=== PATIENT | female | born 1950 | race Two or more races ===

== ENCOUNTER → 2017-02-08 | Outpatient (CLI) | payer OTHER | END | disposition home or self-care (01) | LOC: Rad HDHVI 14:07 | PROVIDERS: ATTEND Internal Medicine Cardiovascular Disease | DX: I50.33 Acute on chronic diastolic (congestive) heart failure (principal); E66.9 Obesity, unspecified | CPT/HCPCS: 93306 ==

== ENCOUNTER → 2017-02-14 | Outpatient (CLI) | payer OTHER ==
[~2017-02-14] VITALS: Ht 154.9 cm; Wt 104.3 kg
[~2017-02-14] MED LIST: ALBUTEROL SULF 2.5 MG/0.5ML(0.5%) NEB SOLN ONE; DIPYRIDAMOLE (5MG/ML) 10 ML VIAL IV ONE
== END | disposition home or self-care (01) ==
LOC: Rad HDHVI 09:39
PROVIDERS: ATTEND Internal Medicine Cardiovascular Disease
DX: I11.0 Hypertensive heart disease with heart failure (principal); I50.33 Acute on chronic diastolic (congestive) heart failure; E11.65 Type 2 diabetes mellitus with hyperglycemia; J44.9 Chronic obstructive pulmonary disease, unspecified; G47.30 Sleep apnea, unspecified; E78.00 Pure hypercholesterolemia, unspecified; R06.89 Other abnormalities of breathing; E70.0 Classical phenylketonuria
CPT/HCPCS: 78452; 93005; 96374; 96375; A9500; J1245

== ENCOUNTER → 2017-03-15 | Outpatient (CLI) | payer OTHER | END | disposition home or self-care (01) | LOC: Rad HDHVI 11:08 | PROVIDERS: ATTEND Internal Medicine Cardiovascular Disease | DX: I51.7 Cardiomegaly (principal); I70.0 Atherosclerosis of aorta; I50.9 Heart failure, unspecified | CPT/HCPCS: 71020 ==

== ENCOUNTER → 2017-04-13 | Outpatient (CLI) | payer OTHER ==
[~2017-04-13] MED LIST changes: -ALBUTEROL SULF 2.5 MG/0.5ML(0.5%) NEB SOLN ONE; -DIPYRIDAMOLE (5MG/ML) 10 ML VIAL IV ONE; +EZET10TA6 PO; +FUROSEMIDE 100 MG/10ML VIAL IV ONE; +FUROSEMIDE 40 MG/4 ML VIAL ONE; +GABA300C10 PO; +IBUP800T24 PO; +INS7030I SC; +INSLANTI SC; +METF-370 PO; +METO25TA3 PO; +POTASSIUM CHL 20 Meq TABLET PO ONE
[2017-04-13 12:00] VITALS: BP 130/68
[2017-04-13 12:40] VITALS: BP 140/79
== END | disposition home or self-care (01) ==
LOC: CHF HDHVI 12:09
PROVIDERS: ATTEND Internal Medicine Cardiovascular Disease
DX: I50.9 Heart failure, unspecified (principal); E11.9 Type 2 diabetes mellitus without complications; I25.10 Atherosclerotic heart disease of native coronary artery without angina pectoris
CPT/HCPCS: 82962; 96374; G0463; J1940

== ENCOUNTER → 2017-05-18 | Outpatient (CLI) | payer MEDICARE, OTHER ==
[~2017-05-18] MED LIST changes: -FUROSEMIDE 100 MG/10ML VIAL IV ONE; -FUROSEMIDE 40 MG/4 ML VIAL ONE; -POTASSIUM CHL 20 Meq TABLET PO ONE
[2017-05-18 11:40] VITALS: BP 137/69
[2017-05-18 12:25] VITALS: BP 136/72
[2017-05-18 16:47] LABS: Basophils # (auto) 0 uL; Basophils % (auto) 0.4 % (0.0-2.0); Eosinophils # (auto) 0.5 uL; Hemoglobin 12.8 g/dL (12.2-16.2); Nucleated Red Blood Cells % 0.3 %
[2017-05-18 16:48] LABS: Eosinophils % (auto) 4.5 % (0.0-7.0); Hematocrit 40.4 % (36.0-46.0); Lymphocytes # (auto) 2.1 uL; Lymphocytes % (auto) 19.3 % (10.0-50.0); Mean Corpuscular Hemoglobin 25.6 pg (28.0-32.0); Mean Corpuscular Hgb Conc. 31.7 g/dL (32.0-36.0); Mean Corpuscular Volume 80.8 fL (80.0-100.0); Monocytes # (auto) 0.4 uL; Monocytes % (auto) 3.6 % (0.0-12.0); Neutrophils # (auto) 7.8 uL; Neutrophils % (auto) 72.2 % (37.0-80.0); Platelet Count (auto) 225 10^3/uL (140-450); Red Cell Distribution Width 15.7 % (11.8-14.3); White Blood Cell 10.9 10^3/uL (4.4-10.8)
[2017-05-18 16:54] LABS: INR 0.98 (0.9-1.15); Partial Thromboplastin Time 29.8 sec (22.64-33.71); Prothrombin Time 10.7 sec (9.37-12.3)
[2017-05-18 17:09] LABS: BUN/Creatinine Ratio 19.7; Potassium 4.3 mmol/L (3.5-5.1)
== END | disposition home or self-care (01) ==
LOC: Rad HDHVI 11:09
PROVIDERS: ATTEND Internal Medicine Cardiovascular Disease
DX: Z01.818 Encounter for other preprocedural examination (principal); I51.7 Cardiomegaly; I70.0 Atherosclerosis of aorta; D64.9 Anemia, unspecified; R79.1 Abnormal coagulation profile; I10 Essential (primary) hypertension; J44.9 Chronic obstructive pulmonary disease, unspecified; E78.00 Pure hypercholesterolemia, unspecified
CPT/HCPCS: 36415; 71046; 80048; 85025; 85610; 85730; 93005; G0463

== ENCOUNTER 2017-05-24 08:01 | Day surgery (SDC) | payer MEDICARE, OTHER ==
[~2017-05-24] VITALS: Ht 154.9 cm; Wt 104.3 kg
[2017-05-24] MEDS ORDERED: LIDOCAINE 2%HCL (LOCAL ANESTH.) INJ 20ML MDV ONE ×2 (10:21→10:55)
[2017-05-24] MEDS ORDERED: IOHEXOL 350 MG/ML 100ML IJ ONE (10:21)
[2017-05-24] MEDS ORDERED: fentaNYL CITRATE 100 MCG/2 ML VL ONE (10:31)
[2017-05-24] MEDS ORDERED: ANGIOMAX 250 MG VIAL IV ONE (10:31)
[2017-05-24] MEDS ORDERED: SODIUM CHL 0.9% 0 ML ONE (10:31)
[2017-05-24] MEDS ORDERED: MIDAZOLAM HCL 1MG/1ML-2 ML VIAL ONE (10:31)
[2017-05-24] MEDS ORDERED: IBUPROFEN 800 MG TAB PO ONE ×2 (12:45→12:52)
[2017-05-24] MEDS ORDERED: IBUP800T24 PO (13:02)
[2017-05-24] MEDS ORDERED: GABA300C10 PO (13:02)
[2017-05-24] MEDS ORDERED: EZET10TA6 PO (13:02)
[2017-05-24] MEDS ORDERED: METF-370 PO (13:02)
[2017-05-24] MEDS ORDERED: INSLANTI SC (13:02)
[2017-05-24] MEDS ORDERED: INS7030I SC (13:02)
[2017-05-24] MEDS ORDERED: METO25TA3 PO (13:02)
== END 2017-05-24 14:00 | disposition home or self-care (01) ==
LOC: CATH 08:01
PROVIDERS: ATTEND Internal Medicine Cardiovascular Disease
DX: I50.30 Unspecified diastolic (congestive) heart failure (principal); I27.20 Pulmonary hypertension, unspecified; E66.01 Morbid (severe) obesity due to excess calories; Z68.41 Body mass index [BMI] 40.0-44.9, adult; I10 Essential (primary) hypertension; E78.5 Hyperlipidemia, unspecified; Z87.891 Personal history of nicotine dependence; J44.9 Chronic obstructive pulmonary disease, unspecified; E11.9 Type 2 diabetes mellitus without complications
CPT/HCPCS: 93460; C1760; C1894; J1644; J2250; J3010; J7030; Q9967; 99152

== ENCOUNTER → 2017-06-28 | Outpatient (CLI) | payer MEDICARE, OTHER ==
[~2017-06-28] MED LIST changes: +ALBUTEROL SULF 2.5 MG/0.5ML(0.5%) NEB SOLN NEB ONE; +ALBUTEROL SULF 2.5 MG/0.5ML(0.5%) NEB SOLN ONE; +FUROSEMIDE 40 MG/4 ML VIAL IV ONE; +FUROSEMIDE 40 MG/4 ML VIAL ONE; +IOHEXOL 350 MG/ML 100ML IJ ONE; +POTASSIUM CHL 20 Meq TABLET PO ONE
[2017-06-28 13:30] VITALS: BP 138/60
[2017-06-28 15:00] VITALS: BP 121/58
== END | disposition home or self-care (01) ==
LOC: CHF HDHVI 13:32
PROVIDERS: ATTEND Internal Medicine Cardiovascular Disease
DX: I27.21 Secondary pulmonary arterial hypertension (principal); E66.9 Obesity, unspecified; J44.9 Chronic obstructive pulmonary disease, unspecified
CPT/HCPCS: 70498; 82565; 94640; 96374; G0463; J1940; Q9967

== ENCOUNTER 2017-08-07 16:18 | Inpatient (IN) | payer MEDICARE, OTHER ==
[~2017-08-07] VITALS: Ht 154.9 cm; Wt 105.9 kg
[~2017-08-07 16:18] MED LIST changes: -ALBUTEROL SULF 2.5 MG/0.5ML(0.5%) NEB SOLN NEB ONE; -ALBUTEROL SULF 2.5 MG/0.5ML(0.5%) NEB SOLN ONE; -FUROSEMIDE 40 MG/4 ML VIAL IV ONE; -FUROSEMIDE 40 MG/4 ML VIAL ONE; -IOHEXOL 350 MG/ML 100ML IJ ONE; -POTASSIUM CHL 20 Meq TABLET PO ONE
[2017-08-07] MEDS ORDERED: FUROSEMIDE 40 MG/4 ML VIAL IV ONE (17:15)
[2017-08-07 17:18] LABS: Alanine Aminotransferase 24 U/L (13-56); Anion Gap 11 (5-15); Aspartate Aminotransferase 16 U/L (15-37); BUN/Creatinine Ratio 14.2; Blood Urea Nitrogen 16 mg/dL (7-18); Calcium 8.2 mg/dL (8.5-10.1); Carbon Dioxide 28 mmol/L (21-32); Chloride 102 mmol/L (98-107); GFR African American 62 mL/min; GFR Non-African American 51 mL/min; Glucose 178 mg/dL (74-106); Hematocrit 39.4 % (36.0-46.0); Mean Corpuscular Hemoglobin 25.6 pg (28.0-32.0); Monocytes # (auto) 0.5 uL; Neutrophils # (auto) 9.5 uL; Nucleated Red Blood Cells % 0.1 %; Potassium 4.2 mmol/L (3.5-5.1); Red Cell Distribution Width 15.4 % (11.8-14.3); Sodium 141 mmol/L (136-145)
[2017-08-07 17:21] LABS: Basophils # (auto) 0 uL; Basophils % (auto) 0.3 % (0.0-2.0); Eosinophils # (auto) 0.5 uL; Eosinophils % (auto) 4.3 % (0.0-7.0); Hemoglobin 12.5 g/dL (12.2-16.2); Lymphocytes # (auto) 1.8 uL; Lymphocytes % (auto) 14.6 % (10.0-50.0); Mean Corpuscular Hgb Conc. 31.7 g/dL (32.0-36.0); Mean Corpuscular Volume 80.9 fL (80.0-100.0); Neutrophils % (auto) 76.8 % (37.0-80.0); Platelet Count (auto) 279 10^3/uL (140-450); Red Blood Cells 4.87 10^6/uL (4.0-5.20); White Blood Cell 12.4 10^3/uL (4.4-10.8)
[2017-08-07 17:36] LABS: Alkaline Phosphatase 122 U/L (45-117); Bilirubin, Total 0.5 mg/dL (0.2-1.0); Total Protein 7.6 g/dL (6.4-8.2)
[2017-08-07 21:27] LABS: Urine Bacteria NONE SEEN /hpf (None Seen); Urine Blood Negative /uL (Negative); Urine Mucus FEW (None Seen); Urine Specific Gravity 1.006 (1.001-1.035); Urine WBC 1 /hpf (0 - 5)
[2017-08-07] MEDS ORDERED: ALBUTEROL SULF 2.5 MG/0.5ML(0.5%) NEB SOLN NEB ONE (22:30)
[2017-08-07] MEDS ORDERED: IPRATROPIUM BROM 0.5 MG/2.5ML INH SOL NEB ONE (22:30)
[2017-08-07] MEDS ORDERED: DEXTROSE (50%) 50ML SYRG IV PRN (23:15)
[2017-08-07] MEDS ORDERED: cefTRIAXone 1GM/10ml IVPUSH 10 ML IV ONE (23:15)
[2017-08-07] MEDS ORDERED: ONDANSETRON HCL 4 MG/2 ML VIAL IV PRN (23:15)
[2017-08-07] MEDS ORDERED: NITROGLYCERIN 0.4 MG SL TAB SL PRN (23:15)
[2017-08-07] MEDS ORDERED: TEMAZEPAM 15 MG CAP PO PRN (23:15)
[2017-08-07] MEDS ORDERED: MORPHINE SULFATE 4 MG/ML SYR/VIAL IV PRN (23:15)
[2017-08-07] MEDS ORDERED: IPRATROPIUM BROM 0.5 MG/2.5ML INH SOL NEB PRN (23:15)
[2017-08-07] MEDS ORDERED: ACETAMINOPHEN 325 MG TAB PO PRN ×2 (23:15)
[2017-08-07] MEDS ORDERED: DOCUSATE SOD 100 MG CAP PO PRN (23:15)
[2017-08-07] MEDS ORDERED: ALBUTEROL SULF 2.5 MG/0.5ML(0.5%) NEB SOLN NEB PRN (23:15)
[2017-08-07] MEDS: InsuLIN REG 1unit/0.01ml Soln (100units/ml) SC SCH (23:48)
[2017-08-07] MEDS: ACCU-CHEK COMFORT CURVE STRIP VI SCH (23:48)
[2017-08-07 23:49] VITALS: BP 131/90
[2017-08-08] VITALS (8 sets, daily range): BP systolic 108–153; BP diastolic 42–91
[2017-08-08] MEDS: FUROSEMIDE 20 MG TAB PO SCH ×2 (06:04→17:55)
[2017-08-08] MEDS: InsuLIN REG 1unit/0.01ml Soln (100units/ml) SC SCH ×4 (06:05→23:45)
[2017-08-08] MEDS: GABAPENTIN 300 MG CAP PO SCH ×3 (06:05→21:18)
[2017-08-08] MEDS: ACCU-CHEK COMFORT CURVE STRIP VI SCH ×3 (06:06→17:39)
[2017-08-08 07:10] LABS: Basophils # (auto) 0 uL; Eosinophils # (auto) 0.7 uL; Hemoglobin 12.5 g/dL (12.2-16.2); White Blood Cell 11.7 10^3/uL (4.4-10.8)
[2017-08-08 07:11] LABS: Basophils % (auto) 0.3 % (0.0-2.0); Eosinophils % (auto) 6.1 % (0.0-7.0); Hematocrit 39.4 % (36.0-46.0); Lymphocytes # (auto) 2.2 uL; Lymphocytes % (auto) 19.2 % (10.0-50.0); Mean Corpuscular Hemoglobin 25.8 pg (28.0-32.0); Mean Corpuscular Hgb Conc. 31.8 g/dL (32.0-36.0); Mean Corpuscular Volume 80.9 fL (80.0-100.0); Monocytes # (auto) 0.6 uL; Monocytes % (auto) 5.2 % (0.0-12.0); Neutrophils # (auto) 8.1 uL; Neutrophils % (auto) 69.2 % (37.0-80.0); Nucleated Red Blood Cells % 0.1 %; Platelet Count (auto) 265 10^3/uL (140-450); Red Blood Cells 4.87 10^6/uL (4.0-5.20); Red Cell Distribution Width 15.6 % (11.8-14.3)
[2017-08-08 07:13] LABS: Potassium 3.9 mmol/L (3.5-5.1)
[2017-08-08 07:18] LABS: Albumin 3.2 g/dL (3.4-5.0); Calcium 8.6 mg/dL (8.5-10.1)
[2017-08-08 07:28] LABS: Bilirubin, Total 0.6 mg/dL (0.2-1.0); Total Protein 7.8 g/dL (6.4-8.2)
[2017-08-08] MEDS: METOPROLOL SUCCINATE XL 50 MG TAB PO SCH (10:00)
[2017-08-08] MEDS: FAMOTIDINE 20 MG TAB PO SCH ×2 (10:35→21:18)
[2017-08-08] MEDS: cefTRIAXone 1GM/10ml IVPUSH 10 ML IV SCH (10:35)
[2017-08-08] MEDS: ENOXAPARIN SOD 40 MG/0.4 ML SYRINGE SC SCH (10:35)
[2017-08-08] MEDS ORDERED: ADENOSINE 87 MG in GIVE UN-DILUTED 0 ML IV STA (11:07)
[2017-08-08] MEDS ORDERED: ALBUTEROL SULF 2.5 MG/0.5ML(0.5%) NEB SOLN ONE (11:53)
[2017-08-08] MEDS ORDERED: IPRATROPIUM BROM 0.5 MG/2.5ML INH SOL ONE (11:54)
[2017-08-08] MEDS: Boost Glucose Control 8 Ounces PO SCH (17:56)
[2017-08-08] MEDS: ALBUTEROL SULF 2.5 MG/0.5ML(0.5%) NEB SOLN NEB SCH ×2 (18:24→22:11)
[2017-08-08] MEDS: IPRATROPIUM BROM 0.5 MG/2.5ML INH SOL NEB SCH ×2 (18:24→22:11)
[2017-08-09] MEDS: ACCU-CHEK COMFORT CURVE STRIP VI SCH ×4 (00:29→18:00)
[2017-08-09] MEDS: ALBUTEROL SULF 2.5 MG/0.5ML(0.5%) NEB SOLN NEB SCH ×4 (03:18→13:53)
[2017-08-09] MEDS: IPRATROPIUM BROM 0.5 MG/2.5ML INH SOL NEB SCH ×4 (03:18→13:53)
[2017-08-09 05:41] VITALS: BP 127/68
[2017-08-09] MEDS: GABAPENTIN 300 MG CAP PO SCH ×2 (05:57→14:25)
[2017-08-09] MEDS: FUROSEMIDE 20 MG TAB PO SCH ×2 (05:57→18:00)
[2017-08-09] MEDS: InsuLIN REG 1unit/0.01ml Soln (100units/ml) SC SCH ×3 (06:06→18:00)
[2017-08-09 07:02] LABS: Eosinophils # (auto) 0.6 uL; Hematocrit 38.6 % (36.0-46.0); Lymphocytes # (auto) 1.9 uL; Mean Corpuscular Volume 80.7 fL (80.0-100.0); Red Cell Distribution Width 15.6 % (11.8-14.3)
[2017-08-09 07:05] LABS: Anion Gap 9 (5-15); BUN/Creatinine Ratio 17.6; Blood Urea Nitrogen 15 mg/dL (7-18); Calcium 8.5 mg/dL (8.5-10.1); Carbon Dioxide 33 mmol/L (21-32); Chloride 95 mmol/L (98-107); GFR African American 86 mL/min; GFR Non-African American 71 mL/min; Glucose 155 mg/dL (74-106); Potassium 3.6 mmol/L (3.5-5.1); Sodium 137 mmol/L (136-145)
[2017-08-09 07:07] LABS: Basophils # (auto) 0 uL; Basophils % (auto) 0.2 % (0.0-2.0); Eosinophils % (auto) 5.4 % (0.0-7.0); Hemoglobin 12.3 g/dL (12.2-16.2); Lymphocytes % (auto) 16.3 % (10.0-50.0); Mean Corpuscular Hemoglobin 25.7 pg (28.0-32.0); Mean Corpuscular Hgb Conc. 31.8 g/dL (32.0-36.0); Monocytes # (auto) 0.6 uL; Monocytes % (auto) 5.4 % (0.0-12.0); Neutrophils # (auto) 8.5 uL; Neutrophils % (auto) 72.7 % (37.0-80.0); Platelet Count (auto) 262 10^3/uL (140-450); Red Blood Cells 4.79 10^6/uL (4.0-5.20); White Blood Cell 11.7 10^3/uL (4.4-10.8)
[2017-08-09] MEDS: FAMOTIDINE 20 MG TAB PO SCH (09:00)
[2017-08-09] MEDS: cefTRIAXone 1GM/10ml IVPUSH 10 ML IV SCH (09:00)
[2017-08-09] MEDS: Boost Glucose Control 8 Ounces PO SCH ×3 (09:00→18:00)
[2017-08-09] MEDS: METOPROLOL SUCCINATE XL 50 MG TAB PO SCH (09:01)
[2017-08-09 09:59] VITALS: BP 125/77
[2017-08-09] MEDS: ENOXAPARIN SOD 40 MG/0.4 ML SYRINGE SC SCH (11:57)
[2017-08-09 12:00] VITALS: BP 118/69
[2017-08-09 17:10] VITALS: BP 120/67
== END 2017-08-09 19:43 | disposition home or self-care (01) | DRG 291 ==
LOC: ER 16:21 → TELE 16:22 → TELE-WESTW 23:28
PROVIDERS: ADMIT Nurse Practitioner; ATTEND Internal Medicine
DX: I13.0 Hypertensive heart and chronic kidney disease with heart failure and stage 1 through stage 4 chronic kidney disease, or unspecified chronic kidney disease (principal); I50.33 Acute on chronic diastolic (congestive) heart failure; E44.0 Moderate protein-calorie malnutrition; J96.10 Chronic respiratory failure, unspecified whether with hypoxia or hypercapnia; Z68.41 Body mass index [BMI] 40.0-44.9, adult; E11.22 Type 2 diabetes mellitus with diabetic chronic kidney disease; Z99.81 Dependence on supplemental oxygen; J44.9 Chronic obstructive pulmonary disease, unspecified; G47.00 Insomnia, unspecified; E11.65 Type 2 diabetes mellitus with hyperglycemia; E66.01 Morbid (severe) obesity due to excess calories; D72.829 Elevated white blood cell count, unspecified; Z87.891 Personal history of nicotine dependence; Z90.710 Acquired absence of both cervix and uterus; Z90.49 Acquired absence of other specified parts of digestive tract; Z79.4 Long term (current) use of insulin; Z79.899 Other long term (current) drug therapy; N18.2 Chronic kidney disease, stage 2 (mild)
CPT/HCPCS: 36415; 71045; 80048; 80053; 81001; 82962; 83036; 83880; 84484; 85025; 93005; 93017; 94640; 96374; 96375; J0153; J1815

== ENCOUNTER → 2017-09-24 | Outpatient (CLI) | payer MEDICARE, OTHER ==
[~2017-09-24] MED LIST changes: -EZET10TA6 PO; +IOHEXOL 350 MG/ML 100ML IJ ONE; -METO25TA3 PO; +READI-CAT 2 (BARIUM SULF)(VANILLA SMOOTHIE) 450ML ONE
[2017-09-24 09:15] VITALS: BP 123/61
[2017-09-24 12:10] VITALS: BP 135/48
[2017-09-24 12:12] LABS: Basophils # (auto) 0 uL; Basophils % (auto) 0.2 % (0.0-2.0); Eosinophils # (auto) 0.4 uL; Eosinophils % (auto) 3.3 % (0.0-7.0); Hematocrit 41.8 % (36.0-46.0); Hemoglobin 13.2 g/dL (12.2-16.2); Lymphocytes # (auto) 1.7 uL; Lymphocytes % (auto) 13.6 % (10.0-50.0); Mean Corpuscular Hemoglobin 24.5 pg (28.0-32.0); Mean Corpuscular Hgb Conc. 31.5 g/dL (32.0-36.0); Monocytes # (auto) 0.5 uL; Monocytes % (auto) 3.8 % (0.0-12.0); Neutrophils # (auto) 10.1 uL; Neutrophils % (auto) 79.1 % (37.0-80.0); Nucleated Red Blood Cells % 0.1 %; Platelet Count (auto) 267 10^3/uL (140-450); Red Blood Cells 5.36 10^6/uL (4.0-5.20); Red Cell Distribution Width 15.9 % (11.8-14.3); White Blood Cell 12.7 10^3/uL (4.4-10.8)
[2017-09-24 12:22] LABS: Urine Bacteria NONE SEEN /hpf (None Seen); Urine Blood Negative /uL (Negative); Urine Specific Gravity 1.018 (1.001-1.035); Urine WBC 13 /hpf (0 - 5)
[2017-09-24 12:25] LABS: Potassium 3.5 mmol/L (3.5-5.1)
[2017-09-24 12:54] LABS: Albumin 3.1 g/dL (3.4-5.0); BUN/Creatinine Ratio 19.4; Calcium 8.6 mg/dL (8.5-10.1); Magnesium 2.2 mg/dL (1.6-2.6); Total Protein 7.7 g/dL (6.4-8.2)
== END | disposition home or self-care (01) ==
LOC: CHF HDHVI 09:10
PROVIDERS: ATTEND Internal Medicine Cardiovascular Disease
DX: K44.9 Diaphragmatic hernia without obstruction or gangrene (principal); N28.1 Cyst of kidney, acquired; I70.0 Atherosclerosis of aorta; R74.8 Abnormal levels of other serum enzymes; I10 Essential (primary) hypertension; D64.9 Anemia, unspecified; E55.9 Vitamin D deficiency, unspecified; E11.9 Type 2 diabetes mellitus without complications; N39.0 Urinary tract infection, site not specified; Z90.49 Acquired absence of other specified parts of digestive tract
CPT/HCPCS: 36415; 74177; 80053; 81001; 82150; 82306; 82565; 82962; 83036; 83690; 83735; 85025; 87086; G0463; Q9967

== ENCOUNTER → 2017-12-20 | Outpatient (CLI) | payer MEDICARE, OTHER ==
[~2017-12-20] MED LIST changes: -IOHEXOL 350 MG/ML 100ML IJ ONE; -READI-CAT 2 (BARIUM SULF)(VANILLA SMOOTHIE) 450ML ONE
[2017-12-20 10:05] VITALS: BP 125/61
[2017-12-20 11:25] VITALS: BP 116/53
[2017-12-20 12:15] LABS: Basophils # (auto) 0 uL; Basophils % (auto) 0.3 % (0.0-2.0); Eosinophils # (auto) 0.4 uL; Hemoglobin 12.8 g/dL (12.2-16.2); Lymphocytes # (auto) 2.2 uL; Mean Corpuscular Hemoglobin 24.2 pg (28.0-32.0); Monocytes # (auto) 0.5 uL; Red Blood Cells 5.28 10^6/uL (4.0-5.20); White Blood Cell 9.9 10^3/uL (4.4-10.8)
[2017-12-20 12:17] LABS: Hematocrit 40.8 % (36.0-46.0); Lymphocytes % (auto) 22.6 % (10.0-50.0); Mean Corpuscular Hgb Conc. 31.3 g/dL (32.0-36.0); Mean Corpuscular Volume 77.4 fL (80.0-100.0); Neutrophils # (auto) 6.7 uL; Neutrophils % (auto) 68.1 % (37.0-80.0); Nucleated Red Blood Cells % 0.1 %; Platelet Count (auto) 267 10^3/uL (140-450); Red Cell Distribution Width 17.2 % (11.8-14.3)
[2017-12-20 13:45] LABS: BUN/Creatinine Ratio 17.4; Calcium 8.5 mg/dL (8.5-10.1)
== END | disposition home or self-care (01) ==
LOC: CHF HDHVI 10:15
PROVIDERS: ATTEND Internal Medicine Cardiovascular Disease
DX: I10 Essential (primary) hypertension (principal); E11.9 Type 2 diabetes mellitus without complications; D64.9 Anemia, unspecified; R94.6 Abnormal results of thyroid function studies; K21.9 Gastro-esophageal reflux disease without esophagitis; I27.21 Secondary pulmonary arterial hypertension; R06.02 Shortness of breath
CPT/HCPCS: 36415; 80048; 83036; 84443; 85025; 93701; 94618; G0463

== ENCOUNTER → 2018-03-11 | Outpatient (CLI) | payer MEDICARE, OTHER ==
[2018-03-11 10:30] VITALS: BP 112/66
[2018-03-11 13:00] VITALS: BP 130/79
[2018-03-11 16:18] LABS: Calcium 8.9 mg/dL (8.5-10.1); Magnesium 2.2 mg/dL (1.6-2.6)
[2018-03-11 16:20] LABS: BUN/Creatinine Ratio 24.1
[2018-03-11 17:23] LABS: Basophils # (auto) 0.1 uL; Eosinophils # (auto) 0.5 uL; Hemoglobin 14.2 g/dL (12.2-16.2); Mean Corpuscular Hemoglobin 25.1 pg (28.0-32.0); Mean Corpuscular Hgb Conc. 31.8 g/dL (32.0-36.0); Mean Corpuscular Volume 78.9 fL (80.0-100.0); Monocytes # (auto) 0.5 uL; Nucleated Red Blood Cells % 0.2 %; White Blood Cell 10.9 10^3/uL (4.4-10.8)
[2018-03-11 17:24] LABS: Basophils % (auto) 0.5 % (0.0-2.0); Eosinophils % (auto) 4.9 % (0.0-7.0); Hematocrit 44.6 % (36.0-46.0); Lymphocytes # (auto) 2.3 uL; Neutrophils # (auto) 7.5 uL; Neutrophils % (auto) 68.6 % (37.0-80.0); Platelet Count (auto) 255 10^3/uL (140-450); Red Blood Cells 5.65 10^6/uL (4.0-5.20); Red Cell Distribution Width 15.9 % (11.8-14.3)
== END | disposition home or self-care (01) ==
LOC: CHF HDHVI 10:37
PROVIDERS: ATTEND Internal Medicine Cardiovascular Disease
DX: I27.0 Primary pulmonary hypertension (principal); I50.9 Heart failure, unspecified; E11.9 Type 2 diabetes mellitus without complications; I25.10 Atherosclerotic heart disease of native coronary artery without angina pectoris; D64.9 Anemia, unspecified; E55.9 Vitamin D deficiency, unspecified
CPT/HCPCS: 36415; 80048; 82306; 83735; 85025; 93701; 94618; G0463

== ENCOUNTER → 2018-05-09 | Outpatient (CLI) | payer MEDICARE, OTHER ==
[~2018-05-09] MED LIST changes: +EZET10TA6 PO; +FURO40TA4 PO; -IBUP800T24 PO; -METF-370 PO; +METF-372 PO; +METO-5 PO; +RIOC1TAB3 PO
== END | disposition home or self-care (01) ==
LOC: Rad HDHVI 13:02
PROVIDERS: ATTEND Internal Medicine Cardiovascular Disease
DX: I11.0 Hypertensive heart disease with heart failure (principal); I50.9 Heart failure, unspecified; J44.9 Chronic obstructive pulmonary disease, unspecified
CPT/HCPCS: 93306

== ENCOUNTER → 2018-06-12 | Outpatient (CLI) | payer MEDICARE, OTHER ==
[~2018-06-12] MED LIST changes: +BUMETANIDE (0.25MG/ML) 4 ML VIAL IV ONE; +BUMETANIDE (0.25MG/ML) 4 ML VIAL ONE; +POTASSIUM CHL 10 Meq TABLET PO ONE
[2018-06-12 12:55] VITALS: BP 137/74
--- NOTE | 2018-06-12 14:00 | NUR ---
CARDIODYNAMICS PERFORMED BY CHRISTIANO HARMAN, RESULTS REVIEWED WITH PATIENT BY GWEN TURNER
[2018-06-12 15:00] VITALS: BP 133/70
--- NOTE | 2018-06-12 15:00 | NUR ---
[facility] CLINIC Discharge Instructions See e-MAR for any mediations given with this visit. Patient education given on disease process. Patient verbalized understanding. Previous labs reviewed. Patient discharged in stable condition with after care instructions and follow up appointment. NOTE BUMEX IVP ADMIN BY SHABANA TURNER POTASSIUM PO ADMIN BY SHABANA TURNER
[2018-06-12 15:33] LABS: Basophils # (auto) 0 uL; Basophils % (auto) 0.3 % (0.0-2.0); Eosinophils # (auto) 0.5 uL; Eosinophils % (auto) 5.3 % (0.0-7.0); Hematocrit 40.8 % (36.0-46.0); Hemoglobin 13.3 g/dL (12.2-16.2); Lymphocytes # (auto) 1.3 uL; Lymphocytes % (auto) 13.5 % (10.0-50.0); Mean Corpuscular Hgb Conc. 32.5 g/dL (32.0-36.0); Mean Corpuscular Volume 79.9 fL (80.0-100.0); Monocytes # (auto) 0.5 uL; Monocytes % (auto) 5.2 % (0.0-12.0); Neutrophils # (auto) 7.3 uL; Neutrophils % (auto) 75.7 % (37.0-80.0); Platelet Count (auto) 244 10^3/uL (140-450); Red Blood Cells 5.11 10^6/uL (4.0-5.20); Red Cell Distribution Width 16.1 % (11.8-14.3); White Blood Cell 9.7 10^3/uL (4.4-10.8)
[2018-06-12 15:34] LABS: Calcium 8.5 mg/dL (8.5-10.1)
[2018-06-12 15:41] LABS: Albumin 3.3 g/dL (3.4-5.0); BUN/Creatinine Ratio 11.7; Bilirubin, Total 0.9 mg/dL (0.2-1.0); Magnesium 2.2 mg/dL (1.6-2.6); Total Protein 7.4 g/dL (6.4-8.2)
== END | disposition home or self-care (01) ==
LOC: CHF HDHVI 12:51
PROVIDERS: ATTEND Internal Medicine Cardiovascular Disease
DX: I11.0 Hypertensive heart disease with heart failure (principal); I50.23 Acute on chronic systolic (congestive) heart failure; E83.40 Disorders of magnesium metabolism, unspecified; D64.9 Anemia, unspecified; I25.10 Atherosclerotic heart disease of native coronary artery without angina pectoris; J44.9 Chronic obstructive pulmonary disease, unspecified; R60.9 Edema, unspecified; I27.21 Secondary pulmonary arterial hypertension; R06.02 Shortness of breath
CPT/HCPCS: 36415; 80053; 82962; 83735; 83880; 85025; 93701; 96374; G0463; J3490; 71046

== ENCOUNTER 2018-06-18 12:10 | Inpatient (IN) | payer MEDICARE, OTHER ==
[~2018-06-18] VITALS: Ht 154.9 cm; Wt 98.4 kg
[~2018-06-18 12:10] MED LIST changes: -BUMETANIDE (0.25MG/ML) 4 ML VIAL IV ONE; -BUMETANIDE (0.25MG/ML) 4 ML VIAL ONE; -POTASSIUM CHL 10 Meq TABLET PO ONE
[2018-06-18 13:12] LABS: Basophils # (auto) 0 uL; Basophils % (auto) 0.4 % (0.0-2.0); Eosinophils # (auto) 0.5 uL; Eosinophils % (auto) 5.7 % (0.0-7.0); Hematocrit 40.5 % (36.0-46.0); Lymphocytes # (auto) 1.4 uL; Lymphocytes % (auto) 14.4 % (10.0-50.0); Mean Corpuscular Hemoglobin 25.6 pg (28.0-32.0); Mean Corpuscular Hgb Conc. 32.1 g/dL (32.0-36.0); Mean Corpuscular Volume 79.8 fL (80.0-100.0); Monocytes # (auto) 0.4 uL; Monocytes % (auto) 4.5 % (0.0-12.0); Neutrophils # (auto) 7.1 uL; Nucleated Red Blood Cells % 0.1 %; Platelet Count (auto) 231 10^3/uL (140-450); Red Blood Cells 5.07 10^6/uL (4.0-5.20); Red Cell Distribution Width 15.8 % (11.8-14.3); White Blood Cell 9.5 10^3/uL (4.4-10.8)
[2018-06-18 13:28] LABS: Albumin 3.4 g/dL (3.4-5.0); Anion Gap 4 (5-15); Blood Urea Nitrogen 13 mg/dL (7-18); Calcium 9.3 mg/dL (8.5-10.1); Carbon Dioxide 35 mmol/L (21-32); Chloride 99 mmol/L (98-107); Glucose 269 mg/dL (74-106); Potassium 4.1 mmol/L (3.5-5.1); Sodium 138 mmol/L (136-145)
[2018-06-18 13:34] LABS: Alanine Aminotransferase 17 U/L (13-56); Alkaline Phosphatase 121 U/L (45-117); Aspartate Aminotransferase 15 U/L (15-37); BUN/Creatinine Ratio 16.3; Bilirubin, Total 0.7 mg/dL (0.2-1.0); GFR African American 92 mL/min; GFR Non-African American 76 mL/min; Total Protein 7.5 g/dL (6.4-8.2)
[2018-06-18] MEDS ORDERED: FUROSEMIDE 40 MG/4 ML VIAL IV ONE (14:30)
[2018-06-18] MEDS ORDERED: ACETAMINOPHEN 500 MG TAB PO PRN (19:00)
[2018-06-18] MEDS ORDERED: MORPHINE SULF INJ 2 MG/ML SYRINGE 1ML IV PRN ×2 (19:00)
[2018-06-18] MEDS ORDERED: HYDROcodone-ACET 5/325MG TAB PO PRN (19:00)
[2018-06-18] MEDS ORDERED: ONDANSETRON HCL 4 MG/2 ML VIAL IV PRN (19:00)
[2018-06-18] MEDS ORDERED: methylPREDNISolone SOD SUCC 125 MG/2 ML VL IV ONE (19:00)
[2018-06-18] MEDS ORDERED: NITROGLYCERIN 0.4 MG SL TAB SL PRN (19:00)
[2018-06-18] MEDS ORDERED: DEXTROSE (50%) 50ML SYRG IV PRN (19:30)
[2018-06-18] MEDS: IPRATROPIUM BROM 0.5 MG/2.5ML INH SOL NEB SCH ×2 (19:45→19:46)
[2018-06-18] MEDS: ALBUTEROL SULF 2.5 MG/0.5ML(0.5%) NEB SOLN NEB SCH ×2 (19:45→19:46)
[2018-06-18] MEDS: ADEMPAS 1 MG PO SCH (23:05)
[2018-06-18] MEDS: ATORVASTATIN 20 MG TAB PO SCH (23:06)
[2018-06-18] MEDS: GABAPENTIN 300 MG CAP PO SCH (23:06)
[2018-06-18] MEDS: InsuLIN REG 1unit/0.01ml Soln (100units/ml) SC SCH (23:09)
[2018-06-18] MEDS: ACCU-CHEK COMFORT CURVE STRIP VI SCH (23:10)
[2018-06-19] MEDS ORDERED: ALBUTEROL SULF 2.5 MG/0.5ML(0.5%) NEB SOLN NEB PRN (04:45)
[2018-06-19] MEDS: FUROSEMIDE 20 MG/2 ML VIAL IV SCH ×2 (06:00→19:06)
[2018-06-19] MEDS: IPRATROPIUM BROM 0.5 MG/2.5ML INH SOL NEB SCH ×4 (06:10→19:54)
[2018-06-19] MEDS: ALBUTEROL SULF 2.5 MG/0.5ML(0.5%) NEB SOLN NEB SCH ×4 (06:10→19:55)
[2018-06-19] MEDS: ADEMPAS 1 MG PO SCH ×3 (06:59→21:14)
[2018-06-19] MEDS: INSULIN LANTUS (GLARGINE) 1 /0.01ml (100units/ml) SC SCH (07:06)
[2018-06-19] MEDS: InsuLIN REG 1unit/0.01ml Soln (100units/ml) SC SCH ×4 (07:06→21:32)
[2018-06-19] MEDS: ACCU-CHEK COMFORT CURVE STRIP VI SCH ×4 (07:09→21:26)
[2018-06-19 07:27] LABS: Basophils # (auto) 0 uL; Calcium 9.2 mg/dL (8.5-10.1); Eosinophils # (auto) 0 uL; Monocytes # (auto) 0 uL; Monocytes % (auto) 0.4 % (0.0-12.0); Potassium 4.5 mmol/L (3.5-5.1)
[2018-06-19 07:29] LABS: Basophils % (auto) 0.1 % (0.0-2.0); Hematocrit 41.8 % (36.0-46.0); Hemoglobin 13.5 g/dL (12.2-16.2); Lymphocytes # (auto) 0.8 uL; Lymphocytes % (auto) 7.2 % (10.0-50.0); Mean Corpuscular Hemoglobin 25.8 pg (28.0-32.0); Mean Corpuscular Hgb Conc. 32.3 g/dL (32.0-36.0); Mean Corpuscular Volume 79.8 fL (80.0-100.0); Neutrophils # (auto) 10.4 uL; Neutrophils % (auto) 92.3 % (37.0-80.0); Platelet Count (auto) 241 10^3/uL (140-450); Red Blood Cells 5.23 10^6/uL (4.0-5.20); Red Cell Distribution Width 15.5 % (11.8-14.3); White Blood Cell 11.3 10^3/uL (4.4-10.8)
[2018-06-19 07:30] LABS: BUN/Creatinine Ratio 17.4
[2018-06-19] MEDS: cefTRIAXone 1GM/50ML D5W 50 ML IV SCH (09:30)
[2018-06-19] MEDS: PANTOPRAZOLE 40 MG/10 ML VIAL IV SCH (10:00)
[2018-06-19] MEDS: methylPREDNISolone SOD SUCC 40 MG/ML VL IV SCH ×2 (10:00→21:12)
[2018-06-19] MEDS: GABAPENTIN 300 MG CAP PO SCH ×2 (10:00→21:31)
[2018-06-19] MEDS: AZITHROMYCIN 500MG/ 250ML 250 ML IV SCH (10:44)
[2018-06-19 16:56] VITALS: BP 116/42
[2018-06-19 18:24] VITALS: BP 116/42
--- NOTE | 2018-06-19 19:30 | NUR ---
Opening shift note Patient in bed alert and oriented x 4, verbally coherent able to make needs known. Patient's respiration even and unlabored, denies pain and discomfort at this time. Plan of care discussed, patient verbalized understanding. All needs attended, will continue to monitor.
[2018-06-19] MEDS: ATORVASTATIN 20 MG TAB PO SCH (21:15)
[2018-06-19 22:13] VITALS: BP 127/68
--- NOTE | 2018-06-19 22:28 | NUR ---
Patient noted with productive cough. Patient requesting for cough medication and a sleeping pill. Dr. Negron paged awaiting call back. Will continue to monitor.
--- NOTE | 2018-06-19 22:40 | NUR ---
Received call back from Dr. Negron with new order for Restoril 15mg po qhs prn and Rod AC 10ml po qid prn. Pt made aware and informed, pt verbalized appreciation. Will continue to monitor.
[2018-06-19] MEDS ORDERED: guaiFENesin-CODEINE LIQUID 5 ML UD PO PRN (22:45)
[2018-06-19] MEDS ORDERED: TEMAZEPAM 15 MG CAP PO PRN (22:45)
--- NOTE | 2018-06-20 02:54 | NUR ---
RESPIRATORY CX Specimen bottle provided. Instruction given to call nurse when sample obtained. Patient verbalized understanding.
--- NOTE | 2018-06-20 02:55 | NUR ---
UA Specimen bottle provided. Instruction given to call nurse when sample obtained. Patient verbalized understanding.
[2018-06-20 05:01] VITALS: BP 126/70
[2018-06-20] MEDS: IPRATROPIUM BROM 0.5 MG/2.5ML INH SOL NEB SCH ×3 (05:55→19:18)
[2018-06-20] MEDS: ALBUTEROL SULF 2.5 MG/0.5ML(0.5%) NEB SOLN NEB SCH ×3 (05:55→19:18)
[2018-06-20] MEDS: ADEMPAS 1 MG PO SCH ×3 (06:09→21:41)
[2018-06-20] MEDS: FUROSEMIDE 20 MG/2 ML VIAL IV SCH ×2 (06:09→18:48)
[2018-06-20] MEDS: InsuLIN REG 1unit/0.01ml Soln (100units/ml) SC SCH ×4 (06:23→21:42)
[2018-06-20] MEDS: ACCU-CHEK COMFORT CURVE STRIP VI SCH ×4 (06:24→21:42)
[2018-06-20] MEDS: INSULIN LANTUS (GLARGINE) 1 /0.01ml (100units/ml) SC SCH (06:24)
[2018-06-20 07:26] LABS: Eosinophils # (auto) 0 uL; Hemoglobin 13.3 g/dL (12.2-16.2); Lymphocytes # (auto) 0.8 uL; Monocytes # (auto) 0.3 uL
[2018-06-20 07:27] LABS: Basophils # (auto) 0 uL; Basophils % (auto) 0.1 % (0.0-2.0); Hematocrit 40.9 % (36.0-46.0); Lymphocytes % (auto) 5.5 % (10.0-50.0); Mean Corpuscular Hemoglobin 25.8 pg (28.0-32.0); Mean Corpuscular Hgb Conc. 32.4 g/dL (32.0-36.0); Mean Corpuscular Volume 79.5 fL (80.0-100.0); Monocytes % (auto) 1.9 % (0.0-12.0); Neutrophils # (auto) 14.1 uL; Neutrophils % (auto) 92.5 % (37.0-80.0); Platelet Count (auto) 275 10^3/uL (140-450); Red Blood Cells 5.15 10^6/uL (4.0-5.20); Red Cell Distribution Width 15.6 % (11.8-14.3); White Blood Cell 15.3 10^3/uL (4.4-10.8)
--- NOTE | 2018-06-20 07:30 | NUR ---
Opening Shift Note Assumed care of patient, awake and alert. No S/S of distress/SOB or pain. Instructed on POC and to call for assist PRN, will continue to monitor for changes Q1hr and PRN.
[2018-06-20 07:44] LABS: BUN/Creatinine Ratio 24.3; Calcium 9.1 mg/dL (8.5-10.1); Potassium 4.1 mmol/L (3.5-5.1)
[2018-06-20 08:00] VITALS: BP 126/68
[2018-06-20 08:52] LABS: Urine Bacteria FEW /hpf (None Seen); Urine Blood Negative /uL (Negative); Urine Budding Yeast MANY /hpf (None Seen); Urine Specific Gravity 1.024 (1.001-1.035); Urine WBC 3 /hpf (0 - 5)
[2018-06-20 09:19] VITALS: BP 126/68
--- NOTE | 2018-06-20 10:00 | NUR ---
IV removal IV DC'd with clean sterile technique, catheter fully intact. Pressure dressing applied to site. Patient tolerated well. NOTE: infiltrated. dressing applied and ice pack given for pain.
[2018-06-20] MEDS: methylPREDNISolone SOD SUCC 40 MG/ML VL IV SCH ×2 (10:21→21:18)
[2018-06-20] MEDS: GABAPENTIN 300 MG CAP PO SCH ×2 (10:21→21:26)
--- NOTE | 2018-06-20 11:00 | NUR ---
IV insertion IV access obtained, via clean sterile technique by inserting 22 gauge catheter at left wrist after 4 attempt(s). IV secured properly. No trauma to site. Patient tolerated well.
[2018-06-20] MEDS: cefTRIAXone 1GM/50ML D5W 50 ML IV SCH (11:21)
[2018-06-20] MEDS: PANTOPRAZOLE 40 MG/10 ML VIAL IV SCH (11:22)
[2018-06-20] MEDS: AZITHROMYCIN 500MG/ 250ML 250 ML IV SCH (11:39)
[2018-06-20 13:07] VITALS: BP 123/76
[2018-06-20 16:54] VITALS: BP 125/65
[2018-06-20] MEDS: guaiFENesin-CODEINE LIQUID 5 ML UD PO SCH ×2 (18:47→21:41)
--- NOTE | 2018-06-20 19:30 | NUR ---
Opening shift notes Patient in bed alert and oriented x 4, verbally coherent, able to make needs known. Patient denies pain and discomfort at this time. Plan of care discussed, patient verbalized understanding. All needs attended, will continue to monitor.
[2018-06-20] MEDS: ATORVASTATIN 20 MG TAB PO SCH (21:27)
[2018-06-20 21:30] VITALS: BP 116/56
--- NOTE | 2018-06-20 23:11 | NUR ---
UA MATEUSZ CX sample sent to lab via bullet.
--- NOTE | 2018-06-21 00:30 | NUR ---
Respiratory note: PT ASLEEP. TX NOT GIVEN. NO RESP OBSERVED.
[2018-06-21 04:51] VITALS: BP 136/67
[2018-06-21] MEDS: ADEMPAS 1 MG PO SCH ×2 (05:29→15:40)
[2018-06-21] MEDS: guaiFENesin-CODEINE LIQUID 5 ML UD PO SCH ×2 (05:29→11:36)
[2018-06-21] MEDS: FUROSEMIDE 20 MG/2 ML VIAL IV SCH ×3 (05:30→18:00)
[2018-06-21] MEDS: ACCU-CHEK COMFORT CURVE STRIP VI SCH ×3 (05:47→17:00)
[2018-06-21] MEDS: INSULIN LANTUS (GLARGINE) 1 /0.01ml (100units/ml) SC SCH (05:50)
[2018-06-21] MEDS: InsuLIN REG 1unit/0.01ml Soln (100units/ml) SC SCH ×3 (05:50→17:00)
[2018-06-21 06:43] LABS: Basophils # (auto) 0 uL; Eosinophils # (auto) 0 uL; Hemoglobin 12.8 g/dL (12.2-16.2); Lymphocytes # (auto) 0.6 uL; Mean Corpuscular Volume 79.9 fL (80.0-100.0); Monocytes # (auto) 0.2 uL; Monocytes % (auto) 1.5 % (0.0-12.0); Neutrophils % (auto) 93.8 % (37.0-80.0)
[2018-06-21 06:47] LABS: Lymphocytes % (auto) 4.7 % (10.0-50.0); Mean Corpuscular Hemoglobin 25.6 pg (28.0-32.0); Mean Corpuscular Hgb Conc. 32.1 g/dL (32.0-36.0); Neutrophils # (auto) 12.4 uL; Nucleated Red Blood Cells % 0.1 %; Platelet Count (auto) 223 10^3/uL (140-450); Red Blood Cells 5.01 10^6/uL (4.0-5.20); Red Cell Distribution Width 15.7 % (11.8-14.3); White Blood Cell 13.3 10^3/uL (4.4-10.8)
[2018-06-21 06:49] LABS: Potassium 3.9 mmol/L (3.5-5.1)
[2018-06-21 06:54] LABS: BUN/Creatinine Ratio 29.7; Calcium 8.7 mg/dL (8.5-10.1)
[2018-06-21] MEDS: IPRATROPIUM BROM 0.5 MG/2.5ML INH SOL NEB SCH ×3 (06:59→12:05)
[2018-06-21] MEDS: ALBUTEROL SULF 2.5 MG/0.5ML(0.5%) NEB SOLN NEB SCH ×3 (06:59→12:05)
--- NOTE | 2018-06-21 07:40 | NUR ---
opening patient in bed, bed in lowest position, call light within reach no distress noted at this time will f/u with morning assessment
[2018-06-21 08:40] VITALS: BP 132/68
[2018-06-21] MEDS: AZITHROMYCIN 500MG/ 250ML 250 ML IV SCH (09:26)
[2018-06-21] MEDS: cefTRIAXone 1GM/50ML D5W 50 ML IV SCH (09:26)
[2018-06-21] MEDS: methylPREDNISolone SOD SUCC 40 MG/ML VL IV SCH (09:27)
[2018-06-21] MEDS: GABAPENTIN 300 MG CAP PO SCH (09:27)
[2018-06-21] MEDS: PANTOPRAZOLE 40 MG/10 ML VIAL IV SCH (09:29)
[2018-06-21 12:58] VITALS: BP 121/60
[2018-06-21] MEDS ORDERED: ALBUTEROL SULF 2.5 MG/0.5ML(0.5%) NEB SOLN NEB SCH (14:00)
[2018-06-21] MEDS ORDERED: IPRATROPIUM BROM 0.5 MG/2.5ML INH SOL NEB SCH (14:00)
[2018-06-21 16:41] VITALS: BP 130/69
--- NOTE | 2018-06-21 18:18 | NUR ---
md jessica notes to discharge the patient. will follow orders as given
[2018-06-21 18:28] VITALS: BP 130/69
--- NOTE | 2018-06-21 19:30 | NUR ---
CLOSING Discharge instructions given as ordered. Encourage to follow up with PMD as instructed. All questions and concerns addressed. Patient verbalized understanding. Medication reconciliation form completed and copy given to patient. IV removed with catheter intact, pressure dressing applied. Telemetry unit returned to ICU. Patient taken to vehicle via wheelchair with all personal belongings, accompanied by staff and family member. No distress noted at time of departure.
[2018-06-21] MEDS ORDERED: BUDESONIDE (INHALATION) 0.5 MG/2 ML NEB NEB SCH (22:00)
[2018-06-21] MEDS ORDERED: predniSONE 20 MG TAB PO SCH (22:00)
== END 2018-06-21 19:25 | disposition home or self-care (01) | DRG 291 ==
LOC: ER 12:19 → TELE 19:06 → TELE-WESTW 06-19 16:24
PROVIDERS: ADMIT Nurse Practitioner Acute Care; ATTEND Internal Medicine Cardiovascular Disease
DX: I11.0 Hypertensive heart disease with heart failure (principal); J96.21 Acute and chronic respiratory failure with hypoxia; J18.9 Pneumonia, unspecified organism; J44.1 Chronic obstructive pulmonary disease with (acute) exacerbation; Z68.41 Body mass index [BMI] 40.0-44.9, adult; J44.0 Chronic obstructive pulmonary disease with (acute) lower respiratory infection; J45.901 Unspecified asthma with (acute) exacerbation; E87.1 Hypo-osmolality and hyponatremia; I50.33 Acute on chronic diastolic (congestive) heart failure; I27.20 Pulmonary hypertension, unspecified; E66.01 Morbid (severe) obesity due to excess calories; J20.9 Acute bronchitis, unspecified; E13.21 Other specified diabetes mellitus with diabetic nephropathy; E13.40 Other specified diabetes mellitus with diabetic neuropathy, unspecified; Z99.81 Dependence on supplemental oxygen; Z90.49 Acquired absence of other specified parts of digestive tract; Z90.710 Acquired absence of both cervix and uterus; Z79.84 Long term (current) use of oral hypoglycemic drugs; Z79.899 Other long term (current) drug therapy; Z79.4 Long term (current) use of insulin; Z87.891 Personal history of nicotine dependence; Z82.0 Family history of epilepsy and other diseases of the nervous system; Z82.3 Family history of stroke; Z83.3 Family history of diabetes mellitus
CPT/HCPCS: 36415; 71045; 80048; 80053; 81001; 82962; 83036; 83605; 83735; 83880; 84484; 85025; 87040; 87070; 87086; 87205; 87804; 93005; 94640; 94761; 96365; 96367; 96372; 96375; C9113; G0378; J0696; J1815

== ENCOUNTER → 2018-07-18 | Outpatient (CLI) | payer MEDICARE, OTHER ==
[~2018-07-18] VITALS: Ht 154.9 cm; Wt 106.6 kg
[~2018-07-18] MED LIST changes: +ADENOSINE 90 MG in GIVE UN-DILUTED 0 ML IV ONE; +ADENOSINE 90 MG/30 ML INJ IV ONE; +ALBUTEROL SULF 2.5 MG/0.5ML(0.5%) NEB SOLN ONE
--- NOTE | 2018-07-18 10:10 | NUR ---
Albuterol med/neb tx given for wheezing throughout, pt tolerated well. Scattered wheezing after tx, pt stated she felt less SOB. 97% oxygen saturation on 4L O2.
== END | disposition home or self-care (01) ==
LOC: Rad HDHVI 08:25
PROVIDERS: ATTEND Internal Medicine Cardiovascular Disease
DX: E11.40 Type 2 diabetes mellitus with diabetic neuropathy, unspecified (principal); E11.65 Type 2 diabetes mellitus with hyperglycemia; M54.16 Radiculopathy, lumbar region; I11.0 Hypertensive heart disease with heart failure; I50.9 Heart failure, unspecified
CPT/HCPCS: 78452; 93005; 96374; 96375; A9500; J0153; J7611

== ENCOUNTER → 2018-08-30 | Outpatient (CLI) | payer MEDICARE, OTHER ==
[~2018-08-30] MED LIST changes: -ADENOSINE 90 MG in GIVE UN-DILUTED 0 ML IV ONE; -ADENOSINE 90 MG/30 ML INJ IV ONE; -ALBUTEROL SULF 2.5 MG/0.5ML(0.5%) NEB SOLN ONE
[2018-08-30 10:20] VITALS: BP 124/49
[2018-08-30 12:22] VITALS: BP 119/55
--- NOTE | 2018-08-30 12:22 | NUR ---
[facility] CLINIC Discharge Instructions See e-MAR for any mediations given with this visit. Patient education given on disease process. Patient verbalized understanding. Previous labs reviewed. Patient discharged in stable condition with after care instructions and follow up appointment ON 09/13/18. NOTE 6MWT ADMIN BY CHRISTIANO HARMAN AND REVIEWED BY GWEN RN, NO GAIN OR LOSS. CARDIODYNAMICS PERFORMED BY CHRISTIANO HARMAN AND REVIEWED BY GWEN RN. PATIENT CURRENTLY ON 1.5 MG ADEMPAS TID, ADEMPAS INCREASED TO 2 MG TID.
[2018-08-30 16:05] LABS: BUN/Creatinine Ratio 16.4; Calcium 8.1 mg/dL (8.5-10.1); Magnesium 2.4 mg/dL (1.6-2.6)
[2018-08-30 16:07] LABS: Hemoglobin 12.2 g/dL (12.2-16.2); Lymphocytes # (auto) 1.2 uL; Monocytes # (auto) 0.4 uL
[2018-08-30 16:08] LABS: Basophils # (auto) 0.1 uL; Basophils % (auto) 0.7 % (0.0-2.0); Eosinophils # (auto) 0.4 uL; Eosinophils % (auto) 5.2 % (0.0-7.0); Hematocrit 37.6 % (36.0-46.0); Lymphocytes % (auto) 16.2 % (10.0-50.0); Mean Corpuscular Hemoglobin 26.2 pg (28.0-32.0); Mean Corpuscular Hgb Conc. 32.5 g/dL (32.0-36.0); Mean Corpuscular Volume 80.5 fL (80.0-100.0); Monocytes % (auto) 5.4 % (0.0-12.0); Neutrophils # (auto) 5.5 uL; Neutrophils % (auto) 72.5 % (37.0-80.0); Platelet Count (auto) 194 10^3/uL (140-450); Red Blood Cells 4.67 10^6/uL (4.0-5.20); Red Cell Distribution Width 15.4 % (11.8-14.3); White Blood Cell 7.6 10^3/uL (4.4-10.8)
== END | disposition home or self-care (01) ==
LOC: CHF HDHVI 09:55
PROVIDERS: ATTEND Internal Medicine Cardiovascular Disease
DX: E55.9 Vitamin D deficiency, unspecified (principal); D64.9 Anemia, unspecified; E11.9 Type 2 diabetes mellitus without complications; I10 Essential (primary) hypertension; E66.9 Obesity, unspecified; I27.21 Secondary pulmonary arterial hypertension; R06.02 Shortness of breath
CPT/HCPCS: 36415; 80048; 82306; 83036; 83735; 85025; 93701; 94618; G0463

== ENCOUNTER → 2018-09-11 | Outpatient (CLI) | payer MEDICARE, OTHER | END | disposition home or self-care (01) | LOC: Rad HDHVI 07:57 | PROVIDERS: ATTEND Internal Medicine Cardiovascular Disease | DX: I07.1 Rheumatic tricuspid insufficiency (principal); J44.9 Chronic obstructive pulmonary disease, unspecified; I11.0 Hypertensive heart disease with heart failure; I50.9 Heart failure, unspecified | CPT/HCPCS: 93306 ==

== ENCOUNTER → 2018-10-15 | Outpatient (CLI) | payer MEDICARE, OTHER ==
[~2018-10-15] MED LIST changes: +BUMETANIDE 1mg/4ml VIAL (0.25mg/ml) IV ONE; +BUMETANIDE 1mg/4ml VIAL (0.25mg/ml) ONE; +EZET10TA22 PO; -EZET10TA6 PO; +POTASSIUM CHL 10 Meq TABLET PO ONE; +POTASSIUM CHL 20 Meq TABLET PO ONE
[2018-10-15 10:42] VITALS: BP 131/63
[2018-10-15 12:30] VITALS: BP 115/61
--- NOTE | 2018-10-15 12:30 | NUR ---
IN FOR PAH FOLLOWUP. NOTED TO HAVE WEIGHT GAIN AND ANKLE SWELLING ALSO. OXYGEN IN USE. FAMILY IN ATTENDANCE. CARDIODYNAMICS DONE AND REVIEWED. PAH TEACHING DONE BY GWEN TURNER. VERBAL AND DEMONSTRATION METHODS USED. CLINIC PROVIDER CONSULTED AND NEW ORDERS RECIEVED. ORDERS CARRIED OUT. LABS DRAWN AND SENT. MEDICATION ADMINISTRATION BUMEX 2 MG SLOW IVP AT 1150 POTASSIUM 30 MEQ PO AT 1200
[2018-10-15 15:47] LABS: Basophils # (auto) 0 uL; Eosinophils # (auto) 0.3 uL; Eosinophils % (auto) 3.5 % (0.0-7.0); Hemoglobin 11.4 g/dL (12.2-16.2); Mean Corpuscular Volume 80.2 fL (80.0-100.0); Nucleated Red Blood Cells % 0.1 %
[2018-10-15 15:51] LABS: Basophils % (auto) 0.4 % (0.0-2.0); Hematocrit 35.5 % (36.0-46.0); Lymphocytes # (auto) 1.3 uL; Lymphocytes % (auto) 14.6 % (10.0-50.0); Mean Corpuscular Hemoglobin 25.8 pg (28.0-32.0); Mean Corpuscular Hgb Conc. 32.1 g/dL (32.0-36.0); Monocytes # (auto) 0.5 uL; Monocytes % (auto) 6.4 % (0.0-12.0); Neutrophils # (auto) 6.5 uL; Neutrophils % (auto) 75.1 % (37.0-80.0); Platelet Count (auto) 227 10^3/uL (140-450); Red Blood Cells 4.42 10^6/uL (4.0-5.20); Red Cell Distribution Width 15.8 % (11.8-14.3); White Blood Cell 8.6 10^3/uL (4.4-10.8)
[2018-10-15 16:03] LABS: Albumin 3.3 g/dL (3.4-5.0); Calcium 8.7 mg/dL (8.5-10.1); Potassium 4.5 mmol/L (3.5-5.1)
[2018-10-15 16:06] LABS: BUN/Creatinine Ratio 14.8
[2018-10-15 16:09] LABS: Bilirubin, Total 0.6 mg/dL (0.2-1.0); Total Protein 7.1 g/dL (6.4-8.2)
== END | disposition home or self-care (01) ==
LOC: CHF HDHVI 09:58
PROVIDERS: ATTEND Internal Medicine Cardiovascular Disease
DX: I27.21 Secondary pulmonary arterial hypertension (principal); D64.9 Anemia, unspecified; I10 Essential (primary) hypertension; J44.9 Chronic obstructive pulmonary disease, unspecified; E66.01 Morbid (severe) obesity due to excess calories; Z68.42 Body mass index [BMI] 45.0-49.9, adult; Z99.81 Dependence on supplemental oxygen
CPT/HCPCS: 36415; 80053; 85025; 93701; 96374; G0463; J3490

== ENCOUNTER → 2018-10-25 | Outpatient (CLI) | payer MEDICARE, OTHER ==
[~2018-10-25] MED LIST changes: -BUMETANIDE 1mg/4ml VIAL (0.25mg/ml) IV ONE; -BUMETANIDE 1mg/4ml VIAL (0.25mg/ml) ONE; +CYANOCOBALAMIN (B-12) 1000 MCG/1 ML VIAL IM ONE; +CYANOCOBALAMIN (B-12) 1000 MCG/1 ML VIAL ONE; -POTASSIUM CHL 10 Meq TABLET PO ONE; -POTASSIUM CHL 20 Meq TABLET PO ONE
[2018-10-25 12:40] VITALS: BP 136/70
--- NOTE | 2018-10-25 12:40 | NUR ---
IN WITH IN ATTENDANCE. AFFECT CHEERFUL AND WITHOUT DISTRESS. OXYGEN IN USE FROM HOME. PAH EDUCATION AND STATUS BY GWEN RN. DISCHARGED TO SELF CARE WITH IN NO DISTRESS. Discharge Instructions See e-MAR for any mediations given with this visit. Patient education given on disease process. Patient verbalized understanding. Previous labs reviewed. Patient discharged in stable condition with after care instructions and follow up appointment IN 2 WEEKS. MEDICATION ADMINISTRATION VIT B12 1000 MCG IM TO LEFT DELTOID AT 1217
[2018-10-25 12:55] VITALS: BP 119/46
[2018-10-25 16:16] LABS: Potassium 3.8 mmol/L (3.5-5.1)
== END | disposition home or self-care (01) ==
LOC: CHF HDHVI 11:37
PROVIDERS: ATTEND Internal Medicine Cardiovascular Disease
DX: I27.21 Secondary pulmonary arterial hypertension (principal); I11.0 Hypertensive heart disease with heart failure; I50.9 Heart failure, unspecified; E83.40 Disorders of magnesium metabolism, unspecified; R94.4 Abnormal results of kidney function studies; E87.5 Hyperkalemia; J44.9 Chronic obstructive pulmonary disease, unspecified; E66.01 Morbid (severe) obesity due to excess calories; Z68.42 Body mass index [BMI] 45.0-49.9, adult; Z99.81 Dependence on supplemental oxygen
CPT/HCPCS: 36415; 82565; 83735; 84132; 84520; 96372; G0463; J3420

== ENCOUNTER → 2018-10-31 | Outpatient (CLI) | payer MEDICARE, OTHER ==
[~2018-10-31] MED LIST changes: +BUMETANIDE 1mg/4ml VIAL (0.25mg/ml) IV ONE; +BUMETANIDE INJECTION 10 ML ONE; -CYANOCOBALAMIN (B-12) 1000 MCG/1 ML VIAL IM ONE; -CYANOCOBALAMIN (B-12) 1000 MCG/1 ML VIAL ONE; +POTASSIUM CHL 10 Meq TABLET PO ONE; +POTASSIUM CHL 20 Meq TABLET PO ONE
[2018-10-31 11:17] VITALS: BP 101/56
[2018-10-31 12:55] VITALS: BP 114/51
--- NOTE | 2018-10-31 12:55 | NUR ---
IN FOR PAH FOLLOWUP, HOME OXYGEN IN USE AT 2 LPM. WEIGHT DECREASED SINCE LAST VISIT. VSS. WITHOUT DISTRESS. CARDIODYNAMICS DONE AND REVIEWED WITH PATIENT AND FAMILY (PER PT REQUEST). PT HAS BEEN FOLLOWING A DIET PLAN WITH MONITORING HER INTAKE. AFFECT CHEERFUL. Clinic Provider Clinic Provider into see pt with new orders received and carried out. MEDICATED PER ORDER. PT AMBULATED OUT OF CLINIC TO HER WHEELCHAIR. Discharge Instructions See e-MAR for any mediations given with this visit. Patient education given on disease process. Patient verbalized understanding. Previous labs reviewed. Patient discharged in stable condition with after care instructions and follow up appointment IN 1 WEEK. MEDICATION ADMINISTRATION BUMEX 2MG IVP PO AT 1230 K DUR 20 MEQ PO AT 1230
[2018-10-31 16:13] LABS: Basophils # (auto) 0 uL; Eosinophils # (auto) 0.3 uL; Lymphocytes # (auto) 1.7 uL
[2018-10-31 16:16] LABS: Basophils % (auto) 0.4 % (0.0-2.0); Eosinophils % (auto) 3.5 % (0.0-7.0); Hematocrit 35.9 % (36.0-46.0); Hemoglobin 11.5 g/dL (12.2-16.2); Lymphocytes % (auto) 17.7 % (10.0-50.0); Mean Corpuscular Hemoglobin 25.6 pg (28.0-32.0); Mean Corpuscular Hgb Conc. 31.9 g/dL (32.0-36.0); Monocytes # (auto) 0.5 uL; Monocytes % (auto) 5.7 % (0.0-12.0); Neutrophils # (auto) 6.9 uL; Neutrophils % (auto) 72.7 % (37.0-80.0); Nucleated Red Blood Cells % 0.1 %; Platelet Count (auto) 214 10^3/uL (140-450); Red Blood Cells 4.49 10^6/uL (4.0-5.20); Red Cell Distribution Width 15.4 % (11.8-14.3); White Blood Cell 9.6 10^3/uL (4.4-10.8)
[2018-10-31 16:20] LABS: Alanine Aminotransferase 13 U/L (13-56); Albumin 3.2 g/dL (3.4-5.0); Anion Gap 10 (5-15); Aspartate Aminotransferase 9 U/L (15-37); BUN/Creatinine Ratio 19.2; Blood Urea Nitrogen 14 mg/dL (7-18); Calcium 8.7 mg/dL (8.5-10.1); Carbon Dioxide 31 mmol/L (21-32); Chloride 99 mmol/L (98-107); GFR African American 103 mL/min; GFR Non-African American 85 mL/min; Glucose 170 mg/dL (74-106); Magnesium 2.1 mg/dL (1.6-2.6); Sodium 140 mmol/L (136-145)
[2018-10-31 16:23] LABS: Alkaline Phosphatase 94 U/L (45-117); Bilirubin, Total 0.9 mg/dL (0.2-1.0); Total Protein 6.9 g/dL (6.4-8.2)
== END | disposition home or self-care (01) ==
LOC: CHF HDHVI 11:17
PROVIDERS: ATTEND Internal Medicine Cardiovascular Disease
DX: I27.21 Secondary pulmonary arterial hypertension (principal); I11.0 Hypertensive heart disease with heart failure; I50.9 Heart failure, unspecified; I25.10 Atherosclerotic heart disease of native coronary artery without angina pectoris; D64.9 Anemia, unspecified; J44.9 Chronic obstructive pulmonary disease, unspecified; E83.40 Disorders of magnesium metabolism, unspecified; E66.01 Morbid (severe) obesity due to excess calories; Z68.42 Body mass index [BMI] 45.0-49.9, adult
CPT/HCPCS: 36415; 80053; 83735; 85025; 93701; 96374; G0463

== ENCOUNTER → 2018-11-07 | Outpatient (CLI) | payer MEDICARE, OTHER ==
[~2018-11-07] MED LIST changes: -BUMETANIDE 1mg/4ml VIAL (0.25mg/ml) IV ONE; -BUMETANIDE INJECTION 10 ML ONE; -POTASSIUM CHL 10 Meq TABLET PO ONE; -POTASSIUM CHL 20 Meq TABLET PO ONE
[2018-11-07 11:46] VITALS: BP 113/51
[2018-11-07 12:15] VITALS: BP 113/51
--- NOTE | 2018-11-07 12:15 | NUR ---
CHF Clinic Discharge Instructions See e-MAR for any mediations given with this visit. Patient education given on disease process. Patient verbalized understanding. Previous labs reviewed. Patient discharged in stable condition with after care instructions and follow up appointment. Note patient down 8 lbs since 10/17/18
[2018-11-07 16:55] LABS: Potassium 3.7 mmol/L (3.5-5.1)
== END | disposition home or self-care (01) ==
LOC: CHF HDHVI 11:46
PROVIDERS: ATTEND Internal Medicine Cardiovascular Disease
DX: R94.4 Abnormal results of kidney function studies (principal); E87.6 Hypokalemia; I27.0 Primary pulmonary hypertension
CPT/HCPCS: 36415; 82565; 84132; 84520; G0463

== ENCOUNTER → 2018-11-14 | Outpatient (CLI) | payer MEDICARE, OTHER ==
[~2018-11-14] MED LIST changes: +BUMETANIDE 1mg/4ml VIAL (0.25mg/ml) IV ONE; +BUMETANIDE 1mg/4ml VIAL (0.25mg/ml) ONE; +METOLAZONE 5 MG TAB ONE; +METOLAZONE 5 MG TAB PO ONE; +POTASSIUM CHL 10 Meq TABLET PO ONE
[2018-11-14 11:45] VITALS: BP 120/54
[2018-11-14 12:27] VITALS: BP 121/65
--- NOTE | 2018-11-14 12:27 | NUR ---
CHF CLINIC Discharge Instructions See e-MAR for any mediations given with this visit. Patient education given on disease process. Patient verbalized understanding. Previous labs reviewed. Patient discharged in stable condition with after care instructions and follow up appointment. NOTE BUMEX IVP ADMIN BY CIRILO TURNER POTASSIUM PO ADMIN BY CIRILO TURNER METOLAZONE PO ADMIN BY SHABANA TURNER
== END | disposition home or self-care (01) ==
LOC: CHF HDHVI 11:44
PROVIDERS: ATTEND Internal Medicine Cardiovascular Disease
DX: I11.0 Hypertensive heart disease with heart failure (principal); I50.9 Heart failure, unspecified; R94.4 Abnormal results of kidney function studies; E87.6 Hypokalemia; I27.21 Secondary pulmonary arterial hypertension; J44.9 Chronic obstructive pulmonary disease, unspecified; I25.10 Atherosclerotic heart disease of native coronary artery without angina pectoris; E66.01 Morbid (severe) obesity due to excess calories; Z99.81 Dependence on supplemental oxygen; Z68.42 Body mass index [BMI] 45.0-49.9, adult
CPT/HCPCS: 36415; 82565; 84132; 84520; 96374; G0463; J3490

== ENCOUNTER → 2018-11-29 | Outpatient (CLI) | payer MEDICARE, OTHER ==
[~2018-11-29] MED LIST changes: -BUMETANIDE 1mg/4ml VIAL (0.25mg/ml) ONE; +BUMETANIDE INJECTION 10 ML ONE
[2018-11-29 09:30] VITALS: BP 123/62
--- NOTE | 2018-11-29 09:30 | NUR ---
IN TO CLINIC VIA MOTORIZED WHEELCHAIR WITH IN ATTENDANCE. OXYGEN IN USE AT 2 LPM FROM HOME. REVIEWED PREVIOUS LABS AND STATUS. PT REPORTS RECENT ILLNESS ACCOMPANIED BY SIGNIFICANT FLUID OVERLOAD IN ANKLES. PT REPORTS ANKLE EDEMA IMPROVED NOW, ALTHOUGH +2 EDEMA OBSERVED CURRENTLY. CLINIC PROVIDER CONSULTED. ORDERS RECEIVED.
--- NOTE | 2018-11-29 09:50 | NUR ---
MEDICATED WITH FIRST SET OF ORDERS.
--- NOTE | 2018-11-29 10:15 | NUR ---
MEDICATED WITH SECOND SET ORDERS.
[2018-11-29 10:20] VITALS: BP 103/50
--- NOTE | 2018-11-29 10:20 | NUR ---
CHF VS WNL. PT UP TO WHEELCHAIR WITH IN ATTENDANCE. DISCHARGED TO SELF CARE IN NO DISTRESS. MEDICATION ADMINISTRATION METOLAZONE PO AT 0950 POTASSIUM PO AT 0950 BUMEX IVP AT 1015
[2018-11-29 12:22] LABS: BUN/Creatinine Ratio 17.6; Calcium 8.3 mg/dL (8.5-10.1); Potassium 3.7 mmol/L (3.5-5.1)
[2018-11-29 12:27] LABS: Basophils # (auto) 0 uL; Basophils % (auto) 0.4 % (0.0-2.0); Eosinophils # (auto) 0.4 uL; Eosinophils % (auto) 3.9 % (0.0-7.0); Hematocrit 35.1 % (36.0-46.0); Hemoglobin 11.1 g/dL (12.2-16.2); Lymphocytes # (auto) 1.2 uL; Lymphocytes % (auto) 13.1 % (10.0-50.0); Mean Corpuscular Hgb Conc. 31.8 g/dL (32.0-36.0); Mean Corpuscular Volume 78.9 fL (80.0-100.0); Monocytes # (auto) 0.5 uL; Monocytes % (auto) 5.2 % (0.0-12.0); Neutrophils # (auto) 7.1 uL; Neutrophils % (auto) 77.4 % (37.0-80.0); Platelet Count (auto) 207 10^3/uL (140-450); Red Blood Cells 4.45 10^6/uL (4.0-5.20); Red Cell Distribution Width 15.2 % (11.8-14.3); White Blood Cell 9.2 10^3/uL (4.4-10.8)
== END | disposition home or self-care (01) ==
LOC: CHF HDHVI 09:46
PROVIDERS: ATTEND Internal Medicine Cardiovascular Disease
DX: I27.21 Secondary pulmonary arterial hypertension (principal); I11.0 Hypertensive heart disease with heart failure; I50.9 Heart failure, unspecified; D64.9 Anemia, unspecified; I25.10 Atherosclerotic heart disease of native coronary artery without angina pectoris; J44.9 Chronic obstructive pulmonary disease, unspecified; Z99.81 Dependence on supplemental oxygen; E66.01 Morbid (severe) obesity due to excess calories; Z68.42 Body mass index [BMI] 45.0-49.9, adult
CPT/HCPCS: 36415; 80048; 85025; 96374; G0463

== ENCOUNTER → 2018-12-05 | Outpatient (CLI) | payer MEDICARE, OTHER ==
[~2018-12-05] VITALS: Ht 30.5 cm; Wt 0.5 kg
[~2018-12-05] MED LIST changes: +POTASSIUM CHL 20 Meq TABLET PO ONE
[2018-12-05 11:22] VITALS: BP 121/64
[2018-12-05 12:45] VITALS: BP 121/64
--- NOTE | 2018-12-05 12:45 | NUR ---
IN FOR CHF/PAH FOLLOWUP. OXYGEN IN USE FROM HOME. VS WNL. PT REPORTS BURNING WITH VOIDING X 2 DAYS. UA COLLECTED AND SENT. CARDIODYNAMICS DONE AND REVIEWED. AT BEDSIDE. REVIEWED STATUS AND ACTIVITY. PT CONTINUES TO DIET AND REDUCE WEIGHT. STILL NOTED TO HAVE LEG AND ANKLE EDEMA, PLUS 3. CLINIC PROVIDER CONSULTED AND ORDERS RECEIVED. MEDICATED PER ORDER. MEDICATION ADMINISTRATION METOLAZONE PO KDUR PO BUMEX IVP
--- NOTE | 2018-12-05 14:00 | NUR ---
CLINIC PROVIDER CONSULTED AND NEW RX SENT IN FOR CIPRO 500 MG PO BID X 7 DAYS FOR UTI. FOLLOWUP WITH MICRO ON URINE AVAILABLE.
[2018-12-05 16:08] LABS: Urine Blood Negative /uL (Negative); Urine Specific Gravity 1.017 (1.001-1.035)
== END | disposition home or self-care (01) ==
LOC: CHF HDHVI 11:28
PROVIDERS: ATTEND Internal Medicine Cardiovascular Disease
DX: I11.0 Hypertensive heart disease with heart failure (principal); I50.9 Heart failure, unspecified; N39.0 Urinary tract infection, site not specified; I25.10 Atherosclerotic heart disease of native coronary artery without angina pectoris; J44.9 Chronic obstructive pulmonary disease, unspecified; I27.21 Secondary pulmonary arterial hypertension; E66.01 Morbid (severe) obesity due to excess calories; Z68.42 Body mass index [BMI] 45.0-49.9, adult; Z99.81 Dependence on supplemental oxygen
CPT/HCPCS: 81003; 87086; 93701; 96374; G0463

== ENCOUNTER → 2019-01-01 | Outpatient (CLI) | payer MEDICARE, OTHER ==
[~2019-01-01] MED LIST changes: +BUMETANIDE 1mg/4ml VIAL (0.25mg/ml) ONE; -BUMETANIDE INJECTION 10 ML ONE; +CYANOCOBALAMIN (B-12) 1000 MCG/1 ML VIAL IM ONE; +CYANOCOBALAMIN (B-12) 1000 MCG/1 ML VIAL ONE; -METOLAZONE 5 MG TAB ONE; -METOLAZONE 5 MG TAB PO ONE; +metOLazone 5 MG TAB ONE; +metOLazone 5 MG TAB PO ONE
[2019-01-01 12:36] VITALS: BP 120/56
--- NOTE | 2019-01-01 12:36 | NUR ---
CHF PT ARRIVED AT THE CHF CLINIC FOR, PAH F/U WEIGHT UP 6 LBS WHEEZY AND COUGHING. UPDATED ORDER RECEIVED AND NOTED
[2019-01-01 13:35] VITALS: BP 126/73
--- NOTE | 2019-01-01 13:35 | NUR ---
Discharge Instructions See e-MAR for any mediations given with this visit. Patient education given on disease process. Patient verbalized understanding. Previous labs reviewed. Patient discharged in stable condition with after care instructions and follow up appointment. MEDICATIONS VITAMIN B12 IM METOLAZONE PO POTASSIUM PO BUMEX IVP
[2019-01-01 15:57] LABS: Basophils # (auto) 0.1 uL; Basophils % (auto) 0.7 % (0.0-2.0); Eosinophils # (auto) 0.4 uL; Eosinophils % (auto) 4.3 % (0.0-7.0); Hematocrit 35.1 % (36.0-46.0); Hemoglobin 11.4 g/dL (12.2-16.2); Lymphocytes # (auto) 1.2 uL; Lymphocytes % (auto) 14.3 % (10.0-50.0); Mean Corpuscular Hemoglobin 24.9 pg (28.0-32.0); Mean Corpuscular Hgb Conc. 32.5 g/dL (32.0-36.0); Mean Corpuscular Volume 76.5 fL (80.0-100.0); Monocytes # (auto) 0.4 uL; Monocytes % (auto) 4.7 % (0.0-12.0); Neutrophils # (auto) 6.6 uL; Nucleated Red Blood Cells % 0.1 %; Platelet Count (auto) 204 10^3/uL (140-450); Red Blood Cells 4.59 10^6/uL (4.0-5.20); Red Cell Distribution Width 15.2 % (11.8-14.3); White Blood Cell 8.7 10^3/uL (4.4-10.8)
[2019-01-01 16:05] LABS: BUN/Creatinine Ratio 12.3; Calcium 8.4 mg/dL (8.5-10.1); Potassium 4.1 mmol/L (3.5-5.1)
== END | disposition home or self-care (01) ==
LOC: CHF HDHVI 12:32
PROVIDERS: ATTEND Internal Medicine Cardiovascular Disease
DX: I27.21 Secondary pulmonary arterial hypertension (principal); I25.10 Atherosclerotic heart disease of native coronary artery without angina pectoris; D64.9 Anemia, unspecified; E83.40 Disorders of magnesium metabolism, unspecified; D51.9 Vitamin B12 deficiency anemia, unspecified; R53.83 Other fatigue; E87.70 Fluid overload, unspecified; E11.319 Type 2 diabetes mellitus with unspecified diabetic retinopathy without macular edema; E66.01 Morbid (severe) obesity due to excess calories; Z68.42 Body mass index [BMI] 45.0-49.9, adult
CPT/HCPCS: 36415; 80048; 82607; 83036; 83735; 85025; 96372; 96374; G0463; J3420; J3490

== ENCOUNTER → 2019-01-09 | Outpatient (CLI) | payer MEDICARE, OTHER ==
[~2019-01-09] MED LIST changes: -BUMETANIDE 1mg/4ml VIAL (0.25mg/ml) IV ONE; -BUMETANIDE 1mg/4ml VIAL (0.25mg/ml) ONE; -CYANOCOBALAMIN (B-12) 1000 MCG/1 ML VIAL IM ONE; -CYANOCOBALAMIN (B-12) 1000 MCG/1 ML VIAL ONE; +FUROSEMIDE 40 MG TAB ONE; +FUROSEMIDE 40 MG/4 ML VIAL IV ONE
[2019-01-09 11:26] VITALS: BP 111/54
[2019-01-09 11:55] VITALS: BP 111/54
--- NOTE | 2019-01-09 11:55 | NUR ---
IN TO CLINIC FOR PAH FOLLOWUP WITH DAUGHTER AND GRANDDAUGHTER AT BEDSIDE. AFFECT CHEERFUL AND WITHOUT COMPLAINT. OXYGEN IN USE AT 3 LPM FROM HOME. CARDIODYNAMICS DONE AND REVIEWED BUT VALUES QUESTIONABLE BASED ON LOW BP READING. WILL DISCARD CURRENT CARDIODYNAMICS BASED QUESTIONABLE DATA COLLECTION. CLINIC PROVIDER CONSULTED AND ORDERS RECIEVED AND CARRIED OUT. DISCHARGED TO SELF CARE. MEDICATION ADMINISTARTION METOLAZONE 5 MG PO LASIX 40 MG PO POTASSIUM 20 MEQ PO
== END | disposition home or self-care (01) ==
LOC: CHF HDHVI 11:26
PROVIDERS: ATTEND Internal Medicine Cardiovascular Disease
DX: I11.0 Hypertensive heart disease with heart failure (principal); I50.9 Heart failure, unspecified; I25.10 Atherosclerotic heart disease of native coronary artery without angina pectoris; I27.21 Secondary pulmonary arterial hypertension; J44.9 Chronic obstructive pulmonary disease, unspecified; E11.319 Type 2 diabetes mellitus with unspecified diabetic retinopathy without macular edema; E66.01 Morbid (severe) obesity due to excess calories; Z68.42 Body mass index [BMI] 45.0-49.9, adult
CPT/HCPCS: 93701; G0463

== ENCOUNTER → 2019-01-16 | Outpatient (CLI) | payer MEDICARE, OTHER ==
[~2019-01-16] MED LIST changes: +BUMETANIDE 1mg/4ml VIAL (0.25mg/ml) IV ONE; +BUMETANIDE INJECTION 10 ML ONE; -FUROSEMIDE 40 MG TAB ONE; -FUROSEMIDE 40 MG/4 ML VIAL IV ONE
[2019-01-16 12:30] VITALS: BP 134/66
[2019-01-16 13:15] VITALS: BP 126/51
--- NOTE | 2019-01-16 13:15 | NUR ---
IN WITH IN ATTENDANCE. OXYGEN IN USE FROM HOME. NO DISTRESS NOTED. NOTED TO HAVE INCREASED WEIGHT GAIN AND IS S/P EATING SODIUM FILLED FOODS RECENTLY WITH INCREASED WEIGHT GAIN. CARDIODYNAMICS DONE AND REVIEWED. CLINIC PROVIDER CONSULTED. ORDERS RECIEVED. LABS DRAWN AND SENT. MEDICATED PER ORDER. DISCHARGED TO SELF CARE IN NO DISTRESS OR DISCOMFORT. MEDICATION ADMINISTRATION METOLAZONE 5 MG PO AT 1315 KDUR 40 MEQ PO AT 1315 BUMEX 2MG IVP AT 1305
[2019-01-16 15:57] LABS: Basophils # (auto) 0 uL; Monocytes # (auto) 0.4 uL
[2019-01-16 16:02] LABS: Basophils % (auto) 0.3 % (0.0-2.0); Eosinophils # (auto) 0.4 uL; Eosinophils % (auto) 4.6 % (0.0-7.0); Hematocrit 35.9 % (36.0-46.0); Hemoglobin 11.3 g/dL (12.2-16.2); Lymphocytes # (auto) 1.5 uL; Lymphocytes % (auto) 18.9 % (10.0-50.0); Mean Corpuscular Hemoglobin 24.4 pg (28.0-32.0); Mean Corpuscular Hgb Conc. 31.3 g/dL (32.0-36.0); Mean Corpuscular Volume 77.9 fL (80.0-100.0); Monocytes % (auto) 5.4 % (0.0-12.0); Neutrophils # (auto) 5.7 uL; Neutrophils % (auto) 70.8 % (37.0-80.0); Platelet Count (auto) 228 10^3/uL (140-450); Red Blood Cells 4.61 10^6/uL (4.0-5.20); Red Cell Distribution Width 15.7 % (11.8-14.3); White Blood Cell 8.1 10^3/uL (4.4-10.8)
[2019-01-16 16:04] LABS: BUN/Creatinine Ratio 15.5; Calcium 8.6 mg/dL (8.5-10.1); Magnesium 2.1 mg/dL (1.6-2.6); Potassium 4.2 mmol/L (3.5-5.1)
== END | disposition home or self-care (01) ==
LOC: CHF HDHVI 12:31
PROVIDERS: ATTEND Internal Medicine Cardiovascular Disease
DX: I11.0 Hypertensive heart disease with heart failure (principal); I50.9 Heart failure, unspecified; I25.10 Atherosclerotic heart disease of native coronary artery without angina pectoris; D64.9 Anemia, unspecified; E83.40 Disorders of magnesium metabolism, unspecified; R53.83 Other fatigue; E66.01 Morbid (severe) obesity due to excess calories; Z68.42 Body mass index [BMI] 45.0-49.9, adult; Z99.81 Dependence on supplemental oxygen
CPT/HCPCS: 36415; 80048; 83735; 85025; 93701; 96374; G0463

== ENCOUNTER → 2019-01-23 | Outpatient (CLI) | payer MEDICARE, OTHER ==
[~2019-01-23] MED LIST changes: -BUMETANIDE 1mg/4ml VIAL (0.25mg/ml) IV ONE; -BUMETANIDE INJECTION 10 ML ONE; -POTASSIUM CHL 10 Meq TABLET PO ONE; -POTASSIUM CHL 20 Meq TABLET PO ONE; -metOLazone 5 MG TAB ONE; -metOLazone 5 MG TAB PO ONE
[2019-01-23 11:40] VITALS: BP 123/65
--- NOTE | 2019-01-23 11:40 | NUR ---
Discharge Instructions See e-MAR for any mediations given with this visit. Patient education given on disease process. Patient verbalized understanding. Previous labs reviewed. Patient discharged in stable condition with after care instructions and follow up appointment. REVIEWED LABS WITH PATIENT PATIENT STATES "i AM DOING REALLY WELL." REVIEWED LABS AND PLAN OF CARE, PT VERBALIZED UNDERSTANDING
== END | disposition home or self-care (01) ==
LOC: CHF HDHVI 11:08
PROVIDERS: ATTEND Internal Medicine Cardiovascular Disease
DX: E11.9 Type 2 diabetes mellitus without complications (principal); J44.9 Chronic obstructive pulmonary disease, unspecified; I27.21 Secondary pulmonary arterial hypertension
CPT/HCPCS: G0463

== ENCOUNTER → 2019-02-06 | Outpatient (CLI) | payer MEDICARE, OTHER ==
[2019-02-06 12:00] VITALS: BP 109/52
[2019-02-06 12:20] VITALS: BP 130/58
--- NOTE | 2019-02-06 12:20 | NUR ---
CHF CLINIC Discharge Instructions See e-MAR for any mediations given with this visit. Patient education given on disease process. Patient verbalized understanding. Previous labs reviewed. Patient discharged in stable condition with after care instructions and follow up appointment. NOTE PATIENT REFUSED DIURETIC TX. PATIENT CHANGED FROM LASIX 40MG BID TO DEMEDEX 20MG BID, PRESCRIPTION SENT TO PATIENT PREFERRED PHARMACY.
[2019-02-06 15:32] LABS: Basophils # (auto) 0 uL; Eosinophils # (auto) 0.4 uL; Hemoglobin 11.5 g/dL (12.2-16.2); Lymphocytes # (auto) 1.1 uL; Monocytes # (auto) 0.4 uL; White Blood Cell 9.7 10^3/uL (4.4-10.8)
[2019-02-06 15:34] LABS: Basophils % (auto) 0.2 % (0.0-2.0); Eosinophils % (auto) 3.7 % (0.0-7.0); Hematocrit 36.7 % (36.0-46.0); Lymphocytes % (auto) 11.3 % (10.0-50.0); Mean Corpuscular Hemoglobin 24.3 pg (28.0-32.0); Mean Corpuscular Hgb Conc. 31.4 g/dL (32.0-36.0); Mean Corpuscular Volume 77.5 fL (80.0-100.0); Monocytes % (auto) 3.9 % (0.0-12.0); Neutrophils # (auto) 7.9 uL; Neutrophils % (auto) 80.9 % (37.0-80.0); Platelet Count (auto) 221 10^3/uL (140-450); Red Blood Cells 4.74 10^6/uL (4.0-5.20); Red Cell Distribution Width 16.3 % (11.8-14.3)
== END | disposition home or self-care (01) ==
LOC: CHF HDHVI 11:34
PROVIDERS: ATTEND Internal Medicine Cardiovascular Disease
DX: D64.9 Anemia, unspecified (principal); E87.6 Hypokalemia; J44.9 Chronic obstructive pulmonary disease, unspecified; I11.0 Hypertensive heart disease with heart failure; I50.9 Heart failure, unspecified; E11.9 Type 2 diabetes mellitus without complications; J96.10 Chronic respiratory failure, unspecified whether with hypoxia or hypercapnia; E66.01 Morbid (severe) obesity due to excess calories; Z87.891 Personal history of nicotine dependence; Z90.49 Acquired absence of other specified parts of digestive tract; Z90.710 Acquired absence of both cervix and uterus
CPT/HCPCS: 36415; 82565; 84132; 84520; 85025; G0463

== ENCOUNTER → 2019-03-06 | Outpatient (CLI) | payer MEDICARE, OTHER ==
[2019-03-06 12:19] VITALS: BP 123/50
--- NOTE | 2019-03-06 12:19 | NUR ---
Discharge Instructions See e-MAR for any mediations given with this visit. Patient education given on disease process. Patient verbalized understanding. Previous labs reviewed. Patient discharged in stable condition with after care instructions and follow up appointment. PT DOING WELL, O DISTRESS CARDIODYNAMICS DONE BY MADDIE TURNER REVIEWED BY JOHNNY ALANIZ
[2019-03-06 15:39] LABS: Calcium 8.2 mg/dL (8.5-10.1)
== END | disposition home or self-care (01) ==
LOC: CHF HDHVI 12:02
PROVIDERS: ATTEND Internal Medicine Cardiovascular Disease
DX: E83.40 Disorders of magnesium metabolism, unspecified (principal); I11.0 Hypertensive heart disease with heart failure; I50.9 Heart failure, unspecified
CPT/HCPCS: 36415; 80048; 83735; 93701; G0463

== ENCOUNTER → 2019-03-20 | Outpatient (CLI) | payer MEDICARE, OTHER ==
[2019-03-20 12:24] VITALS: BP 145/77
--- NOTE | 2019-03-20 12:25 | NUR ---
at at chairside.
[2019-03-20 12:36] VITALS: BP 131/74
--- NOTE | 2019-03-20 12:36 | NUR ---
CHF Clinic Discharge Instructions See e-MAR for any mediations given with this visit. Patient education given on disease process. Patient verbalized understanding. Previous labs reviewed. Patient discharged in stable condition with after care instructions and follow up appointment. Note Destini called into pt pharmacy
== END | disposition home or self-care (01) ==
LOC: CHF HDHVI 12:12
PROVIDERS: ATTEND Internal Medicine Cardiovascular Disease
DX: I27.21 Secondary pulmonary arterial hypertension (principal); R05 Cough; R53.83 Other fatigue; R53.1 Weakness
CPT/HCPCS: G0463

== ENCOUNTER → 2019-04-04 | Outpatient (CLI) | payer MEDICARE, OTHER ==
[~2019-04-04] MED LIST changes: +CYANOCOBALAMIN (B-12) 1000 MCG/1 ML VIAL IM ONE; +PRE1T PO
[2019-04-04 11:38] VITALS: BP 130/67
[2019-04-04 12:35] VITALS: BP 130/67
--- NOTE | 2019-04-04 12:35 | NUR ---
Discharge Instructions See e-MAR for any mediations given with this visit. Patient education given on disease process. Patient verbalized understanding. Previous labs reviewed. Patient discharged in stable condition with after care instructions and follow up appointment. MEDICATIONS MED NEB PTS OWN MED VITAMIN B12 1000 MCG IM LEFT DELTOID LOT # [id number] EXP 10/20 Addendum: 04/04/19 at 1516 by KATTY PETE RN IN CARDIODYNAMICS COMPLETED BY MADDIE TURNER AND REVIEWED BY JOHNNY
[2019-04-04 15:51] LABS: Basophils # (auto) 0 uL; Eosinophils # (auto) 0.5 uL; Lymphocytes # (auto) 1.1 uL; Monocytes # (auto) 0.4 uL; Neutrophils # (auto) 6.9 uL; Red Cell Distribution Width 16.8 % (11.8-14.3)
[2019-04-04 15:53] LABS: Basophils % (auto) 0.2 % (0.0-2.0); Eosinophils % (auto) 5.6 % (0.0-7.0); Hematocrit 36.5 % (36.0-46.0); Hemoglobin 11.5 g/dL (12.2-16.2); Lymphocytes % (auto) 12.2 % (10.0-50.0); Mean Corpuscular Hemoglobin 25.1 pg (28.0-32.0); Mean Corpuscular Hgb Conc. 31.4 g/dL (32.0-36.0); Mean Corpuscular Volume 79.8 fL (80.0-100.0); Monocytes % (auto) 4.8 % (0.0-12.0); Neutrophils % (auto) 77.2 % (37.0-80.0); Nucleated Red Blood Cells % 0.1 %; Platelet Count (auto) 202 10^3/uL (140-450); Red Blood Cells 4.58 10^6/uL (4.0-5.20)
[2019-04-04 16:00] LABS: BUN/Creatinine Ratio 15.6; Calcium 8.9 mg/dL (8.5-10.1); Magnesium 2.2 mg/dL (1.6-2.6); Potassium 4.4 mmol/L (3.5-5.1)
== END | disposition home or self-care (01) ==
LOC: CHF HDHVI 11:43
PROVIDERS: ATTEND Internal Medicine Cardiovascular Disease
DX: I27.21 Secondary pulmonary arterial hypertension (principal); I11.0 Hypertensive heart disease with heart failure; I50.22 Chronic systolic (congestive) heart failure; R53.83 Other fatigue; J44.9 Chronic obstructive pulmonary disease, unspecified; D64.9 Anemia, unspecified; E83.40 Disorders of magnesium metabolism, unspecified; E11.65 Type 2 diabetes mellitus with hyperglycemia; E66.9 Obesity, unspecified
CPT/HCPCS: 36415; 80048; 83735; 85025; 93701; 94640; 96372; G0463; J3420

== ENCOUNTER → 2019-04-24 | Outpatient (CLI) | payer MEDICARE, OTHER ==
[~2019-04-24] MED LIST changes: -CYANOCOBALAMIN (B-12) 1000 MCG/1 ML VIAL IM ONE; -PRE1T PO
[2019-04-24 12:31] VITALS: BP 148/52
[2019-04-24] MEDS: FUROSEMIDE 100 MG/10ML VIAL IV ONE (12:58)
[2019-04-24] MEDS: FUROSEMIDE 40 MG/4 ML VIAL ONE (12:58)
[2019-04-24] MEDS: POTASSIUM CHL 20 Meq TABLET PO ONE ×2 (12:58)
[2019-04-24] MEDS: POTASSIUM CHL 10 Meq TABLET PO ONE (12:58)
[2019-04-24] MEDS: CYANOCOBALAMIN (B-12) 1000 MCG/1 ML VIAL ONE (12:58)
[2019-04-24] MEDS: CYANOCOBALAMIN (B-12) 1000 MCG/1 ML VIAL IM ONE (13:35)
[2019-04-24 13:50] VITALS: BP 138/64
--- NOTE | 2019-04-24 13:50 | NUR ---
Discharge Instructions See e-MAR for any mediations given with this visit. Patient education given on disease process. Patient verbalized understanding. Previous labs reviewed. Patient discharged in stable condition with after care instructions and follow up appointment. MEDICATIONS MED NEB PT HOME MED LASIX IVP POTASSIUM PO VIT B12 1000 MCG IM RIGHT DELTOID CARDIODYNAMICS COMPLETED BY MADDIE HARMAN REVIEWED WITH PT BY GWEN TURNER
[2019-04-24 16:10] LABS: Potassium 4.4 mmol/L (3.5-5.1)
[2019-04-24 16:11] LABS: Basophils # (auto) 0 uL
[2019-04-24 16:13] LABS: Basophils % (auto) 0.5 % (0.0-2.0); Eosinophils # (auto) 0.4 uL; Eosinophils % (auto) 4.6 % (0.0-7.0); Hematocrit 35.2 % (36.0-46.0); Hemoglobin 11.1 g/dL (12.2-16.2); Lymphocytes # (auto) 0.8 uL; Lymphocytes % (auto) 11.1 % (10.0-50.0); Mean Corpuscular Hgb Conc. 31.6 g/dL (32.0-36.0); Mean Corpuscular Volume 79.2 fL (80.0-100.0); Monocytes # (auto) 0.3 uL; Monocytes % (auto) 4.5 % (0.0-12.0); Neutrophils % (auto) 79.3 % (37.0-80.0); Nucleated Red Blood Cells % 0.1 %; Platelet Count (auto) 186 10^3/uL (140-450); Red Blood Cells 4.44 10^6/uL (4.0-5.20); White Blood Cell 7.6 10^3/uL (4.4-10.8)
[2019-04-24 16:19] LABS: Albumin 3.2 g/dL (3.4-5.0); BUN/Creatinine Ratio 13.4; Bilirubin, Total 0.9 mg/dL (0.2-1.0); Calcium 8.8 mg/dL (8.5-10.1); Magnesium 2.2 mg/dL (1.6-2.6); Total Protein 6.7 g/dL (6.4-8.2)
== END | disposition home or self-care (01) ==
LOC: CHF HDHVI 12:29
PROVIDERS: ATTEND Internal Medicine Cardiovascular Disease
DX: D64.9 Anemia, unspecified (principal); E83.40 Disorders of magnesium metabolism, unspecified
CPT/HCPCS: 36415; 80053; 83735; 85025; 94640; 96374; G0463; J1940; J3420

== ENCOUNTER → 2019-04-25 | Outpatient (CLI) | payer MEDICARE, OTHER ==
[~2019-04-25] MED LIST changes: +PRE1T PO
== END | disposition home or self-care (01) ==
LOC: Rad HDHVI 14:03
PROVIDERS: ATTEND Internal Medicine Cardiovascular Disease
DX: I08.2 Rheumatic disorders of both aortic and tricuspid valves (principal); R06.02 Shortness of breath
CPT/HCPCS: 71046; 93306

== ENCOUNTER → 2019-05-19 | Outpatient (CLI) | payer MEDICARE, OTHER ==
[~2019-05-19] MED LIST changes: +IOHEXOL 350 MG/ML 100ML IJ ONE
[2019-05-19 11:30] VITALS: BP 119/56
[2019-05-19 13:15] VITALS: BP 119/56
--- NOTE | 2019-05-19 13:15 | NUR ---
Discharge Instructions See e-MAR for any mediations given with this visit. Patient education given on disease process. Patient verbalized understanding. Previous labs reviewed. Patient discharged in stable condition with after care instructions and follow up appointment. PT HERE FOR CT CHEST IV STARTED AND CREA 0.69
[2019-05-19 14:00] LABS: Lymphocytes # (auto) 1.6 uL; Monocytes # (auto) 0.5 uL
[2019-05-19 14:02] LABS: Basophils # (auto) 0 uL; Basophils % (auto) 0.4 % (0.0-2.0); Eosinophils # (auto) 0.3 uL; Eosinophils % (auto) 2.7 % (0.0-7.0); Hematocrit 37.9 % (36.0-46.0); Mean Corpuscular Hemoglobin 24.6 pg (28.0-32.0); Mean Corpuscular Hgb Conc. 31.6 g/dL (32.0-36.0); Monocytes % (auto) 4.7 % (0.0-12.0); Neutrophils # (auto) 7.8 uL; Neutrophils % (auto) 76.2 % (37.0-80.0); Platelet Count (auto) 215 10^3/uL (140-450); Red Blood Cells 4.86 10^6/uL (4.0-5.20); Red Cell Distribution Width 16.1 % (11.8-14.3); White Blood Cell 10.2 10^3/uL (4.4-10.8)
[2019-05-19 14:07] LABS: Calcium 8.2 mg/dL (8.5-10.1); Magnesium 1.8 mg/dL (1.6-2.6); Potassium 3.5 mmol/L (3.5-5.1)
[2019-05-19 14:11] LABS: BUN/Creatinine Ratio 16.4; Bilirubin, Total 0.7 mg/dL (0.2-1.0); Total Protein 6.5 g/dL (6.4-8.2)
[2019-05-19 14:35] VITALS: BP 121/59
[2019-05-19 14:42] VITALS: BP 121/59
[2019-05-19 14:43] VITALS: BP 121/59
== END | disposition home or self-care (01) ==
LOC: Rad HDHVI 12:50
PROVIDERS: ATTEND Internal Medicine Cardiovascular Disease
DX: D64.9 Anemia, unspecified (principal); R06.02 Shortness of breath; J44.9 Chronic obstructive pulmonary disease, unspecified; Z79.899 Other long term (current) drug therapy
CPT/HCPCS: 36415; 80053; 83735; 85025; G0463; Q9967; 71260

== ENCOUNTER → 2019-05-22 | Outpatient (CLI) | payer MEDICARE, OTHER ==
[~2019-05-22] VITALS: Ht 30.5 cm; Wt 0.5 kg
[~2019-05-22] MED LIST changes: +CYANOCOBALAMIN (B-12) 1000 MCG/1 ML VIAL IM ONE; +CYANOCOBALAMIN (B-12) 1000 MCG/1 ML VIAL ONE; -IOHEXOL 350 MG/ML 100ML IJ ONE; +MAGNESIUM OXIDE 400 MG TAB ONE; +MAGNESIUM OXIDE 400 MG TAB PO ONE; +POTASSIUM CHL 10 Meq TABLET PO ONE; +POTASSIUM CHL 20 Meq TABLET PO ONE
[2019-05-22 11:05] VITALS: BP 139/89
--- NOTE | 2019-05-22 11:05 | NUR ---
CHF PT ARRIVED TO THE CHF CLINIC FOR WEEKLY THERAPY. COMPLAINS OF PAIN IN ABD AND PINS AND NEEDLES IN HER FEET. A/O X4 VVS 0 DISTRESS
[2019-05-22 13:10] VITALS: BP 111/61
--- NOTE | 2019-05-22 13:10 | NUR ---
Discharge Instructions See e-MAR for any mediations given with this visit. Patient education given on disease process. Patient verbalized understanding. Previous labs reviewed. Patient discharged in stable condition with after care instructions and follow up appointment. DISCUSSED DIET CHANGES, FOLLOW UP APPOINTMENT WITH MD NOVA IN 1 WEEK, ADVISED TO TAKE GABAPENTIN PRESCRIBED NOTE VIT B12 IM R DELTOID MAG OXIDE PO POTASSIUM PO
[2019-05-23 12:00] LABS: Basophils # (auto) 0 uL; Basophils % (auto) 0.4 % (0.0-2.0); Eosinophils # (auto) 0 uL; Eosinophils % (auto) 0.1 % (0.0-7.0); Hematocrit 37.5 % (36.0-46.0); Hemoglobin 11.7 g/dL (12.2-16.2); Lymphocytes # (auto) 0.8 uL; Lymphocytes % (auto) 10.4 % (10.0-50.0); Mean Corpuscular Hgb Conc. 31.3 g/dL (32.0-36.0); Mean Corpuscular Volume 79.8 fL (80.0-100.0); Monocytes # (auto) 0.2 uL; Monocytes % (auto) 2.2 % (0.0-12.0); Neutrophils # (auto) 6.4 uL; Neutrophils % (auto) 86.9 % (37.0-80.0); Nucleated Red Blood Cells % 0.3 %; Platelet Count (auto) 215 10^3/uL (140-450); Red Blood Cells 4.69 10^6/uL (4.0-5.20); Red Cell Distribution Width 16.9 % (11.8-14.3); White Blood Cell 7.3 10^3/uL (4.4-10.8)
[2019-05-23 12:18] LABS: BUN/Creatinine Ratio 20.3; Calcium 8.3 mg/dL (8.5-10.1); Magnesium 2.5 mg/dL (1.6-2.6); Potassium 4.6 mmol/L (3.5-5.1)
== END | disposition home or self-care (01) ==
LOC: CHF HDHVI 11:05
PROVIDERS: ATTEND Internal Medicine Cardiovascular Disease
DX: I27.21 Secondary pulmonary arterial hypertension (principal); R53.83 Other fatigue; I11.0 Hypertensive heart disease with heart failure; I50.22 Chronic systolic (congestive) heart failure; D64.9 Anemia, unspecified; E83.40 Disorders of magnesium metabolism, unspecified; J44.9 Chronic obstructive pulmonary disease, unspecified; E11.65 Type 2 diabetes mellitus with hyperglycemia; E66.9 Obesity, unspecified; Z68.35 Body mass index [BMI] 35.0-35.9, adult; Z79.4 Long term (current) use of insulin; Z79.899 Other long term (current) drug therapy; Z90.710 Acquired absence of both cervix and uterus; Z90.49 Acquired absence of other specified parts of digestive tract; Z87.891 Personal history of nicotine dependence
CPT/HCPCS: 36415; 80048; 83735; 85025; 96372; G0463; J3420

== ENCOUNTER → 2019-06-05 | Outpatient (CLI) | payer MEDICARE, OTHER ==
[~2019-06-05] MED LIST changes: -CYANOCOBALAMIN (B-12) 1000 MCG/1 ML VIAL IM ONE; -CYANOCOBALAMIN (B-12) 1000 MCG/1 ML VIAL ONE; -MAGNESIUM OXIDE 400 MG TAB ONE; -MAGNESIUM OXIDE 400 MG TAB PO ONE; -POTASSIUM CHL 10 Meq TABLET PO ONE; -POTASSIUM CHL 20 Meq TABLET PO ONE
[2019-06-05 12:40] VITALS: BP 105/52
--- NOTE | 2019-06-05 12:40 | NUR ---
CHF PT ARRIVED TO THE CHF CLINIC FOR MONTHLY PAH F/U AND TREATMENT. A/L X4, VSS, PT CURRENT PAH MEDS OPSUMIT 10MG DAILY, ADEMPAS 2.5MG TID. PT ARRIVED TO THE CLINIC ON HOME 02 2L NC O2 SATS 93%.
--- NOTE | 2019-06-05 13:30 | NUR ---
6MWT PT COMPLETED 67 METERS ON THE 6MWT ON 2L N/C WITH 1 12 SEC BREAK WITH COMPLAINS OF SOB AND DIZZINESS. PREVIOUS 6MWT PT COMPLETED 60 METERS
[2019-06-05 13:45] VITALS: BP 116/63
--- NOTE | 2019-06-05 13:45 | NUR ---
Discharge Instructions See e-MAR for any mediations given with this visit. Patient education given on disease process. Patient verbalized understanding. Previous labs reviewed. Patient discharged in stable condition with after care instructions and follow up appointment. WILL RETURN TO CLINIC IN 1 WEEK ON 06/12/19 NOTE CARDIODYNAMICS DONE BY LAWANDA HARMAN REVIEWED BY SCOTT TURNER 6MWT DONE BY LAWANDA HARMAN REVIEWED BY KATTY QUESADA
== END | disposition home or self-care (01) ==
LOC: CHF HDHVI 12:38
PROVIDERS: ATTEND Internal Medicine Cardiovascular Disease
DX: I27.21 Secondary pulmonary arterial hypertension (principal); R53.83 Other fatigue; R06.02 Shortness of breath
CPT/HCPCS: 93701; 94618; G0463

== ENCOUNTER 2019-06-17 11:40 | Inpatient (IN) | payer MEDICARE, OTHER ==
[~2019-06-17] VITALS: Ht 154.9 cm; Wt 108.0 kg
[2019-06-17 14:00] LABS: Basophils # (auto) 0.1 10 ^3/uL (0-0.2); Eosinophils # (auto) 0.3 10 ^3/uL (0-0.8); Monocytes # (auto) 0.6 10 ^3/uL (0-1.3); Monocytes % (auto) 5.2 % (0.0-12.0); Platelet Count (auto) 275 10^3/uL (140-450)
[2019-06-17 14:01] LABS: Basophils % (auto) 0.8 % (0.0-2.0); Eosinophils % (auto) 2.7 % (0.0-7.0); Hematocrit 35.5 % (36.0-46.0); Hemoglobin 11.5 g/dL (12.2-16.2); Lymphocytes # (auto) 1.6 10 ^3/uL (0.4-5.4); Lymphocytes % (auto) 13.3 % (10.0-50.0); Mean Corpuscular Hemoglobin 25.4 pg (28.0-32.0); Mean Corpuscular Hgb Conc. 32.5 g/dL (32.0-36.0); Mean Corpuscular Volume 78.3 fL (80.0-100.0); Neutrophils # (auto) 9.4 10 ^3/uL (1.6-8.6); Red Blood Cells 4.54 10^6/uL (4.0-5.20); Red Cell Distribution Width 17.3 % (11.8-14.3)
[2019-06-17 14:17] LABS: Albumin 2.9 g/dL (3.4-5.0); Calcium 8.4 mg/dL (8.5-10.1); Potassium 4.1 mmol/L (3.5-5.1)
[2019-06-17 14:20] LABS: BUN/Creatinine Ratio 13.1; Bilirubin, Total 0.7 mg/dL (0.2-1.0); Total Protein 6.9 g/dL (6.4-8.2)
[2019-06-17 16:18] LABS: Urine Bacteria NONE SEEN /hpf (None Seen); Urine Blood Negative /uL (Negative); Urine Hyaline Cast FEW /lpf (0 - 2); Urine Mucus FEW (None Seen); Urine Specific Gravity 1.027 (1.001-1.035); Urine WBC 1 /hpf (0 - 5)
[2019-06-17] MEDS ORDERED: IPRATROPIUM BROM 0.5 MG/2.5ML INH SOL NEB ONE (23:00)
[2019-06-17] MEDS ORDERED: ALBUTEROL SULF 2.5 MG/0.5ML(0.5%) NEB SOLN NEB ONE (23:00)
[2019-06-17] MEDS ORDERED: DEXTROSE (50%) 50ML SYRG IV PRN (23:15)
[2019-06-18] MEDS ORDERED: HYDROmorphone HCL 2 MG/ML VL IV ONE
[2019-06-18] MEDS ORDERED: ONDANSETRON HCL 4 MG/2 ML VIAL IV SCH
[2019-06-18 00:55] VITALS: BP 120/69
--- NOTE | 2019-06-18 00:55 | NUR ---
MS admit from ER JIMMYCLIF admitted to tele/MS after SBAR received. Patient oriented to SHABNAM STAHL, RN primary RN, unit, room, bed, and unit policies regarding patient care and visiting hours. Patient attached to bedside oxygen, weighed by bed scale and encouraged to call if they need something. All questions and concerns addressed, patient verbalized understanding.
[2019-06-18] MEDS: PIPERACILLIN-TAZO 4.5GM 100 ML IV SCH ×4 (02:03→22:45)
[2019-06-18] MEDS: HYDROmorphone HCL 2 MG/ML VL IV PRN ×3 (02:21→21:07)
[2019-06-18] MEDS: ONDANSETRON HCL 4 MG/2 ML VIAL IV PRN (04:01)
--- NOTE | 2019-06-18 04:01 | NUR ---
Emesis patient experienced one episode of approximately 50mL green, watery emesis. Medicated for nausea according to orders.
[2019-06-18 05:00] VITALS: BP 126/59
[2019-06-18] MEDS: metroNIDAZOLE 500MG/100ML 100 ML IV SCH ×4 (05:51→21:07)
[2019-06-18] MEDS: ALBUTEROL SULF 2.5 MG/0.5ML(0.5%) NEB SOLN NEB SCH ×3 (06:08→21:44)
[2019-06-18] MEDS: ACCU-CHEK COMFORT CURVE STRIP VI SCH ×4 (06:33→22:45)
[2019-06-18] MEDS: InsuLIN REG 1unit/0.01ml Soln (100units/ml) SC SCH ×4 (06:38→22:57)
--- NOTE | 2019-06-18 07:40 | NUR ---
Opening Shift note Assumed care of patient. Patient sitting up on the side of the bed A&Ox4. Respirations even and non-labored. Patient was preparing to ambulate to the restroom. NC at 2L. IV flushing, patent and intact. Discussed POC with patient. Bed lowered/locked with 2 side rails up. Call light within reach. Will continue to monitor.
[2019-06-18 09:00] VITALS: BP 123/71
[2019-06-18] MEDS: PANTOPRAZOLE 40 MG/10 ML VIAL INJ IV SCH (10:39)
[2019-06-18] MEDS: METOPROLOL TARTRATE 50 MG TAB PO SCH ×2 (10:39→22:45)
--- NOTE | 2019-06-18 10:40 | NUR ---
Pain Patient c/o 8/10 pain for abdominal pain. Administered Dilaudid per EMAR. Will continue to monitor.
[2019-06-18] MEDS: levoFLOXacin 500MG 100 ML IV SCH (10:41)
--- NOTE | 2019-06-18 11:10 | NUR ---
Pain reassessed Patient reassessed for abdominal pain. Patient rated her pain 5/10. The patient stated that she felt better after the pain medication. Will continue to monitor.
--- NOTE | 2019-06-18 12:00 | NUR ---
Nausea/Vomiting Patient is continuously vomiting. Page to Dr. Negron. Awaiting new orders.
--- NOTE | 2019-06-18 12:05 | NUR ---
Nutrition Assessment Notes Please refer to link for full assessment notes. Est energy needs: 3029-5591 kcals (12-15 kcal/kgBW) Est protein needs: 62-68 gms/day (1.0-1.1 gm/kgBW) d/t age Will continue to monitor and reassess prn. Addendum: 06/18/19 at [address] Amended: Links added.
--- NOTE | 2019-06-18 12:45 | NUR ---
return page Dr. Negron aware of patient's vomiting. New orders given.
[2019-06-18 13:00] VITALS: BP 123/68
[2019-06-18] MEDS: METOCLOPRAMIDE HCL 5MG/ml INJ 2ml VIAL IV PRN ×2 (13:37→22:45)
[2019-06-18] MEDS ORDERED: METOCLOPRAMIDE HCL 5MG/ml INJ 2ml VIAL IV SCH (14:00)
[2019-06-18 17:21] VITALS: BP 101/66
--- NOTE | 2019-06-18 19:21 | NUR ---
Closing Shift Note Patient resting in bed. No distress noted. Report given. Will endorse care to the rn night RN.
[2019-06-18 22:00] VITALS: BP 110/60
[2019-06-19 00:59] VITALS: BP 117/70
[2019-06-19] MEDS: ONDANSETRON HCL 4 MG/2 ML VIAL IV PRN (02:14)
[2019-06-19 05:00] VITALS: BP 119/61
[2019-06-19] MEDS: metroNIDAZOLE 500MG/100ML 100 ML IV SCH ×4 (05:14→21:52)
[2019-06-19] MEDS ORDERED: SODIUM CHLORIDE 0.9 % NEB SOLN 3ML NEB ONE ×2 (05:39→12:22)
[2019-06-19] MEDS: ACCU-CHEK COMFORT CURVE STRIP VI SCH ×4 (06:23→22:15)
[2019-06-19] MEDS: InsuLIN REG 1unit/0.01ml Soln (100units/ml) SC SCH ×4 (06:38→22:22)
[2019-06-19] MEDS: PIPERACILLIN-TAZO 4.5GM 100 ML IV SCH ×3 (06:38→23:19)
[2019-06-19] MEDS: ALBUTEROL SULF 2.5 MG/0.5ML(0.5%) NEB SOLN NEB SCH ×3 (06:40→21:44)
--- NOTE | 2019-06-19 07:27 | NUR ---
Provided report to day RN. Notified RN to clarify dosage/frequency of home medications of Adempas and Opsumit, and notified RN of Adempas and Opsumit was sent to Pharmacy to have pharmacy dispense to us to give to patient as ordered by MD Negron-after we clarify dosage and frequency. Currently patient is resting in bed with no signs of distress at this time.
--- NOTE | 2019-06-19 07:40 | NUR ---
Opening shift note Patient semi-fowlers sleeping with respirations even and non-labored. No s/s of distress. Will discuss POC with patient upon waking. Bed in lowest/locked position with 2 side rails up. Will continue to monitor.
[2019-06-19 09:29] VITALS: BP 104/59
[2019-06-19] MEDS: METOPROLOL TARTRATE 50 MG TAB PO SCH ×2 (10:00→22:25)
[2019-06-19] MEDS: levoFLOXacin 500MG 100 ML IV SCH (10:19)
[2019-06-19] MEDS: PANTOPRAZOLE 40 MG/10 ML VIAL INJ IV SCH (10:19)
--- NOTE | 2019-06-19 12:15 | NUR ---
Rounding Patient sitting up on the side of the bed, A&Ox4 with no s/s of distress. Patient had no c/o pain or discomfort at this time. will continue to monitor.
[2019-06-19 14:17] VITALS: BP 111/63
[2019-06-19 16:23] VITALS: BP 113/71
--- NOTE | 2019-06-19 19:36 | NUR ---
Closing Shift Note Patient sitting in bed watching TV. Patient denies nausea, vomiting. Patient has tolerated diet well, eating only a small portion of her tray. No distress noted. Report given. Will endorse care to the hourly shift RN.
--- NOTE | 2019-06-19 20:00 | NUR ---
Opening Shift Note Assumed care of patient, awake and alert. No S/S of distress/SOB or pain. Instructed on POC and to call for assist PRN, will continue to monitor for changes Q1hr and PRN.
[2019-06-20] VITALS (7 sets, daily range): BP systolic 102–115; BP diastolic 48–68
[2019-06-20] MEDS: metroNIDAZOLE 500MG/100ML 100 ML IV SCH ×4 (05:43→22:18)
[2019-06-20] MEDS: ALBUTEROL SULF 2.5 MG/0.5ML(0.5%) NEB SOLN NEB SCH ×3 (06:40→22:40)
[2019-06-20] MEDS: PIPERACILLIN-TAZO 4.5GM 100 ML IV SCH ×3 (06:43→23:49)
[2019-06-20] MEDS: InsuLIN REG 1unit/0.01ml Soln (100units/ml) SC SCH ×4 (06:46→22:20)
[2019-06-20] MEDS: ACCU-CHEK COMFORT CURVE STRIP VI SCH ×4 (06:52→22:19)
[2019-06-20] MEDS: METOPROLOL TARTRATE 50 MG TAB PO SCH ×2 (10:00→22:19)
[2019-06-20] MEDS: PANTOPRAZOLE 40 MG/10 ML VIAL INJ IV SCH (10:24)
[2019-06-20] MEDS: levoFLOXacin 500MG 100 ML IV SCH (10:24)
[2019-06-20] MEDS: ONDANSETRON HCL 4 MG/2 ML VIAL IV PRN (12:15)
[2019-06-20] MEDS: HYDROmorphone HCL 2 MG/ML VL IV PRN ×2 (12:15→22:21)
--- NOTE | 2019-06-20 14:15 | NUR ---
Nutrition Assessment Notes Pt wt is 107.9 kg today Pt was in restroom with no relatives at bedside when rounded this morning. Pt appetite is good aeb ave 75% PO intake per RN doc. Left dietary guidelines for colitis info sheet on pt tray, and let her know it was there for her to view. Pt with no noted distress per RN doc. Will continue to monitor and followup prn. Est energy needs: 5799-2690 kcals (12-15 kcal/kgBW) Est protein needs: 62-68 gms/day (1.0-1.1 gm/kgBW) d/t age Will continue to monitor and reassess prn. LABS: GLUC 151 H, ALB 2.9 L GI: Last BM noted on 06/20/19 per RN doc BS: 21 LOW RISK, NO WOUNDS, PLEASE REFER TO WOUND ASSESSMENT REPORT FOR FULL DETAILS PES: Problem 1) Increased nutrition needs r/t 0% PO intake aeb pt NPO status 2) Obesity r/t energy intake in excess of energy needs aeb 220% IBW and BMI of 43.8 kg/m2 3) Altered nutrition related lab values r/t current medical condition aeb hyperglycemia, hypoalbuminemia, hypocalcemia Comments 1) Continue to closely monitor pt NPO status 2) If pt remains NPO for the next 72 hrs, consider alternate nutrition support 3) Gradually advance pt to oral diet when medically feasible, as tolerated, and per MD approval 4) Continue current plan of care
--- NOTE | 2019-06-20 19:15 | NUR ---
Endorsed report to night JOHNNY Witt. Patient resting in bed, no distress, sob, or pain noted at this time.
--- NOTE | 2019-06-20 19:15 | NUR ---
Opening Shift Note Assumed care of patient, awake and alert. No S/S of distress/SOB or pain. Instructed on POC and to call for assist PRN, will continue to monitor for changes Q1hr and PRN. PATIENT RESTING IN BED, BED IN LOWEST POSITION, SIDE RALES UPX2, SHE HAS CALL LIGHT IN HER LAP.
[2019-06-20] MEDS: METOCLOPRAMIDE HCL 5MG/ml INJ 2ml VIAL IV PRN (22:21)
[2019-06-20] MEDS: IPRATROPIUM BROM 0.5 MG/2.5ML INH SOL NEB PRN (22:40)
[2019-06-21 04:55] VITALS: BP 113/58
[2019-06-21] MEDS: metroNIDAZOLE 500MG/100ML 100 ML IV SCH ×2 (06:05→12:20)
[2019-06-21] MEDS: ALBUTEROL SULF 2.5 MG/0.5ML(0.5%) NEB SOLN NEB SCH ×2 (06:16→13:16)
[2019-06-21] MEDS: IPRATROPIUM BROM 0.5 MG/2.5ML INH SOL NEB PRN (06:16)
[2019-06-21 06:43] VITALS: BP 113/58
[2019-06-21] MEDS: ACCU-CHEK COMFORT CURVE STRIP VI SCH ×2 (06:47→11:30)
[2019-06-21] MEDS: InsuLIN REG 1unit/0.01ml Soln (100units/ml) SC SCH ×2 (06:48→11:30)
[2019-06-21] MEDS: PIPERACILLIN-TAZO 4.5GM 100 ML IV SCH ×2 (07:04→14:00)
--- NOTE | 2019-06-21 07:15 | NUR ---
Opening Shift Note Assumed care of patient, awake and alert. No S/S of distress/SOB or pain. Instructed on POC and to call for assist PRN, will continue to monitor for changes Q1hr and PRN. Fall precautions in place per safety protocol.
[2019-06-21 08:40] VITALS: BP 115/60
[2019-06-21] MEDS: METOPROLOL TARTRATE 50 MG TAB PO SCH (10:00)
[2019-06-21] MEDS: PANTOPRAZOLE 40 MG/10 ML VIAL INJ IV SCH (10:31)
[2019-06-21] MEDS: levoFLOXacin 500MG 100 ML IV SCH (10:31)
[2019-06-21 12:44] VITALS: BP 100/52
[2019-06-21 12:59] VITALS: BP 100/52
--- NOTE | 2019-06-21 13:16 | NUR ---
Respiratory note: SCHEDULED MED NEB TX NOT GIVEN DUE TO PT REFUSAL. PT SHOWS NO S/S OF RESPIRATORY DISTRESS. PT VITALS ARE STABLE AND SP02 > 92%. PT STATED SHE DID NOT WANT TX BECAUSE, " I AM BEING DISCHARGED AND JUST WANT TO GET DRESSED/GO HOME." WILL CONTINUE TO MONITOR PT.
--- NOTE | 2019-06-21 14:00 | NUR ---
Discharge instructions given as ordered. Encourage to follow up with PMD as instructed. All questions and concerns addressed. Patient verbalized understanding. Medication reconciliation form completed and copy given to patient. Home medications held in Pharmacy returned to patient. IV removed with catheter intact, pressure dressing applied. Patient taken to vehicle via wheelchair with all personal belongings, accompanied by staff. No distress noted at time of departure.
== END 2019-06-21 14:31 | disposition home or self-care (01) | DRG 389 ==
LOC: ER 11:40 → WEST WING 11:41
PROVIDERS: ADMIT Internal Medicine Cardiovascular Disease; ATTEND Internal Medicine Cardiovascular Disease
DX: K56.609 Unspecified intestinal obstruction, unspecified as to partial versus complete obstruction (principal); I13.0 Hypertensive heart and chronic kidney disease with heart failure and stage 1 through stage 4 chronic kidney disease, or unspecified chronic kidney disease; E87.2 Acidosis; K52.9 Noninfective gastroenteritis and colitis, unspecified; D64.9 Anemia, unspecified; E03.9 Hypothyroidism, unspecified; E11.22 Type 2 diabetes mellitus with diabetic chronic kidney disease; N18.9 Chronic kidney disease, unspecified; E78.5 Hyperlipidemia, unspecified; I50.9 Heart failure, unspecified; E11.40 Type 2 diabetes mellitus with diabetic neuropathy, unspecified; Z79.84 Long term (current) use of oral hypoglycemic drugs; Z79.4 Long term (current) use of insulin; J44.9 Chronic obstructive pulmonary disease, unspecified; Z90.710 Acquired absence of both cervix and uterus; Z83.3 Family history of diabetes mellitus; Z90.49 Acquired absence of other specified parts of digestive tract; Z79.899 Other long term (current) drug therapy; Z80.9 Family history of malignant neoplasm, unspecified; Z82.3 Family history of stroke; Z81.0 Family history of intellectual disabilities; R06.89 Other abnormalities of breathing
CPT/HCPCS: 36415; 74018; 74176; 80053; 81001; 82962; 83690; 85025; 94640; C9113; G0378; J1815; J1956; J2405; J2543; J3490

== ENCOUNTER → 2019-09-16 | Outpatient (CLI) | payer MEDICARE, OTHER | END | disposition home or self-care (01) | LOC: Rad HDHVI 15:04 | PROVIDERS: ATTEND Internal Medicine Cardiovascular Disease | DX: I25.10 Atherosclerotic heart disease of native coronary artery without angina pectoris (principal); I50.43 Acute on chronic combined systolic (congestive) and diastolic (congestive) heart failure; R07.89 Other chest pain | CPT/HCPCS: 93306 ==

== ENCOUNTER → 2019-10-21 | Outpatient (CLI) | payer MEDICARE, OTHER ==
[~2019-10-21] MED LIST changes: +BUMETANIDE 1mg/4ml VIAL (0.25mg/ml) ONE; +BUMETANIDE 2.5mg/10ml (0.25 mg/ml) INJ IV ONE; +CYANOCOBALAMIN (B-12) 1000 MCG/1 ML VIAL IM ONE; +CYANOCOBALAMIN (B-12) 1000 MCG/1 ML VIAL ONE; +POTASSIUM CHL 10 Meq TABLET PO ONE; +POTASSIUM CHL 20 Meq TABLET PO ONE; +metOLazone 5 MG TAB ONE; +metOLazone 5 MG TAB PO ONE
[2019-10-21 12:55] VITALS: BP 123/59
--- NOTE | 2019-10-21 12:55 | NUR ---
CLINIC PT ARRIVED TO THE CHF CLINIC FOR PAH EVAL AND TX. PT HAS A 10LB WT INCREASE SINCE LAST VISIT. A/OX4, ARRIVED WITH HOME MOTOR CART AND ON HOME O2 3L N/C. BREATHING IS EVEN AND UNLABORED. RIGHT EYE WAS RED LOOKED BLOODSHOT, NO DRAINAGE, NO PAIN, AND NO BURNING SENSATION.
[2019-10-21 13:51] VITALS: BP 129/63
--- NOTE | 2019-10-21 13:51 | NUR ---
Discharge Instructions See e-MAR for any mediations given with this visit. Patient education given on disease process. Patient verbalized understanding. Previous labs reviewed. Patient discharged in stable condition with after care instructions and follow up appointment IN 1 MONTH. NOTE METOLAZONE PO ADMIN BY GWEN TURNER KDUR PO ADMIN BY GWEN TURNER VIT B 12 IM ADMIN BY GWEN Barber DELTOID LOT# [id number] EXP 06/21 BUMEX IVP ADMIN BY SCOTT TURNER
[2019-10-21 16:21] LABS: Basophils # (auto) 0 10 ^3/uL (0-0.2); Basophils % (auto) 0.2 % (0.0-2.0); Eosinophils # (auto) 0.3 10 ^3/uL (0-0.8); Eosinophils % (auto) 3.5 % (0.0-7.0); Hematocrit 35.6 % (36.0-46.0); Hemoglobin 11.1 g/dL (12.2-16.2); Lymphocytes # (auto) 1.6 10 ^3/uL (0.4-5.4); Lymphocytes % (auto) 16.3 % (10.0-50.0); Mean Corpuscular Hemoglobin 24.7 pg (28.0-32.0); Mean Corpuscular Hgb Conc. 31.2 g/dL (32.0-36.0); Monocytes # (auto) 0.5 10 ^3/uL (0-1.3); Monocytes % (auto) 5.4 % (0.0-12.0); Neutrophils # (auto) 7.2 10 ^3/uL (1.6-8.6); Neutrophils % (auto) 74.6 % (37.0-80.0); Platelet Count (auto) 222 10^3/uL (140-450); Red Cell Distribution Width 15.7 % (11.8-14.3); White Blood Cell 9.6 10^3/uL (4.4-10.8)
[2019-10-21 16:28] LABS: Albumin 3.3 g/dL (3.4-5.0); Calcium 8.6 mg/dL (8.5-10.1); Magnesium 2.3 mg/dL (1.6-2.6); Potassium 4.1 mmol/L (3.5-5.1)
[2019-10-21 16:31] LABS: BUN/Creatinine Ratio 18.7; Bilirubin, Total 0.7 mg/dL (0.2-1.0); Total Protein 7.3 g/dL (6.4-8.2)
== END | disposition home or self-care (01) ==
LOC: CHF HDHVI 13:01
PROVIDERS: ATTEND Internal Medicine Cardiovascular Disease
DX: I27.0 Primary pulmonary hypertension (principal); D64.9 Anemia, unspecified; E11.9 Type 2 diabetes mellitus without complications; E83.40 Disorders of magnesium metabolism, unspecified; K90.9 Intestinal malabsorption, unspecified; I50.42 Chronic combined systolic (congestive) and diastolic (congestive) heart failure; I25.10 Atherosclerotic heart disease of native coronary artery without angina pectoris; Z79.899 Other long term (current) drug therapy
CPT/HCPCS: 36415; 80053; 82306; 83036; 83735; 85025; 96372; 96374; G0463; J3420; J3490

== ENCOUNTER → 2019-11-17 | Outpatient (CLI) | payer MEDICARE, OTHER ==
[~2019-11-17] MED LIST changes: -BUMETANIDE 1mg/4ml VIAL (0.25mg/ml) ONE; -BUMETANIDE 2.5mg/10ml (0.25 mg/ml) INJ IV ONE; -CYANOCOBALAMIN (B-12) 1000 MCG/1 ML VIAL IM ONE; -CYANOCOBALAMIN (B-12) 1000 MCG/1 ML VIAL ONE; -POTASSIUM CHL 10 Meq TABLET PO ONE; -POTASSIUM CHL 20 Meq TABLET PO ONE; +READI-CAT 2 (BARIUM SULF)(VANILLA SMOOTHIE) 450ML ONE; -metOLazone 5 MG TAB ONE; -metOLazone 5 MG TAB PO ONE
== END | disposition home or self-care (01) ==
LOC: Rad HDHVI 13:08
PROVIDERS: ATTEND Internal Medicine Cardiovascular Disease
DX: N28.9 Disorder of kidney and ureter, unspecified (principal); N28.1 Cyst of kidney, acquired; I70.8 Atherosclerosis of other arteries; R16.0 Hepatomegaly, not elsewhere classified; R10.9 Unspecified abdominal pain
CPT/HCPCS: 74176

== ENCOUNTER → 2019-12-19 | Outpatient (CLI) | payer MEDICARE, OTHER ==
[~2019-12-19] MED LIST changes: +CYANOCOBALAMIN (B-12) 1000 MCG/1 ML VIAL IM ONE; +CYANOCOBALAMIN (B-12) 1000 MCG/1 ML VIAL ONE; -READI-CAT 2 (BARIUM SULF)(VANILLA SMOOTHIE) 450ML ONE
[2019-12-19 12:09] VITALS: BP 132/58
--- NOTE | 2019-12-19 12:09 | NUR ---
CLINIC PT ARRIVED TO THE CHF CLINIC FOR MONTHLY PAH EVAL AND TX. A/OX4, PT ARRIVED USING HOME MOTOR WHEELCHAIR, AND ACCOMPANIED BY . BREATHING IS EVEN AND UNLABORED. PT IS ON HOME 02 2L N/C.
--- NOTE | 2019-12-19 12:28 | NUR ---
6MWT DONE BY LAWANDA HARMAN PT DID 37M AND STOPPED THE TEST AT 2 MIN 8 SEC DUE TO FATIGUE, SOB, AND WHEEZING. PT C/O ARM PAIN DUE TO ARTHRITIS. IT IS A 30 M DECREASE SINCE LAST TEST ON 06/05/19.
[2019-12-19 12:45] VITALS: BP 138/64
--- NOTE | 2019-12-19 12:45 | NUR ---
Discharge Instructions See e-MAR for any mediations given with this visit. Patient education given on disease process. Patient verbalized understanding. Previous labs reviewed. Patient discharged in stable condition with after care instructions and follow up appointment IN 1 MONTH. NOTE VIT B12 IM ADMIN BY SCOTT Tony DELTBRIANA LOT#[id number] EXP 07/23 6MWT DONE BY LAWANDA HARMAN 37M
[2019-12-19 15:54] LABS: Basophils # (auto) 0 10 ^3/uL (0-0.2); Eosinophils # (auto) 0.3 10 ^3/uL (0-0.8); Hemoglobin 11.4 g/dL (12.2-16.2); Lymphocytes # (auto) 1.4 10 ^3/uL (0.4-5.4)
[2019-12-19 15:56] LABS: Basophils % (auto) 0.3 % (0.0-2.0); Eosinophils % (auto) 3.2 % (0.0-7.0); Hematocrit 36.3 % (36.0-46.0); Lymphocytes % (auto) 15.6 % (10.0-50.0); Mean Corpuscular Hemoglobin 24.7 pg (28.0-32.0); Mean Corpuscular Hgb Conc. 31.4 g/dL (32.0-36.0); Mean Corpuscular Volume 78.5 fL (80.0-100.0); Monocytes # (auto) 0.5 10 ^3/uL (0-1.3); Monocytes % (auto) 5.3 % (0.0-12.0); Neutrophils # (auto) 6.7 10 ^3/uL (1.6-8.6); Neutrophils % (auto) 75.6 % (37.0-80.0); Nucleated Red Blood Cells % 0.1 %; Platelet Count (auto) 224 10^3/uL (140-450); Red Blood Cells 4.63 10^6/uL (4.0-5.20); Red Cell Distribution Width 15.9 % (11.8-14.3); White Blood Cell 8.8 10^3/uL (4.4-10.8)
[2019-12-19 16:14] LABS: Albumin 3.4 g/dL (3.4-5.0); Calcium 8.7 mg/dL (8.5-10.1); Magnesium 2.1 mg/dL (1.6-2.6); Potassium 4.1 mmol/L (3.5-5.1)
[2019-12-19 16:17] LABS: BUN/Creatinine Ratio 15.3; Bilirubin, Total 0.9 mg/dL (0.2-1.0); Total Protein 7.3 g/dL (6.4-8.2)
== END | disposition home or self-care (01) ==
LOC: CHF HDHVI 12:13
PROVIDERS: ATTEND Internal Medicine Cardiovascular Disease
DX: I27.0 Primary pulmonary hypertension (principal); Z79.899 Other long term (current) drug therapy
CPT/HCPCS: 36415; 80053; 83735; 85025; 94618; 96372; G0463; J3420

== ENCOUNTER 2020-09-13 20:22 | Inpatient (IN) | payer MEDICARE, OTHER ==
[~2020-09-13] VITALS: Ht 154.9 cm; Wt 109.2 kg
[~2020-09-13 20:22] MED LIST changes: -CYANOCOBALAMIN (B-12) 1000 MCG/1 ML VIAL IM ONE; -CYANOCOBALAMIN (B-12) 1000 MCG/1 ML VIAL ONE; -METO-5 PO; +METO1TAB77 PO; +RIOC1TAB12 PO; -RIOC1TAB3 PO
[2020-09-13 22:10] LABS: Basophils # (auto) 0 10 ^3/uL (0-0.2); Basophils % (auto) 0.4 % (0.0-2.0); Eosinophils # (auto) 0.3 10 ^3/uL (0-0.8); Eosinophils % (auto) 3.1 % (0.0-7.0); Hematocrit 37.3 % (36.0-46.0); Hemoglobin 12.4 g/dL (12.2-16.2); Lymphocytes # (auto) 1.8 10 ^3/uL (0.4-5.4); Lymphocytes % (auto) 17.1 % (10.0-50.0); Mean Corpuscular Hemoglobin 26.3 pg (28.0-32.0); Mean Corpuscular Hgb Conc. 33.2 g/dL (32.0-36.0); Mean Corpuscular Volume 79.1 fL (80.0-100.0); Monocytes # (auto) 0.5 10 ^3/uL (0-1.3); Monocytes % (auto) 4.7 % (0.0-12.0); Neutrophils # (auto) 7.7 10 ^3/uL (1.6-8.6); Neutrophils % (auto) 74.7 % (37.0-80.0); Red Blood Cells 4.71 10^6/uL (4.0-5.20); Red Cell Distribution Width 15.1 % (11.8-14.3); White Blood Cell 10.3 10^3/uL (4.4-10.8)
[2020-09-13 22:21] LABS: INR 1.05 (0.9-1.15)
[2020-09-13 22:25] LABS: Albumin 3.1 g/dL (3.4-5.0); Anion Gap 6 (5-15); Blood Urea Nitrogen 16 mg/dL (7-18); Calcium 8.3 mg/dL (8.5-10.1); Carbon Dioxide 30 mmol/L (21-32); Chloride 102 mmol/L (98-107); Glucose 175 mg/dL (74-106); Potassium 4.1 mmol/L (3.5-5.1); Sodium 138 mmol/L (136-145)
[2020-09-13 22:40] LABS: Alanine Aminotransferase 17 U/L (13-56); Alkaline Phosphatase 116 U/L (45-117); Aspartate Aminotransferase 17 U/L (15-37); BUN/Creatinine Ratio 20.3; Bilirubin, Total 0.6 mg/dL (0.2-1.0); GFR African American 93 mL/min; GFR Non-African American 77 mL/min
[2020-09-13] MEDS ORDERED: ASPirin 325 MG TAB PO ONE (22:45)
[2020-09-14] MEDS ORDERED: MORPHINE SULF INJ 2 MG/ML SYRINGE 1ML IV PRN (00:30)
[2020-09-14] MEDS ORDERED: CLOPIDOGREL BISULFATE 75 MG TAB PO ONE (00:30)
[2020-09-14] MEDS ORDERED: DEXTROSE (50%) 50ML SYRG IV PRN (00:30)
[2020-09-14] MEDS ORDERED: NITROGLYCERIN 0.4 MG SL TAB SL PRN (00:30)
[2020-09-14] MEDS: SODIUM CHLORIDE 0.9% 1,000 ML IV SCH (01:33)
[2020-09-14] MEDS: GABAPENTIN 300 MG CAP PO SCH ×3 (06:27→22:43)
[2020-09-14] MEDS: ACCU-CHEK COMFORT CURVE STRIP VI SCH ×4 (06:38→22:24)
[2020-09-14] MEDS: InsuLIN REG 1unit/0.01ml Soln (100units/ml) SC SCH ×4 (06:39→22:24)
[2020-09-14] MEDS ORDERED: LORazepam 2MG/ML-1ML VIAL IV PRN (08:45)
[2020-09-14 09:47] LABS: Cholesterol 240 mg/dL (< 200)
[2020-09-14 09:49] LABS: HDL Cholesterol 42 mg/dL (40-59); LDL Cholesterol 168 mg/dL (< 100); Triglycerides 164 mg/dL (< 150)
[2020-09-14] MEDS: metFORMIN HYDROCHLORIDE 500 MG TAB PO SCH (10:00)
[2020-09-14] MEDS: CLOPIDOGREL BISULFATE 75 MG TAB PO SCH (10:00)
[2020-09-14] MEDS: MONTELUKAST SODIUM 10 MG TAB PO SCH (10:00)
[2020-09-14] MEDS: TORSEMIDE 20 MG TAB PO SCH (10:00)
[2020-09-14] MEDS: METOPROLOL TARTRATE 50 MG TAB PO SCH ×3 (10:00→22:43)
[2020-09-14] MEDS: INSULIN LANTUS (GLARGINE) 1 /0.01ml (100units/ml) SC SCH ×2 (10:00→22:24)
[2020-09-14] MEDS: POTASSIUM CHL 20 Meq TABLET PO SCH (10:00)
[2020-09-14] MEDS: ASPirin 81 mg TAB PO SCH (11:46)
[2020-09-14] MEDS ORDERED: ACET-1156 PO (13:47)
[2020-09-14] MEDS ORDERED: DIPH25CA6 PO (15:41)
[2020-09-14 17:08] VITALS: BP 129/77
[2020-09-14 21:28] VITALS: BP 129/77
[2020-09-14] MEDS: IPRATROPIUM BROM 0.5 MG/2.5ML INH SOL NEB PRN (21:52)
[2020-09-14 22:00] VITALS: BP 125/67
[2020-09-14] MEDS: PRAVASTATIN SODIUM 20 MG TAB PO SCH (22:43)
[2020-09-15] MEDS: SODIUM CHLORIDE 0.9% 1,000 ML IV SCH (00:11)
[2020-09-15 05:00] VITALS: BP 112/65
[2020-09-15] MEDS: GABAPENTIN 300 MG CAP PO SCH ×3 (06:29→22:40)
[2020-09-15] MEDS: ACCU-CHEK COMFORT CURVE STRIP VI SCH ×4 (06:30→22:00)
[2020-09-15] MEDS: InsuLIN REG 1unit/0.01ml Soln (100units/ml) SC SCH ×4 (06:30→22:41)
[2020-09-15 09:30] VITALS: BP 134/78
[2020-09-15] MEDS: ASPirin 81 mg TAB PO SCH (10:29)
[2020-09-15] MEDS: TORSEMIDE 20 MG TAB PO SCH (10:30)
[2020-09-15] MEDS: MONTELUKAST SODIUM 10 MG TAB PO SCH (10:31)
[2020-09-15] MEDS: CLOPIDOGREL BISULFATE 75 MG TAB PO SCH (10:32)
[2020-09-15] MEDS: METOPROLOL TARTRATE 50 MG TAB PO SCH ×2 (10:32→22:40)
[2020-09-15] MEDS: metFORMIN HYDROCHLORIDE 500 MG TAB PO SCH (10:34)
[2020-09-15] MEDS: POTASSIUM CHL 20 Meq TABLET PO SCH (10:34)
[2020-09-15] MEDS: IPRATROPIUM BROM 0.5 MG/2.5ML INH SOL NEB PRN ×2 (10:47→22:34)
[2020-09-15] MEDS: INSULIN LANTUS (GLARGINE) 1 /0.01ml (100units/ml) SC SCH ×2 (12:16→22:42)
[2020-09-15 13:30] VITALS: BP 119/72
[2020-09-15 17:26] VITALS: BP 126/74
[2020-09-15 22:00] VITALS: BP 119/66
[2020-09-15] MEDS: RIOCIGUAT 2.5 MG PO SCH (22:38)
[2020-09-15] MEDS: MACITENTAN (OPSUMIT) 10 MG TAB PO SCH (22:38)
[2020-09-15] MEDS: PRAVASTATIN SODIUM 20 MG TAB PO SCH (22:41)
[2020-09-16] MEDS: SODIUM CHLORIDE 0.9% 1,000 ML IV SCH ×2 (00:54→09:51)
[2020-09-16 05:00] VITALS: BP 109/54
[2020-09-16] MEDS: InsuLIN REG 1unit/0.01ml Soln (100units/ml) SC SCH ×4 (06:34→23:37)
[2020-09-16] MEDS: RIOCIGUAT 2.5 MG PO SCH ×3 (06:38→23:18)
[2020-09-16] MEDS: ACCU-CHEK COMFORT CURVE STRIP VI SCH ×4 (06:38→23:21)
[2020-09-16] MEDS: GABAPENTIN 300 MG CAP PO SCH ×3 (06:38→23:18)
[2020-09-16 08:41] VITALS: BP 104/60
[2020-09-16] MEDS: METOPROLOL TARTRATE 50 MG TAB PO SCH ×2 (09:50→22:00)
[2020-09-16] MEDS: metFORMIN HYDROCHLORIDE 500 MG TAB PO SCH (09:50)
[2020-09-16] MEDS: CLOPIDOGREL BISULFATE 75 MG TAB PO SCH (09:50)
[2020-09-16] MEDS: ASPirin 81 mg TAB PO SCH (09:50)
[2020-09-16] MEDS: POTASSIUM CHL 20 Meq TABLET PO SCH (09:50)
[2020-09-16] MEDS: MACITENTAN (OPSUMIT) 10 MG TAB PO SCH (09:51)
[2020-09-16] MEDS: TORSEMIDE 20 MG TAB PO SCH (09:51)
[2020-09-16] MEDS: MONTELUKAST SODIUM 10 MG TAB PO SCH (09:51)
[2020-09-16] MEDS: IPRATROPIUM BROM 0.5 MG/2.5ML INH SOL NEB PRN ×2 (10:12→22:03)
[2020-09-16] MEDS: INSULIN LANTUS (GLARGINE) 1 /0.01ml (100units/ml) SC SCH ×2 (12:20→23:36)
[2020-09-16 13:00] VITALS: BP 94/50
[2020-09-16 17:00] VITALS: BP 96/48
[2020-09-16 22:00] VITALS: BP 91/38
[2020-09-16] MEDS: PRAVASTATIN SODIUM 20 MG TAB PO SCH (23:17)
[2020-09-17 05:00] VITALS: BP 102/45
[2020-09-17] MEDS: ACCU-CHEK COMFORT CURVE STRIP VI SCH ×3 (06:19→17:00)
[2020-09-17] MEDS: InsuLIN REG 1unit/0.01ml Soln (100units/ml) SC SCH ×3 (06:19→17:00)
[2020-09-17] MEDS: RIOCIGUAT 2.5 MG PO SCH ×2 (06:20→14:00)
[2020-09-17] MEDS: GABAPENTIN 300 MG CAP PO SCH ×2 (06:20→14:16)
[2020-09-17] MEDS: IPRATROPIUM BROM 0.5 MG/2.5ML INH SOL NEB PRN (07:31)
[2020-09-17 08:00] VITALS: BP 104/51
[2020-09-17 08:54] VITALS: BP 104/51
[2020-09-17] MEDS: metFORMIN HYDROCHLORIDE 500 MG TAB PO SCH (09:31)
[2020-09-17] MEDS: ASPirin 81 mg TAB PO SCH (09:32)
[2020-09-17] MEDS: METOPROLOL TARTRATE 50 MG TAB PO SCH (09:32)
[2020-09-17] MEDS: POTASSIUM CHL 20 Meq TABLET PO SCH (09:33)
[2020-09-17] MEDS: CLOPIDOGREL BISULFATE 75 MG TAB PO SCH (09:33)
[2020-09-17] MEDS: MONTELUKAST SODIUM 10 MG TAB PO SCH (09:33)
[2020-09-17] MEDS: TORSEMIDE 20 MG TAB PO SCH (09:33)
[2020-09-17] MEDS: MACITENTAN (OPSUMIT) 10 MG TAB PO SCH (09:33)
[2020-09-17] MEDS: INSULIN LANTUS (GLARGINE) 1 /0.01ml (100units/ml) SC SCH (09:35)
[2020-09-17 13:00] VITALS: BP 95/53
[2020-09-17 17:57] VITALS: BP 104/51
== END 2020-09-17 18:20 | disposition home or self-care (01) | DRG 92 ==
LOC: ER 20:24 → TELE 09-14 00:25 → TELE-WESTW 09-14 12:53 → TELE-CENTR 09-15 22:42
PROVIDERS: ADMIT Internal Medicine Cardiovascular Disease; ATTEND Internal Medicine Cardiovascular Disease
DX: R29.810 Facial weakness (principal); Z68.42 Body mass index [BMI] 45.0-49.9, adult; I50.22 Chronic systolic (congestive) heart failure; I11.0 Hypertensive heart disease with heart failure; E78.5 Hyperlipidemia, unspecified; Z20.822 Contact with and (suspected) exposure to COVID-19; E66.9 Obesity, unspecified; F17.200 Nicotine dependence, unspecified, uncomplicated; E11.40 Type 2 diabetes mellitus with diabetic neuropathy, unspecified; E11.21 Type 2 diabetes mellitus with diabetic nephropathy; J44.9 Chronic obstructive pulmonary disease, unspecified; Z79.02 Long term (current) use of antithrombotics/antiplatelets; Z79.82 Long term (current) use of aspirin; Z79.899 Other long term (current) drug therapy; Z80.9 Family history of malignant neoplasm, unspecified; Z82.0 Family history of epilepsy and other diseases of the nervous system; Z82.3 Family history of stroke; Z82.49 Family history of ischemic heart disease and other diseases of the circulatory system; Z83.3 Family history of diabetes mellitus; Z90.710 Acquired absence of both cervix and uterus; Z99.81 Dependence on supplemental oxygen
CPT/HCPCS: 36415; 70450; 70551; 71045; 80053; 80061; 82962; 84484; 85025; 85610; 87426; 93005; 93306; 93886; 94640; G0378; J1815

== ENCOUNTER 2020-11-04 12:04 | Inpatient (IN) | payer MEDICARE, OTHER ==
[~2020-11-04] VITALS: Ht 165.1 cm; Wt 110.9 kg
[~2020-11-04 12:04] MED LIST changes: +ACET-1156 PO; +DIPH25CA6 PO
[2020-11-04] MEDS ORDERED: METOCLOPRAMIDE HCL 5MG/ml INJ 2ml VIAL IV ONE (12:30)
[2020-11-04] MEDS ORDERED: SODIUM CHLORIDE 0.9% 500 ML IVB ONE (12:30)
[2020-11-04] MEDS ORDERED: MORPHINE SULFATE 4 MG/ML SYR/VIAL IV ONE (12:30)
[2020-11-04] MEDS ORDERED: FAMOTIDINE (10MG/ML) 2ML VL IV ONE (12:45)
[2020-11-04 14:15] LABS: Eosinophils # (auto) 0.1 10 ^3/uL (0-0.8); Hemoglobin 12.9 g/dL (12.2-16.2); Mean Corpuscular Hgb Conc. 32.4 g/dL (32.0-36.0); Neutrophils # (auto) 10.4 10 ^3/uL (1.6-8.6)
[2020-11-04 14:17] LABS: Basophils # (auto) 0 10 ^3/uL (0-0.2); Basophils % (auto) 0.3 % (0.0-2.0); Hematocrit 39.8 % (36.0-46.0); Lymphocytes # (auto) 1.5 10 ^3/uL (0.4-5.4); Lymphocytes % (auto) 11.7 % (10.0-50.0); Mean Corpuscular Hemoglobin 25.4 pg (28.0-32.0); Mean Corpuscular Volume 78.2 fL (80.0-100.0); Monocytes # (auto) 0.7 10 ^3/uL (0-1.3); Monocytes % (auto) 5.2 % (0.0-12.0); Neutrophils % (auto) 81.8 % (37.0-80.0); Red Blood Cells 5.09 10^6/uL (4.0-5.20); Red Cell Distribution Width 15.5 % (11.8-14.3); White Blood Cell 12.7 10^3/uL (4.4-10.8)
[2020-11-04 14:40] LABS: Albumin 3.4 g/dL (3.4-5.0); Calcium 8.4 mg/dL (8.5-10.1); Magnesium 1.8 mg/dL (1.6-2.6); Potassium 4.2 mmol/L (3.5-5.1)
[2020-11-04 14:42] LABS: BUN/Creatinine Ratio 18.9
[2020-11-04 14:44] LABS: Bilirubin, Total 1.1 mg/dL (0.2-1.0); Total Protein 7.3 g/dL (6.4-8.2)
[2020-11-04] MEDS ORDERED: IOHEXOL 300 MG/ML 100ML BOTTLE IJ ONE (15:56)
[2020-11-04 19:12] LABS: Urine Bacteria FEW /hpf (None Seen); Urine Blood Negative /uL (Negative); Urine Mucus FEW (None Seen); Urine WBC 2 /hpf (0 - 5)
[2020-11-04 19:17] LABS: Urine Specific Gravity > 1.050 (1.001-1.035)
[2020-11-04] MEDS ORDERED: MORPHINE SULF INJ 2 MG/ML SYRINGE 1ML IV PRN (21:15)
[2020-11-04] MEDS ORDERED: MORPHINE SULFATE 4 MG/ML SYR/VIAL IV PRN (21:15)
[2020-11-04] MEDS ORDERED: ONDANSETRON HCL 4 MG/2 ML VIAL IV PRN (21:15)
[2020-11-04] MEDS ORDERED: METOCLOPRAMIDE HCL 5MG/ml INJ 2ml VIAL IV PRN (21:15)
[2020-11-04] MEDS ORDERED: DEXTROSE (50%) 50ML SYRG IV PRN (21:15)
[2020-11-04] MEDS ORDERED: NITROGLYCERIN 0.4 MG SL TAB SL PRN (21:15)
[2020-11-04] MEDS ORDERED: ACETAMINOPHEN 650 MG RECT SUPP PR PRN (21:15)
[2020-11-04] MEDS: InsuLIN REG 1unit/0.01ml Soln (100units/ml) SC SCH (22:00)
[2020-11-04] MEDS: CARVEDILOL 12.5 MG TAB PO SCH (22:00)
[2020-11-04] MEDS ORDERED: LIDOCAINE VISCOUS 2% 15ML UD PO ONE (22:15)
[2020-11-04] MEDS: SODIUM CHLORIDE 0.9% 1,000 ML IV SCH (22:49)
[2020-11-04] MEDS: FAMOTIDINE (10MG/ML) 2ML VL IV SCH (22:49)
[2020-11-04] MEDS: ACCU-CHEK COMFORT CURVE STRIP VI SCH (23:34)
[2020-11-05 02:09] VITALS: BP 114/55
[2020-11-05 05:00] VITALS: BP 146/79
[2020-11-05] MEDS: ACCU-CHEK COMFORT CURVE STRIP VI SCH ×3 (06:27→17:05)
[2020-11-05] MEDS: InsuLIN REG 1unit/0.01ml Soln (100units/ml) SC SCH ×3 (06:29→17:06)
[2020-11-05 07:44] LABS: Basophils # (auto) 0 10 ^3/uL (0-0.2); Basophils % (auto) 0.3 % (0.0-2.0); Eosinophils # (auto) 0.2 10 ^3/uL (0-0.8); Eosinophils % (auto) 1.6 % (0.0-7.0); Monocytes # (auto) 0.5 10 ^3/uL (0-1.3); Neutrophils # (auto) 8.9 10 ^3/uL (1.6-8.6)
[2020-11-05 07:46] LABS: Hematocrit 37.6 % (36.0-46.0); Lymphocytes # (auto) 1.5 10 ^3/uL (0.4-5.4); Lymphocytes % (auto) 13.2 % (10.0-50.0); Mean Corpuscular Hemoglobin 25.6 pg (28.0-32.0); Mean Corpuscular Hgb Conc. 31.9 g/dL (32.0-36.0); Mean Corpuscular Volume 80.3 fL (80.0-100.0); Monocytes % (auto) 4.5 % (0.0-12.0); Neutrophils % (auto) 80.4 % (37.0-80.0); Red Blood Cells 4.68 10^6/uL (4.0-5.20); Red Cell Distribution Width 15.7 % (11.8-14.3); White Blood Cell 11.1 10^3/uL (4.4-10.8)
[2020-11-05 07:58] LABS: Albumin 2.9 g/dL (3.4-5.0); Calcium 7.8 mg/dL (8.5-10.1); Potassium 4.4 mmol/L (3.5-5.1)
[2020-11-05 08:00] VITALS: BP 121/61
[2020-11-05 08:01] LABS: Bilirubin, Total 0.8 mg/dL (0.2-1.0); Total Protein 7.1 g/dL (6.4-8.2)
[2020-11-05] MEDS: cefTRIAXone 1GM/50ML D5W 50 ML IV SCH (08:42)
[2020-11-05] MEDS: FAMOTIDINE (10MG/ML) 2ML VL IV SCH (09:39)
[2020-11-05] MEDS: CARVEDILOL 12.5 MG TAB PO SCH ×3 (09:39→22:00)
[2020-11-05] MEDS: ENOXAPARIN SOD 40 MG/0.4 ML SYRINGE SC SCH (09:40)
[2020-11-05] MEDS: FUROSEMIDE 20 MG/2 ML VIAL IV SCH (09:40)
[2020-11-05] MEDS ORDERED: metroNIDAZOLE 500MG/100ML 100 ML IV ONE (09:45)
[2020-11-05 11:14] LABS: INR 1.05 (0.9-1.15)
[2020-11-05] MEDS ORDERED: GASTROGRAFIN 120 ML SOL ONE (11:22)
[2020-11-05 12:00] VITALS: BP 120/56
[2020-11-05] MEDS: SODIUM CHLORIDE 0.9% 1,000 ML IV SCH (13:26)
[2020-11-05] MEDS: metroNIDAZOLE 500MG/100ML 100 ML IV SCH (14:27)
[2020-11-05 16:00] VITALS: BP 133/78
[2020-11-05 22:00] VITALS: BP 126/61
[2020-11-06] MEDS: metroNIDAZOLE 500MG/100ML 100 ML IV SCH ×4 (00:30→22:31)
[2020-11-06] MEDS: FAMOTIDINE (10MG/ML) 2ML VL IV SCH ×3 (00:31→22:30)
[2020-11-06] MEDS: ACCU-CHEK COMFORT CURVE STRIP VI SCH ×5 (00:31→22:27)
[2020-11-06] MEDS: InsuLIN REG 1unit/0.01ml Soln (100units/ml) SC SCH ×5 (00:33→22:28)
[2020-11-06 05:00] VITALS: BP 123/64
[2020-11-06] MEDS: SODIUM CHLORIDE 0.9% 1,000 ML IV SCH ×2 (05:34→09:04)
[2020-11-06 08:00] VITALS: BP 127/59
[2020-11-06 08:02] LABS: Eosinophils # (auto) 0.2 10 ^3/uL (0-0.8); Mean Corpuscular Volume 80.1 fL (80.0-100.0); Monocytes # (auto) 0.6 10 ^3/uL (0-1.3)
[2020-11-06 08:06] LABS: Basophils # (auto) 0 10 ^3/uL (0-0.2); Basophils % (auto) 0.3 % (0.0-2.0); Eosinophils % (auto) 1.5 % (0.0-7.0); Hematocrit 36.5 % (36.0-46.0); Hemoglobin 11.5 g/dL (12.2-16.2); Lymphocytes # (auto) 1.1 10 ^3/uL (0.4-5.4); Lymphocytes % (auto) 9.2 % (10.0-50.0); Mean Corpuscular Hemoglobin 25.2 pg (28.0-32.0); Mean Corpuscular Hgb Conc. 31.5 g/dL (32.0-36.0); Neutrophils # (auto) 10.3 10 ^3/uL (1.6-8.6); Nucleated Red Blood Cells % 0.1 %; Red Blood Cells 4.56 10^6/uL (4.0-5.20); Red Cell Distribution Width 15.8 % (11.8-14.3); White Blood Cell 12.3 10^3/uL (4.4-10.8)
[2020-11-06 08:14] LABS: Albumin 3.1 g/dL (3.4-5.0); Calcium 8.2 mg/dL (8.5-10.1); Potassium 3.9 mmol/L (3.5-5.1)
[2020-11-06 08:17] LABS: BUN/Creatinine Ratio 26.6; Bilirubin, Total 0.6 mg/dL (0.2-1.0); Total Protein 7.4 g/dL (6.4-8.2)
[2020-11-06 09:00] VITALS: BP 127/59
[2020-11-06] MEDS: cefTRIAXone 1GM/50ML D5W 50 ML IV SCH (09:03)
[2020-11-06] MEDS: CARVEDILOL 12.5 MG TAB PO SCH ×2 (10:00→22:31)
[2020-11-06] MEDS: ENOXAPARIN SOD 40 MG/0.4 ML SYRINGE SC SCH (10:00)
[2020-11-06] MEDS: FUROSEMIDE 20 MG/2 ML VIAL IV SCH (10:00)
[2020-11-06 13:00] VITALS: BP 138/76
[2020-11-06 16:55] VITALS: BP 121/53
[2020-11-06 22:00] VITALS: BP 120/65
[2020-11-07] VITALS (7 sets, daily range): BP systolic 98–128; BP diastolic 41–71
[2020-11-07] MEDS: metroNIDAZOLE 500MG/100ML 100 ML IV SCH ×4 (06:03→21:32)
[2020-11-07] MEDS: ACCU-CHEK COMFORT CURVE STRIP VI SCH ×4 (06:03→21:49)
[2020-11-07] MEDS: InsuLIN REG 1unit/0.01ml Soln (100units/ml) SC SCH ×4 (06:09→21:50)
[2020-11-07] MEDS: cefTRIAXone 1GM/50ML D5W 50 ML IV SCH (08:56)
[2020-11-07] MEDS: FUROSEMIDE 20 MG/2 ML VIAL IV SCH (10:09)
[2020-11-07] MEDS: FAMOTIDINE (10MG/ML) 2ML VL IV SCH ×2 (10:09→21:32)
[2020-11-07] MEDS: ENOXAPARIN SOD 40 MG/0.4 ML SYRINGE SC SCH (10:09)
[2020-11-07] MEDS: CARVEDILOL 12.5 MG TAB PO SCH ×2 (10:10→21:49)
[2020-11-07] MEDS: SODIUM CHLORIDE 0.9% 1,000 ML IV SCH (15:55)
[2020-11-07] MEDS: IPRATROPIUM BROM 0.5 MG/2.5ML INH SOL NEB SCH (19:37)
[2020-11-08] MEDS: IPRATROPIUM BROM 0.5 MG/2.5ML INH SOL NEB SCH ×3 (01:14→12:24)
[2020-11-08 05:00] VITALS: BP 140/69
[2020-11-08] MEDS: metroNIDAZOLE 500MG/100ML 100 ML IV SCH (06:08)
[2020-11-08] MEDS: ACCU-CHEK COMFORT CURVE STRIP VI SCH ×2 (06:08→12:07)
[2020-11-08] MEDS: InsuLIN REG 1unit/0.01ml Soln (100units/ml) SC SCH ×2 (06:10→12:08)
[2020-11-08 08:00] VITALS: BP 126/71
[2020-11-08] MEDS: SODIUM CHLORIDE 0.9% 1,000 ML IV SCH (09:29)
[2020-11-08] MEDS: cefTRIAXone 1GM/50ML D5W 50 ML IV SCH (09:30)
[2020-11-08] MEDS: FUROSEMIDE 20 MG/2 ML VIAL IV SCH (09:30)
[2020-11-08] MEDS: FAMOTIDINE (10MG/ML) 2ML VL IV SCH (09:30)
[2020-11-08] MEDS: ENOXAPARIN SOD 40 MG/0.4 ML SYRINGE SC SCH (09:31)
[2020-11-08] MEDS: CARVEDILOL 12.5 MG TAB PO SCH (09:31)
[2020-11-08 11:59] VITALS: BP 141/68
== END 2020-11-08 13:05 | disposition home or self-care (01) | DRG 389 ==
LOC: ER 12:04 → TELE 21:14 → TELE-CENTR 23:44
PROVIDERS: ADMIT Nurse Practitioner Family; ATTEND Internal Medicine Cardiovascular Disease
PROC: 0D9670Z Drainage of Stomach with Drainage Device, Via Natural or Artificial Opening (ICD-10-PCS; principal; 2020-11-04)
DX: K56.690 Other partial intestinal obstruction (principal); E87.1 Hypo-osmolality and hyponatremia; E44.0 Moderate protein-calorie malnutrition; I13.0 Hypertensive heart and chronic kidney disease with heart failure and stage 1 through stage 4 chronic kidney disease, or unspecified chronic kidney disease; A08.4 Viral intestinal infection, unspecified; E11.65 Type 2 diabetes mellitus with hyperglycemia; Z20.822 Contact with and (suspected) exposure to COVID-19; E11.22 Type 2 diabetes mellitus with diabetic chronic kidney disease; E66.01 Morbid (severe) obesity due to excess calories; E78.5 Hyperlipidemia, unspecified; J44.9 Chronic obstructive pulmonary disease, unspecified; G51.0 Bell's palsy; D72.829 Elevated white blood cell count, unspecified; R74.8 Abnormal levels of other serum enzymes; E11.40 Type 2 diabetes mellitus with diabetic neuropathy, unspecified; E11.21 Type 2 diabetes mellitus with diabetic nephropathy; I50.9 Heart failure, unspecified; N18.9 Chronic kidney disease, unspecified; Z80.9 Family history of malignant neoplasm, unspecified; Z82.0 Family history of epilepsy and other diseases of the nervous system; Z83.3 Family history of diabetes mellitus; Z90.710 Acquired absence of both cervix and uterus; Z90.49 Acquired absence of other specified parts of digestive tract; Z81.8 Family history of other mental and behavioral disorders; Z82.3 Family history of stroke
CPT/HCPCS: 36415; 74177; 74250; 80053; 81001; 82150; 82962; 83036; 83605; 83690; 83735; 83880; 84443; 85025; 85610; 87086; 87426; 93005; 94640; 96361; 96374; 96375; G0378; J0696; J1815; J2405; J3490

== ENCOUNTER → 2021-05-06 | Outpatient (CLI) | payer MEDICARE, OTHER ==
[~2021-05-06] MED LIST changes: +DIPH25CA29 PO; -DIPH25CA6 PO
== END | disposition home or self-care (01) ==
LOC: Rad HDHVI 12:23
PROVIDERS: ATTEND Internal Medicine Cardiovascular Disease
DX: I51.7 Cardiomegaly (principal); J81.1 Chronic pulmonary edema; J84.89 Other specified interstitial pulmonary diseases; I70.0 Atherosclerosis of aorta; M47.814 Spondylosis without myelopathy or radiculopathy, thoracic region
CPT/HCPCS: 71046

== ENCOUNTER → 2021-05-13 | Outpatient (CLI) | payer MEDICARE, OTHER | END | disposition home or self-care (01) | LOC: Rad HDHVI 11:07 | PROVIDERS: ATTEND Internal Medicine Cardiovascular Disease | DX: I07.1 Rheumatic tricuspid insufficiency (principal) | CPT/HCPCS: 93306 ==

== ENCOUNTER → 2021-05-18 | Outpatient (CLI) | payer MEDICARE, OTHER | END | disposition home or self-care (01) | LOC: Rad HDHVI 11:21 | PROVIDERS: ATTEND Internal Medicine Cardiovascular Disease | DX: I51.7 Cardiomegaly (principal); I10 Essential (primary) hypertension | CPT/HCPCS: 93880 ==

== ENCOUNTER → 2021-05-31 | Outpatient (CLI) | payer MEDICARE, OTHER ==
[2021-05-31 11:31] LABS: Basophils # (auto) 0 10 ^3/uL (0-0.2); Eosinophils # (auto) 0.3 10 ^3/uL (0-0.8); Lymphocytes # (auto) 1.4 10 ^3/uL (0.4-5.4)
[2021-05-31 11:33] LABS: Basophils % (auto) 0.3 % (0.0-2.0); Eosinophils % (auto) 3.1 % (0.0-7.0); Hematocrit 41.4 % (36.0-46.0); Lymphocytes % (auto) 16.7 % (10.0-50.0); Mean Corpuscular Hemoglobin 24.3 pg (28.0-32.0); Mean Corpuscular Hgb Conc. 31.5 g/dL (32.0-36.0); Mean Corpuscular Volume 77.2 fL (80.0-100.0); Monocytes # (auto) 0.5 10 ^3/uL (0-1.3); Monocytes % (auto) 5.6 % (0.0-12.0); Neutrophils # (auto) 6.4 10 ^3/uL (1.6-8.6); Neutrophils % (auto) 74.3 % (37.0-80.0); Nucleated Red Blood Cells % 0.1 %; Red Blood Cells 5.35 10^6/uL (4.0-5.20); Red Cell Distribution Width 17.3 % (11.8-14.3); White Blood Cell 8.6 10^3/uL (4.4-10.8)
[2021-05-31 11:39] LABS: Urine Blood Negative /uL (Negative); Urine Specific Gravity 1.017 (1.001-1.035)
[2021-05-31 14:07] LABS: Potassium 4.2 mmol/L (3.5-5.1)
[2021-05-31 14:15] LABS: BUN/Creatinine Ratio 13.5; Bilirubin, Total 1.5 mg/dL (0.2-1.0); Calcium 8.5 mg/dL (8.5-10.1)
[2021-06-01 11:07] LABS: Free T4 (Free Thyroxine) 1.14 ng/dL (0.89-1.76)
== END | disposition home or self-care (01) ==
LOC: LAB 09:49
PROVIDERS: ATTEND Internal Medicine Cardiovascular Disease
DX: E11.9 Type 2 diabetes mellitus without complications (principal); D51.3 Other dietary vitamin B12 deficiency anemia; D64.9 Anemia, unspecified; E55.9 Vitamin D deficiency, unspecified; I10 Essential (primary) hypertension; R00.2 Palpitations; R53.1 Weakness; R30.0 Dysuria
CPT/HCPCS: 36415; 80053; 80061; 81003; 82306; 82607; 83036; 84439; 84443; 85025; 87086

== ENCOUNTER 2021-06-19 22:27 | Inpatient (IN) | payer MEDICARE, OTHER ==
[~2021-06-19] VITALS: Ht 154.9 cm; Wt 108.7 kg
[2021-06-19] MEDS ORDERED: methylPREDNISolone SOD SUCC 125 MG/2 ML VL IV ONE (23:45)
[2021-06-19] MEDS ORDERED: ALBUTEROL SULF 2.5 MG/0.5ML(0.5%) NEB SOLN NEB ONE (23:45)
[2021-06-19] MEDS ORDERED: IPRATROPIUM BROM 0.5 MG/2.5ML INH SOL NEB ONE (23:45)
[2021-06-20] VITALS (28 sets, daily range): BP systolic 101–147; BP diastolic 50–77
[2021-06-20] MEDS ORDERED: FUROSEMIDE 40 MG/4 ML VIAL IV ONE (00:30)
[2021-06-20 00:57] LABS: Basophils # (auto) 0 10 ^3/uL (0-0.2); Basophils % (auto) 0.3 % (0.0-2.0); Eosinophils # (auto) 0.2 10 ^3/uL (0-0.8); Hematocrit 41.2 % (36.0-46.0); Hemoglobin 12.7 g/dL (12.2-16.2); Lymphocytes # (auto) 1.8 10 ^3/uL (0.4-5.4); Lymphocytes % (auto) 15.6 % (10.0-50.0); Mean Corpuscular Hemoglobin 24.3 pg (28.0-32.0); Mean Corpuscular Hgb Conc. 30.9 g/dL (32.0-36.0); Mean Corpuscular Volume 78.6 fL (80.0-100.0); Monocytes # (auto) 0.6 10 ^3/uL (0-1.3); Monocytes % (auto) 5.1 % (0.0-12.0); Neutrophils # (auto) 8.9 10 ^3/uL (1.6-8.6); Nucleated Red Blood Cells % 0.2 %; Red Blood Cells 5.24 10^6/uL (4.0-5.20); Red Cell Distribution Width 17.1 % (11.8-14.3); White Blood Cell 11.6 10^3/uL (4.4-10.8)
[2021-06-20 01:15] LABS: Albumin 3.3 g/dL (3.4-5.0); BUN/Creatinine Ratio 14.9; Calcium 8.3 mg/dL (8.5-10.1); Magnesium 2.2 mg/dL (1.6-2.6); Potassium 4.8 mmol/L (3.5-5.1)
[2021-06-20 01:20] LABS: Total Protein 7.5 g/dL (6.4-8.2)
[2021-06-20] MEDS ORDERED: ALBUTEROL SULF 2.5 MG/0.5ML(0.5%) NEB SOLN NEB PRN (02:00)
[2021-06-20] MEDS ORDERED: DEXTROSE (50%) 50ML SYRG IV PRN (02:00)
[2021-06-20] MEDS ORDERED: IPRATROPIUM BROM 0.5 MG/2.5ML INH SOL NEB PRN (02:00)
[2021-06-20] MEDS ORDERED: ACETAMINOPHEN 325 MG TAB PO PRN (02:15)
[2021-06-20] MEDS ORDERED: ONDANSETRON HCL 4 MG/2 ML VIAL IV PRN (02:15)
[2021-06-20 02:36] LABS: Urine Bacteria NONE SEEN /hpf (None Seen); Urine Blood Negative /uL (Negative); Urine Hyaline Cast FEW /lpf (0 - 2); Urine WBC 1 /hpf (0 - 5)
[2021-06-20] MEDS: AZITHROMYCIN 250 MG TAB PO ONE ×2 (04:06→09:54)
[2021-06-20] MEDS ORDERED: FUROSEMIDE 40 MG/4 ML VIAL IV SCH (06:00)
[2021-06-20] MEDS: ADEMPAS 2.5 MG PO SCH ×3 (06:00→22:00)
[2021-06-20] MEDS ORDERED: RIOCIGUAT BASE PO SCH ×2 (06:00→10:00)
[2021-06-20] MEDS: IPRATROPIUM BROM 0.5 MG/2.5ML INH SOL NEB SCH ×3 (06:01→18:08)
[2021-06-20] MEDS: ALBUTEROL SULF 2.5 MG/0.5ML(0.5%) NEB SOLN NEB SCH ×3 (06:01→18:08)
[2021-06-20] MEDS: methylPREDNISolone SOD SUCC 125 MG/2 ML VL IV SCH ×3 (06:09→21:29)
[2021-06-20] MEDS: InsuLIN REG 1unit/0.01ml Soln (100units/ml) SC SCH ×4 (07:55→21:31)
[2021-06-20] MEDS: ACCU-CHEK COMFORT CURVE STRIP VI SCH ×4 (07:56→21:30)
[2021-06-20] MEDS ORDERED: metFORMIN HYDROCHLORIDE 500 MG TAB PO SCH (08:00)
[2021-06-20] MEDS: GABAPENTIN 400 MG CAP PO SCH ×3 (09:55→22:00)
[2021-06-20] MEDS: INSULIN 70/30 1unit/0.01ml Susp (100units/ml) SC SCH (09:56)
[2021-06-20] MEDS: INSULIN LANTUS (GLARGINE) 1 /0.01ml (100units/ml) SC SCH ×2 (09:57→21:30)
[2021-06-20] MEDS: ENOXAPARIN SOD 40 MG/0.4 ML SYRINGE SC SCH (09:57)
[2021-06-20] MEDS: METOPROLOL TARTRATE 50 MG TAB PO SCH ×2 (09:58→21:29)
[2021-06-20] MEDS ORDERED: INSULIN 70/30 1unit/0.01ml Susp (100units/ml) SC SCH (10:00)
[2021-06-20] MEDS ORDERED: INSULIN LANTUS (GLARGINE) 1 /0.01ml (100units/ml) SC SCH (10:00)
[2021-06-20] MEDS: OPSUMIT 10 MG TABLET PO SCH (10:00)
[2021-06-20] MEDS ORDERED: ERGOCALCIFEROL 50,000 UNIT(1.25MG) CAP PO SCH (12:45)
[2021-06-20] MEDS: ATORVASTATIN 20 MG TAB PO SCH (21:29)
[2021-06-20] MEDS: MONTELUKAST SODIUM 10 MG TAB PO SCH (21:30)
[2021-06-21] VITALS (29 sets, daily range): BP systolic 94–130; BP diastolic 42–74
[2021-06-21] MEDS: IPRATROPIUM BROM 0.5 MG/2.5ML INH SOL NEB SCH ×4 (00:14→19:24)
[2021-06-21] MEDS: ALBUTEROL SULF 2.5 MG/0.5ML(0.5%) NEB SOLN NEB SCH ×4 (00:14→19:24)
[2021-06-21 04:59] LABS: Basophils # (auto) 0.1 10 ^3/uL (0-0.2); Basophils % (auto) 0.6 % (0.0-2.0); Eosinophils # (auto) 0 10 ^3/uL (0-0.8); Hematocrit 41.5 % (36.0-46.0); Hemoglobin 12.8 g/dL (12.2-16.2); Lymphocytes # (auto) 0.6 10 ^3/uL (0.4-5.4); Lymphocytes % (auto) 4.8 % (10.0-50.0); Mean Corpuscular Hgb Conc. 30.9 g/dL (32.0-36.0); Mean Corpuscular Volume 77.7 fL (80.0-100.0); Monocytes # (auto) 0.2 10 ^3/uL (0-1.3); Monocytes % (auto) 1.5 % (0.0-12.0); Neutrophils # (auto) 12.6 10 ^3/uL (1.6-8.6); Neutrophils % (auto) 93.1 % (37.0-80.0); Nucleated Red Blood Cells % 0.7 %; Red Blood Cells 5.34 10^6/uL (4.0-5.20); Red Cell Distribution Width 16.8 % (11.8-14.3); White Blood Cell 13.6 10^3/uL (4.4-10.8)
[2021-06-21 05:11] LABS: BUN/Creatinine Ratio 27.9; Calcium 8.4 mg/dL (8.5-10.1); Magnesium 2.3 mg/dL (1.6-2.6)
[2021-06-21 05:14] LABS: Bilirubin, Total 0.7 mg/dL (0.2-1.0); Total Protein 6.9 g/dL (6.4-8.2)
[2021-06-21] MEDS: FUROSEMIDE 40 MG/4 ML VIAL IV SCH (06:04)
[2021-06-21] MEDS: ADEMPAS 2.5 MG PO SCH ×3 (06:15→22:00)
[2021-06-21] MEDS: methylPREDNISolone SOD SUCC 125 MG/2 ML VL IV SCH (06:15)
[2021-06-21] MEDS: GABAPENTIN 400 MG CAP PO SCH ×3 (06:16→22:00)
[2021-06-21] MEDS: ACCU-CHEK COMFORT CURVE STRIP VI SCH ×4 (06:16→22:00)
[2021-06-21] MEDS: InsuLIN REG 1unit/0.01ml Soln (100units/ml) SC SCH ×4 (06:16→22:00)
[2021-06-21] MEDS: INSULIN 70/30 1unit/0.01ml Susp (100units/ml) SC SCH (07:33)
[2021-06-21] MEDS: OPSUMIT 10 MG TABLET PO SCH (09:56)
[2021-06-21] MEDS: PANTOPRAZOLE 40 MG TAB PO SCH (09:57)
[2021-06-21] MEDS: AZITHROMYCIN 250 MG TAB PO SCH (09:57)
[2021-06-21] MEDS: METOPROLOL TARTRATE 50 MG TAB PO SCH ×2 (09:57→22:00)
[2021-06-21] MEDS: INSULIN LANTUS (GLARGINE) 1 /0.01ml (100units/ml) SC SCH ×2 (10:15→22:00)
[2021-06-21] MEDS: ENOXAPARIN SOD 40 MG/0.4 ML SYRINGE SC SCH (10:16)
[2021-06-21] MEDS: ATORVASTATIN 20 MG TAB PO SCH (22:00)
[2021-06-21] MEDS: MONTELUKAST SODIUM 10 MG TAB PO SCH (22:00)
[2021-06-21] MEDS: methylPREDNISolone SOD SUCC 40 MG/ML VL IV SCH (22:00)
[2021-06-22] MEDS: ALBUTEROL SULF 2.5 MG/0.5ML(0.5%) NEB SOLN NEB SCH ×3 (00:35→12:56)
[2021-06-22] MEDS: IPRATROPIUM BROM 0.5 MG/2.5ML INH SOL NEB SCH ×3 (00:35→12:56)
[2021-06-22 05:00] VITALS: BP 108/58
[2021-06-22 05:50] LABS: Basophils # (auto) 0 10 ^3/uL (0-0.2); Basophils % (auto) 0.1 % (0.0-2.0); Eosinophils # (auto) 0 10 ^3/uL (0-0.8); Hemoglobin 12.7 g/dL (12.2-16.2); Lymphocytes # (auto) 0.5 10 ^3/uL (0.4-5.4); Lymphocytes % (auto) 3.5 % (10.0-50.0); Mean Corpuscular Hemoglobin 24.2 pg (28.0-32.0)
[2021-06-22 05:53] LABS: Hematocrit 40.2 % (36.0-46.0); Mean Corpuscular Hgb Conc. 31.5 g/dL (32.0-36.0); Mean Corpuscular Volume 76.8 fL (80.0-100.0); Monocytes # (auto) 0.4 10 ^3/uL (0-1.3); Neutrophils # (auto) 12.3 10 ^3/uL (1.6-8.6); Neutrophils % (auto) 93.4 % (37.0-80.0); Nucleated Red Blood Cells % 0.3 %; Red Blood Cells 5.24 10^6/uL (4.0-5.20); White Blood Cell 13.2 10^3/uL (4.4-10.8)
[2021-06-22 06:10] LABS: Potassium 4.2 mmol/L (3.5-5.1)
[2021-06-22 06:14] LABS: BUN/Creatinine Ratio 40.2; Calcium 8.9 mg/dL (8.5-10.1)
[2021-06-22] MEDS: GABAPENTIN 400 MG CAP PO SCH (06:21)
[2021-06-22] MEDS: ADEMPAS 2.5 MG PO SCH ×2 (06:22→15:44)
[2021-06-22] MEDS: ACCU-CHEK COMFORT CURVE STRIP VI SCH ×2 (06:22→11:30)
[2021-06-22] MEDS: FUROSEMIDE 40 MG/4 ML VIAL IV SCH (06:22)
[2021-06-22] MEDS: InsuLIN REG 1unit/0.01ml Soln (100units/ml) SC SCH ×2 (06:31→11:30)
[2021-06-22] MEDS: INSULIN 70/30 1unit/0.01ml Susp (100units/ml) SC SCH (08:44)
[2021-06-22 09:15] VITALS: BP 119/49
[2021-06-22] MEDS: OPSUMIT 10 MG TABLET PO SCH (10:49)
[2021-06-22] MEDS: ENOXAPARIN SOD 40 MG/0.4 ML SYRINGE SC SCH (10:49)
[2021-06-22] MEDS: methylPREDNISolone SOD SUCC 40 MG/ML VL IV SCH (10:49)
[2021-06-22] MEDS: METOPROLOL TARTRATE 50 MG TAB PO SCH (10:50)
[2021-06-22] MEDS: AZITHROMYCIN 250 MG TAB PO SCH (10:50)
[2021-06-22] MEDS: PANTOPRAZOLE 40 MG TAB PO SCH (10:51)
[2021-06-22] MEDS: INSULIN LANTUS (GLARGINE) 1 /0.01ml (100units/ml) SC SCH (10:52)
[2021-06-22] MEDS ORDERED: PRED20TA2 PO (11:35)
[2021-06-22 15:12] VITALS: BP 119/49
[2021-06-22] MEDS ORDERED: GABAPENTIN 400 MG CAP PO SCH (22:00)
== END 2021-06-22 17:40 | disposition home or self-care (01) | DRG 291 ==
LOC: ER 22:28 → TELE 06-20 02:14 → DOU IN ICU 06-20 12:56 → TELE 06-20 14:01 → ICU WEST 06-20 15:44 → TELE-WESTW 06-21 16:45
PROVIDERS: ADMIT Internal Medicine; ATTEND Internal Medicine Pulmonary Disease
PROC: 5A09457 Assistance with Respiratory Ventilation, 24-96 Consecutive Hours, Continuous Positive Airway Pressure (ICD-10-PCS; principal; 2021-06-20)
PROC: 5A09357 Assistance with Respiratory Ventilation, Less than 24 Consecutive Hours, Continuous Positive Airway Pressure (ICD-10-PCS; 2021-06-21)
DX: I11.0 Hypertensive heart disease with heart failure (principal); J96.21 Acute and chronic respiratory failure with hypoxia; I50.33 Acute on chronic diastolic (congestive) heart failure; J96.22 Acute and chronic respiratory failure with hypercapnia; J44.1 Chronic obstructive pulmonary disease with (acute) exacerbation; Z68.41 Body mass index [BMI] 40.0-44.9, adult; E66.2 Morbid (severe) obesity with alveolar hypoventilation; E11.65 Type 2 diabetes mellitus with hyperglycemia; E55.9 Vitamin D deficiency, unspecified; E78.5 Hyperlipidemia, unspecified; Z82.0 Family history of epilepsy and other diseases of the nervous system; Z83.3 Family history of diabetes mellitus; Z87.891 Personal history of nicotine dependence; Z90.710 Acquired absence of both cervix and uterus; Z91.14 Patient's other noncompliance with medication regimen; Z90.49 Acquired absence of other specified parts of digestive tract
CPT/HCPCS: 36415; 36600; 80048; 80053; 81001; 82805; 82962; 83735; 83880; 84484; 85025; 85379; 87081; 93306; 94640; 94660; 96372; 96374; 96375; 96376; 97116; 97163; 97530; 99291; G0378; J1815

== ENCOUNTER 2021-07-06 00:04 | Inpatient (IN) | payer MEDICARE, OTHER ==
[~2021-07-06] VITALS: Ht 154.9 cm; Wt 108.0 kg
[2021-07-06] VITALS (9 sets, daily range): BP systolic 97–131; BP diastolic 41–64
[~2021-07-06 00:04] MED LIST changes: -PRE1T PO; +PRED20TA2 PO
[2021-07-06 01:15] LABS: Basophils # (auto) 0.1 10 ^3/uL (0-0.2); Basophils % (auto) 0.6 % (0.0-2.0); Eosinophils # (auto) 0.2 10 ^3/uL (0-0.8); Hemoglobin 12.2 g/dL (12.2-16.2); Red Cell Distribution Width 17.4 % (11.8-14.3)
[2021-07-06 01:18] LABS: Eosinophils % (auto) 1.7 % (0.0-7.0); Hematocrit 39.4 % (36.0-46.0); Lymphocytes % (auto) 8.4 % (10.0-50.0); Mean Corpuscular Hemoglobin 24.2 pg (28.0-32.0); Mean Corpuscular Volume 78.1 fL (80.0-100.0); Monocytes # (auto) 0.5 10 ^3/uL (0-1.3); Monocytes % (auto) 4.3 % (0.0-12.0); Neutrophils # (auto) 10.4 10 ^3/uL (1.6-8.6); Nucleated Red Blood Cells % 0.3 %; Red Blood Cells 5.05 10^6/uL (4.0-5.20); White Blood Cell 12.2 10^3/uL (4.4-10.8)
[2021-07-06 01:34] LABS: Albumin 3.2 g/dL (3.4-5.0); BUN/Creatinine Ratio 14.6; Magnesium 2.4 mg/dL (1.6-2.6); Potassium 4.3 mmol/L (3.5-5.1)
[2021-07-06 01:37] LABS: Bilirubin, Total 1.1 mg/dL (0.2-1.0); Total Protein 7.1 g/dL (6.4-8.2)
[2021-07-06] MEDS ORDERED: InsuLIN REG 1unit/0.01ml Soln (100units/ml) IV ONE (04:00)
[2021-07-06] MEDS ORDERED: cefTRIAXone 1GM/50ML D5W 50 ML IV ONE (04:00)
[2021-07-06] MEDS ORDERED: AZITHROMYCIN 500MG/ 250ML 250 ML IV ONE (04:00)
[2021-07-06 04:05] LABS: Urine Bacteria MANY /hpf (None Seen); Urine Blood 1+ /uL (Negative); Urine Specific Gravity 1.022 (1.001-1.035); Urine WBC 57 /hpf (0 - 5); Urine WBC Clumps PRESENT /hpf (None Seen)
[2021-07-06] MEDS ORDERED: ONDANSETRON HCL 4 MG/2 ML VIAL IV PRN (04:45)
[2021-07-06] MEDS ORDERED: MORPHINE SULFATE INJECTION 2 MG/ML SYRG IV PRN (04:45)
[2021-07-06] MEDS ORDERED: NITROGLYCERIN 0.4 MG SL TAB SL PRN (04:45)
[2021-07-06] MEDS ORDERED: ACETAMINOPHEN 500 MG TAB PO PRN (04:45)
[2021-07-06] MEDS ORDERED: DEXTROSE (50%) 50ML SYRG IV PRN (04:45)
[2021-07-06] MEDS: InsuLIN REG 1unit/0.01ml Soln (100units/ml) SC SCH ×4 (08:11→20:09)
[2021-07-06] MEDS: ACCU-CHEK COMFORT CURVE STRIP VI SCH ×4 (08:11→20:09)
[2021-07-06] MEDS ORDERED: REMDESIVIR PER PHARMACY 0 ML IV SCH (10:00)
[2021-07-06] MEDS: cefTRIAXone 1GM/50ML D5W 50 ML IV SCH (11:48)
[2021-07-06] MEDS: ZINC SULFATE 220mg CAP or TAB PO SCH (11:50)
[2021-07-06] MEDS: ASCORBIC ACID 1,000 MG TAB PO SCH (11:50)
[2021-07-06] MEDS: CHOLECALCIFEROL (VITD3) 2,000 UNIT CAP/TAB PO SCH (11:50)
[2021-07-06] MEDS: ENOXAPARIN SOD 40 MG/0.4 ML SYRINGE SC SCH ×2 (11:51→21:55)
[2021-07-06] MEDS: METOPROLOL TARTRATE 50 MG TAB PO SCH ×2 (11:51→21:54)
[2021-07-06] MEDS: DexAMETHasone SOD PHOS 10MG/1ML VIAL INJ IV SCH (11:51)
[2021-07-06] MEDS: FUROSEMIDE 20 MG/2 ML VIAL IV SCH ×2 (11:56→17:35)
[2021-07-06] MEDS: GABAPENTIN 300 MG CAP PO SCH ×2 (13:31→21:54)
[2021-07-06] MEDS ORDERED: REMDESIVIR 200 MG in NS 210ml LOADING DOSE ADULT IV ONE (15:00)
[2021-07-06] MEDS ORDERED: FUROSEMIDE 20 MG/2 ML VIAL IV SCH (18:00)
[2021-07-06] MEDS: ATORVASTATIN 20 MG TAB PO SCH (21:54)
[2021-07-06] MEDS: BUDESONIDE (INHALATION) 180 MCG IH IN SCH (22:00)
[2021-07-07] VITALS (33 sets, daily range): BP systolic 95–117; BP diastolic 29–67
[2021-07-07] MEDS: InsuLIN REG 1unit/0.01ml Soln (100units/ml) SC SCH ×6 (01:09→19:51)
[2021-07-07] MEDS: ACCU-CHEK COMFORT CURVE STRIP VI SCH ×6 (04:18→19:51)
[2021-07-07 04:21] LABS: Eosinophils # (auto) 0 10 ^3/uL (0-0.8); Hemoglobin 11.5 g/dL (12.2-16.2); Lymphocytes # (auto) 0.6 10 ^3/uL (0.4-5.4); Monocytes # (auto) 0.1 10 ^3/uL (0-1.3); Nucleated Red Blood Cells % 0.1 %
[2021-07-07 04:23] LABS: Basophils # (auto) 0 10 ^3/uL (0-0.2); Basophils % (auto) 0.4 % (0.0-2.0); Hematocrit 36.1 % (36.0-46.0); Lymphocytes % (auto) 5.8 % (10.0-50.0); Mean Corpuscular Hemoglobin 24.6 pg (28.0-32.0); Monocytes % (auto) 1.3 % (0.0-12.0); Neutrophils # (auto) 9.8 10 ^3/uL (1.6-8.6); Neutrophils % (auto) 92.5 % (37.0-80.0); Red Blood Cells 4.69 10^6/uL (4.0-5.20); Red Cell Distribution Width 17.5 % (11.8-14.3); White Blood Cell 10.6 10^3/uL (4.4-10.8)
[2021-07-07 04:41] LABS: Albumin 2.8 g/dL (3.4-5.0); BUN/Creatinine Ratio 23.2; Calcium 8.4 mg/dL (8.5-10.1); Potassium 4.7 mmol/L (3.5-5.1)
[2021-07-07 04:44] LABS: Bilirubin, Total 0.7 mg/dL (0.2-1.0); Total Protein 6.5 g/dL (6.4-8.2)
[2021-07-07] MEDS: GABAPENTIN 300 MG CAP PO SCH ×3 (06:02→21:58)
[2021-07-07] MEDS: FUROSEMIDE 20 MG/2 ML VIAL IV SCH ×2 (06:16→17:09)
[2021-07-07] MEDS: cefTRIAXone 1GM/50ML D5W 50 ML IV SCH (09:01)
[2021-07-07] MEDS: AZITHROMYCIN 500MG/ 250ML 250 ML IV SCH (09:21)
[2021-07-07] MEDS: DexAMETHasone SOD PHOS 10MG/1ML VIAL INJ IV SCH (09:21)
[2021-07-07] MEDS: ENOXAPARIN SOD 40 MG/0.4 ML SYRINGE SC SCH ×2 (09:21→21:58)
[2021-07-07] MEDS: ASCORBIC ACID 1,000 MG TAB PO SCH (09:22)
[2021-07-07] MEDS: CHOLECALCIFEROL (VITD3) 2,000 UNIT CAP/TAB PO SCH (09:22)
[2021-07-07] MEDS: ZINC SULFATE 220mg CAP or TAB PO SCH (09:22)
[2021-07-07] MEDS: METOPROLOL TARTRATE 50 MG TAB PO SCH (09:22)
[2021-07-07 12:15] LABS: INR 1.14 (0.9-1.15); Partial Thromboplastin Time 30.7 sec (23.6-33.0)
[2021-07-07] MEDS: REMDESIVIR 100mg 100 MG in SODIUM CHL 0.9% 230 ML IV SCH (15:03)
[2021-07-07] MEDS: PANTOPRAZOLE 40 MG/10 ML VIAL INJ IV SCH (15:45)
[2021-07-07] MEDS: ATORVASTATIN 20 MG TAB PO SCH (21:58)
[2021-07-07] MEDS: BUDESONIDE (INHALATION) 180 MCG IH IN SCH (22:00)
[2021-07-08] VITALS (24 sets, daily range): BP systolic 99–130; BP diastolic 45–73
[2021-07-08] MEDS: InsuLIN REG 1unit/0.01ml Soln (100units/ml) SC SCH ×6 (01:09→20:29)
[2021-07-08] MEDS: ACCU-CHEK COMFORT CURVE STRIP VI SCH ×6 (04:00→20:28)
[2021-07-08 04:08] LABS: Potassium 3.9 mmol/L (3.5-5.1)
[2021-07-08 04:13] LABS: Albumin 2.8 g/dL (3.4-5.0); BUN/Creatinine Ratio 25.7; Calcium 8.4 mg/dL (8.5-10.1)
[2021-07-08 04:16] LABS: Bilirubin, Total 0.7 mg/dL (0.2-1.0); Total Protein 6.2 g/dL (6.4-8.2)
[2021-07-08] MEDS: GABAPENTIN 300 MG CAP PO SCH ×3 (05:48→21:34)
[2021-07-08] MEDS: FUROSEMIDE 20 MG/2 ML VIAL IV SCH ×2 (05:48→18:20)
[2021-07-08] MEDS: cefTRIAXone 1GM/50ML D5W 50 ML IV SCH (08:43)
[2021-07-08] MEDS: AZITHROMYCIN 500MG/ 250ML 250 ML IV SCH (09:17)
[2021-07-08] MEDS: PANTOPRAZOLE 40 MG/10 ML VIAL INJ IV SCH (09:17)
[2021-07-08] MEDS: DexAMETHasone SOD PHOS 10MG/1ML VIAL INJ IV SCH (09:17)
[2021-07-08] MEDS: CHOLECALCIFEROL (VITD3) 2,000 UNIT CAP/TAB PO SCH (09:18)
[2021-07-08] MEDS: ZINC SULFATE 220mg CAP or TAB PO SCH (09:18)
[2021-07-08] MEDS: ENOXAPARIN SOD 40 MG/0.4 ML SYRINGE SC SCH ×2 (09:18→21:38)
[2021-07-08] MEDS: ASCORBIC ACID 1,000 MG TAB PO SCH (09:18)
[2021-07-08] MEDS: REMDESIVIR 100mg 100 MG in SODIUM CHL 0.9% 230 ML IV SCH (15:21)
[2021-07-08] MEDS: BUDESONIDE (INHALATION) 180 MCG IH IN SCH (20:05)
[2021-07-08] MEDS: ATORVASTATIN 20 MG TAB PO SCH (21:34)
[2021-07-09] VITALS (21 sets, daily range): BP systolic 91–126; BP diastolic 39–69
[2021-07-09] MEDS: ACCU-CHEK COMFORT CURVE STRIP VI SCH ×6 (00:56→20:37)
[2021-07-09] MEDS: InsuLIN REG 1unit/0.01ml Soln (100units/ml) SC SCH ×6 (01:00→20:38)
[2021-07-09 05:18] LABS: Alanine Aminotransferase 20 U/L (13-56); Albumin 2.7 g/dL (3.4-5.0); Alkaline Phosphatase 117 U/L (45-117); Anion Gap 10 (5-15); Aspartate Aminotransferase 13 U/L (15-37); BUN/Creatinine Ratio 28.8; Bilirubin, Total 0.8 mg/dL (0.2-1.0); Blood Urea Nitrogen 30 mg/dL (7-18); Calcium 8.1 mg/dL (8.5-10.1); Carbon Dioxide 35 mmol/L (21-32); Chloride 93 mmol/L (98-107); GFR African American 68 mL/min; GFR Non-African American 56 mL/min; Glucose 220 mg/dL (74-106); Sodium 138 mmol/L (136-145); Total Protein 6.4 g/dL (6.4-8.2)
[2021-07-09] MEDS: FUROSEMIDE 20 MG/2 ML VIAL IV SCH ×2 (06:00→17:27)
[2021-07-09] MEDS: GABAPENTIN 300 MG CAP PO SCH ×3 (06:47→22:31)
[2021-07-09] MEDS: cefTRIAXone 1GM/50ML D5W 50 ML IV SCH (09:15)
[2021-07-09] MEDS: BUDESONIDE (INHALATION) 180 MCG IH IN SCH (09:50)
[2021-07-09] MEDS: DexAMETHasone SOD PHOS 10MG/1ML VIAL INJ IV SCH (10:02)
[2021-07-09] MEDS: PANTOPRAZOLE 40 MG/10 ML VIAL INJ IV SCH (10:02)
[2021-07-09] MEDS: ENOXAPARIN SOD 40 MG/0.4 ML SYRINGE SC SCH ×2 (10:02→22:32)
[2021-07-09] MEDS: ZINC SULFATE 220mg CAP or TAB PO SCH (10:03)
[2021-07-09] MEDS: ASCORBIC ACID 1,000 MG TAB PO SCH (10:03)
[2021-07-09] MEDS: CHOLECALCIFEROL (VITD3) 2,000 UNIT CAP/TAB PO SCH (10:03)
[2021-07-09] MEDS: AZITHROMYCIN 500MG/ 250ML 250 ML IV SCH (10:43)
[2021-07-09] MEDS: SUCRALFATE 1 GM/10 ML ORAL SUSP GT SCH ×3 (12:00→22:31)
[2021-07-09] MEDS ORDERED: SUCRALFATE 1 GM/10 ML ORAL SUSP ONE (12:11)
[2021-07-09] MEDS: REMDESIVIR 100mg 100 MG in SODIUM CHL 0.9% 230 ML IV SCH (15:00)
[2021-07-09] MEDS: ATORVASTATIN 20 MG TAB PO SCH (22:31)
[2021-07-10] VITALS (9 sets, daily range): BP systolic 98–155; BP diastolic 50–68
[2021-07-10] MEDS: ACCU-CHEK COMFORT CURVE STRIP VI SCH ×7 (00:57→23:59)
[2021-07-10] MEDS: InsuLIN REG 1unit/0.01ml Soln (100units/ml) SC SCH ×7 (00:59→23:58)
[2021-07-10 05:10] LABS: Basophils # (auto) 0 10 ^3/uL (0-0.2); Basophils % (auto) 0.1 % (0.0-2.0); Eosinophils # (auto) 0 10 ^3/uL (0-0.8); Eosinophils % (auto) 0.2 % (0.0-7.0); Hemoglobin 11.7 g/dL (12.2-16.2); Lymphocytes # (auto) 0.6 10 ^3/uL (0.4-5.4); Mean Corpuscular Hemoglobin 24.1 pg (28.0-32.0); Monocytes # (auto) 0.5 10 ^3/uL (0-1.3); Monocytes % (auto) 5.4 % (0.0-12.0)
[2021-07-10 05:12] LABS: Hematocrit 36.9 % (36.0-46.0); Lymphocytes % (auto) 7.1 % (10.0-50.0); Mean Corpuscular Hgb Conc. 31.7 g/dL (32.0-36.0); Mean Corpuscular Volume 76.1 fL (80.0-100.0); Neutrophils # (auto) 7.6 10 ^3/uL (1.6-8.6); Neutrophils % (auto) 87.2 % (37.0-80.0); Red Blood Cells 4.86 10^6/uL (4.0-5.20); Red Cell Distribution Width 17.2 % (11.8-14.3); White Blood Cell 8.8 10^3/uL (4.4-10.8)
[2021-07-10 05:47] LABS: Albumin 2.8 g/dL (3.4-5.0)
[2021-07-10 05:58] LABS: Bilirubin, Total 0.6 mg/dL (0.2-1.0); Total Protein 6.4 g/dL (6.4-8.2)
[2021-07-10 06:33] LABS: CRP High Sensitivity 1.08 mg/dL (< 0.3)
[2021-07-10] MEDS: FUROSEMIDE 20 MG/2 ML VIAL IV SCH ×2 (06:35→17:33)
[2021-07-10] MEDS: GABAPENTIN 300 MG CAP PO SCH ×3 (06:35→23:10)
[2021-07-10] MEDS: BUDESONIDE (INHALATION) 180 MCG IH IN SCH ×2 (06:36→19:00)
[2021-07-10] MEDS: SUCRALFATE 1 GM/10 ML ORAL SUSP GT SCH ×4 (06:36→23:10)
[2021-07-10] MEDS: ALBUTEROL SULF HFA 90MCG INH 200DOSE IN PRN (07:07)
[2021-07-10] MEDS: cefTRIAXone 1GM/50ML D5W 50 ML IV SCH (08:45)
[2021-07-10] MEDS: CHOLECALCIFEROL (VITD3) 2,000 UNIT CAP/TAB PO SCH (09:52)
[2021-07-10] MEDS: PANTOPRAZOLE 40 MG/10 ML VIAL INJ IV SCH (09:52)
[2021-07-10] MEDS: ZINC SULFATE 220mg CAP or TAB PO SCH (09:52)
[2021-07-10] MEDS: DexAMETHasone SOD PHOS 10MG/1ML VIAL INJ IV SCH (09:52)
[2021-07-10] MEDS: ASCORBIC ACID 1,000 MG TAB PO SCH (09:52)
[2021-07-10] MEDS: AZITHROMYCIN 500MG/ 250ML 250 ML IV SCH (09:53)
[2021-07-10] MEDS: ENOXAPARIN SOD 40 MG/0.4 ML SYRINGE SC SCH ×2 (09:53→23:11)
[2021-07-10] MEDS: ATORVASTATIN 20 MG TAB PO SCH (23:10)
[2021-07-11 04:52] VITALS: BP 114/60
[2021-07-11] MEDS: ACCU-CHEK COMFORT CURVE STRIP VI SCH ×4 (05:12→16:24)
[2021-07-11] MEDS: InsuLIN REG 1unit/0.01ml Soln (100units/ml) SC SCH ×4 (05:18→16:26)
[2021-07-11] MEDS: FUROSEMIDE 20 MG/2 ML VIAL IV SCH ×2 (06:41→18:00)
[2021-07-11] MEDS: GABAPENTIN 300 MG CAP PO SCH ×2 (06:41→14:00)
[2021-07-11] MEDS: SUCRALFATE 1 GM/10 ML ORAL SUSP GT SCH ×3 (06:41→18:14)
[2021-07-11 09:00] VITALS: BP 111/58
[2021-07-11] MEDS: ALBUTEROL SULF HFA 90MCG INH 200DOSE IN PRN ×2 (09:42→19:34)
[2021-07-11] MEDS: BUDESONIDE (INHALATION) 180 MCG IH IN SCH ×2 (09:42→19:35)
[2021-07-11] MEDS: DexAMETHasone SOD PHOS 10MG/1ML VIAL INJ IV SCH (09:43)
[2021-07-11] MEDS: cefTRIAXone 1GM/50ML D5W 50 ML IV SCH (09:43)
[2021-07-11] MEDS: PANTOPRAZOLE 40 MG/10 ML VIAL INJ IV SCH (09:44)
[2021-07-11] MEDS: AZITHROMYCIN 500MG/ 250ML 250 ML IV SCH (09:44)
[2021-07-11] MEDS: CHOLECALCIFEROL (VITD3) 2,000 UNIT CAP/TAB PO SCH (09:45)
[2021-07-11] MEDS: ZINC SULFATE 220mg CAP or TAB PO SCH (09:45)
[2021-07-11] MEDS: ASCORBIC ACID 1,000 MG TAB PO SCH (09:45)
[2021-07-11] MEDS: ENOXAPARIN SOD 40 MG/0.4 ML SYRINGE SC SCH (09:46)
[2021-07-11 12:30] VITALS: BP 119/60
[2021-07-11] MEDS ORDERED: ZINC220T6 PO (14:41)
[2021-07-11] MEDS ORDERED: CHOL1CAP47 PO (14:41)
[2021-07-11] MEDS ORDERED: PANT40TA2 PO (14:41)
[2021-07-11] MEDS ORDERED: ASCO10003 PO (14:41)
[2021-07-11] MEDS ORDERED: DEX4T PO (14:41)
[2021-07-11 17:00] VITALS: BP 114/54
== END 2021-07-11 19:42 | disposition home or self-care (01) | DRG 177 ==
LOC: ER 00:04 → TELE 04:39 → TELE-EAST 09:16 → ICU WEST 17:16 → DOU IN ICU 07-09 07:12 → ICU WEST 07-09 08:35 → TELE-EAST 07-10 07:31
PROVIDERS: ADMIT Nurse Practitioner; ATTEND Internal Medicine
PROC: 5A09457 Assistance with Respiratory Ventilation, 24-96 Consecutive Hours, Continuous Positive Airway Pressure (ICD-10-PCS; principal; 2021-07-06)
PROC: XW033E5 Introduction of Remdesivir Anti-infective into Peripheral Vein, Percutaneous Approach, New Technology Group 5 (ICD-10-PCS; 2021-07-06)
PROC: 05HB33Z Insertion of Infusion Device into Right Basilic Vein, Percutaneous Approach (ICD-10-PCS; 2021-07-07)
PROC: B54MZZA Ultrasonography of Right Upper Extremity Veins, Guidance (ICD-10-PCS; 2021-07-07)
DX: U07.1 COVID-19 (principal); I50.33 Acute on chronic diastolic (congestive) heart failure; J96.21 Acute and chronic respiratory failure with hypoxia; J12.82 Pneumonia due to coronavirus disease 2019; J44.0 Chronic obstructive pulmonary disease with (acute) lower respiratory infection; J44.1 Chronic obstructive pulmonary disease with (acute) exacerbation; N39.0 Urinary tract infection, site not specified; Z68.41 Body mass index [BMI] 40.0-44.9, adult; I11.0 Hypertensive heart disease with heart failure; E11.65 Type 2 diabetes mellitus with hyperglycemia; E66.01 Morbid (severe) obesity due to excess calories; Z20.822 Contact with and (suspected) exposure to COVID-19; I27.21 Secondary pulmonary arterial hypertension; E78.5 Hyperlipidemia, unspecified; G47.33 Obstructive sleep apnea (adult) (pediatric); Z82.0 Family history of epilepsy and other diseases of the nervous system; Z82.3 Family history of stroke; Z83.3 Family history of diabetes mellitus; Z90.710 Acquired absence of both cervix and uterus; Z91.19 Patient's noncompliance with other medical treatment and regimen; Z90.49 Acquired absence of other specified parts of digestive tract
CPT/HCPCS: 36415; 36600; 71045; 71250; 80053; 81001; 82728; 82805; 82962; 83615; 83735; 83880; 84484; 85025; 85379; 85610; 85730; 86141; 87081; 93005; 93970; 94640; 94660; 96365; 96367; 96375; C9113; G0378; J0696; J1100; J1815

== ENCOUNTER → 2021-08-01 | Outpatient (CLI) | payer MEDICARE, OTHER ==
[~2021-08-01] MED LIST changes: +ASCO10003 PO; +CHOL1CAP47 PO; +DEX4T PO; +FUROSEMIDE 100 MG/10ML VIAL IV ONE; +FUROSEMIDE 20 MG/2 ML VIAL ONE; +FUROSEMIDE INJECTION 10 ML ONE; +PANT40TA2 PO; +POTASSIUM CHL 20 Meq TABLET PO ONE; -PRED20TA2 PO; +ZINC220T6 PO
[2021-08-01 13:38] VITALS: BP 117/64
[2021-08-01 14:05] VITALS: BP 118/67
== END | disposition home or self-care (01) ==
LOC: CHF HDHVI 13:40
PROVIDERS: ATTEND Internal Medicine Cardiovascular Disease
DX: I27.21 Secondary pulmonary arterial hypertension (principal); E11.9 Type 2 diabetes mellitus without complications; R60.9 Edema, unspecified; E87.6 Hypokalemia
CPT/HCPCS: 96374; G0463; J1940

== ENCOUNTER 2021-08-05 20:08 | Inpatient (IN) | payer MEDICARE, OTHER ==
[~2021-08-05] VITALS: Ht 154.9 cm; Wt 108.4 kg
[~2021-08-05 20:08] MED LIST changes: -FUROSEMIDE 100 MG/10ML VIAL IV ONE; -FUROSEMIDE 20 MG/2 ML VIAL ONE; -FUROSEMIDE INJECTION 10 ML ONE; -POTASSIUM CHL 20 Meq TABLET PO ONE
[2021-08-05 22:43] LABS: Hematocrit 34.9 % (36.0-46.0); Lymphocytes # (auto) 1.3 10 ^3/uL (0.4-5.4); Monocytes # (auto) 0.3 10 ^3/uL (0-1.3); Nucleated Red Blood Cells % 0.2 %; White Blood Cell 9.6 10^3/uL (4.4-10.8)
[2021-08-05 22:45] LABS: Basophils # (auto) 0 10 ^3/uL (0-0.2); Basophils % (auto) 0.3 % (0.0-2.0); Eosinophils # (auto) 0.2 10 ^3/uL (0-0.8); Eosinophils % (auto) 2.2 % (0.0-7.0); Hemoglobin 11.5 g/dL (12.2-16.2); Lymphocytes % (auto) 13.6 % (10.0-50.0); Mean Corpuscular Hemoglobin 25.7 pg (28.0-32.0); Mean Corpuscular Hgb Conc. 32.8 g/dL (32.0-36.0); Mean Corpuscular Volume 78.4 fL (80.0-100.0); Monocytes % (auto) 3.4 % (0.0-12.0); Neutrophils # (auto) 7.7 10 ^3/uL (1.6-8.6); Neutrophils % (auto) 80.5 % (37.0-80.0); Red Blood Cells 4.45 10^6/uL (4.0-5.20); Red Cell Distribution Width 19.8 % (11.8-14.3)
[2021-08-05 23:08] LABS: Albumin 3.2 g/dL (3.4-5.0); Calcium 8.8 mg/dL (8.5-10.1); Potassium 4.3 mmol/L (3.5-5.1)
[2021-08-05 23:11] LABS: BUN/Creatinine Ratio 13.8
[2021-08-05 23:14] LABS: Bilirubin, Total 0.8 mg/dL (0.2-1.0); Total Protein 6.3 g/dL (6.4-8.2)
[2021-08-06] MEDS ORDERED: DEXTROSE (50%) 50ML SYRG IV PRN (04:15)
[2021-08-06] MEDS ORDERED: ONDANSETRON HCL 4 MG/2 ML VIAL IV PRN (04:15)
[2021-08-06] MEDS ORDERED: DOCUSATE SOD 100 MG CAP PO PRN (04:15)
[2021-08-06] MEDS ORDERED: ACETAMINOPHEN 325 MG TAB PO PRN (04:15)
[2021-08-06] MEDS ORDERED: HYDROcodone-ACET 5/325MG TAB PO PRN (04:15)
[2021-08-06] MEDS ORDERED: NITROGLYCERIN 0.4 MG SL TAB SL PRN (04:45)
[2021-08-06] MEDS ORDERED: levoFLOXacin 500MG 100 ML IV ONE (04:45)
[2021-08-06] MEDS ORDERED: MORPHINE SULFATE INJECTION 2 MG/ML SYRG IV PRN (04:45)
[2021-08-06 06:23] LABS: Basophils # (auto) 0 10 ^3/uL (0-0.2); Basophils % (auto) 0.4 % (0.0-2.0); Eosinophils # (auto) 0.2 10 ^3/uL (0-0.8); Hematocrit 33.6 % (36.0-46.0); Hemoglobin 10.9 g/dL (12.2-16.2); Lymphocytes # (auto) 1.1 10 ^3/uL (0.4-5.4); Lymphocytes % (auto) 13.3 % (10.0-50.0); Mean Corpuscular Hemoglobin 25.4 pg (28.0-32.0); Mean Corpuscular Hgb Conc. 32.3 g/dL (32.0-36.0); Mean Corpuscular Volume 78.7 fL (80.0-100.0); Monocytes # (auto) 0.3 10 ^3/uL (0-1.3); Monocytes % (auto) 4.1 % (0.0-12.0); Neutrophils # (auto) 6.7 10 ^3/uL (1.6-8.6); Neutrophils % (auto) 80.2 % (37.0-80.0); Nucleated Red Blood Cells % 0.2 %; Red Blood Cells 4.28 10^6/uL (4.0-5.20); Red Cell Distribution Width 18.6 % (11.8-14.3); White Blood Cell 8.3 10^3/uL (4.4-10.8)
[2021-08-06 06:33] LABS: Potassium 4.2 mmol/L (3.5-5.1)
[2021-08-06 06:41] LABS: Albumin 2.9 g/dL (3.4-5.0); BUN/Creatinine Ratio 15.3; Calcium 8.7 mg/dL (8.5-10.1)
[2021-08-06 06:44] LABS: Bilirubin, Total 0.8 mg/dL (0.2-1.0); Total Protein 6.7 g/dL (6.4-8.2)
[2021-08-06 07:00] VITALS: BP 102/56
[2021-08-06] MEDS: SODIUM CHLOR 0.9% PF (SALINE LOCK) 10ML VIAL/SYR IV SCH ×3 (07:40→21:48)
[2021-08-06] MEDS: ACCU-CHEK COMFORT CURVE STRIP VI SCH ×4 (07:40→21:51)
[2021-08-06] MEDS: methylPREDNISolone SOD SUCC 40 MG/ML VL IV SCH ×3 (07:40→21:52)
[2021-08-06] MEDS: InsuLIN REG 1unit/0.01ml Soln (100units/ml) SC SCH ×3 (08:35→17:54)
[2021-08-06 08:59] VITALS: BP 102/56
[2021-08-06] MEDS: ZINC SULFATE 220mg CAP or TAB PO SCH (09:37)
[2021-08-06] MEDS: ASCORBIC ACID 500 MG TAB PO SCH ×2 (09:38→21:49)
[2021-08-06] MEDS: FAMOTIDINE (10MG/ML) 2ML VL IV SCH ×2 (09:54→21:48)
[2021-08-06] MEDS: HEPARIN SODIUM (PORCINE) 5000 UNITS/ML 1ML VIAL SC SCH ×2 (10:12→21:49)
[2021-08-06 12:50] VITALS: BP 120/58
[2021-08-06] MEDS: ALBUTEROL SULF 2.5 MG/0.5ML(0.5%) NEB SOLN NEB SCH ×3 (14:44→22:29)
[2021-08-06] MEDS: IPRATROPIUM BROM 0.5 MG/2.5ML INH SOL NEB SCH ×3 (14:44→22:30)
[2021-08-06 15:20] VITALS: BP 120/88
[2021-08-06 17:15] VITALS: BP 121/63
[2021-08-06 22:00] VITALS: BP 104/65
[2021-08-06] MEDS ORDERED: InsuLIN REG 1unit/0.01ml Soln (100units/ml) SC SCH (22:00)
[2021-08-07] MEDS: IPRATROPIUM BROM 0.5 MG/2.5ML INH SOL NEB SCH ×4 (02:00→13:52)
[2021-08-07] MEDS: ALBUTEROL SULF 2.5 MG/0.5ML(0.5%) NEB SOLN NEB SCH ×4 (02:00→13:52)
[2021-08-07 05:00] VITALS: BP 102/51
[2021-08-07] MEDS ORDERED: FUROSEMIDE 40 MG/4 ML VIAL IV SCH (06:00)
[2021-08-07] MEDS: InsuLIN REG 1unit/0.01ml Soln (100units/ml) SC SCH ×2 (06:28→12:13)
[2021-08-07] MEDS: ACCU-CHEK COMFORT CURVE STRIP VI SCH ×2 (06:29→11:37)
[2021-08-07] MEDS: SODIUM CHLOR 0.9% PF (SALINE LOCK) 10ML VIAL/SYR IV SCH ×2 (06:53→13:30)
[2021-08-07] MEDS: methylPREDNISolone SOD SUCC 40 MG/ML VL IV SCH ×2 (06:54→13:33)
[2021-08-07 07:26] LABS: Albumin 2.9 g/dL (3.4-5.0); Calcium 8.5 mg/dL (8.5-10.1); Potassium 4.8 mmol/L (3.5-5.1)
[2021-08-07 07:32] LABS: BUN/Creatinine Ratio 22.3; Bilirubin, Total 0.7 mg/dL (0.2-1.0); Magnesium 2.3 mg/dL (1.6-2.6); Total Protein 6.6 g/dL (6.4-8.2)
[2021-08-07 07:53] LABS: Basophils # (auto) 0 10 ^3/uL (0-0.2); Eosinophils # (auto) 0 10 ^3/uL (0-0.8); Monocytes # (auto) 0.2 10 ^3/uL (0-1.3)
[2021-08-07 07:56] LABS: Basophils % (auto) 0.2 % (0.0-2.0); Hematocrit 31.3 % (36.0-46.0); Hemoglobin 10.1 g/dL (12.2-16.2); Lymphocytes # (auto) 0.7 10 ^3/uL (0.4-5.4); Lymphocytes % (auto) 8.3 % (10.0-50.0); Mean Corpuscular Hemoglobin 25.1 pg (28.0-32.0); Mean Corpuscular Hgb Conc. 32.1 g/dL (32.0-36.0); Mean Corpuscular Volume 78.2 fL (80.0-100.0); Monocytes % (auto) 2.1 % (0.0-12.0); Neutrophils # (auto) 7.7 10 ^3/uL (1.6-8.6); Neutrophils % (auto) 89.4 % (37.0-80.0); Nucleated Red Blood Cells % 0.2 %; Red Blood Cells 4.01 10^6/uL (4.0-5.20); Red Cell Distribution Width 19.1 % (11.8-14.3); White Blood Cell 8.6 10^3/uL (4.4-10.8)
[2021-08-07 08:08] VITALS: BP 100/43
[2021-08-07 08:51] VITALS: BP 100/43
[2021-08-07] MEDS ORDERED: levoFLOXacin 500MG 100 ML IV SCH (10:00)
[2021-08-07] MEDS: ZINC SULFATE 220mg CAP or TAB PO SCH (10:26)
[2021-08-07] MEDS: ASCORBIC ACID 500 MG TAB PO SCH (10:27)
[2021-08-07] MEDS: FAMOTIDINE (10MG/ML) 2ML VL IV SCH (10:27)
[2021-08-07] MEDS: HEPARIN SODIUM (PORCINE) 5000 UNITS/ML 1ML VIAL SC SCH (10:38)
[2021-08-07 12:40] VITALS: BP 100/43
[2021-08-07 13:00] VITALS: BP 119/69
== END 2021-08-07 14:40 | disposition home or self-care (01) | DRG 193 ==
LOC: ER 20:12 → TELE 08-06 04:41 → TELE-WESTW 08-06 06:23
PROVIDERS: ADMIT Nurse Practitioner Family; ATTEND Internal Medicine Cardiovascular Disease
DX: J18.9 Pneumonia, unspecified organism (principal); J96.21 Acute and chronic respiratory failure with hypoxia; J96.22 Acute and chronic respiratory failure with hypercapnia; I50.33 Acute on chronic diastolic (congestive) heart failure; J44.1 Chronic obstructive pulmonary disease with (acute) exacerbation; Z68.42 Body mass index [BMI] 45.0-49.9, adult; E66.2 Morbid (severe) obesity with alveolar hypoventilation; J44.0 Chronic obstructive pulmonary disease with (acute) lower respiratory infection; E78.00 Pure hypercholesterolemia, unspecified; I27.21 Secondary pulmonary arterial hypertension; E11.40 Type 2 diabetes mellitus with diabetic neuropathy, unspecified; E11.21 Type 2 diabetes mellitus with diabetic nephropathy; E11.65 Type 2 diabetes mellitus with hyperglycemia; E78.5 Hyperlipidemia, unspecified; I11.0 Hypertensive heart disease with heart failure; Z20.822 Contact with and (suspected) exposure to COVID-19; Z80.9 Family history of malignant neoplasm, unspecified; Z82.0 Family history of epilepsy and other diseases of the nervous system; Z82.3 Family history of stroke; Z83.3 Family history of diabetes mellitus; Z90.710 Acquired absence of both cervix and uterus; Z91.19 Patient's noncompliance with other medical treatment and regimen; Z99.81 Dependence on supplemental oxygen; Z90.49 Acquired absence of other specified parts of digestive tract; Z86.16 Personal history of COVID-19
CPT/HCPCS: 36415; 36600; 71045; 80053; 82805; 82962; 83036; 83735; 83880; 84484; 85025; 94640; 96365; G0378; J1815; J1956; J3490

== ENCOUNTER → 2021-08-08 | Outpatient (CLI) | payer MEDICARE, OTHER ==
[~2021-08-08] MED LIST changes: +FUROSEMIDE 100 MG/10ML VIAL IV ONE; +FUROSEMIDE 20 MG/2 ML VIAL ONE; +FUROSEMIDE INJECTION 10 ML ONE; +POTASSIUM CHL 20 Meq TABLET PO ONE
[2021-08-08 12:17] VITALS: BP_SYST 117; BP_SYST 127; BP_DIAS 60; BP_DIAS 62
== END | disposition home or self-care (01) ==
LOC: CHF HDHVI 12:16
PROVIDERS: ATTEND Internal Medicine Cardiovascular Disease
DX: R60.9 Edema, unspecified (principal); I27.21 Secondary pulmonary arterial hypertension; R06.9 Unspecified abnormalities of breathing
CPT/HCPCS: 96374; G0463; J1940

== ENCOUNTER 2021-09-24 18:01 | Inpatient (IN) | payer MEDICARE, OTHER ==
[~2021-09-24] VITALS: Ht 154.9 cm; Wt 108.2 kg
[~2021-09-24 18:01] MED LIST changes: -FUROSEMIDE 100 MG/10ML VIAL IV ONE; -FUROSEMIDE 20 MG/2 ML VIAL ONE; -FUROSEMIDE INJECTION 10 ML ONE; -POTASSIUM CHL 20 Meq TABLET PO ONE
[2021-09-24] MEDS ORDERED: ALBUTEROL SULF 2.5 MG/0.5ML(0.5%) NEB SOLN HHN STA (18:17)
[2021-09-24] MEDS ORDERED: IPRATROPIUM BROM 0.5 MG/2.5ML INH SOL NEB ONE (18:30)
[2021-09-24 18:45] VITALS: BP 127/61
[2021-09-24] MEDS ORDERED: FUROSEMIDE 100 MG/10ML VIAL IV ONE (18:45)
[2021-09-24 19:22] LABS: Albumin 3.3 g/dL (3.4-5.0); BUN/Creatinine Ratio 11.2; Calcium 8.8 mg/dL (8.5-10.1); Potassium 5.1 mmol/L (3.5-5.1)
[2021-09-24 19:26] LABS: Bilirubin, Total 0.9 mg/dL (0.2-1.0); Total Protein 6.9 g/dL (6.4-8.2)
[2021-09-24 19:41] LABS: Eosinophils # (auto) 0.1 10 ^3/uL (0-0.8); Lymphocytes # (auto) 0.9 10 ^3/uL (0.4-5.4); Mean Corpuscular Hgb Conc. 30.2 g/dL (32.0-36.0); Monocytes # (auto) 0.3 10 ^3/uL (0-1.3); Nucleated Red Blood Cells % 0.1 %
[2021-09-24 19:42] LABS: Basophils # (auto) 0.1 10 ^3/uL (0-0.2); Basophils % (auto) 1.3 % (0.0-2.0); Eosinophils % (auto) 1.6 % (0.0-7.0); Hematocrit 36.4 % (36.0-46.0); Lymphocytes % (auto) 10.4 % (10.0-50.0); Mean Corpuscular Hemoglobin 24.8 pg (28.0-32.0); Mean Corpuscular Volume 82.1 fL (80.0-100.0); Monocytes % (auto) 3.6 % (0.0-12.0); Neutrophils # (auto) 7.5 10 ^3/uL (1.6-8.6); Neutrophils % (auto) 83.1 % (37.0-80.0); Red Blood Cells 4.43 10^6/uL (4.0-5.20); Red Cell Distribution Width 18.5 % (11.8-14.3)
[2021-09-24 20:13] VITALS: BP 137/63
[2021-09-24 21:08] VITALS: BP 137/63
[2021-09-24 22:00] VITALS: BP 118/65
[2021-09-24] MEDS ORDERED: methylPREDNISolone SOD SUCC 125 MG/2 ML VL IV ONE (22:00)
[2021-09-24] MEDS ORDERED: ONDANSETRON HCL 4 MG/2 ML VIAL IV PRN (22:00)
[2021-09-24] MEDS ORDERED: ACETAMINOPHEN 325 MG TAB PO PRN (22:00)
[2021-09-24] MEDS: CARVEDILOL 12.5 MG TAB PO SCH ×2 (22:00→22:48)
[2021-09-24] MEDS ORDERED: HYDROcodone-ACET 5/325MG TAB PO PRN (22:00)
[2021-09-24] MEDS: methylPREDNISolone SOD SUCC 40 MG/ML VL IV SCH (22:00)
[2021-09-24] MEDS ORDERED: DOCUSATE SOD 100 MG CAP PO PRN (22:00)
[2021-09-24] MEDS ORDERED: DEXTROSE (50%) 50ML SYRG IV PRN (22:00)
[2021-09-24] MEDS: FAMOTIDINE (10MG/ML) 2ML VL IV SCH (22:48)
[2021-09-24] MEDS: SODIUM CHLOR 0.9% PF (SALINE LOCK) 10ML VIAL/SYR IV SCH (22:48)
[2021-09-24] MEDS ORDERED: MORPHINE SULFATE INJ 2 MG/ml SYRG IV PRN (23:45)
[2021-09-24] MEDS ORDERED: NITROGLYCERIN 0.4 MG SL TAB SL PRN (23:45)
[2021-09-25] VITALS (11 sets, daily range): BP systolic 94–141; BP diastolic 43–80
[2021-09-25] MEDS: ACCU-CHEK COMFORT CURVE STRIP VI SCH ×6 (00:20→20:25)
[2021-09-25] MEDS: InsuLIN REG 1unit/0.01ml Soln (100units/ml) SC SCH ×6 (00:21→20:25)
[2021-09-25] MEDS: SODIUM CHLOR 0.9% PF (SALINE LOCK) 10ML VIAL/SYR IV SCH ×3 (06:00→20:25)
[2021-09-25] MEDS: methylPREDNISolone SOD SUCC 40 MG/ML VL IV SCH ×3 (06:49→20:32)
[2021-09-25 07:47] LABS: Basophils # (auto) 0 10 ^3/uL (0-0.2); Eosinophils # (auto) 0 10 ^3/uL (0-0.8); Eosinophils % (auto) 0.1 % (0.0-7.0); Hemoglobin 10.7 g/dL (12.2-16.2); Lymphocytes # (auto) 0.3 10 ^3/uL (0.4-5.4); Mean Corpuscular Volume 81.2 fL (80.0-100.0); Monocytes # (auto) 0.1 10 ^3/uL (0-1.3); Neutrophils # (auto) 8.4 10 ^3/uL (1.6-8.6); Nucleated Red Blood Cells % 0.1 %
[2021-09-25 07:49] LABS: Basophils % (auto) 0.1 % (0.0-2.0); Hematocrit 34.2 % (36.0-46.0); Lymphocytes % (auto) 3.1 % (10.0-50.0); Mean Corpuscular Hemoglobin 25.3 pg (28.0-32.0); Mean Corpuscular Hgb Conc. 31.2 g/dL (32.0-36.0); Monocytes % (auto) 0.8 % (0.0-12.0); Neutrophils % (auto) 95.9 % (37.0-80.0); Red Blood Cells 4.21 10^6/uL (4.0-5.20); Red Cell Distribution Width 18.6 % (11.8-14.3); White Blood Cell 8.8 10^3/uL (4.4-10.8)
[2021-09-25 07:57] LABS: Potassium 5.2 mmol/L (3.5-5.1)
[2021-09-25 08:06] LABS: BUN/Creatinine Ratio 15.7; Bilirubin, Total 0.8 mg/dL (0.2-1.0); Calcium 8.6 mg/dL (8.5-10.1); Total Protein 6.9 g/dL (6.4-8.2)
[2021-09-25] MEDS: CARVEDILOL 12.5 MG TAB PO SCH ×2 (10:00→20:32)
[2021-09-25] MEDS: FAMOTIDINE (10MG/ML) 2ML VL IV SCH ×2 (10:17→20:25)
[2021-09-25] MEDS: ENOXAPARIN SOD 40 MG/0.4 ML SYRINGE SC SCH (10:17)
[2021-09-25] MEDS: FUROSEMIDE 40 MG/4 ML VIAL IV SCH (10:18)
[2021-09-25] MEDS ORDERED: levoFLOXacin 500MG 100 ML IV ONE (17:15)
[2021-09-25] MEDS: ALBUTEROL SULF 2.5 MG/0.5ML(0.5%) NEB SOLN NEB PRN (20:56)
[2021-09-25] MEDS: IPRATROPIUM BROM 0.5 MG/2.5ML INH SOL NEB PRN (20:56)
[2021-09-26] MEDS: InsuLIN REG 1unit/0.01ml Soln (100units/ml) SC SCH ×6 (00:01→20:54)
[2021-09-26] MEDS: ACCU-CHEK COMFORT CURVE STRIP VI SCH ×6 (00:01→20:50)
[2021-09-26 05:00] VITALS: BP 123/61
[2021-09-26] MEDS: methylPREDNISolone SOD SUCC 40 MG/ML VL IV SCH ×3 (05:17→22:11)
[2021-09-26] MEDS: SODIUM CHLOR 0.9% PF (SALINE LOCK) 10ML VIAL/SYR IV SCH ×3 (05:17→22:11)
[2021-09-26 05:23] LABS: Basophils # (auto) 0 10 ^3/uL (0-0.2); Eosinophils # (auto) 0 10 ^3/uL (0-0.8); Lymphocytes # (auto) 0.5 10 ^3/uL (0.4-5.4)
[2021-09-26 05:25] LABS: Basophils % (auto) 0.1 % (0.0-2.0); Hemoglobin 10.4 g/dL (12.2-16.2); Mean Corpuscular Hemoglobin 25.1 pg (28.0-32.0); Mean Corpuscular Hgb Conc. 31.5 g/dL (32.0-36.0); Mean Corpuscular Volume 79.6 fL (80.0-100.0); Monocytes # (auto) 0.2 10 ^3/uL (0-1.3); Monocytes % (auto) 2.2 % (0.0-12.0); Neutrophils # (auto) 7.6 10 ^3/uL (1.6-8.6); Neutrophils % (auto) 91.7 % (37.0-80.0); Nucleated Red Blood Cells % 0.1 %; Red Blood Cells 4.14 10^6/uL (4.0-5.20); Red Cell Distribution Width 18.9 % (11.8-14.3); White Blood Cell 8.3 10^3/uL (4.4-10.8)
[2021-09-26 05:38] LABS: BUN/Creatinine Ratio 24.7; Potassium 4.2 mmol/L (3.5-5.1)
[2021-09-26 09:00] VITALS: BP 136/73
[2021-09-26] MEDS: FUROSEMIDE 40 MG/4 ML VIAL IV SCH (10:57)
[2021-09-26] MEDS: ENOXAPARIN SOD 40 MG/0.4 ML SYRINGE SC SCH (10:58)
[2021-09-26] MEDS: FAMOTIDINE (10MG/ML) 2ML VL IV SCH ×2 (10:58→22:11)
[2021-09-26] MEDS: CARVEDILOL 12.5 MG TAB PO SCH ×2 (10:58→22:11)
[2021-09-26] MEDS: levoFLOXacin 500MG 100 ML IV SCH (10:58)
[2021-09-26 13:00] VITALS: BP 109/55
[2021-09-26] MEDS: IPRATROPIUM BROM 0.5 MG/2.5ML INH SOL NEB PRN (14:58)
[2021-09-26] MEDS: ALBUTEROL SULF 2.5 MG/0.5ML(0.5%) NEB SOLN NEB PRN (14:58)
[2021-09-26 22:00] VITALS: BP 118/57
[2021-09-27] MEDS: ACCU-CHEK COMFORT CURVE STRIP VI SCH ×5 (00:01→17:57)
[2021-09-27] MEDS: InsuLIN REG 1unit/0.01ml Soln (100units/ml) SC SCH ×5 (00:03→17:58)
[2021-09-27 05:00] VITALS: BP 130/66
[2021-09-27] MEDS: SODIUM CHLOR 0.9% PF (SALINE LOCK) 10ML VIAL/SYR IV SCH ×2 (06:00→15:03)
[2021-09-27] MEDS: methylPREDNISolone SOD SUCC 40 MG/ML VL IV SCH ×2 (06:48→14:59)
[2021-09-27] MEDS: IPRATROPIUM BROM 0.5 MG/2.5ML INH SOL NEB PRN (06:59)
[2021-09-27] MEDS: ALBUTEROL SULF 2.5 MG/0.5ML(0.5%) NEB SOLN NEB PRN (06:59)
[2021-09-27 08:59] VITALS: BP 98/52
[2021-09-27] MEDS: ENOXAPARIN SOD 40 MG/0.4 ML SYRINGE SC SCH (09:54)
[2021-09-27] MEDS: FAMOTIDINE (10MG/ML) 2ML VL IV SCH (09:54)
[2021-09-27] MEDS: levoFLOXacin 500MG 100 ML IV SCH (09:55)
[2021-09-27] MEDS: FUROSEMIDE 40 MG/4 ML VIAL IV SCH (10:13)
[2021-09-27] MEDS: CARVEDILOL 12.5 MG TAB PO SCH (10:16)
[2021-09-27 12:22] VITALS: BP 105/47
[2021-09-27 16:50] VITALS: BP 121/66
[2021-09-27 16:55] VITALS: BP 121/66
== END 2021-09-27 18:45 | disposition home or self-care (01) | DRG 193 ==
LOC: ER 18:01 → OVERFLOW 23:36 → TELE-EAST 09-25 13:16
PROVIDERS: ADMIT Nurse Practitioner Family; ATTEND Internal Medicine Cardiovascular Disease
PROC: 5A09457 Assistance with Respiratory Ventilation, 24-96 Consecutive Hours, Continuous Positive Airway Pressure (ICD-10-PCS; principal; 2021-09-24)
PROC: 5A09357 Assistance with Respiratory Ventilation, Less than 24 Consecutive Hours, Continuous Positive Airway Pressure (ICD-10-PCS; 2021-09-26)
DX: J18.9 Pneumonia, unspecified organism (principal); G93.41 Metabolic encephalopathy; J96.21 Acute and chronic respiratory failure with hypoxia; J96.22 Acute and chronic respiratory failure with hypercapnia; E87.4 Mixed disorder of acid-base balance; G93.1 Anoxic brain damage, not elsewhere classified; J44.0 Chronic obstructive pulmonary disease with (acute) lower respiratory infection; J44.1 Chronic obstructive pulmonary disease with (acute) exacerbation; E66.2 Morbid (severe) obesity with alveolar hypoventilation; Z68.42 Body mass index [BMI] 45.0-49.9, adult; I11.0 Hypertensive heart disease with heart failure; E78.5 Hyperlipidemia, unspecified; Z20.822 Contact with and (suspected) exposure to COVID-19; I27.21 Secondary pulmonary arterial hypertension; I50.9 Heart failure, unspecified; E11.65 Type 2 diabetes mellitus with hyperglycemia; E87.5 Hyperkalemia; Z87.891 Personal history of nicotine dependence; Z82.0 Family history of epilepsy and other diseases of the nervous system; Z82.3 Family history of stroke; Z82.49 Family history of ischemic heart disease and other diseases of the circulatory system; Z83.3 Family history of diabetes mellitus; Z90.710 Acquired absence of both cervix and uterus; Z99.81 Dependence on supplemental oxygen; Z79.899 Other long term (current) drug therapy; Z90.49 Acquired absence of other specified parts of digestive tract
CPT/HCPCS: 36415; 36600; 70450; 71045; 80048; 80053; 82805; 82962; 83036; 83880; 84484; 85025; 87040; 93005; 94640; 94660; 95819; 96361; 96374; 96375; 99291; G0378; J1815; J1956; J3490

== ENCOUNTER 2021-10-02 11:02 | Inpatient (IN) | payer MEDICARE, OTHER ==
[~2021-10-02] VITALS: Ht 157.5 cm; Wt 90.2 kg
[2021-10-02] VITALS (32 sets, daily range): BP systolic 96–118; BP diastolic 56–69
[2021-10-02] MEDS ORDERED: ETOMIDATE (2MG/ML) 20ML VIAL IV ONE ×2 (11:09→11:22)
[2021-10-02] MEDS ORDERED: SUCCINYLCHOLINE CHLORIDE 20 MG/ML 10ML VIAL IV ONE ×2 (11:09→11:22)
[2021-10-02] MEDS ORDERED: ALBUTEROL SULF 2.5 MG/0.5ML(0.5%) NEB SOLN HHN ONE (11:15)
[2021-10-02] MEDS: MIDAZOLAM DRIP 50 mg/50mL 50 ML IV SCH ×4 (11:15→22:20)
[2021-10-02] MEDS ORDERED: IPRATROPIUM BROM 0.5 MG/2.5ML INH SOL HHN ONE (11:15)
[2021-10-02] MEDS ORDERED: MIDAZOLAM DRIP 50 mg/50mL 50 ML IV SCH (11:15)
[2021-10-02] MEDS ORDERED: methylPREDNISolone SOD SUCC 125 MG/2 ML VL IV ONE (11:15)
[2021-10-02] MEDS ORDERED: IPRATROPIUM BROM 0.5 MG/2.5ML INH SOL ONE (11:17)
[2021-10-02] MEDS ORDERED: ALBUTEROL SULF 2.5 MG/0.5ML(0.5%) NEB SOLN ONE (11:17)
[2021-10-02] MEDS ORDERED: MIDAZOLAM DRIP 50 mg/50mL 50 ML IV ONE (11:22)
[2021-10-02] MEDS ORDERED: PROPOFOL 100 ML IV ONE (11:35)
[2021-10-02] MEDS: PROPOFOL 100 ML IV SCH ×3 (11:42→20:52)
[2021-10-02 11:52] LABS: Basophils # (auto) 0 10 ^3/uL (0-0.2); Basophils % (auto) 0.3 % (0.0-2.0); Hemoglobin 11.6 g/dL (12.2-16.2); Lymphocytes # (auto) 0.8 10 ^3/uL (0.4-5.4); Lymphocytes % (auto) 5.7 % (10.0-50.0)
[2021-10-02 11:54] LABS: Eosinophils # (auto) 0.1 10 ^3/uL (0-0.8); Eosinophils % (auto) 0.8 % (0.0-7.0); Hematocrit 38.7 % (36.0-46.0); Mean Corpuscular Hemoglobin 24.6 pg (28.0-32.0); Mean Corpuscular Volume 82.1 fL (80.0-100.0); Monocytes # (auto) 0.9 10 ^3/uL (0-1.3); Monocytes % (auto) 6.6 % (0.0-12.0); Neutrophils # (auto) 12.2 10 ^3/uL (1.6-8.6); Neutrophils % (auto) 86.6 % (37.0-80.0); Red Blood Cells 4.71 10^6/uL (4.0-5.20); Red Cell Distribution Width 18.3 % (11.8-14.3); White Blood Cell 14.1 10^3/uL (4.4-10.8)
[2021-10-02 12:02] LABS: Urine Bacteria NONE SEEN /hpf (None Seen); Urine Blood Negative /uL (Negative); Urine Specific Gravity 1.024 (1.001-1.035); Urine WBC 1 /hpf (0 - 5)
[2021-10-02 12:09] LABS: Albumin 3.6 g/dL (3.4-5.0); BUN/Creatinine Ratio 23.8; Calcium 8.6 mg/dL (8.5-10.1); Magnesium 2.3 mg/dL (1.6-2.6); Potassium 4.8 mmol/L (3.5-5.1)
[2021-10-02 12:12] LABS: Total Protein 6.7 g/dL (6.4-8.2)
[2021-10-02] MEDS ORDERED: SODIUM CHLORIDE 0.9% 500 ML IV ONE (16:00)
[2021-10-02] MEDS ORDERED: REMDESIVIR PER PHARMACY 0 ML IV SCH (16:45)
[2021-10-02] MEDS ORDERED: DEXTROSE (50%) 50ML SYRG IV PRN (16:45)
[2021-10-02] MEDS ORDERED: ALBUTEROL SULF HFA 90MCG INH 200DOSE IN PRN (16:45)
[2021-10-02] MEDS ORDERED: AZITHROMYCIN 500MG/ 250ML 250 ML IV ONE (16:45)
[2021-10-02] MEDS ORDERED: ACETAMINOPHEN 500 MG TAB PO PRN (16:45)
[2021-10-02 17:20] LABS: CRP High Sensitivity 0.78 mg/dL (< 0.3); Magnesium 2.1 mg/dL (1.6-2.6)
[2021-10-02 17:33] LABS: Thyroid Stimulating Hormone 0.19 uIU/mL (0.358-3.74)
[2021-10-02] MEDS ORDERED: REMDESIVIR 200 MG in NS 210ml LOADING DOSE ADULT IV ONE ×2 (17:45→20:00)
[2021-10-02] MEDS: InsuLIN REG 1unit/0.01ml Soln (100units/ml) SC SCH ×2 (18:00→23:47)
[2021-10-02] MEDS: ACCU-CHEK COMFORT CURVE STRIP VI SCH ×2 (18:25→23:44)
[2021-10-02 19:24] LABS: INR 1.05 (0.9-1.15)
[2021-10-02] MEDS: NOREPINEPHRINE 8 MG/250ML KIT 250 ML IV SCH (20:52)
[2021-10-02] MEDS ORDERED: BUDESONIDE (INHALATION) 180 MCG IH IN SCH (22:00)
[2021-10-03] VITALS (99 sets, daily range): BP systolic 98–134; BP diastolic 51–85
[2021-10-03] MEDS: MIDAZOLAM DRIP 50 mg/50mL 50 ML IV SCH ×4 (01:44→17:48)
[2021-10-03] MEDS: PROPOFOL 100 ML IV SCH ×5 (01:44→21:58)
[2021-10-03 04:25] LABS: Basophils # (auto) 0 10 ^3/uL (0-0.2); Eosinophils # (auto) 0 10 ^3/uL (0-0.8); Hemoglobin 10.2 g/dL (12.2-16.2); Lymphocytes # (auto) 0.3 10 ^3/uL (0.4-5.4); Monocytes # (auto) 0.4 10 ^3/uL (0-1.3)
[2021-10-03 04:29] LABS: Basophils % (auto) 0.1 % (0.0-2.0); Hematocrit 32.3 % (36.0-46.0); Lymphocytes % (auto) 4.3 % (10.0-50.0); Mean Corpuscular Hemoglobin 25.1 pg (28.0-32.0); Mean Corpuscular Hgb Conc. 31.7 g/dL (32.0-36.0); Mean Corpuscular Volume 79.3 fL (80.0-100.0); Monocytes % (auto) 5.4 % (0.0-12.0); Neutrophils # (auto) 6.2 10 ^3/uL (1.6-8.6); Neutrophils % (auto) 90.2 % (37.0-80.0); Red Blood Cells 4.07 10^6/uL (4.0-5.20); Red Cell Distribution Width 18.3 % (11.8-14.3); White Blood Cell 6.9 10^3/uL (4.4-10.8)
[2021-10-03 04:46] LABS: Albumin 2.5 g/dL (3.4-5.0); Calcium 7.6 mg/dL (8.5-10.1); Potassium 4.3 mmol/L (3.5-5.1)
[2021-10-03 04:49] LABS: BUN/Creatinine Ratio 26.6; Bilirubin, Total 1.2 mg/dL (0.2-1.0); Total Protein 5.1 g/dL (6.4-8.2)
[2021-10-03] MEDS: ACCU-CHEK COMFORT CURVE STRIP VI SCH ×3 (06:29→18:18)
[2021-10-03] MEDS: InsuLIN REG 1unit/0.01ml Soln (100units/ml) SC SCH ×3 (06:30→18:19)
[2021-10-03] MEDS ORDERED: FUROSEMIDE 40 MG/4 ML VIAL IV ONE (10:00)
[2021-10-03] MEDS: DexAMETHasone SOD PHOS 10MG/1ML VIAL INJ IV SCH (11:01)
[2021-10-03] MEDS: CHOLECALCIFEROL (VITD3) 2,000 UNIT CAP/TAB NG SCH (11:02)
[2021-10-03] MEDS: PANTOPRAZOLE 40 MG/10 ML VIAL INJ IV SCH (11:02)
[2021-10-03] MEDS: ZINC SULFATE 220mg CAP or TAB NG SCH (11:02)
[2021-10-03] MEDS: ASCORBIC ACID 500 MG TAB NG SCH (11:02)
[2021-10-03] MEDS: ENOXAPARIN SOD 40 MG/0.4 ML SYRINGE SC SCH (11:03)
[2021-10-03] MEDS: NOREPINEPHRINE 8 MG/250ML KIT 250 ML IV SCH (14:24)
[2021-10-03] MEDS ORDERED: REMDESIVIR 100mg 100 MG in SODIUM CHL 0.9% 230 ML IV SCH (15:00)
[2021-10-03] MEDS ORDERED: LORazepam 2MG/ML-1ML VIAL ONE (15:23)
[2021-10-03] MEDS ORDERED: LORazepam 2MG/ML-1ML VIAL IV ONE (15:45)
[2021-10-04] VITALS (101 sets, daily range): BP systolic 82–139; BP diastolic 44–78
[2021-10-04] MEDS: ACCU-CHEK COMFORT CURVE STRIP VI SCH ×5 (00:01→23:43)
[2021-10-04] MEDS: InsuLIN REG 1unit/0.01ml Soln (100units/ml) SC SCH ×5 (00:03→23:44)
[2021-10-04] MEDS: MIDAZOLAM DRIP 50 mg/50mL 50 ML IV SCH ×6 (00:07→22:15)
[2021-10-04] MEDS: PROPOFOL 100 ML IV SCH ×5 (00:07→18:44)
[2021-10-04 05:05] LABS: Basophils # (auto) 0 10 ^3/uL (0-0.2); Eosinophils # (auto) 0 10 ^3/uL (0-0.8); Eosinophils % (auto) 0.1 % (0.0-7.0); Mean Corpuscular Hgb Conc. 32.5 g/dL (32.0-36.0); Monocytes # (auto) 0.8 10 ^3/uL (0-1.3); Monocytes % (auto) 8.5 % (0.0-12.0); Neutrophils # (auto) 8.1 10 ^3/uL (1.6-8.6); White Blood Cell 9.4 10^3/uL (4.4-10.8)
[2021-10-04 05:07] LABS: Basophils % (auto) 0.2 % (0.0-2.0); Hematocrit 33.6 % (36.0-46.0); Hemoglobin 10.9 g/dL (12.2-16.2); Lymphocytes # (auto) 0.5 10 ^3/uL (0.4-5.4); Lymphocytes % (auto) 5.2 % (10.0-50.0); Mean Corpuscular Hemoglobin 25.8 pg (28.0-32.0); Mean Corpuscular Volume 79.3 fL (80.0-100.0); Red Blood Cells 4.23 10^6/uL (4.0-5.20); Red Cell Distribution Width 18.3 % (11.8-14.3)
[2021-10-04 05:25] LABS: Potassium 4.3 mmol/L (3.5-5.1)
[2021-10-04 05:29] LABS: Albumin 2.6 g/dL (3.4-5.0); BUN/Creatinine Ratio 27.8; Calcium 8.1 mg/dL (8.5-10.1)
[2021-10-04 05:32] LABS: Bilirubin, Total 1.1 mg/dL (0.2-1.0); Total Protein 5.2 g/dL (6.4-8.2)
[2021-10-04] MEDS ORDERED: FUROSEMIDE 40 MG/4 ML VIAL IV ONE (08:00)
[2021-10-04] MEDS: ZINC SULFATE 220mg CAP or TAB NG SCH (10:55)
[2021-10-04] MEDS: PANTOPRAZOLE 40 MG/10 ML VIAL INJ IV SCH (10:55)
[2021-10-04] MEDS: ASCORBIC ACID 500 MG TAB NG SCH (10:55)
[2021-10-04] MEDS: DexAMETHasone SOD PHOS 10MG/1ML VIAL INJ IV SCH (10:55)
[2021-10-04] MEDS: ENOXAPARIN SOD 40 MG/0.4 ML SYRINGE SC SCH (10:56)
[2021-10-04] MEDS: CHOLECALCIFEROL (VITD3) 2,000 UNIT CAP/TAB NG SCH (10:56)
[2021-10-04] MEDS: NOREPINEPHRINE 8 MG/250ML KIT 250 ML IV SCH (13:45)
[2021-10-05] VITALS (106 sets, daily range): BP systolic 90–140; BP diastolic 38–77
[2021-10-05 04:15] LABS: Basophils # (auto) 0 10 ^3/uL (0-0.2); Basophils % (auto) 0.1 % (0.0-2.0); Eosinophils # (auto) 0 10 ^3/uL (0-0.8); Hematocrit 34.1 % (36.0-46.0); Hemoglobin 11.1 g/dL (12.2-16.2); Lymphocytes # (auto) 0.9 10 ^3/uL (0.4-5.4); Lymphocytes % (auto) 9.2 % (10.0-50.0); Mean Corpuscular Hemoglobin 25.7 pg (28.0-32.0); Mean Corpuscular Hgb Conc. 32.6 g/dL (32.0-36.0); Mean Corpuscular Volume 78.8 fL (80.0-100.0); Monocytes # (auto) 0.8 10 ^3/uL (0-1.3); Monocytes % (auto) 7.7 % (0.0-12.0); Neutrophils # (auto) 8.4 10 ^3/uL (1.6-8.6); Nucleated Red Blood Cells % 0.1 %; Red Blood Cells 4.33 10^6/uL (4.0-5.20); Red Cell Distribution Width 18.4 % (11.8-14.3); White Blood Cell 10.1 10^3/uL (4.4-10.8)
[2021-10-05 04:26] LABS: Albumin 2.6 g/dL (3.4-5.0); Calcium 7.7 mg/dL (8.5-10.1); Potassium 4.2 mmol/L (3.5-5.1)
[2021-10-05 04:30] LABS: Bilirubin, Total 1.3 mg/dL (0.2-1.0); Total Protein 5.4 g/dL (6.4-8.2)
[2021-10-05] MEDS: MIDAZOLAM DRIP 50 mg/50mL 50 ML IV SCH ×4 (04:36→21:00)
[2021-10-05] MEDS: PROPOFOL 100 ML IV SCH ×4 (04:36→20:00)
[2021-10-05] MEDS: ACCU-CHEK COMFORT CURVE STRIP VI SCH ×3 (06:28→18:02)
[2021-10-05] MEDS: InsuLIN REG 1unit/0.01ml Soln (100units/ml) SC SCH ×3 (06:29→17:20)
[2021-10-05] MEDS: PANTOPRAZOLE 40 MG/10 ML VIAL INJ IV SCH (10:04)
[2021-10-05] MEDS: DexAMETHasone SOD PHOS 10MG/1ML VIAL INJ IV SCH (10:04)
[2021-10-05] MEDS: ENOXAPARIN SOD 40 MG/0.4 ML SYRINGE SC SCH (10:04)
[2021-10-05] MEDS: ASCORBIC ACID 500 MG TAB NG SCH (10:06)
[2021-10-05] MEDS: ZINC SULFATE 220mg CAP or TAB NG SCH (10:06)
[2021-10-05] MEDS: CHOLECALCIFEROL (VITD3) 2,000 UNIT CAP/TAB NG SCH (10:06)
[2021-10-05] MEDS: NOREPINEPHRINE 8 MG/250ML KIT 250 ML IV SCH (11:16)
[2021-10-05] MEDS: PIPERACILLIN-TAZO 4.5GM 100 ML IV SCH (17:09)
[2021-10-06] VITALS (100 sets, daily range): BP systolic 92–146; BP diastolic 50–71
[2021-10-06] MEDS: PIPERACILLIN-TAZO 4.5GM 100 ML IV SCH ×3 (00:36→17:56)
[2021-10-06] MEDS: MIDAZOLAM DRIP 50 mg/50mL 50 ML IV SCH ×5 (01:03→20:15)
[2021-10-06] MEDS: PROPOFOL 100 ML IV SCH ×3 (02:13→23:54)
[2021-10-06 03:45] LABS: Basophils # (auto) 0 10 ^3/uL (0-0.2); Basophils % (auto) 0.2 % (0.0-2.0); Eosinophils # (auto) 0 10 ^3/uL (0-0.8); Eosinophils % (auto) 0.1 % (0.0-7.0); Hemoglobin 11.1 g/dL (12.2-16.2); Lymphocytes # (auto) 0.9 10 ^3/uL (0.4-5.4); Lymphocytes % (auto) 8.5 % (10.0-50.0); Mean Corpuscular Hemoglobin 24.9 pg (28.0-32.0); Mean Corpuscular Hgb Conc. 31.7 g/dL (32.0-36.0); Mean Corpuscular Volume 78.4 fL (80.0-100.0); Monocytes # (auto) 0.6 10 ^3/uL (0-1.3); Monocytes % (auto) 5.1 % (0.0-12.0); Neutrophils # (auto) 9.4 10 ^3/uL (1.6-8.6); Neutrophils % (auto) 86.1 % (37.0-80.0); Red Blood Cells 4.46 10^6/uL (4.0-5.20); Red Cell Distribution Width 17.8 % (11.8-14.3)
[2021-10-06 04:03] LABS: Albumin 2.5 g/dL (3.4-5.0); Calcium 7.8 mg/dL (8.5-10.1); Potassium 4.1 mmol/L (3.5-5.1)
[2021-10-06 04:12] LABS: BUN/Creatinine Ratio 25.9; Bilirubin, Total 1.4 mg/dL (0.2-1.0); CRP High Sensitivity 1.39 mg/dL (< 0.3); Total Protein 5.5 g/dL (6.4-8.2)
[2021-10-06] MEDS: InsuLIN REG 1unit/0.01ml Soln (100units/ml) SC SCH ×4 (06:00→17:29)
[2021-10-06] MEDS: ACCU-CHEK COMFORT CURVE STRIP VI SCH ×4 (06:00→17:28)
[2021-10-06] MEDS: ENOXAPARIN SOD 40 MG/0.4 ML SYRINGE SC SCH (08:46)
[2021-10-06] MEDS: PANTOPRAZOLE 40 MG/10 ML VIAL INJ IV SCH (08:46)
[2021-10-06] MEDS: ZINC SULFATE 220mg CAP or TAB NG SCH (08:46)
[2021-10-06] MEDS: CHOLECALCIFEROL (VITD3) 2,000 UNIT CAP/TAB NG SCH (08:46)
[2021-10-06] MEDS: DexAMETHasone SOD PHOS 10MG/1ML VIAL INJ IV SCH (08:46)
[2021-10-06] MEDS: ASCORBIC ACID 500 MG TAB NG SCH (08:46)
[2021-10-06] MEDS: NOREPINEPHRINE 8 MG/250ML KIT 250 ML IV SCH (11:43)
[2021-10-07] VITALS (46 sets, daily range): BP systolic 100–150; BP diastolic 55–82
[2021-10-07] MEDS: PIPERACILLIN-TAZO 4.5GM 100 ML IV SCH ×3 (01:04→16:54)
[2021-10-07] MEDS: MIDAZOLAM DRIP 50 mg/50mL 50 ML IV SCH ×5 (01:15→21:15)
[2021-10-07 04:44] LABS: Basophils # (auto) 0 10 ^3/uL (0-0.2); Basophils % (auto) 0.2 % (0.0-2.0); Eosinophils # (auto) 0 10 ^3/uL (0-0.8); Eosinophils % (auto) 0.2 % (0.0-7.0); Hematocrit 33.4 % (36.0-46.0); Hemoglobin 10.8 g/dL (12.2-16.2); Lymphocytes % (auto) 7.9 % (10.0-50.0); Mean Corpuscular Hemoglobin 25.5 pg (28.0-32.0); Mean Corpuscular Hgb Conc. 32.3 g/dL (32.0-36.0); Mean Corpuscular Volume 78.9 fL (80.0-100.0); Monocytes # (auto) 0.6 10 ^3/uL (0-1.3); Monocytes % (auto) 5.1 % (0.0-12.0); Neutrophils # (auto) 10.9 10 ^3/uL (1.6-8.6); Neutrophils % (auto) 86.6 % (37.0-80.0); Red Blood Cells 4.23 10^6/uL (4.0-5.20); Red Cell Distribution Width 18.2 % (11.8-14.3); White Blood Cell 12.6 10^3/uL (4.4-10.8)
[2021-10-07 04:55] LABS: Albumin 2.6 g/dL (3.4-5.0); Calcium 8.1 mg/dL (8.5-10.1); Potassium 4.3 mmol/L (3.5-5.1)
[2021-10-07 04:58] LABS: BUN/Creatinine Ratio 28.2
[2021-10-07 05:00] LABS: Bilirubin, Total 1.2 mg/dL (0.2-1.0); Total Protein 5.4 g/dL (6.4-8.2)
[2021-10-07] MEDS: ACCU-CHEK COMFORT CURVE STRIP VI SCH ×5 (06:00→23:35)
[2021-10-07] MEDS: InsuLIN REG 1unit/0.01ml Soln (100units/ml) SC SCH ×5 (06:00→23:35)
[2021-10-07] MEDS: ENOXAPARIN SOD 40 MG/0.4 ML SYRINGE SC SCH (10:00)
[2021-10-07] MEDS: PANTOPRAZOLE 40 MG/10 ML VIAL INJ IV SCH (10:09)
[2021-10-07] MEDS: CHOLECALCIFEROL (VITD3) 2,000 UNIT CAP/TAB NG SCH (10:09)
[2021-10-07] MEDS: ASCORBIC ACID 500 MG TAB NG SCH (10:09)
[2021-10-07] MEDS: DexAMETHasone SOD PHOS 10MG/1ML VIAL INJ IV SCH (10:09)
[2021-10-07] MEDS: ZINC SULFATE 220mg CAP or TAB NG SCH (10:09)
[2021-10-07] MEDS: NOREPINEPHRINE 8 MG/250ML KIT 250 ML IV SCH (13:45)
[2021-10-08] VITALS (28 sets, daily range): BP systolic 94–146; BP diastolic 57–86
[2021-10-08] MEDS: PIPERACILLIN-TAZO 4.5GM 100 ML IV SCH ×3 (01:15→16:50)
[2021-10-08] MEDS: MIDAZOLAM DRIP 50 mg/50mL 50 ML IV SCH ×5 (02:15→22:15)
[2021-10-08] MEDS ORDERED: ALBUTEROL SULF 2.5 MG/0.5ML(0.5%) NEB SOLN ONE (05:32)
[2021-10-08] MEDS: ACCU-CHEK COMFORT CURVE STRIP VI SCH ×3 (05:37→18:03)
[2021-10-08] MEDS: InsuLIN REG 1unit/0.01ml Soln (100units/ml) SC SCH ×3 (05:37→18:09)
[2021-10-08] MEDS: DexAMETHasone SOD PHOS 10MG/1ML VIAL INJ IV SCH (08:54)
[2021-10-08] MEDS: ENOXAPARIN SOD 40 MG/0.4 ML SYRINGE SC SCH (08:54)
[2021-10-08] MEDS: PANTOPRAZOLE 40 MG/10 ML VIAL INJ IV SCH (08:54)
[2021-10-08] MEDS: ASCORBIC ACID 500 MG TAB NG SCH (10:19)
[2021-10-08] MEDS: CHOLECALCIFEROL (VITD3) 2,000 UNIT CAP/TAB NG SCH (10:20)
[2021-10-08] MEDS: ZINC SULFATE 220mg CAP or TAB NG SCH (10:20)
[2021-10-08 10:49] LABS: Eosinophils # (auto) 0.1 10 ^3/uL (0-0.8); Hemoglobin 12.1 g/dL (12.2-16.2)
[2021-10-08 10:50] LABS: Basophils # (auto) 0 10 ^3/uL (0-0.2); Basophils % (auto) 0.2 % (0.0-2.0); Eosinophils % (auto) 0.6 % (0.0-7.0); Lymphocytes # (auto) 2.1 10 ^3/uL (0.4-5.4); Lymphocytes % (auto) 12.7 % (10.0-50.0); Mean Corpuscular Hemoglobin 24.2 pg (28.0-32.0); Mean Corpuscular Hgb Conc. 30.4 g/dL (32.0-36.0); Mean Corpuscular Volume 79.8 fL (80.0-100.0); Monocytes # (auto) 1.4 10 ^3/uL (0-1.3); Monocytes % (auto) 8.4 % (0.0-12.0); Neutrophils # (auto) 13.1 10 ^3/uL (1.6-8.6); Neutrophils % (auto) 78.1 % (37.0-80.0); Red Blood Cells 5.01 10^6/uL (4.0-5.20); Red Cell Distribution Width 17.7 % (11.8-14.3); White Blood Cell 16.8 10^3/uL (4.4-10.8)
[2021-10-08 11:04] LABS: Albumin 2.8 g/dL (3.4-5.0); Calcium 8.1 mg/dL (8.5-10.1); Potassium 3.8 mmol/L (3.5-5.1)
[2021-10-08 11:08] LABS: BUN/Creatinine Ratio 29.3; Bilirubin, Total 1.8 mg/dL (0.2-1.0); Total Protein 6.3 g/dL (6.4-8.2)
[2021-10-08] MEDS: PROPOFOL 100 ML IV SCH (11:45)
[2021-10-08] MEDS: NOREPINEPHRINE 8 MG/250ML KIT 250 ML IV SCH (13:45)
[2021-10-08] MEDS ORDERED: POTASSIUM EFFERVESENT TAB 25 MEQ GT ONE (15:15)
[2021-10-08] MEDS ORDERED: FUROSEMIDE 40 MG/4 ML VIAL IV ONE (15:15)
[2021-10-08] MEDS ORDERED: Glucerna 1.2 Cal 1Liter BOTTLE GT SCH ×2 (15:30→15:45)
[2021-10-09] VITALS (29 sets, daily range): BP systolic 108–152; BP diastolic 44–85
[2021-10-09] MEDS: PIPERACILLIN-TAZO 4.5GM 100 ML IV SCH ×3 (00:44→17:25)
[2021-10-09] MEDS: InsuLIN REG 1unit/0.01ml Soln (100units/ml) SC SCH ×4 (00:58→17:56)
[2021-10-09] MEDS: MIDAZOLAM DRIP 50 mg/50mL 50 ML IV SCH ×5 (03:15→23:15)
[2021-10-09] MEDS: ACCU-CHEK COMFORT CURVE STRIP VI SCH ×4 (06:27→17:26)
[2021-10-09] MEDS: DexAMETHasone SOD PHOS 10MG/1ML VIAL INJ IV SCH (10:24)
[2021-10-09] MEDS: PANTOPRAZOLE 40 MG/10 ML VIAL INJ IV SCH (10:25)
[2021-10-09] MEDS: ASCORBIC ACID 500 MG TAB NG SCH (10:27)
[2021-10-09] MEDS: CHOLECALCIFEROL (VITD3) 2,000 UNIT CAP/TAB NG SCH (10:27)
[2021-10-09] MEDS: ZINC SULFATE 220mg CAP or TAB NG SCH (10:27)
[2021-10-09] MEDS: ENOXAPARIN SOD 40 MG/0.4 ML SYRINGE SC SCH (10:28)
[2021-10-09] MEDS: PROPOFOL 100 ML IV SCH (11:45)
[2021-10-09] MEDS: NOREPINEPHRINE 8 MG/250ML KIT 250 ML IV SCH (13:45)
[2021-10-10] VITALS (38 sets, daily range): BP systolic 101–140; BP diastolic 56–94
[2021-10-10] MEDS: ACCU-CHEK COMFORT CURVE STRIP VI SCH ×5 (00:35→23:56)
[2021-10-10] MEDS: InsuLIN REG 1unit/0.01ml Soln (100units/ml) SC SCH ×4 (00:38→17:51)
[2021-10-10] MEDS: PIPERACILLIN-TAZO 4.5GM 100 ML IV SCH ×3 (00:58→17:30)
[2021-10-10] MEDS: MIDAZOLAM DRIP 50 mg/50mL 50 ML IV SCH ×5 (04:15→23:56)
[2021-10-10] MEDS: ZINC SULFATE 220mg CAP or TAB NG SCH (09:55)
[2021-10-10] MEDS: ASCORBIC ACID 500 MG TAB NG SCH (09:55)
[2021-10-10] MEDS: ENOXAPARIN SOD 40 MG/0.4 ML SYRINGE SC SCH (09:55)
[2021-10-10] MEDS: CHOLECALCIFEROL (VITD3) 2,000 UNIT CAP/TAB NG SCH (09:55)
[2021-10-10] MEDS: PANTOPRAZOLE 40 MG/10 ML VIAL INJ IV SCH (09:55)
[2021-10-10] MEDS: DexAMETHasone SOD PHOS 10MG/1ML VIAL INJ IV SCH (09:55)
[2021-10-10 10:39] LABS: Basophils # (auto) 0 10 ^3/uL (0-0.2); Eosinophils # (auto) 0.1 10 ^3/uL (0-0.8)
[2021-10-10 10:40] LABS: Basophils % (auto) 0.2 % (0.0-2.0); Eosinophils % (auto) 0.7 % (0.0-7.0); Hemoglobin 13.2 g/dL (12.2-16.2); Lymphocytes # (auto) 2.1 10 ^3/uL (0.4-5.4); Lymphocytes % (auto) 11.6 % (10.0-50.0); Mean Corpuscular Hemoglobin 25.5 pg (28.0-32.0); Mean Corpuscular Hgb Conc. 32.1 g/dL (32.0-36.0); Mean Corpuscular Volume 79.4 fL (80.0-100.0); Monocytes # (auto) 1.3 10 ^3/uL (0-1.3); Neutrophils # (auto) 14.9 10 ^3/uL (1.6-8.6); Neutrophils % (auto) 80.5 % (37.0-80.0); Red Blood Cells 5.16 10^6/uL (4.0-5.20); Red Cell Distribution Width 17.8 % (11.8-14.3); White Blood Cell 18.5 10^3/uL (4.4-10.8)
[2021-10-10 10:53] LABS: Albumin 3.1 g/dL (3.4-5.0); Calcium 8.7 mg/dL (8.5-10.1); Potassium 3.7 mmol/L (3.5-5.1)
[2021-10-10 10:55] LABS: BUN/Creatinine Ratio 35.7; Bilirubin, Total 1.7 mg/dL (0.2-1.0); Total Protein 6.7 g/dL (6.4-8.2)
[2021-10-10] MEDS: PROPOFOL 100 ML IV SCH (11:45)
[2021-10-10] MEDS ORDERED: ALBUTEROL SULF 2.5 MG/0.5ML(0.5%) NEB SOLN ONE (12:33)
[2021-10-10] MEDS ORDERED: FUROSEMIDE 20 MG/2 ML VIAL IV ONE (13:15)
[2021-10-10] MEDS: NOREPINEPHRINE 8 MG/250ML KIT 250 ML IV SCH (13:45)
[2021-10-10] MEDS: IPRATROPIUM BROM 0.5 MG/2.5ML INH SOL NEB SCH (18:33)
[2021-10-10] MEDS: ALBUTEROL SULF 2.5 MG/0.5ML(0.5%) NEB SOLN NEB SCH (18:33)
[2021-10-10] MEDS: methylPREDNISolone SOD SUCC 40 MG/ML VL IV SCH (21:22)
[2021-10-11] VITALS (19 sets, daily range): BP systolic 94–140; BP diastolic 45–90
[2021-10-11] MEDS: IPRATROPIUM BROM 0.5 MG/2.5ML INH SOL NEB SCH ×5 (00:09→23:40)
[2021-10-11] MEDS: ALBUTEROL SULF 2.5 MG/0.5ML(0.5%) NEB SOLN NEB SCH ×4 (00:10→18:25)
[2021-10-11] MEDS: InsuLIN REG 1unit/0.01ml Soln (100units/ml) SC SCH ×4 (00:37→18:28)
[2021-10-11] MEDS: PIPERACILLIN-TAZO 4.5GM 100 ML IV SCH ×3 (01:01→18:19)
[2021-10-11 04:41] LABS: Basophils # (auto) 0 10 ^3/uL (0-0.2); Eosinophils # (auto) 0 10 ^3/uL (0-0.8); Hematocrit 40.5 % (36.0-46.0); Hemoglobin 12.9 g/dL (12.2-16.2); Lymphocytes # (auto) 0.3 10 ^3/uL (0.4-5.4); Lymphocytes % (auto) 2.7 % (10.0-50.0); Mean Corpuscular Hgb Conc. 31.8 g/dL (32.0-36.0); Mean Corpuscular Volume 78.7 fL (80.0-100.0); Monocytes # (auto) 0.1 10 ^3/uL (0-1.3); Neutrophils # (auto) 11.7 10 ^3/uL (1.6-8.6); Neutrophils % (auto) 96.3 % (37.0-80.0); Red Blood Cells 5.15 10^6/uL (4.0-5.20); Red Cell Distribution Width 17.4 % (11.8-14.3); White Blood Cell 12.1 10^3/uL (4.4-10.8)
[2021-10-11 04:48] LABS: INR 1.08 (0.9-1.15); Partial Thromboplastin Time 25.4 sec (24.6-33.4)
[2021-10-11 04:53] LABS: Albumin 3.1 g/dL (3.4-5.0); BUN/Creatinine Ratio 34.7; Calcium 8.6 mg/dL (8.5-10.1)
[2021-10-11 04:55] LABS: Bilirubin, Total 1.9 mg/dL (0.2-1.0); Total Protein 6.8 g/dL (6.4-8.2)
[2021-10-11] MEDS: MIDAZOLAM DRIP 50 mg/50mL 50 ML IV SCH ×4 (05:15→20:15)
[2021-10-11] MEDS: methylPREDNISolone SOD SUCC 40 MG/ML VL IV SCH ×3 (05:51→21:57)
[2021-10-11] MEDS: ACCU-CHEK COMFORT CURVE STRIP VI SCH ×3 (05:51→18:20)
[2021-10-11] MEDS: PANTOPRAZOLE 40 MG/10 ML VIAL INJ IV SCH (10:10)
[2021-10-11] MEDS: ENOXAPARIN SOD 40 MG/0.4 ML SYRINGE SC SCH (10:11)
[2021-10-11] MEDS: ZINC SULFATE 220mg CAP or TAB NG SCH (10:11)
[2021-10-11] MEDS: CHOLECALCIFEROL (VITD3) 2,000 UNIT CAP/TAB NG SCH (10:11)
[2021-10-11] MEDS: ASCORBIC ACID 500 MG TAB NG SCH (10:11)
[2021-10-11] MEDS: PROPOFOL 100 ML IV SCH (11:45)
[2021-10-11] MEDS: NOREPINEPHRINE 8 MG/250ML KIT 250 ML IV SCH (13:45)
[2021-10-11] MEDS: SODIUM CHLORIDE 0.9% 1,000 ML IV SCH (16:45)
[2021-10-12] VITALS (9 sets, daily range): BP systolic 108–138; BP diastolic 55–77
[2021-10-12] MEDS: ACCU-CHEK COMFORT CURVE STRIP VI SCH ×4 (00:18→18:36)
[2021-10-12] MEDS: InsuLIN REG 1unit/0.01ml Soln (100units/ml) SC SCH ×4 (00:19→18:37)
[2021-10-12] MEDS: PIPERACILLIN-TAZO 4.5GM 100 ML IV SCH ×4 (01:13→17:44)
[2021-10-12] MEDS: MIDAZOLAM DRIP 50 mg/50mL 50 ML IV SCH ×2 (01:15→06:15)
[2021-10-12 04:12] LABS: Basophils # (auto) 0 10 ^3/uL (0-0.2); Eosinophils # (auto) 0 10 ^3/uL (0-0.8); Mean Corpuscular Hgb Conc. 32.3 g/dL (32.0-36.0); Monocytes # (auto) 0.2 10 ^3/uL (0-1.3)
[2021-10-12 04:16] LABS: Hematocrit 40.4 % (36.0-46.0); Hemoglobin 13.1 g/dL (12.2-16.2); Lymphocytes # (auto) 0.3 10 ^3/uL (0.4-5.4); Lymphocytes % (auto) 3.5 % (10.0-50.0); Mean Corpuscular Hemoglobin 25.8 pg (28.0-32.0); Mean Corpuscular Volume 79.9 fL (80.0-100.0); Neutrophils # (auto) 8.9 10 ^3/uL (1.6-8.6); Neutrophils % (auto) 94.5 % (37.0-80.0); Nucleated Red Blood Cells % 0.3 %; Red Blood Cells 5.05 10^6/uL (4.0-5.20); Red Cell Distribution Width 17.6 % (11.8-14.3); White Blood Cell 9.4 10^3/uL (4.4-10.8)
[2021-10-12 04:34] LABS: Potassium 4.1 mmol/L (3.5-5.1)
[2021-10-12 04:38] LABS: BUN/Creatinine Ratio 40.4
[2021-10-12] MEDS: methylPREDNISolone SOD SUCC 40 MG/ML VL IV SCH ×3 (05:53→21:53)
[2021-10-12] MEDS: ALBUTEROL SULF 2.5 MG/0.5ML(0.5%) NEB SOLN NEB SCH ×3 (06:51→19:00)
[2021-10-12] MEDS: IPRATROPIUM BROM 0.5 MG/2.5ML INH SOL NEB SCH ×4 (06:51→23:22)
[2021-10-12] MEDS: ASCORBIC ACID 500 MG TAB NG SCH (09:37)
[2021-10-12] MEDS: ZINC SULFATE 220mg CAP or TAB NG SCH (09:37)
[2021-10-12] MEDS: PANTOPRAZOLE 40 MG/10 ML VIAL INJ IV SCH (09:38)
[2021-10-12] MEDS: POTASSIUM CHL 20 Meq TABLET PO SCH (09:38)
[2021-10-12] MEDS: CHOLECALCIFEROL (VITD3) 2,000 UNIT CAP/TAB NG SCH (09:38)
[2021-10-12] MEDS: ENOXAPARIN SOD 40 MG/0.4 ML SYRINGE SC SCH (09:39)
[2021-10-12] MEDS: FUROSEMIDE 40 MG/4 ML VIAL IV SCH (09:39)
[2021-10-12] MEDS: SODIUM CHLORIDE 0.9% 1,000 ML IV SCH (15:35)
[2021-10-13] MEDS: PIPERACILLIN-TAZO 4.5GM 100 ML IV SCH ×3 (01:12→18:11)
[2021-10-13] MEDS: ACCU-CHEK COMFORT CURVE STRIP VI SCH ×4 (01:17→18:11)
[2021-10-13] MEDS: InsuLIN REG 1unit/0.01ml Soln (100units/ml) SC SCH ×4 (01:22→18:11)
[2021-10-13 05:00] VITALS: BP 125/68
[2021-10-13] MEDS: methylPREDNISolone SOD SUCC 40 MG/ML VL IV SCH ×3 (06:29→21:50)
[2021-10-13] MEDS: SODIUM CHLORIDE 0.9% 1,000 ML IV SCH (08:45)
[2021-10-13 09:00] VITALS: BP 156/81
[2021-10-13] MEDS: PANTOPRAZOLE 40 MG/10 ML VIAL INJ IV SCH (09:08)
[2021-10-13] MEDS: ENOXAPARIN SOD 40 MG/0.4 ML SYRINGE SC SCH (09:10)
[2021-10-13] MEDS: POTASSIUM CHL 20 Meq TABLET PO SCH (09:10)
[2021-10-13] MEDS: ZINC SULFATE 220mg CAP or TAB NG SCH (09:11)
[2021-10-13] MEDS: CHOLECALCIFEROL (VITD3) 2,000 UNIT CAP/TAB NG SCH (09:11)
[2021-10-13] MEDS: ASCORBIC ACID 500 MG TAB NG SCH (09:11)
[2021-10-13] MEDS: FUROSEMIDE 40 MG/4 ML VIAL IV SCH (09:11)
[2021-10-13] MEDS: ALBUTEROL SULF 2.5 MG/0.5ML(0.5%) NEB SOLN NEB SCH ×4 (09:19→23:54)
[2021-10-13] MEDS: IPRATROPIUM BROM 0.5 MG/2.5ML INH SOL NEB SCH ×4 (09:19→23:54)
[2021-10-13 13:00] VITALS: BP 128/68
[2021-10-13 18:15] VITALS: BP 131/68
[2021-10-13 22:00] VITALS: BP 131/69
[2021-10-14] MEDS: InsuLIN REG 1unit/0.01ml Soln (100units/ml) SC SCH ×4 (00:19→18:00)
[2021-10-14] MEDS: ACCU-CHEK COMFORT CURVE STRIP VI SCH ×4 (00:25→18:00)
[2021-10-14] MEDS: PIPERACILLIN-TAZO 4.5GM 100 ML IV SCH ×3 (00:32→22:01)
[2021-10-14 05:00] VITALS: BP 122/62
[2021-10-14] MEDS: methylPREDNISolone SOD SUCC 40 MG/ML VL IV SCH ×2 (05:32→21:53)
[2021-10-14] MEDS: SODIUM CHLORIDE 0.9% 1,000 ML IV SCH (06:15)
[2021-10-14] MEDS: IPRATROPIUM BROM 0.5 MG/2.5ML INH SOL NEB SCH ×4 (06:32→23:54)
[2021-10-14] MEDS: ALBUTEROL SULF 2.5 MG/0.5ML(0.5%) NEB SOLN NEB SCH ×4 (06:32→23:54)
[2021-10-14 08:05] VITALS: BP 136/60
[2021-10-14] MEDS: CHOLECALCIFEROL (VITD3) 2,000 UNIT CAP/TAB NG SCH (09:07)
[2021-10-14] MEDS: ENOXAPARIN SOD 40 MG/0.4 ML SYRINGE SC SCH (09:07)
[2021-10-14] MEDS: ASCORBIC ACID 500 MG TAB NG SCH (09:07)
[2021-10-14] MEDS: ZINC SULFATE 220mg CAP or TAB NG SCH (09:07)
[2021-10-14] MEDS: POTASSIUM CHL 20 Meq TABLET PO SCH (09:07)
[2021-10-14] MEDS: PANTOPRAZOLE 40 MG/10 ML VIAL INJ IV SCH (09:12)
[2021-10-14] MEDS: FUROSEMIDE 40 MG/4 ML VIAL IV SCH (09:13)
[2021-10-14 12:10] VITALS: BP 116/62
[2021-10-14 16:05] VITALS: BP_SYST 111; BP_SYST 137; BP_DIAS 52; BP_DIAS 60
[2021-10-14 22:00] VITALS: BP 127/64
[2021-10-15] MEDS: methylPREDNISolone SOD SUCC 40 MG/ML VL IV SCH ×4 (00:05→21:18)
[2021-10-15] MEDS: InsuLIN REG 1unit/0.01ml Soln (100units/ml) SC SCH ×4 (00:18→17:43)
[2021-10-15] MEDS: SODIUM CHLORIDE 0.9% 1,000 ML IV SCH ×2 (00:21→21:17)
[2021-10-15] MEDS: ACCU-CHEK COMFORT CURVE STRIP VI SCH ×4 (00:21→17:43)
[2021-10-15] MEDS: PIPERACILLIN-TAZO 4.5GM 100 ML IV SCH ×3 (02:04→17:00)
[2021-10-15 05:00] VITALS: BP 124/68
[2021-10-15] MEDS: IPRATROPIUM BROM 0.5 MG/2.5ML INH SOL NEB SCH ×3 (06:39→18:45)
[2021-10-15] MEDS: ALBUTEROL SULF 2.5 MG/0.5ML(0.5%) NEB SOLN NEB SCH ×3 (06:39→18:46)
[2021-10-15 09:05] VITALS: BP 97/59
[2021-10-15] MEDS: FUROSEMIDE 40 MG/4 ML VIAL IV SCH (10:00)
[2021-10-15] MEDS: PANTOPRAZOLE 40 MG/10 ML VIAL INJ IV SCH (10:05)
[2021-10-15] MEDS: POTASSIUM CHL 20 Meq TABLET PO SCH (10:06)
[2021-10-15] MEDS: ASCORBIC ACID 500 MG TAB NG SCH (10:07)
[2021-10-15] MEDS: ZINC SULFATE 220mg CAP or TAB NG SCH (10:07)
[2021-10-15] MEDS: CHOLECALCIFEROL (VITD3) 2,000 UNIT CAP/TAB NG SCH (10:07)
[2021-10-15 12:49] VITALS: BP 122/63
[2021-10-15 16:30] VITALS: BP 117/61
[2021-10-15 22:00] VITALS: BP 114/67
[2021-10-16] MEDS: ALBUTEROL SULF 2.5 MG/0.5ML(0.5%) NEB SOLN NEB SCH ×3 (00:37→11:59)
[2021-10-16] MEDS: IPRATROPIUM BROM 0.5 MG/2.5ML INH SOL NEB SCH ×3 (00:37→11:59)
[2021-10-16] MEDS: InsuLIN REG 1unit/0.01ml Soln (100units/ml) SC SCH ×5 (01:02→21:52)
[2021-10-16] MEDS: ACCU-CHEK COMFORT CURVE STRIP VI SCH ×5 (01:16→21:49)
[2021-10-16] MEDS: PIPERACILLIN-TAZO 4.5GM 100 ML IV SCH ×3 (01:16→17:14)
[2021-10-16 05:00] VITALS: BP 113/58
[2021-10-16] MEDS: methylPREDNISolone SOD SUCC 40 MG/ML VL IV SCH ×3 (06:53→21:39)
[2021-10-16 09:00] VITALS: BP 126/61
[2021-10-16] MEDS: ZINC SULFATE 220mg CAP or TAB NG SCH (09:42)
[2021-10-16] MEDS: POTASSIUM CHL 20 Meq TABLET PO SCH (09:42)
[2021-10-16] MEDS: CHOLECALCIFEROL (VITD3) 2,000 UNIT CAP/TAB NG SCH (09:44)
[2021-10-16] MEDS: ASCORBIC ACID 500 MG TAB NG SCH (09:44)
[2021-10-16] MEDS: PANTOPRAZOLE 40 MG/10 ML VIAL INJ IV SCH (09:50)
[2021-10-16] MEDS: FUROSEMIDE 40 MG/4 ML VIAL IV SCH (09:50)
[2021-10-16 13:00] VITALS: BP 104/65
[2021-10-16 17:00] VITALS: BP 116/63
[2021-10-16] MEDS ORDERED: DEXTROSE (50%) 50ML SYRG IV PRN (17:00)
[2021-10-16] MEDS: SODIUM CHLORIDE 0.9% 1,000 ML IV SCH (17:13)
[2021-10-16] MEDS: NYSTATIN TOPICAL POWDER 15GM TOP SCH (21:50)
[2021-10-16 22:00] VITALS: BP 114/59
[2021-10-17] MEDS: IPRATROPIUM BROM 0.5 MG/2.5ML INH SOL NEB SCH ×5 (02:00→19:09)
[2021-10-17] MEDS: ALBUTEROL SULF 2.5 MG/0.5ML(0.5%) NEB SOLN NEB SCH ×5 (02:00→19:09)
[2021-10-17] MEDS: PIPERACILLIN-TAZO 4.5GM 100 ML IV SCH ×3 (02:00→17:00)
[2021-10-17 05:00] VITALS: BP 105/51
[2021-10-17 05:22] LABS: Basophils # (auto) 0 10 ^3/uL (0-0.2); Eosinophils # (auto) 0 10 ^3/uL (0-0.8); Hematocrit 41.2 % (36.0-46.0); Hemoglobin 13.7 g/dL (12.2-16.2); Lymphocytes # (auto) 0.2 10 ^3/uL (0.4-5.4); Lymphocytes % (auto) 1.9 % (10.0-50.0); Mean Corpuscular Hemoglobin 26.1 pg (28.0-32.0); Mean Corpuscular Hgb Conc. 33.1 g/dL (32.0-36.0); Mean Corpuscular Volume 78.8 fL (80.0-100.0); Monocytes # (auto) 0.2 10 ^3/uL (0-1.3); Monocytes % (auto) 2.1 % (0.0-12.0); Neutrophils # (auto) 9.5 10 ^3/uL (1.6-8.6); Nucleated Red Blood Cells % 0.1 %; Red Blood Cells 5.24 10^6/uL (4.0-5.20); Red Cell Distribution Width 17.5 % (11.8-14.3); White Blood Cell 9.9 10^3/uL (4.4-10.8)
[2021-10-17 05:40] LABS: Albumin 3.1 g/dL (3.4-5.0); Potassium 4.3 mmol/L (3.5-5.1)
[2021-10-17 05:45] LABS: BUN/Creatinine Ratio 32.1; Bilirubin, Total 2.2 mg/dL (0.2-1.0); Total Protein 6.4 g/dL (6.4-8.2)
[2021-10-17] MEDS: ACCU-CHEK COMFORT CURVE STRIP VI SCH ×4 (06:07→21:18)
[2021-10-17] MEDS: NYSTATIN TOPICAL POWDER 15GM TOP SCH ×3 (06:07→21:18)
[2021-10-17] MEDS: InsuLIN REG 1unit/0.01ml Soln (100units/ml) SC SCH ×4 (06:09→21:46)
[2021-10-17] MEDS: methylPREDNISolone SOD SUCC 40 MG/ML VL IV SCH ×2 (06:12→14:00)
[2021-10-17 09:00] VITALS: BP 128/56
[2021-10-17] MEDS: PANTOPRAZOLE 40 MG/10 ML VIAL INJ IV SCH (10:11)
[2021-10-17] MEDS: POTASSIUM CHL 20 Meq TABLET PO SCH (10:12)
[2021-10-17] MEDS: ASCORBIC ACID 500 MG TAB NG SCH (10:12)
[2021-10-17] MEDS: FUROSEMIDE 40 MG/4 ML VIAL IV SCH (10:12)
[2021-10-17] MEDS: ZINC SULFATE 220mg CAP or TAB NG SCH (10:12)
[2021-10-17] MEDS: CHOLECALCIFEROL (VITD3) 2,000 UNIT CAP/TAB NG SCH (10:13)
[2021-10-17] MEDS: SODIUM CHLORIDE 0.9% 1,000 ML IV SCH (12:45)
[2021-10-17 13:00] VITALS: BP 109/67
[2021-10-17 13:27] VITALS: BP 128/56
[2021-10-17 17:00] VITALS: BP 121/69
[2021-10-17 22:00] VITALS: BP 114/67
[2021-10-18] MEDS: PIPERACILLIN-TAZO 4.5GM 100 ML IV SCH ×4 (01:17→17:42)
[2021-10-18 05:00] VITALS: BP 125/63
[2021-10-18] MEDS: NYSTATIN TOPICAL POWDER 15GM TOP SCH ×3 (06:00→22:12)
[2021-10-18] MEDS: ACCU-CHEK COMFORT CURVE STRIP VI SCH ×4 (06:01→22:12)
[2021-10-18] MEDS: InsuLIN REG 1unit/0.01ml Soln (100units/ml) SC SCH ×4 (06:12→22:16)
[2021-10-18] MEDS: ALBUTEROL SULF 2.5 MG/0.5ML(0.5%) NEB SOLN NEB SCH ×3 (07:12→18:47)
[2021-10-18] MEDS: IPRATROPIUM BROM 0.5 MG/2.5ML INH SOL NEB SCH ×4 (07:12→18:47)
[2021-10-18 09:18] VITALS: BP 128/75
[2021-10-18] MEDS: PANTOPRAZOLE 40 MG/10 ML VIAL INJ IV SCH (09:25)
[2021-10-18] MEDS: CHOLECALCIFEROL (VITD3) 2,000 UNIT CAP/TAB NG SCH (09:26)
[2021-10-18] MEDS: FUROSEMIDE 40 MG/4 ML VIAL IV SCH (09:26)
[2021-10-18] MEDS: POTASSIUM CHL 20 Meq TABLET PO SCH ×2 (09:27→09:34)
[2021-10-18] MEDS: ZINC SULFATE 220mg CAP or TAB NG SCH (09:27)
[2021-10-18] MEDS: predniSONE 20 MG TAB PO SCH (09:27)
[2021-10-18] MEDS: ASCORBIC ACID 500 MG TAB NG SCH (09:27)
[2021-10-18] MEDS: SODIUM CHLORIDE 0.9% 1,000 ML IV SCH (09:35)
[2021-10-18 12:44] VITALS: BP 126/79
[2021-10-18 16:30] VITALS: BP 109/58
[2021-10-18] MEDS ORDERED: InsuLIN REG 1unit/0.01ml Soln (100units/ml) SC ONE (18:15)
[2021-10-18 22:00] VITALS: BP 113/56
[2021-10-18] MEDS ORDERED: traMADol HCL 50 MG TAB PO PRN (23:00)
[2021-10-19] MEDS: IPRATROPIUM BROM 0.5 MG/2.5ML INH SOL NEB SCH ×3 (00:35→19:08)
[2021-10-19] MEDS: PIPERACILLIN-TAZO 4.5GM 100 ML IV SCH ×3 (01:47→17:00)
[2021-10-19] MEDS: SODIUM CHLORIDE 0.9% 1,000 ML IV SCH (04:45)
[2021-10-19 05:00] VITALS: BP 112/70
[2021-10-19] MEDS: NYSTATIN TOPICAL POWDER 15GM TOP SCH ×3 (06:13→21:02)
[2021-10-19] MEDS: InsuLIN REG 1unit/0.01ml Soln (100units/ml) SC SCH ×4 (06:14→21:19)
[2021-10-19] MEDS: ACCU-CHEK COMFORT CURVE STRIP VI SCH ×4 (06:14→21:02)
[2021-10-19] MEDS: FUROSEMIDE 40 MG/4 ML VIAL IV SCH (08:42)
[2021-10-19] MEDS: predniSONE 20 MG TAB PO SCH (08:43)
[2021-10-19] MEDS: PANTOPRAZOLE 40 MG/10 ML VIAL INJ IV SCH (08:43)
[2021-10-19] MEDS: ZINC SULFATE 220mg CAP or TAB NG SCH (08:43)
[2021-10-19] MEDS: POTASSIUM CHL 20 Meq TABLET PO SCH (08:43)
[2021-10-19] MEDS: ASCORBIC ACID 500 MG TAB NG SCH (08:44)
[2021-10-19] MEDS: CHOLECALCIFEROL (VITD3) 2,000 UNIT CAP/TAB NG SCH (08:44)
[2021-10-19 09:00] VITALS: BP 107/64
[2021-10-19] MEDS: ALBUTEROL SULF 2.5 MG/0.5ML(0.5%) NEB SOLN NEB SCH ×2 (11:31→19:08)
[2021-10-19 13:00] VITALS: BP 110/68
[2021-10-19 16:33] VITALS: BP 116/69
[2021-10-19 22:00] VITALS: BP 109/50
[2021-10-20] MEDS: SODIUM CHLORIDE 0.9% 1,000 ML IV SCH (00:45)
[2021-10-20] MEDS: IPRATROPIUM BROM 0.5 MG/2.5ML INH SOL NEB SCH ×3 (01:02→12:13)
[2021-10-20] MEDS: PIPERACILLIN-TAZO 4.5GM 100 ML IV SCH ×2 (01:43→09:00)
[2021-10-20 05:00] VITALS: BP 116/70
[2021-10-20] MEDS: NYSTATIN TOPICAL POWDER 15GM TOP SCH ×2 (06:05→14:00)
[2021-10-20] MEDS: ACCU-CHEK COMFORT CURVE STRIP VI SCH ×2 (06:05→11:30)
[2021-10-20] MEDS: InsuLIN REG 1unit/0.01ml Soln (100units/ml) SC SCH ×2 (06:09→12:33)
[2021-10-20] MEDS: ALBUTEROL SULF 2.5 MG/0.5ML(0.5%) NEB SOLN NEB SCH ×2 (06:13→12:14)
[2021-10-20 09:00] VITALS: BP 126/74
[2021-10-20] MEDS: PANTOPRAZOLE 40 MG/10 ML VIAL INJ IV SCH (09:07)
[2021-10-20] MEDS: ZINC SULFATE 220mg CAP or TAB NG SCH (09:08)
[2021-10-20] MEDS: FUROSEMIDE 40 MG/4 ML VIAL IV SCH (09:08)
[2021-10-20] MEDS: predniSONE 20 MG TAB PO SCH (09:08)
[2021-10-20] MEDS: ASCORBIC ACID 500 MG TAB NG SCH (09:08)
[2021-10-20] MEDS: POTASSIUM CHL 20 Meq TABLET PO SCH (09:08)
[2021-10-20] MEDS: CHOLECALCIFEROL (VITD3) 2,000 UNIT CAP/TAB NG SCH (09:08)
[2021-10-20 11:40] VITALS: BP 126/74
[2021-10-20 12:05] VITALS: BP 126/74
[2021-10-20 13:00] VITALS: BP 124/60
== END 2021-10-20 15:47 | DRG 870 ==
LOC: ER 11:02 → EDBD 11:02 → TELE 16:52 → ICU WEST 17:30 → TELE-WESTW 10-12 08:04
PROVIDERS: ADMIT Registered Nurse; ATTEND Internal Medicine Cardiovascular Disease
PROC: 5A1955Z Respiratory Ventilation, Greater than 96 Consecutive Hours (ICD-10-PCS; principal; 2021-10-02)
PROC: 0BH17EZ Insertion of Endotracheal Airway into Trachea, Via Natural or Artificial Opening (ICD-10-PCS; 2021-10-02)
PROC: XW033E5 Introduction of Remdesivir Anti-infective into Peripheral Vein, Percutaneous Approach, New Technology Group 5 (ICD-10-PCS; 2021-10-02)
PROC: 5A09357 Assistance with Respiratory Ventilation, Less than 24 Consecutive Hours, Continuous Positive Airway Pressure (ICD-10-PCS; 2021-10-11)
PROC: 5A09357 Assistance with Respiratory Ventilation, Less than 24 Consecutive Hours, Continuous Positive Airway Pressure (ICD-10-PCS; 2021-10-12)
PROC: 5A09357 Assistance with Respiratory Ventilation, Less than 24 Consecutive Hours, Continuous Positive Airway Pressure (ICD-10-PCS; 2021-10-13)
PROC: 5A09357 Assistance with Respiratory Ventilation, Less than 24 Consecutive Hours, Continuous Positive Airway Pressure (ICD-10-PCS; 2021-10-14)
PROC: 5A09357 Assistance with Respiratory Ventilation, Less than 24 Consecutive Hours, Continuous Positive Airway Pressure (ICD-10-PCS; 2021-10-16)
PROC: 5A09357 Assistance with Respiratory Ventilation, Less than 24 Consecutive Hours, Continuous Positive Airway Pressure (ICD-10-PCS; 2021-10-17)
PROC: 5A09357 Assistance with Respiratory Ventilation, Less than 24 Consecutive Hours, Continuous Positive Airway Pressure (ICD-10-PCS; 2021-10-19)
DX: A41.89 Other specified sepsis (principal); U07.1 COVID-19; J12.82 Pneumonia due to coronavirus disease 2019; G93.41 Metabolic encephalopathy; J96.21 Acute and chronic respiratory failure with hypoxia; Z68.41 Body mass index [BMI] 40.0-44.9, adult; G93.1 Anoxic brain damage, not elsewhere classified; E87.4 Mixed disorder of acid-base balance; I13.0 Hypertensive heart and chronic kidney disease with heart failure and stage 1 through stage 4 chronic kidney disease, or unspecified chronic kidney disease; I42.9 Cardiomyopathy, unspecified; J44.0 Chronic obstructive pulmonary disease with (acute) lower respiratory infection; J98.11 Atelectasis; E66.01 Morbid (severe) obesity due to excess calories; N18.2 Chronic kidney disease, stage 2 (mild); E78.5 Hyperlipidemia, unspecified; I50.9 Heart failure, unspecified; E87.5 Hyperkalemia; G40.909 Epilepsy, unspecified, not intractable, without status epilepticus; E10.22 Type 1 diabetes mellitus with diabetic chronic kidney disease; F02.80 Dementia in other diseases classified elsewhere, unspecified severity, without behavioral disturbance, psychotic disturbance, mood disturbance, and anxiety; G30.9 Alzheimer's disease, unspecified; Z79.4 Long term (current) use of insulin; Z80.9 Family history of malignant neoplasm, unspecified; Z82.0 Family history of epilepsy and other diseases of the nervous system; Z82.3 Family history of stroke; Z83.3 Family history of diabetes mellitus; Z87.891 Personal history of nicotine dependence; Z90.710 Acquired absence of both cervix and uterus; Z99.81 Dependence on supplemental oxygen; Z90.49 Acquired absence of other specified parts of digestive tract
CPT/HCPCS: 31500; 36415; 36556; 36600; 70450; 70551; 71045; 80048; 80053; 81001; 82728; 82805; 82962; 83605; 83615; 83735; 83880; 84443; 84484; 85025; 85379; 85610; 85730; 86141; 87040; 87070; 87081; 87205; 92610; 93005; 94002; 94003; 94640; 94644; 94660; 95819; 96361; 96365; 97110; 97116; 97163; 97530; 99291; C9113; G0378; J0330; J1100; J1815; J2250; J2543; J2704; J7060

== ENCOUNTER 2021-10-27 14:15 | Inpatient (IN) | payer MEDICARE, OTHER ==
[~2021-10-27] VITALS: Ht 160 cm; Wt 93.7 kg
[2021-10-27] MEDS ORDERED: SODIUM CHLORIDE 0.9% 1,000 ML IV ONE (14:30)
[2021-10-27 15:16] LABS: Basophils # (auto) 0 10 ^3/uL (0-0.2); Basophils % (auto) 0.2 % (0.0-2.0); Eosinophils # (auto) 0 10 ^3/uL (0-0.8); Lymphocytes # (auto) 0.5 10 ^3/uL (0.4-5.4); Mean Corpuscular Hemoglobin 24.7 pg (28.0-32.0); Monocytes # (auto) 0.5 10 ^3/uL (0-1.3)
[2021-10-27 15:17] LABS: Eosinophils % (auto) 0.1 % (0.0-7.0); Hematocrit 50.4 % (36.0-46.0); Hemoglobin 15.6 g/dL (12.2-16.2); Lymphocytes % (auto) 2.9 % (10.0-50.0); Mean Corpuscular Hgb Conc. 30.9 g/dL (32.0-36.0); Mean Corpuscular Volume 79.9 fL (80.0-100.0); Monocytes % (auto) 3.2 % (0.0-12.0); Neutrophils % (auto) 93.6 % (37.0-80.0); Nucleated Red Blood Cells % 0.1 %; Red Blood Cells 6.31 10^6/uL (4.0-5.20); Red Cell Distribution Width 17.7 % (11.8-14.3)
[2021-10-27 15:34] LABS: Calcium 9.6 mg/dL (8.5-10.1)
[2021-10-27 15:38] LABS: BUN/Creatinine Ratio 37.1; Total Protein 7.1 g/dL (6.4-8.2)
[2021-10-27 15:46] LABS: Potassium 6.2 mmol/L (3.5-5.1)
[2021-10-27] MEDS ORDERED: SODIUM BICARBONATE 8.4% INJ 50ML SYRINGE IV ONE (16:00)
[2021-10-27] MEDS ORDERED: CALCIUM GLUC 1,000mg/50ml-NS 50 ML IV ONE (16:00)
[2021-10-27] MEDS ORDERED: SODIUM ZIRCONIUM CYCL 10 GM PAK PO ONE (16:00)
[2021-10-27] MEDS ORDERED: InsuLIN REG 1unit/0.01ml Soln (100units/ml) IV ONE (16:00)
[2021-10-27] MEDS ORDERED: FUROSEMIDE 20 MG/2 ML VIAL IV ONE (16:00)
[2021-10-27] MEDS ORDERED: ALBUTEROL SULF 2.5 MG/0.5ML(0.5%) NEB SOLN NEB ONE (16:00)
[2021-10-27] MEDS ORDERED: DEXTROSE (50%) 50ML SYRG IV ONE (16:00)
[2021-10-27] MEDS ORDERED: INSULIN LANTUS (GLARGINE) 1 /0.01ml (100units/ml) SC ONE (16:45)
[2021-10-27] MEDS ORDERED: DEXTROSE (50%) 50ML SYRG IV PRN (16:45)
[2021-10-27] MEDS ORDERED: AMIODARONE HCL 150 MG in D5W 5% 100 ML IV ONE (17:00)
[2021-10-27 17:02] LABS: INR 1.03 (0.9-1.15); Partial Thromboplastin Time 22.2 sec (24.6-33.4)
[2021-10-27] MEDS ORDERED: AMIODARONE 450mg/250ml AE 250 ML IV SCH (17:15)
[2021-10-27] MEDS: InsuLIN R (HUMAN) 100 UNITS in SODIUM CHL 0.9% 99 ML IV SCH ×2 (18:33→19:55)
[2021-10-27] MEDS: ACCU-CHEK COMFORT CURVE STRIP VI SCH ×4 (18:33→22:17)
[2021-10-27] MEDS ORDERED: ONDANSETRON HCL 4 MG/2 ML VIAL IV PRN (21:45)
[2021-10-27] MEDS ORDERED: cefTRIAXone 1GM/50ML D5W 50 ML IV ONE (21:45)
[2021-10-27] MEDS ORDERED: ALBUMIN 25% 100 ML IV ONE (21:45)
[2021-10-27] MEDS ORDERED: DOCUSATE SOD 100 MG CAP PO PRN (21:45)
[2021-10-27] MEDS ORDERED: IBUPROFEN 600 MG TAB PO PRN (21:45)
[2021-10-27] MEDS: INSULIN LANTUS (GLARGINE) 1 /0.01ml (100units/ml) SC SCH (22:00)
[2021-10-27] MEDS: SODIUM CHLOR 0.9% PF (SALINE LOCK) 10ML VIAL/SYR IV SCH (22:00)
[2021-10-27] MEDS ORDERED: NITROGLYCERIN 0.4 MG SL TAB SL PRN (22:15)
[2021-10-27] MEDS ORDERED: MORPHINE SULFATE INJ 2 MG/ml SYRG IV PRN (22:15)
[2021-10-27] MEDS: CARVEDILOL 3.125 MG TAB PO SCH (22:29)
[2021-10-27] MEDS: HEPARIN SODIUM (PORCINE) 5000 UNITS/ML 1ML VIAL SC SCH (22:35)
[2021-10-28] MEDS: ACCU-CHEK COMFORT CURVE STRIP VI SCH ×9 (00:14→22:00)
[2021-10-28] MEDS ORDERED: AMIODARONE 450mg/250ml AE 250 ML IV ONE (03:08)
[2021-10-28] MEDS: SODIUM CHLOR 0.9% PF (SALINE LOCK) 10ML VIAL/SYR IV SCH ×3 (06:03→22:00)
[2021-10-28 06:41] LABS: Eosinophils # (auto) 0.1 10 ^3/uL (0-0.8); Hemoglobin 13.8 g/dL (12.2-16.2); Nucleated Red Blood Cells % 0.1 %
[2021-10-28 06:43] LABS: Basophils # (auto) 0.1 10 ^3/uL (0-0.2); Basophils % (auto) 0.5 % (0.0-2.0); Eosinophils % (auto) 0.5 % (0.0-7.0); Hematocrit 42.1 % (36.0-46.0); Lymphocytes # (auto) 1.2 10 ^3/uL (0.4-5.4); Lymphocytes % (auto) 8.9 % (10.0-50.0); Mean Corpuscular Hemoglobin 25.9 pg (28.0-32.0); Mean Corpuscular Hgb Conc. 32.7 g/dL (32.0-36.0); Mean Corpuscular Volume 79.2 fL (80.0-100.0); Neutrophils # (auto) 11.4 10 ^3/uL (1.6-8.6); Neutrophils % (auto) 83.1 % (37.0-80.0); Red Blood Cells 5.32 10^6/uL (4.0-5.20); Red Cell Distribution Width 17.3 % (11.8-14.3); White Blood Cell 13.7 10^3/uL (4.4-10.8)
[2021-10-28 06:45] LABS: Urine Bacteria NONE SEEN /hpf (None Seen); Urine Blood 3+ /uL (Negative); Urine WBC 4703 /hpf (0 - 5); Urine WBC Clumps PRESENT /hpf (None Seen)
[2021-10-28 06:51] LABS: Potassium 4.7 mmol/L (3.5-5.1)
[2021-10-28 07:02] LABS: Albumin 3.4 g/dL (3.4-5.0); BUN/Creatinine Ratio 40.8; Bilirubin, Total 1.4 mg/dL (0.2-1.0); Calcium 9.6 mg/dL (8.5-10.1); Total Protein 6.7 g/dL (6.4-8.2)
[2021-10-28 07:15] LABS: Urine Specific Gravity 1.018 (1.001-1.035)
[2021-10-28] MEDS: INSULIN LANTUS (GLARGINE) 1 /0.01ml (100units/ml) SC SCH ×2 (07:23→22:30)
[2021-10-28 07:49] LABS: Protein, Urine 257.1 mg/dL (0.0-11.9)
[2021-10-28] MEDS ORDERED: AMIODARONE 450mg/250ml AE 250 ML IV SCH (09:15)
[2021-10-28] MEDS ORDERED: DEXTROSE (50%) 50ML SYRG IV PRN (09:15)
[2021-10-28] MEDS: cefTRIAXone 1GM/50ML D5W 50 ML IV SCH (09:36)
[2021-10-28] MEDS: B-COMPLEX W/ C & FOLIC ACID(NEPHROVITE TAB) PO SCH (09:36)
[2021-10-28] MEDS: SEVELAMER 800 MG TAB PO SCH ×3 (09:36→18:18)
[2021-10-28] MEDS: HEPARIN SODIUM (PORCINE) 5000 UNITS/ML 1ML VIAL SC SCH ×2 (09:37→22:31)
[2021-10-28] MEDS ORDERED: ERGOCALCIFEROL 50,000 UNIT(1.25MG) CAP PO SCH (10:00)
[2021-10-28] MEDS: CARVEDILOL 3.125 MG TAB PO SCH ×2 (10:00→22:00)
[2021-10-28] MEDS ORDERED: INSULIN LANTUS (GLARGINE) 1 /0.01ml (100units/ml) SC SCH (10:00)
[2021-10-28] MEDS: AMIODARONE HCL 200 MG TAB PO SCH (10:25)
[2021-10-28] MEDS: D5W/SOD CHLO 0.9% 1,000 ML IV SCH ×2 (10:25→20:35)
[2021-10-28] MEDS: InsuLIN REG 1unit/0.01ml Soln (100units/ml) SC SCH ×3 (11:34→22:31)
[2021-10-28 13:55] VITALS: BP 90/53
[2021-10-28 14:45] VITALS: BP 90/53
[2021-10-28 16:48] VITALS: BP 97/44
[2021-10-28 22:00] VITALS: BP 113/61
[2021-10-29 05:00] VITALS: BP 99/52
[2021-10-29] MEDS: SODIUM CHLOR 0.9% PF (SALINE LOCK) 10ML VIAL/SYR IV SCH ×3 (06:20→22:01)
[2021-10-29] MEDS: ACCU-CHEK COMFORT CURVE STRIP VI SCH ×4 (06:22→22:04)
[2021-10-29] MEDS: InsuLIN REG 1unit/0.01ml Soln (100units/ml) SC SCH ×4 (06:22→22:00)
[2021-10-29] MEDS: INSULIN LANTUS (GLARGINE) 1 /0.01ml (100units/ml) SC SCH ×2 (06:22→22:03)
[2021-10-29 06:35] LABS: Albumin 2.7 g/dL (3.4-5.0); Basophils # (auto) 0 10 ^3/uL (0-0.2); Eosinophils # (auto) 0.1 10 ^3/uL (0-0.8); Hemoglobin 12.2 g/dL (12.2-16.2); Magnesium 2.5 mg/dL (1.6-2.6); Monocytes # (auto) 0.5 10 ^3/uL (0-1.3); Potassium 3.8 mmol/L (3.5-5.1)
[2021-10-29 06:38] LABS: Basophils % (auto) 0.2 % (0.0-2.0); Bilirubin, Total 0.8 mg/dL (0.2-1.0); Eosinophils % (auto) 1.1 % (0.0-7.0); Hematocrit 37.3 % (36.0-46.0); Lymphocytes # (auto) 1.2 10 ^3/uL (0.4-5.4); Lymphocytes % (auto) 12.6 % (10.0-50.0); Mean Corpuscular Hemoglobin 25.8 pg (28.0-32.0); Mean Corpuscular Hgb Conc. 32.7 g/dL (32.0-36.0); Neutrophils # (auto) 7.7 10 ^3/uL (1.6-8.6); Neutrophils % (auto) 81.1 % (37.0-80.0); Nucleated Red Blood Cells % 0.1 %; Red Blood Cells 4.73 10^6/uL (4.0-5.20); Red Cell Distribution Width 17.6 % (11.8-14.3); Total Protein 5.6 g/dL (6.4-8.2); White Blood Cell 9.5 10^3/uL (4.4-10.8)
[2021-10-29 09:00] VITALS: BP 111/54
[2021-10-29 13:00] VITALS: BP 112/62
[2021-10-29] MEDS: SEVELAMER 800 MG TAB PO SCH ×3 (15:18→18:08)
[2021-10-29] MEDS: D5W/SOD CHLO 0.9% 1,000 ML IV SCH ×2 (15:18→23:18)
[2021-10-29] MEDS: cefTRIAXone 1GM/50ML D5W 50 ML IV SCH (15:18)
[2021-10-29] MEDS: FAMOTIDINE (10MG/ML) 2ML VL IV SCH (15:19)
[2021-10-29] MEDS: AMIODARONE HCL 200 MG TAB PO SCH (15:19)
[2021-10-29] MEDS: B-COMPLEX W/ C & FOLIC ACID(NEPHROVITE TAB) PO SCH (15:20)
[2021-10-29] MEDS: CARVEDILOL 3.125 MG TAB PO SCH ×2 (15:20→21:35)
[2021-10-29] MEDS: HEPARIN SODIUM (PORCINE) 5000 UNITS/ML 1ML VIAL SC SCH ×2 (15:21→22:03)
[2021-10-29 17:00] VITALS: BP 112/55
[2021-10-29 22:00] VITALS: BP 102/49
[2021-10-30 05:00] VITALS: BP 104/62
[2021-10-30] MEDS: SODIUM CHLOR 0.9% PF (SALINE LOCK) 10ML VIAL/SYR IV SCH ×3 (05:43→22:14)
[2021-10-30] MEDS: ACCU-CHEK COMFORT CURVE STRIP VI SCH ×4 (06:38→22:22)
[2021-10-30] MEDS: InsuLIN REG 1unit/0.01ml Soln (100units/ml) SC SCH ×4 (06:47→22:21)
[2021-10-30] MEDS: INSULIN LANTUS (GLARGINE) 1 /0.01ml (100units/ml) SC SCH ×2 (06:48→22:22)
[2021-10-30] MEDS: SEVELAMER 800 MG TAB PO SCH ×3 (08:15→18:23)
[2021-10-30] MEDS: cefTRIAXone 1GM/50ML D5W 50 ML IV SCH (08:24)
[2021-10-30 09:00] VITALS: BP 114/76
[2021-10-30] MEDS: CARVEDILOL 3.125 MG TAB PO SCH ×2 (10:00→22:15)
[2021-10-30] MEDS: AMIODARONE HCL 200 MG TAB PO SCH (10:00)
[2021-10-30] MEDS: HEPARIN SODIUM (PORCINE) 5000 UNITS/ML 1ML VIAL SC SCH ×2 (10:01→22:16)
[2021-10-30] MEDS: B-COMPLEX W/ C & FOLIC ACID(NEPHROVITE TAB) PO SCH (10:01)
[2021-10-30 13:00] VITALS: BP 99/72
[2021-10-30] MEDS: D5W/SOD CHLO 0.9% 1,000 ML IV SCH (14:18)
[2021-10-30 17:00] VITALS: BP 105/67
[2021-10-30 22:00] VITALS: BP 110/56
[2021-10-31 05:00] VITALS: BP 106/73
[2021-10-31] MEDS: SODIUM CHLOR 0.9% PF (SALINE LOCK) 10ML VIAL/SYR IV SCH ×3 (06:00→22:11)
[2021-10-31] MEDS: ACCU-CHEK COMFORT CURVE STRIP VI SCH ×4 (06:30→22:11)
[2021-10-31] MEDS: InsuLIN REG 1unit/0.01ml Soln (100units/ml) SC SCH ×4 (06:30→22:00)
[2021-10-31] MEDS: INSULIN LANTUS (GLARGINE) 1 /0.01ml (100units/ml) SC SCH ×2 (06:35→22:13)
[2021-10-31] MEDS: SEVELAMER 800 MG TAB PO SCH ×4 (08:00→17:57)
[2021-10-31 08:13] LABS: Basophils # (auto) 0 10 ^3/uL (0-0.2); Eosinophils # (auto) 0.1 10 ^3/uL (0-0.8); Lymphocytes # (auto) 1.3 10 ^3/uL (0.4-5.4); Monocytes # (auto) 0.6 10 ^3/uL (0-1.3); Neutrophils # (auto) 7.1 10 ^3/uL (1.6-8.6); Nucleated Red Blood Cells % 0.1 %; White Blood Cell 9.1 10^3/uL (4.4-10.8)
[2021-10-31 08:16] LABS: Basophils % (auto) 0.3 % (0.0-2.0); Eosinophils % (auto) 1.1 % (0.0-7.0); Hematocrit 40.4 % (36.0-46.0); Lymphocytes % (auto) 14.6 % (10.0-50.0); Mean Corpuscular Hemoglobin 25.3 pg (28.0-32.0); Mean Corpuscular Volume 78.9 fL (80.0-100.0); Monocytes % (auto) 6.2 % (0.0-12.0); Neutrophils % (auto) 77.8 % (37.0-80.0); Red Blood Cells 5.12 10^6/uL (4.0-5.20); Red Cell Distribution Width 17.6 % (11.8-14.3)
[2021-10-31 08:28] LABS: Potassium 3.4 mmol/L (3.5-5.1)
[2021-10-31 08:35] LABS: Albumin 2.5 g/dL (3.4-5.0); Bilirubin, Total 0.8 mg/dL (0.2-1.0); Calcium 8.6 mg/dL (8.5-10.1); Magnesium 2.2 mg/dL (1.6-2.6); Total Protein 5.6 g/dL (6.4-8.2)
[2021-10-31] MEDS: cefTRIAXone 1GM/50ML D5W 50 ML IV SCH (09:36)
[2021-10-31] MEDS: FAMOTIDINE (10MG/ML) 2ML VL IV SCH (09:36)
[2021-10-31] MEDS: B-COMPLEX W/ C & FOLIC ACID(NEPHROVITE TAB) PO SCH (09:40)
[2021-10-31] MEDS: AMIODARONE HCL 200 MG TAB PO SCH (09:40)
[2021-10-31] MEDS: CARVEDILOL 3.125 MG TAB PO SCH ×2 (09:40→22:30)
[2021-10-31] MEDS: HEPARIN SODIUM (PORCINE) 5000 UNITS/ML 1ML VIAL SC SCH ×2 (09:43→22:29)
[2021-10-31] MEDS ORDERED: FLUCONAZOLE 100 MG TAB PO ONE (10:45)
[2021-10-31 13:00] VITALS: BP 120/64
[2021-10-31 17:00] VITALS: BP 134/85
[2021-10-31] MEDS ORDERED: LEVE100012 PO (18:39)
[2021-10-31] MEDS ORDERED: ROSU1TAB13 PO (18:39)
[2021-10-31] MEDS ORDERED: TORS20TA20 PO (18:39)
[2021-10-31 20:00] VITALS: BP 110/80
[2021-10-31 22:00] VITALS: BP 110/80
[2021-11-01 00:30] VITALS: BP 110/80
[2021-11-01 05:00] VITALS: BP 112/79
[2021-11-01 05:07] LABS: Basophils # (auto) 0 10 ^3/uL (0-0.2); Basophils % (auto) 0.5 % (0.0-2.0); Eosinophils # (auto) 0.1 10 ^3/uL (0-0.8); Eosinophils % (auto) 1.6 % (0.0-7.0); Hematocrit 39.5 % (36.0-46.0); Hemoglobin 12.7 g/dL (12.2-16.2); Lymphocytes # (auto) 1.4 10 ^3/uL (0.4-5.4); Lymphocytes % (auto) 19.1 % (10.0-50.0); Mean Corpuscular Hemoglobin 25.3 pg (28.0-32.0); Mean Corpuscular Hgb Conc. 32.1 g/dL (32.0-36.0); Mean Corpuscular Volume 78.8 fL (80.0-100.0); Monocytes # (auto) 0.5 10 ^3/uL (0-1.3); Neutrophils # (auto) 5.3 10 ^3/uL (1.6-8.6); Neutrophils % (auto) 71.8 % (37.0-80.0); Nucleated Red Blood Cells % 0.1 %; Red Blood Cells 5.01 10^6/uL (4.0-5.20); Red Cell Distribution Width 18.1 % (11.8-14.3); White Blood Cell 7.4 10^3/uL (4.4-10.8)
[2021-11-01 05:28] LABS: BUN/Creatinine Ratio 20.3; Calcium 8.3 mg/dL (8.5-10.1); Magnesium 2.2 mg/dL (1.6-2.6); Potassium 3.5 mmol/L (3.5-5.1)
[2021-11-01] MEDS: SODIUM CHLOR 0.9% PF (SALINE LOCK) 10ML VIAL/SYR IV SCH (06:00)
[2021-11-01] MEDS: InsuLIN REG 1unit/0.01ml Soln (100units/ml) SC SCH ×2 (06:32→11:26)
[2021-11-01] MEDS: ACCU-CHEK COMFORT CURVE STRIP VI SCH ×2 (06:32→11:29)
[2021-11-01] MEDS: INSULIN LANTUS (GLARGINE) 1 /0.01ml (100units/ml) SC SCH (06:41)
[2021-11-01] MEDS ORDERED: AMIO200T4 PO (07:47)
[2021-11-01] MEDS ORDERED: EMPA1TAB3 PO (07:47)
[2021-11-01] MEDS ORDERED: FLUC100T34 PO (07:47)
[2021-11-01] MEDS ORDERED: ERGO1CAP23 PO (07:47)
[2021-11-01] MEDS ORDERED: SEVE800T PO (07:47)
[2021-11-01] MEDS ORDERED: APIX5TAB PO (07:47)
[2021-11-01] MEDS ORDERED: CEPH-509 PO (07:54)
[2021-11-01] MEDS: B-COMPLEX W/ C & FOLIC ACID(NEPHROVITE TAB) PO SCH (08:11)
[2021-11-01] MEDS: cefTRIAXone 1GM/50ML D5W 50 ML IV SCH (08:11)
[2021-11-01] MEDS: SEVELAMER 800 MG TAB PO SCH (08:12)
[2021-11-01] MEDS: AMIODARONE HCL 200 MG TAB PO SCH (08:13)
[2021-11-01] MEDS: CARVEDILOL 3.125 MG TAB PO SCH (08:23)
[2021-11-01 08:24] LABS: Cholesterol 193 mg/dL (< 200); HDL Cholesterol 35 mg/dL (40-59); LDL Cholesterol 149 mg/dL (< 100); Triglycerides 183 mg/dL (< 150)
[2021-11-01 09:41] VITALS: BP 114/56
[2021-11-01] MEDS ORDERED: FLUCONAZOLE 100 MG TAB PO SCH (10:00)
== END 2021-11-01 12:35 | disposition home health service (06) | DRG 871 ==
LOC: EDBD 14:15 → ER 14:15 → TELE 22:13 → TELE-CENTR 10-28 13:31
PROVIDERS: ADMIT Nurse Practitioner Family; ATTEND Internal Medicine
PROC: 5A09357 Assistance with Respiratory Ventilation, Less than 24 Consecutive Hours, Continuous Positive Airway Pressure (ICD-10-PCS; principal; 2021-10-29)
PROC: 5A09357 Assistance with Respiratory Ventilation, Less than 24 Consecutive Hours, Continuous Positive Airway Pressure (ICD-10-PCS; 2021-10-31)
DX: A41.9 Sepsis, unspecified organism (principal); I50.33 Acute on chronic diastolic (congestive) heart failure; N17.0 Acute kidney failure with tubular necrosis; N18.6 End stage renal disease; J96.90 Respiratory failure, unspecified, unspecified whether with hypoxia or hypercapnia; E44.0 Moderate protein-calorie malnutrition; E87.1 Hypo-osmolality and hyponatremia; I13.2 Hypertensive heart and chronic kidney disease with heart failure and with stage 5 chronic kidney disease, or end stage renal disease; N30.00 Acute cystitis without hematuria; D68.59 Other primary thrombophilia; E11.22 Type 2 diabetes mellitus with diabetic chronic kidney disease; E11.65 Type 2 diabetes mellitus with hyperglycemia; E55.9 Vitamin D deficiency, unspecified; E11.40 Type 2 diabetes mellitus with diabetic neuropathy, unspecified; E87.6 Hypokalemia; L89.159 Pressure ulcer of sacral region, unspecified stage; E78.5 Hyperlipidemia, unspecified; E87.5 Hyperkalemia; I48.91 Unspecified atrial fibrillation; R74.8 Abnormal levels of other serum enzymes; D69.6 Thrombocytopenia, unspecified; J44.9 Chronic obstructive pulmonary disease, unspecified; E66.01 Morbid (severe) obesity due to excess calories; Z68.36 Body mass index [BMI] 36.0-36.9, adult; Z86.16 Personal history of COVID-19; Z87.01 Personal history of pneumonia (recurrent); Z80.9 Family history of malignant neoplasm, unspecified; Z82.0 Family history of epilepsy and other diseases of the nervous system; Z82.3 Family history of stroke; Z83.3 Family history of diabetes mellitus; Z90.49 Acquired absence of other specified parts of digestive tract; Z90.710 Acquired absence of both cervix and uterus; Z99.2 Dependence on renal dialysis; Z87.891 Personal history of nicotine dependence; Z91.14 Patient's other noncompliance with medication regimen; Z79.4 Long term (current) use of insulin
CPT/HCPCS: 36415; 36600; 70450; 71045; 74176; 80048; 80053; 80061; 81001; 82570; 82805; 82962; 83036; 83605; 83735; 83880; 83930; 83935; 84100; 84132; 84156; 84300; 84484; 85025; 85610; 85730; 87040; 87081; 87086; 93005; 94640; 94660; 96365; 96366; 96367; 96368; 96375; 96376; 97110; 97116; 97163; 97530; 99291; G0378; J0696; J1815; J3490; J7042; J7060; P9047

== ENCOUNTER 2021-11-03 18:41 | Emergency (ER) | payer MEDICARE, OTHER ==
[~2021-11-03] VITALS: Ht 162.6 cm; Wt 80.0 kg
[~2021-11-03 18:41] MED LIST changes: -ACET-1156 PO; +AMIO200T4 PO; +APIX5TAB PO; -ASCO10003 PO; +CEPH-509 PO; -CHOL1CAP47 PO; -DEX4T PO; -DIPH25CA29 PO; +EMPA1TAB3 PO; +ERGO1CAP23 PO; +FLUC100T34 PO; -FURO40TA4 PO; -INS7030I SC; +LEVE100012 PO; +ROSU1TAB13 PO; +SEVE800T PO; +TORS20TA20 PO; -ZINC220T6 PO
[2021-11-03 20:08] LABS: Basophils # (auto) 0 10 ^3/uL (0-0.2); Basophils % (auto) 0.5 % (0.0-2.0); Eosinophils # (auto) 0.1 10 ^3/uL (0-0.8); Eosinophils % (auto) 1.1 % (0.0-7.0); Hematocrit 42.4 % (36.0-46.0); Hemoglobin 13.2 g/dL (12.2-16.2); Lymphocytes # (auto) 1.3 10 ^3/uL (0.4-5.4); Lymphocytes % (auto) 13.9 % (10.0-50.0); Mean Corpuscular Hgb Conc. 31.1 g/dL (32.0-36.0); Mean Corpuscular Volume 80.4 fL (80.0-100.0); Monocytes # (auto) 0.9 10 ^3/uL (0-1.3); Monocytes % (auto) 9.5 % (0.0-12.0); Neutrophils # (auto) 7.2 10 ^3/uL (1.6-8.6); Red Blood Cells 5.27 10^6/uL (4.0-5.20); Red Cell Distribution Width 17.9 % (11.8-14.3); White Blood Cell 9.6 10^3/uL (4.4-10.8)
[2021-11-03 20:24] LABS: Alanine Aminotransferase 107 U/L (13-56); Albumin 2.8 g/dL (3.4-5.0); Anion Gap 9 (5-15); Aspartate Aminotransferase 72 U/L (15-37); BUN/Creatinine Ratio 15.6; Blood Alcohol < 3.0 mg/dL (0-5); Blood Urea Nitrogen 22 mg/dL (7-18); Calcium 8.4 mg/dL (8.5-10.1); Carbon Dioxide 29 mmol/L (21-32); Chloride 102 mmol/L (98-107); GFR African American 48 mL/min; GFR Non-African American 39 mL/min; Glucose 143 mg/dL (74-106); Magnesium 1.9 mg/dL (1.6-2.6); Potassium 4.2 mmol/L (3.5-5.1); Sodium 140 mmol/L (136-145)
[2021-11-03 20:28] LABS: Alkaline Phosphatase 334 U/L (45-117); Bilirubin, Total 0.6 mg/dL (0.2-1.0); Total Protein 5.9 g/dL (6.4-8.2)
[2021-11-03 23:04] LABS: Urine Bacteria FEW /hpf (None Seen); Urine Blood 1+ /uL (Negative); Urine Budding Yeast MANY /hpf (None Seen); Urine Specific Gravity 1.011 (1.001-1.035); Urine WBC 89 /hpf (0 - 5); Urine WBC Clumps PRESENT /hpf (None Seen)
[2021-11-03 23:17] LABS: Amphetamine Screen, Urine NEGATIVE (NEGATIVE); Barbiturate Scree,Urine NEGATIVE (NEGATIVE); Benzodiazephine Screen, Urine NEGATIVE (NEGATIVE); Cannabinoid Screen, Urine NEGATIVE (NEGATIVE); Cocaine Screen, Urine NEGATIVE (NEGATIVE); Opiate Scree,Urine NEGATIVE (NEGATIVE); Phencyclidine Screen, Urine NEGATIVE (NEGATIVE)
[2021-11-03 23:25] VITALS: BP 109/51
== END 2021-11-04 00:15 | disposition home or self-care (01) ==
LOC: ER 18:41 → EDBD 18:41 → ER 11-04
DX: U07.1 COVID-19 (principal); R55 Syncope and collapse; E86.0 Dehydration; I11.0 Hypertensive heart disease with heart failure; I50.9 Heart failure, unspecified; E78.5 Hyperlipidemia, unspecified; J44.9 Chronic obstructive pulmonary disease, unspecified; E11.9 Type 2 diabetes mellitus without complications; Z90.49 Acquired absence of other specified parts of digestive tract; Z90.710 Acquired absence of both cervix and uterus; Z87.891 Personal history of nicotine dependence; Z79.4 Long term (current) use of insulin; Z79.899 Other long term (current) drug therapy
CPT/HCPCS: 36415; 70450; 71045; 80053; 80307; 80320; 81001; 83735; 83880; 84484; 85025; 93005

== ENCOUNTER → 2021-11-14 | Outpatient (CLI) | payer MEDICARE, OTHER ==
[2021-11-14 15:49] LABS: Hematocrit 39.4 % (36.0-46.0); Red Blood Cells 4.86 10^6/uL (4.0-5.20)
[2021-11-14 15:51] LABS: Hemoglobin 12.1 g/dL (12.2-16.2); Mean Corpuscular Hgb Conc. 30.8 g/dL (32.0-36.0); Mean Corpuscular Volume 81.1 fL (80.0-100.0); Red Cell Distribution Width 18.8 % (11.8-14.3)
[2021-11-14 16:03] LABS: BUN/Creatinine Ratio 18.7; Calcium 8.9 mg/dL (8.5-10.1); Potassium 5.2 mmol/L (3.5-5.1)
[2021-11-14 16:21] LABS: Basophils % (manual) 0 (0.0-2.0); Blast Cells 0; Metamyelocytes % 0; Myelocytes % 0; Promyelocytes % 0; Reactive Lymphocytes 0
[2021-11-14 17:14] LABS: Band Neutrophils % (manual) 31; Eosinophils % (manual) 1 (0-7); Lymphocytes % (manual) 27 (10.0-50.0); Monocytes % (manual) 9 (0-12)
[2021-11-15 12:54] LABS: Urine Blood 3+ /uL (Negative)
[2021-11-15 14:09] LABS: Urine Specific Gravity 1.001 (1.001-1.035)
== END | disposition home or self-care (01) ==
LOC: Rad HDHVI 13:30
PROVIDERS: ATTEND Internal Medicine Cardiovascular Disease
DX: D64.9 Anemia, unspecified (principal); I10 Essential (primary) hypertension; R06.02 Shortness of breath
CPT/HCPCS: 36415; 71046; 80048; 81003; 85007; 85027; 87086

== ENCOUNTER 2021-11-19 03:39 | Inpatient (IN) | payer MEDICARE, OTHER ==
[~2021-11-19] VITALS: Ht 180.3 cm; Wt 94.2 kg
[2021-11-19 05:59] LABS: Hemoglobin 10.6 g/dL (12.2-16.2); Mean Corpuscular Hgb Conc. 31.1 g/dL (32.0-36.0); Mean Corpuscular Volume 80.4 fL (80.0-100.0); Red Blood Cells 4.23 10^6/uL (4.0-5.20); Red Cell Distribution Width 18.7 % (11.8-14.3); White Blood Cell 21.2 10^3/uL (4.4-10.8)
[2021-11-19 06:35] LABS: Blast Cells 0; Eosinophils % (manual) 0 (0-7); Metamyelocytes % 0; Myelocytes % 0; Promyelocytes % 0; Reactive Lymphocytes 0
[2021-11-19] MEDS ORDERED: SODIUM CHLORIDE 0.9% 1,000 ML IV ONE (07:15)
[2021-11-19 07:34] LABS: Anion Gap 7 (5-15); Carbon Dioxide 20 mmol/L (21-32); Chloride 102 mmol/L (98-107); Glucose 177 mg/dL (74-106); Sodium 129 mmol/L (136-145)
[2021-11-19 07:36] LABS: Alanine Aminotransferase 23 U/L (13-56); Alkaline Phosphatase 319 U/L (45-117); Aspartate Aminotransferase 23 U/L (15-37); BUN/Creatinine Ratio 16.8; Bilirubin, Total 0.5 mg/dL (0.2-1.0); Blood Urea Nitrogen 32 mg/dL (7-18); Calcium 8.1 mg/dL (8.5-10.1); GFR African American 34 mL/min; GFR Non-African American 28 mL/min; Total Protein 6.5 g/dL (6.4-8.2)
[2021-11-19 07:37] LABS: Albumin 1.8 g/dL (3.4-5.0)
[2021-11-19 07:38] LABS: Potassium 6.9 mmol/L (3.5-5.1)
[2021-11-19 07:58] LABS: Band Neutrophils % (manual) 11; Basophils % (manual) 1 (0.0-2.0); Lymphocytes % (manual) 21 (10.0-50.0); Monocytes % (manual) 5 (0-12)
[2021-11-19 08:01] LABS: Urine Bacteria MANY /hpf (None Seen); Urine Blood 3+ /uL (Negative); Urine Budding Yeast FEW /hpf (None Seen); Urine Mucus FEW (None Seen); Urine Specific Gravity 1.015 (1.001-1.035); Urine WBC 1064 /hpf (0 - 5); Urine WBC Clumps PRESENT /hpf (None Seen)
[2021-11-19] MEDS ORDERED: cefTRIAXone 1GM/50ML D5W 50 ML IV ONE (08:45)
[2021-11-19] MEDS ORDERED: CALCIUM CHL 100MG/ML 1,000 MG in D5W 5% 100 ML IV ONE (08:45)
[2021-11-19] MEDS ORDERED: InsuLIN REG 1unit/0.01ml Soln (100units/ml) IV ONE (08:45)
[2021-11-19] MEDS: SODIUM BICARBONATE 8.4 % INJ 50ML VIAL IV ONE ×2 (09:15→09:51)
[2021-11-19] MEDS: FUROSEMIDE 40 MG/4 ML VIAL IV ONE ×2 (09:16→10:07)
[2021-11-19] MEDS ORDERED: D5W 5% 250 ML IV ONE (09:30)
[2021-11-19] MEDS ORDERED: DEXTROSE (50%) 50ML SYRG IV PRN (10:30)
[2021-11-19] MEDS ORDERED: MORPHINE SULFATE INJ 2 MG/ml SYRG IV PRN (10:30)
[2021-11-19] MEDS ORDERED: NITROGLYCERIN 0.4 MG SL TAB SL PRN (10:30)
[2021-11-19 10:45] VITALS: BP 109/51
[2021-11-19] MEDS: ACCU-CHEK COMFORT CURVE STRIP VI SCH ×3 (11:34→23:13)
[2021-11-19] MEDS: SEVELAMER 800 MG TAB PO SCH ×2 (11:43→17:44)
[2021-11-19] MEDS: InsuLIN REG 1unit/0.01ml Soln (100units/ml) SC SCH ×3 (11:44→23:15)
[2021-11-19] MEDS: levETIRAcetam 500 MG TAB PO SCH ×2 (12:31→23:13)
[2021-11-19] MEDS: GABAPENTIN 400 MG CAP PO SCH ×2 (12:51→23:13)
[2021-11-19] MEDS ORDERED: GABAPENTIN 300 MG CAP PO SCH (14:00)
[2021-11-19] MEDS ORDERED: IPRATROPIUM BROM 0.5 MG/2.5ML INH SOL NEB SCH (14:00)
[2021-11-19 15:25] VITALS: BP 115/33
[2021-11-19] MEDS: methylPREDNISolone SOD SUCC 40 MG/ML VL IV SCH ×2 (16:04→23:12)
[2021-11-19 16:49] VITALS: BP 115/33
[2021-11-19 17:00] VITALS: BP 110/36
[2021-11-19 19:04] LABS: BUN/Creatinine Ratio 17.1
[2021-11-19 19:05] LABS: Albumin 1.6 g/dL (3.4-5.0); Bilirubin, Total 0.4 mg/dL (0.2-1.0); Calcium 8.5 mg/dL (8.5-10.1); Total Protein 5.8 g/dL (6.4-8.2)
[2021-11-19 19:08] LABS: Potassium 5.6 mmol/L (3.5-5.1)
[2021-11-19] MEDS: SODIUM ZIRCONIUM CYCL 10 GM PAK PO SCH (20:53)
[2021-11-19 22:00] VITALS: BP 92/49
[2021-11-19] MEDS ORDERED: SODIUM ZIRCONIUM CYCL 10 GM PAK PO PRN (22:00)
[2021-11-19] MEDS ORDERED: METOPROLOL SUCCINATE XL 50 MG TAB PO SCH (22:00)
[2021-11-19 23:00] VITALS: BP 101/49
[2021-11-19] MEDS: AMIODARONE HCL 200 MG TAB PO SCH (23:13)
[2021-11-20 05:00] VITALS: BP 91/48
[2021-11-20] MEDS: methylPREDNISolone SOD SUCC 40 MG/ML VL IV SCH ×3 (05:56→21:15)
[2021-11-20] MEDS: ACCU-CHEK COMFORT CURVE STRIP VI SCH ×5 (05:56→21:16)
[2021-11-20] MEDS ORDERED: IPRATROPIUM BROM 0.5 MG/2.5ML INH SOL NEB PRN (06:00)
[2021-11-20] MEDS: InsuLIN REG 1unit/0.01ml Soln (100units/ml) SC SCH ×5 (06:03→21:55)
[2021-11-20 08:29] VITALS: BP 96/50
[2021-11-20 09:18] LABS: White Blood Cell 23.2 10^3/uL (4.4-10.8)
[2021-11-20 09:20] LABS: Hematocrit 29.1 % (36.0-46.0); Hemoglobin 9.2 g/dL (12.2-16.2); Mean Corpuscular Hgb Conc. 31.4 g/dL (32.0-36.0); Mean Corpuscular Volume 79.6 fL (80.0-100.0); Red Blood Cells 3.66 10^6/uL (4.0-5.20); Red Cell Distribution Width 18.5 % (11.8-14.3)
[2021-11-20] MEDS: levETIRAcetam 500 MG TAB PO SCH ×2 (09:22→21:16)
[2021-11-20] MEDS: GABAPENTIN 400 MG CAP PO SCH ×2 (09:23→21:16)
[2021-11-20] MEDS: PANTOPRAZOLE 40 MG TAB PO SCH (09:24)
[2021-11-20 09:28] LABS: Basophils % (manual) 0 (0.0-2.0); Blast Cells 0; Eosinophils % (manual) 0 (0-7); Myelocytes % 0; Promyelocytes % 0; Reactive Lymphocytes 0
[2021-11-20] MEDS: SODIUM ZIRCONIUM CYCL 10 GM PAK PO SCH (09:28)
[2021-11-20] MEDS: AMIODARONE HCL 200 MG TAB PO SCH ×2 (09:29→21:16)
[2021-11-20] MEDS: METOPROLOL SUCCINATE XL 50 MG TAB PO SCH (09:30)
[2021-11-20] MEDS: SODIUM CHLORIDE 0.9% 1,000 ML IV SCH ×2 (09:32→21:15)
[2021-11-20 09:40] LABS: Albumin 1.6 g/dL (3.4-5.0); Calcium 8.7 mg/dL (8.5-10.1); Potassium 5.1 mmol/L (3.5-5.1)
[2021-11-20 09:44] LABS: BUN/Creatinine Ratio 23.1; Bilirubin, Total 0.3 mg/dL (0.2-1.0); Total Protein 6.1 g/dL (6.4-8.2)
[2021-11-20] MEDS: INSULIN LANTUS (GLARGINE) 1 /0.01ml (100units/ml) SC SCH (09:44)
[2021-11-20 10:00] LABS: Band Neutrophils % (manual) 15; Lymphocytes % (manual) 11 (10.0-50.0); Metamyelocytes % 2; Monocytes % (manual) 4 (0-12)
[2021-11-20] MEDS ORDERED: TORSEMIDE 20 MG TAB PO SCH (10:00)
[2021-11-20] MEDS ORDERED: levETIRAcetam 500 MG TAB PO SCH (10:00)
[2021-11-20] MEDS ORDERED: cefTRIAXone 1GM/50ML D5W 50 ML IV SCH (10:00)
[2021-11-20] MEDS ORDERED: FLUCONAZOLE 100 MG TAB PO SCH (10:00)
[2021-11-20] MEDS ORDERED: SODIUM ZIRCONIUM CYCL 10 GM PAK PO ONE (10:30)
[2021-11-20] MEDS ORDERED: EPOETIN ALFA-EPBX 10,000 UNIT/1ML VIAL SC ONE (10:45)
[2021-11-20] MEDS: PIPERACILLIN-TAZOB 3.375GM 100 ML IV SCH ×2 (12:18→17:47)
[2021-11-20 12:42] VITALS: BP 101/46
[2021-11-20] MEDS ORDERED: PIPERACILLIN-TAZO 4.5GM 100 ML IV SCH (14:00)
[2021-11-20 17:00] VITALS: BP 122/51
[2021-11-20 22:00] VITALS: BP 106/42
[2021-11-21] MEDS ORDERED: InsuLIN REG 1unit/0.01ml Soln (100units/ml) SC ONE (00:15)
[2021-11-21] MEDS: PIPERACILLIN-TAZOB 3.375GM 100 ML IV SCH ×4 (00:32→17:48)
[2021-11-21 05:00] VITALS: BP 123/54
[2021-11-21 05:38] LABS: Hematocrit 26.5 % (36.0-46.0); Hemoglobin 8.3 g/dL (12.2-16.2); Mean Corpuscular Hemoglobin 24.7 pg (28.0-32.0); Mean Corpuscular Hgb Conc. 31.2 g/dL (32.0-36.0); Mean Corpuscular Volume 79.2 fL (80.0-100.0); Red Blood Cells 3.35 10^6/uL (4.0-5.20); Red Cell Distribution Width 18.1 % (11.8-14.3)
[2021-11-21 05:51] LABS: Albumin 1.6 g/dL (3.4-5.0); BUN/Creatinine Ratio 24.7; Calcium 8.8 mg/dL (8.5-10.1); Potassium 4.1 mmol/L (3.5-5.1)
[2021-11-21 05:55] LABS: Bilirubin, Total 0.2 mg/dL (0.2-1.0); Total Protein 5.9 g/dL (6.4-8.2)
[2021-11-21 05:59] LABS: Basophils % (manual) 0 (0.0-2.0); Blast Cells 0; Eosinophils % (manual) 0 (0-7); Promyelocytes % 0; Reactive Lymphocytes 0
[2021-11-21] MEDS: InsuLIN REG 1unit/0.01ml Soln (100units/ml) SC SCH ×4 (06:08→22:00)
[2021-11-21] MEDS: ACCU-CHEK COMFORT CURVE STRIP VI SCH ×4 (06:11→22:00)
[2021-11-21 08:17] LABS: Band Neutrophils % (manual) 10; Lymphocytes % (manual) 10 (10.0-50.0); Metamyelocytes % 2; Monocytes % (manual) 2 (0-12); Myelocytes % 1
[2021-11-21 08:26] VITALS: BP 99/48
[2021-11-21] MEDS: METOPROLOL SUCCINATE XL 50 MG TAB PO SCH (10:00)
[2021-11-21] MEDS: methylPREDNISolone SOD SUCC 40 MG/ML VL IV SCH ×2 (10:20→21:19)
[2021-11-21] MEDS: AMIODARONE HCL 200 MG TAB PO SCH ×2 (10:20→21:20)
[2021-11-21] MEDS: levETIRAcetam 500 MG TAB PO SCH ×2 (10:21→21:20)
[2021-11-21] MEDS: GABAPENTIN 400 MG CAP PO SCH ×2 (10:21→21:20)
[2021-11-21] MEDS: PANTOPRAZOLE 40 MG TAB PO SCH (10:21)
[2021-11-21] MEDS: INSULIN LANTUS (GLARGINE) 1 /0.01ml (100units/ml) SC SCH (10:22)
[2021-11-21] MEDS: SODIUM CHLORIDE 0.9% 1,000 ML IV SCH (12:21)
[2021-11-21 12:38] VITALS: BP 113/55
[2021-11-21 16:27] VITALS: BP 100/46
[2021-11-21] MEDS ORDERED: VANCOMYCIN PER PHARMACY 0 MG IV SCH (19:15)
[2021-11-21] MEDS: VANCOMYCIN 1GM/250ML 250 ML IV SCH (20:12)
[2021-11-21 22:00] VITALS: BP 107/51
[2021-11-22] MEDS ORDERED: InsuLIN REG 1unit/0.01ml Soln (100units/ml) SC ONE
[2021-11-22] MEDS: SODIUM CHLORIDE 0.9% 1,000 ML IV SCH ×2 (00:19→13:46)
[2021-11-22] MEDS: PIPERACILLIN-TAZOB 3.375GM 100 ML IV SCH ×3 (01:41→16:47)
[2021-11-22 05:00] VITALS: BP 106/44
[2021-11-22] MEDS: InsuLIN REG 1unit/0.01ml Soln (100units/ml) SC SCH ×4 (06:25→21:50)
[2021-11-22 06:26] VITALS: BP 106/64
[2021-11-22] MEDS: ACCU-CHEK COMFORT CURVE STRIP VI SCH ×4 (06:26→21:41)
[2021-11-22 07:22] LABS: Hemoglobin 7.9 g/dL (12.2-16.2)
[2021-11-22 07:26] LABS: Hematocrit 25.7 % (36.0-46.0); Mean Corpuscular Hgb Conc. 30.6 g/dL (32.0-36.0); Mean Corpuscular Volume 81.7 fL (80.0-100.0); Red Blood Cells 3.15 10^6/uL (4.0-5.20); Red Cell Distribution Width 18.1 % (11.8-14.3); White Blood Cell 25.2 10^3/uL (4.4-10.8)
[2021-11-22 07:38] LABS: Basophils % (manual) 0 (0.0-2.0); Blast Cells 0; Eosinophils % (manual) 0 (0-7); Promyelocytes % 0; Reactive Lymphocytes 0
[2021-11-22 07:40] LABS: Albumin 1.5 g/dL (3.4-5.0); Calcium 8.2 mg/dL (8.5-10.1)
[2021-11-22 07:43] LABS: BUN/Creatinine Ratio 28.4; Bilirubin, Total 0.2 mg/dL (0.2-1.0); Total Protein 5.4 g/dL (6.4-8.2)
[2021-11-22 07:51] LABS: Band Neutrophils % (manual) 20; Lymphocytes % (manual) 23 (10.0-50.0); Metamyelocytes % 1; Monocytes % (manual) 2 (0-12); Myelocytes % 2
[2021-11-22 09:00] VITALS: BP 110/61
[2021-11-22] MEDS: METOPROLOL SUCCINATE XL 50 MG TAB PO SCH (09:38)
[2021-11-22] MEDS: AMIODARONE HCL 200 MG TAB PO SCH ×2 (09:38→21:40)
[2021-11-22] MEDS: GABAPENTIN 400 MG CAP PO SCH ×2 (09:39→21:40)
[2021-11-22] MEDS: methylPREDNISolone SOD SUCC 40 MG/ML VL IV SCH ×2 (09:39→21:39)
[2021-11-22] MEDS: levETIRAcetam 500 MG TAB PO SCH ×2 (09:39→21:40)
[2021-11-22] MEDS: PANTOPRAZOLE 40 MG TAB PO SCH (09:39)
[2021-11-22] MEDS: INSULIN LANTUS (GLARGINE) 1 /0.01ml (100units/ml) SC SCH (09:47)
[2021-11-22 13:00] VITALS: BP 106/48
[2021-11-22] MEDS: VANCOMYCIN 1GM/250ML 250 ML IV SCH (13:46)
[2021-11-22 17:19] VITALS: BP 94/51
[2021-11-22 22:00] VITALS: BP 101/50
[2021-11-23] MEDS: PIPERACILLIN-TAZOB 3.375GM 100 ML IV SCH ×3 (02:15→14:25)
[2021-11-23] MEDS: SODIUM CHLORIDE 0.9% 1,000 ML IV SCH ×2 (02:40→16:18)
[2021-11-23 05:00] VITALS: BP 106/35
[2021-11-23] MEDS: GABAPENTIN 400 MG CAP PO SCH ×3 (06:00→22:12)
[2021-11-23] MEDS: ACCU-CHEK COMFORT CURVE STRIP VI SCH ×4 (06:00→22:13)
[2021-11-23] MEDS: InsuLIN REG 1unit/0.01ml Soln (100units/ml) SC SCH ×4 (06:10→22:14)
[2021-11-23] MEDS: VANCOMYCIN 1GM/250ML 250 ML IV SCH ×2 (06:54→22:13)
[2021-11-23 09:29] VITALS: BP 106/54
[2021-11-23] MEDS: methylPREDNISolone SOD SUCC 40 MG/ML VL IV SCH ×2 (09:43→22:13)
[2021-11-23] MEDS: AMIODARONE HCL 200 MG TAB PO SCH ×2 (09:44→22:12)
[2021-11-23] MEDS: METOPROLOL SUCCINATE XL 50 MG TAB PO SCH (09:44)
[2021-11-23] MEDS: levETIRAcetam 500 MG TAB PO SCH ×2 (09:45→22:12)
[2021-11-23] MEDS: PANTOPRAZOLE 40 MG TAB PO SCH (09:45)
[2021-11-23] MEDS: INSULIN LANTUS (GLARGINE) 1 /0.01ml (100units/ml) SC SCH (09:46)
[2021-11-23 12:14] VITALS: BP 100/48
[2021-11-23 16:43] VITALS: BP 100/57
[2021-11-23 22:00] VITALS: BP 97/33
[2021-11-24] MEDS: PIPERACILLIN-TAZOB 3.375GM 100 ML IV SCH ×6 (00:37→23:34)
[2021-11-24 05:00] VITALS: BP 101/44
[2021-11-24] MEDS: SODIUM CHLORIDE 0.9% 1,000 ML IV SCH ×2 (05:20→18:36)
[2021-11-24] MEDS: GABAPENTIN 400 MG CAP PO SCH ×3 (05:34→21:18)
[2021-11-24] MEDS: ACCU-CHEK COMFORT CURVE STRIP VI SCH ×4 (06:37→21:29)
[2021-11-24] MEDS: InsuLIN REG 1unit/0.01ml Soln (100units/ml) SC SCH ×4 (06:38→21:33)
[2021-11-24 08:54] VITALS: BP 107/55
[2021-11-24] MEDS: AMIODARONE HCL 200 MG TAB PO SCH ×2 (10:00→21:19)
[2021-11-24] MEDS: METOPROLOL SUCCINATE XL 50 MG TAB PO SCH (10:00)
[2021-11-24] MEDS: levETIRAcetam 500 MG TAB PO SCH ×2 (10:00→21:19)
[2021-11-24] MEDS: VANCOMYCIN 1GM/250ML 250 ML IV SCH (10:28)
[2021-11-24] MEDS: PANTOPRAZOLE 40 MG TAB PO SCH (10:28)
[2021-11-24] MEDS: methylPREDNISolone SOD SUCC 40 MG/ML VL IV SCH ×2 (10:28→21:18)
[2021-11-24] MEDS: INSULIN LANTUS (GLARGINE) 1 /0.01ml (100units/ml) SC SCH (10:34)
[2021-11-24 10:44] VITALS: BP 94/43
[2021-11-24 13:00] VITALS: BP 112/50
[2021-11-24] MEDS ORDERED: LINEZOLID 600MG/300ML 300 ML IV ONE (13:15)
[2021-11-24 17:00] VITALS: BP 109/49
[2021-11-24] MEDS: Pro-Stat SF 30ml Vanilla PO SCH (18:00)
[2021-11-24] MEDS: LINEZOLID 600MG/300ML 300 ML IV SCH (21:18)
[2021-11-24 21:52] VITALS: BP 100/36
[2021-11-25] VITALS (7 sets, daily range): BP systolic 96–119; BP diastolic 36–61
[2021-11-25] MEDS: PIPERACILLIN-TAZOB 3.375GM 100 ML IV SCH ×4 (05:32→23:46)
[2021-11-25] MEDS: GABAPENTIN 400 MG CAP PO SCH ×3 (05:32→21:01)
[2021-11-25] MEDS: ACCU-CHEK COMFORT CURVE STRIP VI SCH ×4 (06:06→21:01)
[2021-11-25] MEDS: InsuLIN REG 1unit/0.01ml Soln (100units/ml) SC SCH ×4 (06:11→21:12)
[2021-11-25] MEDS: SODIUM CHLORIDE 0.9% 1,000 ML IV SCH ×2 (07:35→21:20)
[2021-11-25] MEDS: Pro-Stat SF 30ml Vanilla PO SCH ×2 (08:00→18:00)
[2021-11-25] MEDS: methylPREDNISolone SOD SUCC 40 MG/ML VL IV SCH (09:24)
[2021-11-25] MEDS: PANTOPRAZOLE 40 MG TAB PO SCH (09:24)
[2021-11-25] MEDS: LINEZOLID 600MG/300ML 300 ML IV SCH ×2 (09:24→21:01)
[2021-11-25] MEDS: METOPROLOL SUCCINATE XL 50 MG TAB PO SCH (09:24)
[2021-11-25] MEDS: INSULIN LANTUS (GLARGINE) 1 /0.01ml (100units/ml) SC SCH (09:25)
[2021-11-25] MEDS: levETIRAcetam 500 MG TAB PO SCH ×2 (09:25→21:01)
[2021-11-25] MEDS: AMIODARONE HCL 200 MG TAB PO SCH ×2 (09:25→21:00)
[2021-11-26 04:59] VITALS: BP 116/47
[2021-11-26] MEDS: ACCU-CHEK COMFORT CURVE STRIP VI SCH ×4 (05:27→21:54)
[2021-11-26] MEDS: PIPERACILLIN-TAZOB 3.375GM 100 ML IV SCH ×3 (05:28→19:01)
[2021-11-26] MEDS: GABAPENTIN 400 MG CAP PO SCH ×3 (05:28→21:54)
[2021-11-26] MEDS: InsuLIN REG 1unit/0.01ml Soln (100units/ml) SC SCH ×4 (05:29→22:01)
[2021-11-26 06:14] LABS: Potassium 4.8 mmol/L (3.5-5.1)
[2021-11-26 06:22] LABS: BUN/Creatinine Ratio 43.5; Calcium 7.9 mg/dL (8.5-10.1)
[2021-11-26 06:31] LABS: Basophils # (auto) 0.1 10 ^3/uL (0-0.2); Eosinophils # (auto) 0 10 ^3/uL (0-0.8); Eosinophils % (auto) 0.1 % (0.0-7.0); Hemoglobin 7.6 g/dL (12.2-16.2); Lymphocytes # (auto) 1.7 10 ^3/uL (0.4-5.4)
[2021-11-26 06:36] LABS: Basophils % (auto) 0.4 % (0.0-2.0); Hematocrit 24.6 % (36.0-46.0); Lymphocytes % (auto) 6.3 % (10.0-50.0); Mean Corpuscular Hemoglobin 24.9 pg (28.0-32.0); Mean Corpuscular Volume 80.4 fL (80.0-100.0); Monocytes # (auto) 0.8 10 ^3/uL (0-1.3); Monocytes % (auto) 2.8 % (0.0-12.0); Neutrophils # (auto) 24.1 10 ^3/uL (1.6-8.6); Neutrophils % (auto) 90.4 % (37.0-80.0); Red Blood Cells 3.06 10^6/uL (4.0-5.20); Red Cell Distribution Width 18.2 % (11.8-14.3); White Blood Cell 26.6 10^3/uL (4.4-10.8)
[2021-11-26] MEDS: Pro-Stat SF 30ml Vanilla PO SCH ×2 (08:29→18:00)
[2021-11-26 09:00] VITALS: BP 107/53
[2021-11-26] MEDS: levETIRAcetam 500 MG TAB PO SCH ×2 (10:00→21:54)
[2021-11-26] MEDS: AMIODARONE HCL 200 MG TAB PO SCH ×2 (10:00→21:54)
[2021-11-26] MEDS: METOPROLOL SUCCINATE XL 50 MG TAB PO SCH (10:00)
[2021-11-26] MEDS: SODIUM CHLORIDE 0.9% 1,000 ML IV SCH (10:39)
[2021-11-26] MEDS: INSULIN LANTUS (GLARGINE) 1 /0.01ml (100units/ml) SC SCH (11:03)
[2021-11-26] MEDS: LINEZOLID 600MG/300ML 300 ML IV SCH ×2 (11:03→21:53)
[2021-11-26] MEDS: PANTOPRAZOLE 40 MG TAB PO SCH (11:03)
[2021-11-26 13:00] VITALS: BP 110/61
[2021-11-26 17:00] VITALS: BP 115/48
[2021-11-26 22:14] VITALS: BP 101/45
[2021-11-27] MEDS: PIPERACILLIN-TAZOB 3.375GM 100 ML IV SCH ×4 (03:24→19:00)
[2021-11-27 05:01] VITALS: BP 101/55
[2021-11-27] MEDS: GABAPENTIN 400 MG CAP PO SCH ×3 (05:31→21:50)
[2021-11-27] MEDS: ACCU-CHEK COMFORT CURVE STRIP VI SCH ×4 (05:37→21:50)
[2021-11-27] MEDS: InsuLIN REG 1unit/0.01ml Soln (100units/ml) SC SCH ×4 (05:44→21:56)
[2021-11-27] MEDS: Pro-Stat SF 30ml Vanilla PO SCH ×2 (08:00→19:00)
[2021-11-27] MEDS: LINEZOLID 600MG/300ML 300 ML IV SCH ×2 (09:09→21:58)
[2021-11-27] MEDS: AMIODARONE HCL 200 MG TAB PO SCH ×2 (09:09→21:49)
[2021-11-27] MEDS: levETIRAcetam 500 MG TAB PO SCH ×2 (09:10→21:49)
[2021-11-27] MEDS: METOPROLOL SUCCINATE XL 50 MG TAB PO SCH (09:10)
[2021-11-27] MEDS: INSULIN LANTUS (GLARGINE) 1 /0.01ml (100units/ml) SC SCH (09:11)
[2021-11-27] MEDS: PANTOPRAZOLE 40 MG TAB PO SCH (09:11)
[2021-11-27 12:30] VITALS: BP 125/59
[2021-11-27] MEDS: SODIUM CHLORIDE 0.9% 1,000 ML IV SCH ×2 (13:20)
[2021-11-27 17:00] VITALS: BP 132/74
[2021-11-27 22:28] VITALS: BP 105/45
[2021-11-28] MEDS: PIPERACILLIN-TAZOB 3.375GM 100 ML IV SCH ×4 (00:07→18:29)
[2021-11-28] MEDS: SODIUM CHLORIDE 0.9% 1,000 ML IV SCH ×2 (02:40→16:00)
[2021-11-28 05:06] VITALS: BP 110/48
[2021-11-28] MEDS: GABAPENTIN 400 MG CAP PO SCH ×3 (06:00→22:00)
[2021-11-28] MEDS: ACCU-CHEK COMFORT CURVE STRIP VI SCH ×4 (06:16→21:36)
[2021-11-28] MEDS: InsuLIN REG 1unit/0.01ml Soln (100units/ml) SC SCH ×4 (06:17→21:44)
[2021-11-28 07:17] LABS: % Iron Saturation 14.5 % (15-50)
[2021-11-28 07:53] LABS: BUN/Creatinine Ratio 20.4; Calcium 7.6 mg/dL (8.5-10.1); Phosphorus 3.3 mg/dL (2.5-4.90); Potassium 4.3 mmol/L (3.5-5.1)
[2021-11-28] MEDS: Pro-Stat SF 30ml Vanilla PO SCH ×2 (08:00→18:28)
[2021-11-28 09:00] VITALS: BP 115/48
[2021-11-28 09:26] VITALS: BP 111/51
[2021-11-28] MEDS: METOPROLOL SUCCINATE XL 50 MG TAB PO SCH (09:53)
[2021-11-28] MEDS: AMIODARONE HCL 200 MG TAB PO SCH ×2 (09:53→22:00)
[2021-11-28] MEDS: levETIRAcetam 500 MG TAB PO SCH ×2 (09:53→22:00)
[2021-11-28] MEDS: INSULIN LANTUS (GLARGINE) 1 /0.01ml (100units/ml) SC SCH (10:00)
[2021-11-28] MEDS: PANTOPRAZOLE 40 MG TAB PO SCH (10:41)
[2021-11-28] MEDS: LINEZOLID 600MG/300ML 300 ML IV SCH ×2 (10:42→21:34)
[2021-11-28 13:00] VITALS: BP 106/53
[2021-11-28] MEDS ORDERED: PATIENTS OWN MEDICATION (EPOGEN 10,000 UNITS) SC ONE ×2 (14:15→21:00)
[2021-11-28 17:00] VITALS: BP 104/49
[2021-11-28 17:29] LABS: Calcium 7.6 mg/dL (8.5-10.1); Eosinophils # (auto) 0.4 10 ^3/uL (0-0.8); Mean Corpuscular Volume 81.7 fL (80.0-100.0); Monocytes # (auto) 0.7 10 ^3/uL (0-1.3); Potassium 4.3 mmol/L (3.5-5.1)
[2021-11-28 17:31] LABS: BUN/Creatinine Ratio 14.8
[2021-11-28 17:32] LABS: Basophils # (auto) 0 10 ^3/uL (0-0.2); Basophils % (auto) 0.2 % (0.0-2.0); Eosinophils % (auto) 2.2 % (0.0-7.0); Hemoglobin 7.3 g/dL (12.2-16.2); Lymphocytes % (auto) 5.8 % (10.0-50.0); Mean Corpuscular Hemoglobin 25.8 pg (28.0-32.0); Mean Corpuscular Hgb Conc. 31.6 g/dL (32.0-36.0); Monocytes % (auto) 4.2 % (0.0-12.0); Neutrophils % (auto) 87.6 % (37.0-80.0); Nucleated Red Blood Cells % 0.1 %; Red Blood Cells 2.81 10^6/uL (4.0-5.20); Red Cell Distribution Width 18.9 % (11.8-14.3); White Blood Cell 17.1 10^3/uL (4.4-10.8)
[2021-11-28 23:17] VITALS: BP 100/27
[2021-11-29] MEDS: PIPERACILLIN-TAZOB 3.375GM 100 ML IV SCH ×4 (00:50→17:36)
[2021-11-29] MEDS: ACCU-CHEK COMFORT CURVE STRIP VI SCH ×4 (05:48→23:19)
[2021-11-29] MEDS: InsuLIN REG 1unit/0.01ml Soln (100units/ml) SC SCH ×4 (05:53→23:21)
[2021-11-29 05:59] VITALS: BP 95/51
[2021-11-29] MEDS: GABAPENTIN 400 MG CAP PO SCH ×3 (06:00→22:00)
[2021-11-29] MEDS: SODIUM CHLORIDE 0.9% 1,000 ML IV SCH ×2 (06:16→17:08)
[2021-11-29] MEDS: Pro-Stat SF 30ml Vanilla PO SCH ×2 (08:00→17:36)
[2021-11-29 09:00] VITALS: BP 106/51
[2021-11-29] MEDS: AMIODARONE HCL 200 MG TAB PO SCH ×2 (10:00→22:00)
[2021-11-29] MEDS: levETIRAcetam 500 MG TAB PO SCH ×2 (10:00→22:00)
[2021-11-29] MEDS: METOPROLOL SUCCINATE XL 50 MG TAB PO SCH (10:00)
[2021-11-29] MEDS: LINEZOLID 600MG/300ML 300 ML IV SCH ×2 (10:00→10:45)
[2021-11-29] MEDS: INSULIN LANTUS (GLARGINE) 1 /0.01ml (100units/ml) SC SCH (10:47)
[2021-11-29] MEDS: PANTOPRAZOLE 40 MG TAB PO SCH (10:47)
[2021-11-29] MEDS ORDERED: EPOETIN ALFA-EPBX 10,000 UNIT/1ML VIAL SC ONE (11:00)
[2021-11-29 12:59] LABS: Albumin 1.9 g/dL (3.4-5.0); BUN/Creatinine Ratio 14.5
[2021-11-29 13:00] VITALS: BP 118/57
[2021-11-29 13:02] LABS: Bilirubin, Total 0.4 mg/dL (0.2-1.0); Total Protein 5.5 g/dL (6.4-8.2)
[2021-11-29 17:00] VITALS: BP 106/46
[2021-11-29] MEDS: SODIUM FERR GLUC 62.5MG/5ML 125 MG in SODIUM CHL 0.9% 100 ML IV SCH (21:00)
[2021-11-30 01:25] VITALS: BP 106/46
[2021-11-30] MEDS: LINEZOLID 600MG/300ML 300 ML IV SCH ×3 (01:46→22:52)
[2021-11-30] MEDS: PIPERACILLIN-TAZOB 3.375GM 100 ML IV SCH ×4 (01:47→20:27)
[2021-11-30] MEDS: ACCU-CHEK COMFORT CURVE STRIP VI SCH ×4 (05:56→22:52)
[2021-11-30 06:00] VITALS: BP 101/69
[2021-11-30] MEDS: GABAPENTIN 400 MG CAP PO SCH ×3 (06:00→21:47)
[2021-11-30] MEDS: InsuLIN REG 1unit/0.01ml Soln (100units/ml) SC SCH ×4 (06:59→21:37)
[2021-11-30 07:26] LABS: Basophils # (auto) 0 10 ^3/uL (0-0.2); Hematocrit 21.2 % (36.0-46.0); Lymphocytes # (auto) 1.2 10 ^3/uL (0.4-5.4); Mean Corpuscular Hemoglobin 26.4 pg (28.0-32.0)
[2021-11-30 07:27] LABS: Basophils % (auto) 0.1 % (0.0-2.0); Eosinophils # (auto) 0.3 10 ^3/uL (0-0.8); Lymphocytes % (auto) 15.1 % (10.0-50.0); Mean Corpuscular Hgb Conc. 31.9 g/dL (32.0-36.0); Mean Corpuscular Volume 82.9 fL (80.0-100.0); Monocytes # (auto) 0.4 10 ^3/uL (0-1.3); Monocytes % (auto) 5.7 % (0.0-12.0); Neutrophils # (auto) 5.7 10 ^3/uL (1.6-8.6); Neutrophils % (auto) 75.1 % (37.0-80.0); Nucleated Red Blood Cells % 0.1 %; Red Blood Cells 2.55 10^6/uL (4.0-5.20); White Blood Cell 7.6 10^3/uL (4.4-10.8)
[2021-11-30 07:49] LABS: Hemoglobin 6.7 g/dL (12.2-16.2)
[2021-11-30] MEDS: Pro-Stat SF 30ml Vanilla PO SCH ×2 (08:00→16:36)
[2021-11-30] MEDS: SODIUM CHLORIDE 0.9% 1,000 ML IV SCH ×2 (08:00→21:47)
[2021-11-30 09:00] VITALS: BP 103/32
[2021-11-30] MEDS: AMIODARONE HCL 200 MG TAB PO SCH ×2 (09:05→21:47)
[2021-11-30] MEDS: levETIRAcetam 500 MG TAB PO SCH ×2 (09:05→21:47)
[2021-11-30] MEDS: PANTOPRAZOLE 40 MG TAB PO SCH (09:05)
[2021-11-30] MEDS: METOPROLOL SUCCINATE XL 50 MG TAB PO SCH (09:05)
[2021-11-30] MEDS: INSULIN LANTUS (GLARGINE) 1 /0.01ml (100units/ml) SC SCH (09:11)
[2021-11-30] MEDS: SODIUM FERR GLUC 62.5MG/5ML 125 MG in SODIUM CHL 0.9% 100 ML IV SCH (11:56)
[2021-11-30] MEDS ORDERED: PIPERACILLIN-TAZOB 3.375GM 100 ML IV SCH (13:00)
[2021-11-30 18:20] VITALS: BP 106/50
[2021-11-30 22:00] VITALS: BP 109/50
[2021-12-01] VITALS (8 sets, daily range): BP systolic 99–180; BP diastolic 35–58
[2021-12-01] MEDS: PIPERACILLIN-TAZOB 3.375GM 100 ML IV SCH ×5 (02:00→20:48)
[2021-12-01 05:33] LABS: Basophils # (auto) 0 10 ^3/uL (0-0.2); Eosinophils # (auto) 0.4 10 ^3/uL (0-0.8); Hemoglobin 7.4 g/dL (12.2-16.2); Lymphocytes # (auto) 1.5 10 ^3/uL (0.4-5.4); Mean Corpuscular Hemoglobin 26.6 pg (28.0-32.0); Monocytes # (auto) 0.6 10 ^3/uL (0-1.3); Red Cell Distribution Width 18.6 % (11.8-14.3); White Blood Cell 9.7 10^3/uL (4.4-10.8)
[2021-12-01 05:36] LABS: Basophils % (auto) 0.3 % (0.0-2.0); Eosinophils % (auto) 3.6 % (0.0-7.0); Lymphocytes % (auto) 15.4 % (10.0-50.0); Mean Corpuscular Volume 83.1 fL (80.0-100.0); Monocytes % (auto) 5.7 % (0.0-12.0); Neutrophils # (auto) 7.3 10 ^3/uL (1.6-8.6); Nucleated Red Blood Cells % 0.1 %; Red Blood Cells 2.76 10^6/uL (4.0-5.20)
[2021-12-01] MEDS: InsuLIN REG 1unit/0.01ml Soln (100units/ml) SC SCH ×4 (06:55→22:30)
[2021-12-01] MEDS: ACCU-CHEK COMFORT CURVE STRIP VI SCH ×4 (06:56→22:25)
[2021-12-01] MEDS: GABAPENTIN 400 MG CAP PO SCH ×3 (06:56→22:11)
[2021-12-01] MEDS: levETIRAcetam 500 MG TAB PO SCH ×2 (11:41→22:11)
[2021-12-01] MEDS: LINEZOLID 600MG/300ML 300 ML IV SCH ×2 (11:43→22:11)
[2021-12-01] MEDS: INSULIN LANTUS (GLARGINE) 1 /0.01ml (100units/ml) SC SCH (11:47)
[2021-12-01] MEDS: SODIUM CHLORIDE 0.9% 1,000 ML IV SCH (11:50)
[2021-12-01] MEDS: Pro-Stat SF 30ml Vanilla PO SCH ×2 (11:50→19:02)
[2021-12-01] MEDS: PANTOPRAZOLE 40 MG TAB PO SCH (11:53)
[2021-12-01] MEDS: SODIUM FERR GLUC 62.5MG/5ML 125 MG in SODIUM CHL 0.9% 100 ML IV SCH (12:00)
[2021-12-01] MEDS: METOPROLOL SUCCINATE XL 50 MG TAB PO SCH (14:25)
[2021-12-01] MEDS: AMIODARONE HCL 200 MG TAB PO SCH ×2 (14:26→22:11)
[2021-12-02] MEDS: SODIUM CHLORIDE 0.9% 1,000 ML IV SCH ×2 (00:29→14:09)
[2021-12-02 01:11] VITALS: BP 101/44
[2021-12-02] MEDS: PIPERACILLIN-TAZOB 3.375GM 100 ML IV SCH ×3 (02:52→14:00)
[2021-12-02 05:34] VITALS: BP 115/53
[2021-12-02] MEDS: ACCU-CHEK COMFORT CURVE STRIP VI SCH ×3 (06:17→17:00)
[2021-12-02] MEDS: GABAPENTIN 400 MG CAP PO SCH ×2 (06:17→14:00)
[2021-12-02] MEDS: InsuLIN REG 1unit/0.01ml Soln (100units/ml) SC SCH ×3 (06:18→17:00)
[2021-12-02 08:46] VITALS: BP 132/52
[2021-12-02] MEDS: LINEZOLID 600MG/300ML 300 ML IV SCH (10:57)
[2021-12-02] MEDS: levETIRAcetam 500 MG TAB PO SCH (10:57)
[2021-12-02] MEDS: Pro-Stat SF 30ml Vanilla PO SCH (10:57)
[2021-12-02] MEDS: AMIODARONE HCL 200 MG TAB PO SCH (10:57)
[2021-12-02] MEDS: METOPROLOL SUCCINATE XL 50 MG TAB PO SCH (10:58)
[2021-12-02] MEDS: PANTOPRAZOLE 40 MG TAB PO SCH (10:58)
[2021-12-02] MEDS: INSULIN LANTUS (GLARGINE) 1 /0.01ml (100units/ml) SC SCH (11:26)
[2021-12-02] MEDS: SODIUM FERR GLUC 62.5MG/5ML 125 MG in SODIUM CHL 0.9% 100 ML IV SCH (12:00)
[2021-12-02 12:42] VITALS: BP 102/49
[2021-12-02 16:20] VITALS: BP 132/52
== END 2021-12-02 18:43 | disposition home or self-care (01) | DRG 871 ==
LOC: EDUNIT# 03:39 → EDBD 03:39 → ER 03:39 → TELE 10:28 → TELE-EAST 15:17
PROVIDERS: ADMIT Internal Medicine Cardiovascular Disease; ATTEND Internal Medicine Cardiovascular Disease
PROC: 5A09357 Assistance with Respiratory Ventilation, Less than 24 Consecutive Hours, Continuous Positive Airway Pressure (ICD-10-PCS; 2021-11-20)
PROC: 5A09357 Assistance with Respiratory Ventilation, Less than 24 Consecutive Hours, Continuous Positive Airway Pressure (ICD-10-PCS; 2021-11-21)
PROC: 5A09357 Assistance with Respiratory Ventilation, Less than 24 Consecutive Hours, Continuous Positive Airway Pressure (ICD-10-PCS; 2021-11-24)
PROC: 5A09357 Assistance with Respiratory Ventilation, Less than 24 Consecutive Hours, Continuous Positive Airway Pressure (ICD-10-PCS; 2021-11-25)
PROC: 5A09357 Assistance with Respiratory Ventilation, Less than 24 Consecutive Hours, Continuous Positive Airway Pressure (ICD-10-PCS; 2021-11-28)
PROC: 05HD33Z Insertion of Infusion Device into Right Cephalic Vein, Percutaneous Approach (ICD-10-PCS; 2021-11-29)
PROC: B54MZZA Ultrasonography of Right Upper Extremity Veins, Guidance (ICD-10-PCS; 2021-11-29)
PROC: 5A09357 Assistance with Respiratory Ventilation, Less than 24 Consecutive Hours, Continuous Positive Airway Pressure (ICD-10-PCS; 2021-11-30)
PROC: 30233N1 Transfusion of Nonautologous Red Blood Cells into Peripheral Vein, Percutaneous Approach (ICD-10-PCS; principal; 2021-12-01)
DX: A41.9 Sepsis, unspecified organism (principal); E43 Unspecified severe protein-calorie malnutrition; J96.90 Respiratory failure, unspecified, unspecified whether with hypoxia or hypercapnia; J18.9 Pneumonia, unspecified organism; J44.0 Chronic obstructive pulmonary disease with (acute) lower respiratory infection; N12 Tubulo-interstitial nephritis, not specified as acute or chronic; N17.9 Acute kidney failure, unspecified; D61.818 Other pancytopenia; Z20.822 Contact with and (suspected) exposure to COVID-19; D63.1 Anemia in chronic kidney disease; E66.01 Morbid (severe) obesity due to excess calories; E87.5 Hyperkalemia; G40.909 Epilepsy, unspecified, not intractable, without status epilepticus; G47.30 Sleep apnea, unspecified; K21.9 Gastro-esophageal reflux disease without esophagitis; I12.9 Hypertensive chronic kidney disease with stage 1 through stage 4 chronic kidney disease, or unspecified chronic kidney disease; N18.30 Chronic kidney disease, stage 3 unspecified; E11.21 Type 2 diabetes mellitus with diabetic nephropathy; E11.40 Type 2 diabetes mellitus with diabetic neuropathy, unspecified; I27.21 Secondary pulmonary arterial hypertension; D50.9 Iron deficiency anemia, unspecified; Z90.49 Acquired absence of other specified parts of digestive tract; Z90.710 Acquired absence of both cervix and uterus; Z68.38 Body mass index [BMI] 38.0-38.9, adult
CPT/HCPCS: 36415; 36600; 71045; 74176; 78306; 80048; 80053; 80069; 80202; 81001; 82140; 82565; 82728; 82805; 82962; 83540; 83550; 83605; 83615; 83735; 83880; 84100; 84155; 84165; 84443; 84484; 85007; 85025; 85027; 85045; 85379; 86850; 86900; 86901; 86920; 87040; 87077; 87081; 87086; 87088; 87186; 93005; 94660; 96365; 96368; 97110; 97116; 97530; G0378; J0696; J1815; J2543; J7060

== ENCOUNTER 2021-12-04 10:29 | Inpatient (IN) | payer MEDICARE, OTHER ==
[~2021-12-04] VITALS: Ht 165.1 cm; Wt 107.5 kg
[2021-12-04] MEDS ORDERED: SODIUM CHLORIDE 0.9% 1,000 ML IV ONE (11:45)
[2021-12-04] MEDS ORDERED: MORPHINE SULFATE 4 MG/ML SYR/VIAL IV ONE (11:45)
[2021-12-04 12:24] LABS: Basophils # (auto) 0.1 10 ^3/uL (0-0.2); Basophils % (auto) 0.8 % (0.0-2.0); Eosinophils # (auto) 0.2 10 ^3/uL (0-0.8); Monocytes # (auto) 0.7 10 ^3/uL (0-1.3)
[2021-12-04 12:25] LABS: Eosinophils % (auto) 1.8 % (0.0-7.0); Hematocrit 21.2 % (36.0-46.0); Lymphocytes # (auto) 1.5 10 ^3/uL (0.4-5.4); Lymphocytes % (auto) 14.2 % (10.0-50.0); Mean Corpuscular Hemoglobin 26.1 pg (28.0-32.0); Mean Corpuscular Volume 81.5 fL (80.0-100.0); Monocytes % (auto) 7.2 % (0.0-12.0); Neutrophils # (auto) 7.8 10 ^3/uL (1.6-8.6); White Blood Cell 10.2 10^3/uL (4.4-10.8)
[2021-12-04 12:30] LABS: BUN/Creatinine Ratio 17.6; Calcium 8.1 mg/dL (8.5-10.1); Potassium 4.6 mmol/L (3.5-5.1)
[2021-12-04 12:33] LABS: Bilirubin, Total 0.8 mg/dL (0.2-1.0); Total Protein 5.6 g/dL (6.4-8.2)
[2021-12-04 12:40] LABS: Hemoglobin 6.8 g/dL (12.2-16.2)
[2021-12-04 12:56] LABS: Urine Bacteria NONE SEEN /hpf (None Seen); Urine Blood 3+ /uL (Negative); Urine WBC 3464 /hpf (0 - 5); Urine WBC Clumps PRESENT /hpf (None Seen)
[2021-12-04] MEDS ORDERED: cefTRIAXone SOD 1,000 MG VL IV ONE (13:00)
[2021-12-04] MEDS ORDERED: ACETAMINOPHEN 325 MG TAB PO PRN (14:00)
[2021-12-04] MEDS ORDERED: HYDROcodone-ACET 5/325MG TAB PO PRN (14:00)
[2021-12-04] MEDS ORDERED: ONDANSETRON HCL 4 MG/2 ML VIAL IV PRN (14:00)
[2021-12-04] MEDS ORDERED: MORPHINE SULFATE INJ 2 MG/ml SYRG IV PRN (14:00)
[2021-12-04] MEDS ORDERED: DOCUSATE SOD 100 MG CAP PO PRN (14:00)
[2021-12-04] MEDS ORDERED: SODIUM CHLORIDE 0.9% 500 ML IV ONE (14:15)
[2021-12-04] MEDS: SODIUM CHLORIDE 0.9% 1,000 ML IV SCH (14:51)
[2021-12-04] MEDS: INSULIN LANTUS (GLARGINE) 1 /0.01ml (100units/ml) SC SCH (16:45)
[2021-12-04] MEDS: InsuLIN REG 1unit/0.01ml Soln (100units/ml) SC SCH (18:19)
[2021-12-04] MEDS: ACCU-CHEK COMFORT CURVE STRIP VI SCH (18:21)
[2021-12-04] MEDS: AMIODARONE HCL 200 MG TAB PO SCH (22:00)
[2021-12-04 22:56] VITALS: BP 92/37
[2021-12-04 22:58] VITALS: BP 92/37
[2021-12-04 23:19] VITALS: BP 99/33
[2021-12-05] VITALS (69 sets, daily range): BP systolic 79–128; BP diastolic 31–68
[2021-12-05] MEDS: levETIRAcetam 500 MG TAB PO SCH ×3 (00:15→21:48)
[2021-12-05] MEDS: GABAPENTIN 300 MG CAP PO SCH ×4 (00:15→21:49)
[2021-12-05] MEDS: ACCU-CHEK COMFORT CURVE STRIP VI SCH ×5 (00:27→23:17)
[2021-12-05] MEDS: INSULIN LANTUS (GLARGINE) 1 /0.01ml (100units/ml) SC SCH ×3 (00:40→21:50)
[2021-12-05] MEDS ORDERED: LIDOCAINE 2% JELLY 11ml (GLYDO) ONE (02:23)
[2021-12-05] MEDS: InsuLIN REG 1unit/0.01ml Soln (100units/ml) SC SCH ×5 (06:00→23:18)
[2021-12-05 07:02] LABS: Hematocrit 27.7 % (36.0-46.0); Mean Corpuscular Hemoglobin 27.6 pg (28.0-32.0); Mean Corpuscular Hgb Conc. 32.7 g/dL (32.0-36.0); Mean Corpuscular Volume 84.6 fL (80.0-100.0); Red Blood Cells 3.27 10^6/uL (4.0-5.20); Red Cell Distribution Width 17.8 % (11.8-14.3); White Blood Cell 7.6 10^3/uL (4.4-10.8)
[2021-12-05 07:21] LABS: Band Neutrophils % (manual) 0; Basophils % (manual) 0 (0.0-2.0); Blast Cells 0; Metamyelocytes % 0; Myelocytes % 0; Promyelocytes % 0; Reactive Lymphocytes 0
[2021-12-05 07:27] LABS: Albumin 1.8 g/dL (3.4-5.0); Calcium 7.2 mg/dL (8.5-10.1); Potassium 4.2 mmol/L (3.5-5.1)
[2021-12-05 07:32] LABS: BUN/Creatinine Ratio 19.3; Bilirubin, Total 0.5 mg/dL (0.2-1.0); Total Protein 4.4 g/dL (6.4-8.2)
[2021-12-05 08:14] LABS: Eosinophils % (manual) 5 (0-7); Lymphocytes % (manual) 18 (10.0-50.0); Monocytes % (manual) 10 (0-12)
[2021-12-05] MEDS ORDERED: INSULIN LANTUS (GLARGINE) 1 /0.01ml (100units/ml) SC SCH (10:00)
[2021-12-05] MEDS: AMIODARONE HCL 200 MG TAB PO SCH ×2 (10:49→21:48)
[2021-12-05] MEDS: ZINC SULFATE 220mg CAP or TAB PO SCH (10:49)
[2021-12-05] MEDS: cefTRIAXone 1GM/50ML D5W 50 ML IV SCH (10:50)
[2021-12-05] MEDS ORDERED: PANTOPRAZOLE 40 MG/10 ML VIAL INJ IV ONE (11:45)
[2021-12-05] MEDS ORDERED: AZITHROMYCIN 500MG/ 250ML 250 ML IV ONE (11:45)
[2021-12-05] MEDS: LINEZOLID 600MG/300ML 300 ML IV SCH (17:00)
[2021-12-05] MEDS: SODIUM CHLORIDE 0.9% 1,000 ML IV SCH (18:50)
[2021-12-06] VITALS (61 sets, daily range): BP systolic 96–134; BP diastolic 38–64
[2021-12-06 04:08] LABS: Basophils # (auto) 0 10 ^3/uL (0-0.2); Basophils % (auto) 0.7 % (0.0-2.0); Eosinophils # (auto) 0.3 10 ^3/uL (0-0.8); Eosinophils % (auto) 3.9 % (0.0-7.0); Hematocrit 28.1 % (36.0-46.0); Hemoglobin 9.1 g/dL (12.2-16.2); Lymphocytes # (auto) 0.9 10 ^3/uL (0.4-5.4); Lymphocytes % (auto) 13.4 % (10.0-50.0); Mean Corpuscular Hemoglobin 28.9 pg (28.0-32.0); Mean Corpuscular Hgb Conc. 32.4 g/dL (32.0-36.0); Mean Corpuscular Volume 89.3 fL (80.0-100.0); Monocytes # (auto) 0.7 10 ^3/uL (0-1.3); Monocytes % (auto) 9.7 % (0.0-12.0); Neutrophils % (auto) 72.3 % (37.0-80.0); Red Blood Cells 3.14 10^6/uL (4.0-5.20); Red Cell Distribution Width 17.9 % (11.8-14.3); White Blood Cell 6.9 10^3/uL (4.4-10.8)
[2021-12-06 04:31] LABS: Albumin 1.6 g/dL (3.4-5.0); Calcium 7.5 mg/dL (8.5-10.1); Potassium 4.2 mmol/L (3.5-5.1)
[2021-12-06 04:33] LABS: BUN/Creatinine Ratio 18.4; Bilirubin, Total 0.2 mg/dL (0.2-1.0); Total Protein 4.9 g/dL (6.4-8.2)
[2021-12-06] MEDS: ACCU-CHEK COMFORT CURVE STRIP VI SCH ×4 (05:47→23:41)
[2021-12-06] MEDS: GABAPENTIN 300 MG CAP PO SCH ×3 (05:49→21:48)
[2021-12-06] MEDS: LINEZOLID 600MG/300ML 300 ML IV SCH (05:49)
[2021-12-06] MEDS: InsuLIN REG 1unit/0.01ml Soln (100units/ml) SC SCH ×4 (05:49→23:41)
[2021-12-06] MEDS: cefTRIAXone 1GM/50ML D5W 50 ML IV SCH (09:17)
[2021-12-06] MEDS: PANTOPRAZOLE 40 MG/10 ML VIAL INJ IV SCH (09:17)
[2021-12-06] MEDS: ZINC SULFATE 220mg CAP or TAB PO SCH (09:17)
[2021-12-06] MEDS: levETIRAcetam 500 MG TAB PO SCH ×2 (09:18→21:49)
[2021-12-06] MEDS: BELLADONNA ALKAL/OPIUM (16.2/30MG) RECT SUPP PR SCH (09:18)
[2021-12-06] MEDS: AMIODARONE HCL 200 MG TAB PO SCH ×2 (09:18→21:49)
[2021-12-06] MEDS: INSULIN LANTUS (GLARGINE) 1 /0.01ml (100units/ml) SC SCH ×2 (10:30→21:48)
[2021-12-06] MEDS ORDERED: AZITHROMYCIN 500MG/ 250ML 250 ML IV SCH (11:00)
[2021-12-06] MEDS: SODIUM CHLORIDE 0.9% 1,000 ML IV SCH (17:03)
[2021-12-06] MEDS: DAPTOmycin 250 MG in SODIUM CHL 0.9% 50 ML IV SCH (18:21)
[2021-12-07] VITALS (9 sets, daily range): BP systolic 106–128; BP diastolic 47–64
[2021-12-07 04:08] LABS: Basophils # (auto) 0 10 ^3/uL (0-0.2); Mean Corpuscular Hgb Conc. 32.8 g/dL (32.0-36.0); Neutrophils # (auto) 3.8 10 ^3/uL (1.6-8.6)
[2021-12-07 04:16] LABS: Basophils % (auto) 0.5 % (0.0-2.0); Eosinophils # (auto) 0.3 10 ^3/uL (0-0.8); Eosinophils % (auto) 5.3 % (0.0-7.0); Hematocrit 26.2 % (36.0-46.0); Hemoglobin 8.6 g/dL (12.2-16.2); Lymphocytes % (auto) 18.1 % (10.0-50.0); Mean Corpuscular Hemoglobin 28.4 pg (28.0-32.0); Mean Corpuscular Volume 86.6 fL (80.0-100.0); Monocytes # (auto) 0.5 10 ^3/uL (0-1.3); Monocytes % (auto) 8.2 % (0.0-12.0); Neutrophils % (auto) 67.9 % (37.0-80.0); Nucleated Red Blood Cells % 0.2 %; Red Blood Cells 3.03 10^6/uL (4.0-5.20); Red Cell Distribution Width 18.1 % (11.8-14.3); White Blood Cell 5.6 10^3/uL (4.4-10.8)
[2021-12-07 04:38] LABS: Albumin 1.7 g/dL (3.4-5.0); Calcium 7.5 mg/dL (8.5-10.1)
[2021-12-07 04:43] LABS: BUN/Creatinine Ratio 12.9; Bilirubin, Total 0.2 mg/dL (0.2-1.0); Total Protein 5.2 g/dL (6.4-8.2)
[2021-12-07] MEDS: InsuLIN REG 1unit/0.01ml Soln (100units/ml) SC SCH ×4 (06:00→23:40)
[2021-12-07] MEDS: GABAPENTIN 300 MG CAP PO SCH ×3 (06:16→23:40)
[2021-12-07] MEDS: ACCU-CHEK COMFORT CURVE STRIP VI SCH ×4 (06:16→23:40)
[2021-12-07] MEDS: SODIUM CHLORIDE 0.9% 1,000 ML IV SCH (09:03)
[2021-12-07] MEDS: cefTRIAXone 1GM/50ML D5W 50 ML IV SCH (09:15)
[2021-12-07] MEDS: PANTOPRAZOLE 40 MG/10 ML VIAL INJ IV SCH (09:15)
[2021-12-07] MEDS: levETIRAcetam 500 MG TAB PO SCH ×2 (09:15→23:39)
[2021-12-07] MEDS: ZINC SULFATE 220mg CAP or TAB PO SCH (09:15)
[2021-12-07] MEDS: AMIODARONE HCL 200 MG TAB PO SCH ×2 (09:16→23:40)
[2021-12-07] MEDS: INSULIN LANTUS (GLARGINE) 1 /0.01ml (100units/ml) SC SCH ×2 (09:21→22:00)
[2021-12-07] MEDS: BELLADONNA ALKAL/OPIUM (16.2/30MG) RECT SUPP PR SCH ×2 (10:37→10:41)
[2021-12-07] MEDS: DEXTROSE (50%) 50ML SYRG IV PRN (12:29)
[2021-12-07] MEDS: DAPTOmycin 250 MG in SODIUM CHL 0.9% 50 ML IV SCH (17:49)
[2021-12-08] VITALS (13 sets, daily range): BP systolic 81–125; BP diastolic 34–55
[2021-12-08] MEDS: SODIUM CHLORIDE 0.9% 1,000 ML IV SCH ×2 (01:20→18:00)
[2021-12-08] MEDS: InsuLIN REG 1unit/0.01ml Soln (100units/ml) SC SCH ×4 (05:28→23:40)
[2021-12-08] MEDS: GABAPENTIN 300 MG CAP PO SCH ×3 (05:28→23:48)
[2021-12-08] MEDS: ACCU-CHEK COMFORT CURVE STRIP VI SCH ×4 (05:28→23:40)
[2021-12-08 08:08] LABS: Eosinophils # (auto) 0.3 10 ^3/uL (0-0.8); Hematocrit 23.9 % (36.0-46.0); Hemoglobin 7.7 g/dL (12.2-16.2); Lymphocytes # (auto) 1.1 10 ^3/uL (0.4-5.4); Mean Corpuscular Hgb Conc. 32.1 g/dL (32.0-36.0); Monocytes # (auto) 0.4 10 ^3/uL (0-1.3); Monocytes % (auto) 9.1 % (0.0-12.0); White Blood Cell 4.4 10^3/uL (4.4-10.8)
[2021-12-08 08:09] LABS: Basophils # (auto) 0 10 ^3/uL (0-0.2); Basophils % (auto) 1.1 % (0.0-2.0); Lymphocytes % (auto) 25.3 % (10.0-50.0); Mean Corpuscular Hemoglobin 28.3 pg (28.0-32.0); Neutrophils # (auto) 2.5 10 ^3/uL (1.6-8.6); Neutrophils % (auto) 58.5 % (37.0-80.0); Red Blood Cells 2.72 10^6/uL (4.0-5.20); Red Cell Distribution Width 18.5 % (11.8-14.3)
[2021-12-08 08:10] LABS: Albumin 1.7 g/dL (3.4-5.0)
[2021-12-08 08:14] LABS: BUN/Creatinine Ratio 13.8; Bilirubin, Total 0.3 mg/dL (0.2-1.0); INR 1.11 (0.9-1.15); Partial Thromboplastin Time 37.3 sec (24.6-33.4); Total Protein 4.3 g/dL (6.4-8.2)
[2021-12-08] MEDS: AMIODARONE HCL 200 MG TAB PO SCH ×2 (09:44→22:00)
[2021-12-08] MEDS: ZINC SULFATE 220mg CAP or TAB PO SCH (09:44)
[2021-12-08] MEDS: cefTRIAXone 1GM/50ML D5W 50 ML IV SCH (09:44)
[2021-12-08] MEDS: levETIRAcetam 500 MG TAB PO SCH ×2 (09:46→23:47)
[2021-12-08] MEDS: AZITHROMYCIN 250 MG TAB PO SCH (09:46)
[2021-12-08] MEDS: PANTOPRAZOLE 40 MG TAB PO SCH (09:46)
[2021-12-08] MEDS: BELLADONNA ALKAL/OPIUM (16.2/30MG) RECT SUPP PR SCH (09:49)
[2021-12-08] MEDS: INSULIN LANTUS (GLARGINE) 1 /0.01ml (100units/ml) SC SCH ×2 (09:49→22:00)
[2021-12-08] MEDS ORDERED: SODIUM CHLORIDE LOCK 10 ML ONE (14:52)
[2021-12-08] MEDS ORDERED: PROPOFOL 10 MG/ML 20 ML IV ONE (14:52)
[2021-12-08] MEDS ORDERED: ONDANSETRON HCL 4 MG/2 ML VIAL ONE (14:52)
[2021-12-08] MEDS ORDERED: fentaNYL CITRATE 100 MCG/2 ML VL ONE (14:52)
[2021-12-08] MEDS ORDERED: MIDAZOLAM HCL 2MG/2ML 2ml VIAL (1mg/ml) ONE (14:52)
[2021-12-08] MEDS ORDERED: SUCCINYLCHOLINE CHLORIDE 20 MG/ML 10ML VIAL IV ONE (15:03)
[2021-12-08] MEDS ORDERED: METOCLOPRAMIDE HCL 5MG/ml INJ 2ml VIAL IV PRN (16:00)
[2021-12-08] MEDS ORDERED: MORPHINE SULFATE 4 MG/ML SYR/VIAL IV PRN (16:00)
[2021-12-08] MEDS ORDERED: HYDROmorphone HCL 2 MG/ML VL/or syr IV PRN (16:00)
[2021-12-08] MEDS ORDERED: MORPHINE SULFATE INJ 2 MG/ml SYRG IV PRN (18:15)
[2021-12-08] MEDS ORDERED: NITROGLYCERIN 0.4 MG SL TAB SL PRN (18:15)
[2021-12-08] MEDS ORDERED: AMINOCAPROIC ACID 5 GM in SODIUM CHL 0.9% 250 ML IV ONE (20:00)
[2021-12-08] MEDS ORDERED: SODIUM CHLORIDE 0.9% IS ONE (20:00)
[2021-12-08] MEDS ORDERED: AMINOCAPROIC ACID IS ONE (20:00)
[2021-12-08 20:01] LABS: Basophils # (auto) 0.1 10 ^3/uL (0-0.2); Eosinophils # (auto) 0.3 10 ^3/uL (0-0.8); Hemoglobin 7.9 g/dL (12.2-16.2); Lymphocytes # (auto) 0.8 10 ^3/uL (0.4-5.4); Mean Corpuscular Hgb Conc. 32.3 g/dL (32.0-36.0); Monocytes # (auto) 0.4 10 ^3/uL (0-1.3); Neutrophils # (auto) 3.7 10 ^3/uL (1.6-8.6); Nucleated Red Blood Cells % 0.1 %; White Blood Cell 5.3 10^3/uL (4.4-10.8)
[2021-12-08 20:03] LABS: Basophils % (auto) 0.9 % (0.0-2.0); Hematocrit 24.5 % (36.0-46.0); Lymphocytes % (auto) 15.7 % (10.0-50.0); Mean Corpuscular Hemoglobin 28.5 pg (28.0-32.0); Mean Corpuscular Volume 88.2 fL (80.0-100.0); Monocytes % (auto) 8.2 % (0.0-12.0); Neutrophils % (auto) 70.2 % (37.0-80.0); Red Blood Cells 2.78 10^6/uL (4.0-5.20); Red Cell Distribution Width 18.2 % (11.8-14.3)
[2021-12-08 20:18] LABS: Calcium 7.4 mg/dL (8.5-10.1)
[2021-12-08] MEDS ORDERED: SODIUM CHL 0.9% IV ONE (21:00)
[2021-12-08] MEDS ORDERED: AMINOCAPROIC ACID IV ONE (21:00)
[2021-12-08] MEDS ORDERED: ALBUMIN 25% 100 ML IV ONE (22:00)
[2021-12-08] MEDS: DAPTOmycin 250 MG in SODIUM CHL 0.9% 50 ML IV SCH (23:47)
[2021-12-09] VITALS (41 sets, daily range): BP systolic 70–136; BP diastolic 27–93
[2021-12-09] MEDS ORDERED: ALBUMIN 25% 100 ML IV ONE (02:15)
[2021-12-09 03:44] LABS: Calcium 7.3 mg/dL (8.5-10.1); Potassium 4.1 mmol/L (3.5-5.1)
[2021-12-09 03:49] LABS: Bilirubin, Total 0.3 mg/dL (0.2-1.0); Total Protein 4.6 g/dL (6.4-8.2)
[2021-12-09] MEDS ORDERED: SODIUM CHLORIDE 0.9% IS ONE ×2 (04:00→12:00)
[2021-12-09] MEDS ORDERED: AMINOCAPROIC ACID IS ONE ×2 (04:00→12:00)
[2021-12-09 05:11] LABS: Basophils # (auto) 0 10 ^3/uL (0-0.2); Basophils % (auto) 0.7 % (0.0-2.0); Eosinophils # (auto) 0.2 10 ^3/uL (0-0.8); Eosinophils % (auto) 4.1 % (0.0-7.0); Hematocrit 19.6 % (36.0-46.0); Lymphocytes # (auto) 0.9 10 ^3/uL (0.4-5.4); Mean Corpuscular Hemoglobin 29.2 pg (28.0-32.0); Mean Corpuscular Hgb Conc. 33.3 g/dL (32.0-36.0); Mean Corpuscular Volume 87.8 fL (80.0-100.0); Monocytes # (auto) 0.3 10 ^3/uL (0-1.3); Monocytes % (auto) 7.1 % (0.0-12.0); Neutrophils # (auto) 3.4 10 ^3/uL (1.6-8.6); Neutrophils % (auto) 69.1 % (37.0-80.0); Red Blood Cells 2.24 10^6/uL (4.0-5.20); Red Cell Distribution Width 18.7 % (11.8-14.3); White Blood Cell 4.9 10^3/uL (4.4-10.8)
[2021-12-09 05:15] LABS: Hemoglobin 6.5 g/dL (12.2-16.2)
[2021-12-09] MEDS: ACCU-CHEK COMFORT CURVE STRIP VI SCH ×3 (06:00→18:00)
[2021-12-09] MEDS: InsuLIN REG 1unit/0.01ml Soln (100units/ml) SC SCH ×3 (06:00→18:00)
[2021-12-09] MEDS: GABAPENTIN 300 MG CAP PO SCH ×2 (07:51→14:00)
[2021-12-09] MEDS: AZITHROMYCIN 250 MG TAB PO SCH (10:00)
[2021-12-09] MEDS: ZINC SULFATE 220mg CAP or TAB PO SCH (10:00)
[2021-12-09] MEDS: AMIODARONE HCL 200 MG TAB PO SCH ×2 (10:00→22:00)
[2021-12-09] MEDS: cefTRIAXone 1GM/50ML D5W 50 ML IV SCH (10:00)
[2021-12-09] MEDS: BELLADONNA ALKAL/OPIUM (16.2/30MG) RECT SUPP PR SCH (10:00)
[2021-12-09] MEDS: PANTOPRAZOLE 40 MG TAB PO SCH (10:00)
[2021-12-09] MEDS: levETIRAcetam 500 MG TAB PO SCH ×2 (10:00→23:59)
[2021-12-09] MEDS: INSULIN LANTUS (GLARGINE) 1 /0.01ml (100units/ml) SC SCH ×2 (10:00→22:00)
[2021-12-09] MEDS: SODIUM CHLORIDE 0.9% 1,000 ML IV SCH (10:40)
[2021-12-09] MEDS: NOREPINEPHRINE 8 MG/250ML KIT 250 ML IV SCH (12:30)
[2021-12-09 17:00] LABS: Hematocrit 25.6 % (36.0-46.0); Hemoglobin 8.2 g/dL (12.2-16.2)
[2021-12-09] MEDS: DAPTOmycin 250 MG in SODIUM CHL 0.9% 50 ML IV SCH (18:00)
[2021-12-10] VITALS (21 sets, daily range): BP systolic 100–144; BP diastolic 34–57
[2021-12-10] MEDS: SODIUM CHLORIDE 0.9% 1,000 ML IV SCH ×2 (03:20→21:07)
[2021-12-10] MEDS: InsuLIN REG 1unit/0.01ml Soln (100units/ml) SC SCH ×4 (06:00→18:00)
[2021-12-10] MEDS: GABAPENTIN 300 MG CAP PO SCH ×4 (06:19→22:26)
[2021-12-10] MEDS: ACCU-CHEK COMFORT CURVE STRIP VI SCH ×4 (06:19→18:00)
[2021-12-10 06:41] LABS: Albumin 2.3 g/dL (3.4-5.0); BUN/Creatinine Ratio 10.8; Calcium 7.7 mg/dL (8.5-10.1); Potassium 3.9 mmol/L (3.5-5.1)
[2021-12-10 06:43] LABS: Bilirubin, Total 0.5 mg/dL (0.2-1.0); Total Protein 5.3 g/dL (6.4-8.2)
[2021-12-10 06:44] LABS: Basophils # (auto) 0 10 ^3/uL (0-0.2); Basophils % (auto) 0.7 % (0.0-2.0); Eosinophils # (auto) 0.4 10 ^3/uL (0-0.8); Eosinophils % (auto) 6.2 % (0.0-7.0); Hematocrit 28.1 % (36.0-46.0); Lymphocytes # (auto) 0.9 10 ^3/uL (0.4-5.4); Lymphocytes % (auto) 14.7 % (10.0-50.0); Mean Corpuscular Hemoglobin 28.3 pg (28.0-32.0); Mean Corpuscular Hgb Conc. 32.1 g/dL (32.0-36.0); Mean Corpuscular Volume 88.3 fL (80.0-100.0); Monocytes # (auto) 0.4 10 ^3/uL (0-1.3); Monocytes % (auto) 7.1 % (0.0-12.0); Neutrophils # (auto) 4.3 10 ^3/uL (1.6-8.6); Neutrophils % (auto) 71.3 % (37.0-80.0); Nucleated Red Blood Cells % 0.2 %; Red Blood Cells 3.19 10^6/uL (4.0-5.20); Red Cell Distribution Width 17.5 % (11.8-14.3)
[2021-12-10] MEDS: BELLADONNA ALKAL/OPIUM (16.2/30MG) RECT SUPP PR SCH (09:53)
[2021-12-10] MEDS: INSULIN LANTUS (GLARGINE) 1 /0.01ml (100units/ml) SC SCH ×2 (10:00→22:00)
[2021-12-10] MEDS: cefTRIAXone 1GM/50ML D5W 50 ML IV SCH (10:08)
[2021-12-10] MEDS: PANTOPRAZOLE 40 MG TAB PO SCH (10:09)
[2021-12-10] MEDS: ZINC SULFATE 220mg CAP or TAB PO SCH (10:09)
[2021-12-10] MEDS: AMIODARONE HCL 200 MG TAB PO SCH ×2 (10:09→22:26)
[2021-12-10] MEDS: AZITHROMYCIN 250 MG TAB PO SCH (10:09)
[2021-12-10] MEDS: levETIRAcetam 500 MG TAB PO SCH ×2 (10:09→22:26)
[2021-12-10] MEDS: NOREPINEPHRINE 8 MG/250ML KIT 250 ML IV SCH (11:56)
[2021-12-10] MEDS: DAPTOmycin 250 MG in SODIUM CHL 0.9% 50 ML IV SCH (18:00)
[2021-12-11] VITALS (22 sets, daily range): BP systolic 109–136; BP diastolic 33–61
[2021-12-11] MEDS: InsuLIN REG 1unit/0.01ml Soln (100units/ml) SC SCH ×5 (00:13→23:43)
[2021-12-11] MEDS: ACCU-CHEK COMFORT CURVE STRIP VI SCH ×5 (00:13→23:44)
[2021-12-11 05:05] LABS: Basophils # (auto) 0.1 10 ^3/uL (0-0.2); Basophils % (auto) 1.5 % (0.0-2.0); Eosinophils # (auto) 0.4 10 ^3/uL (0-0.8); Lymphocytes # (auto) 0.9 10 ^3/uL (0.4-5.4); Lymphocytes % (auto) 15.6 % (10.0-50.0); Mean Corpuscular Hemoglobin 29.1 pg (28.0-32.0); Mean Corpuscular Hgb Conc. 33.5 g/dL (32.0-36.0); Monocytes # (auto) 0.6 10 ^3/uL (0-1.3); Monocytes % (auto) 9.8 % (0.0-12.0); Neutrophils % (auto) 67.1 % (37.0-80.0); Nucleated Red Blood Cells % 0.1 %; Red Cell Distribution Width 17.4 % (11.8-14.3)
[2021-12-11 05:17] LABS: Albumin 2.1 g/dL (3.4-5.0); Calcium 8.1 mg/dL (8.5-10.1); Potassium 3.9 mmol/L (3.5-5.1)
[2021-12-11 05:19] LABS: BUN/Creatinine Ratio 12.3
[2021-12-11 05:22] LABS: Bilirubin, Total 0.4 mg/dL (0.2-1.0); Total Protein 5.2 g/dL (6.4-8.2)
[2021-12-11] MEDS: GABAPENTIN 300 MG CAP PO SCH ×3 (05:31→21:35)
[2021-12-11] MEDS: AMIODARONE HCL 200 MG TAB PO SCH ×2 (09:37→21:35)
[2021-12-11] MEDS: PANTOPRAZOLE 40 MG TAB PO SCH (09:37)
[2021-12-11] MEDS: cefTRIAXone 1GM/50ML D5W 50 ML IV SCH (09:37)
[2021-12-11] MEDS: levETIRAcetam 500 MG TAB PO SCH ×2 (09:38→21:34)
[2021-12-11] MEDS: ZINC SULFATE 220mg CAP or TAB PO SCH (09:38)
[2021-12-11] MEDS: BELLADONNA ALKAL/OPIUM (16.2/30MG) RECT SUPP PR SCH (10:00)
[2021-12-11] MEDS: INSULIN LANTUS (GLARGINE) 1 /0.01ml (100units/ml) SC SCH ×2 (10:01→22:00)
[2021-12-11] MEDS ORDERED: FUROSEMIDE 100 MG/10ML VIAL IV ONE (12:30)
[2021-12-11] MEDS: NOREPINEPHRINE 8 MG/250ML KIT 250 ML IV SCH (12:30)
[2021-12-11] MEDS: DAPTOmycin 250 MG in SODIUM CHL 0.9% 50 ML IV SCH (17:18)
[2021-12-12] VITALS (17 sets, daily range): BP systolic 106–140; BP diastolic 37–73
[2021-12-12] MEDS: InsuLIN REG 1unit/0.01ml Soln (100units/ml) SC SCH ×4 (06:00→23:08)
[2021-12-12] MEDS: GABAPENTIN 300 MG CAP PO SCH ×3 (06:18→22:59)
[2021-12-12] MEDS: ACCU-CHEK COMFORT CURVE STRIP VI SCH ×4 (06:28→23:00)
[2021-12-12 09:33] LABS: Basophils # (auto) 0 10 ^3/uL (0-0.2); Basophils % (auto) 0.6 % (0.0-2.0); Eosinophils # (auto) 0.3 10 ^3/uL (0-0.8); Eosinophils % (auto) 7.2 % (0.0-7.0); Hematocrit 31.1 % (36.0-46.0); Lymphocytes # (auto) 1.2 10 ^3/uL (0.4-5.4); Lymphocytes % (auto) 23.9 % (10.0-50.0); Mean Corpuscular Hemoglobin 28.1 pg (28.0-32.0); Mean Corpuscular Hgb Conc. 32.3 g/dL (32.0-36.0); Monocytes # (auto) 0.5 10 ^3/uL (0-1.3); Monocytes % (auto) 9.8 % (0.0-12.0); Neutrophils # (auto) 2.9 10 ^3/uL (1.6-8.6); Neutrophils % (auto) 58.5 % (37.0-80.0); Nucleated Red Blood Cells % 0.3 %; Red Blood Cells 3.57 10^6/uL (4.0-5.20); Red Cell Distribution Width 17.2 % (11.8-14.3); White Blood Cell 4.9 10^3/uL (4.4-10.8)
[2021-12-12 09:45] LABS: Albumin 2.2 g/dL (3.4-5.0); Calcium 8.3 mg/dL (8.5-10.1); Potassium 3.5 mmol/L (3.5-5.1)
[2021-12-12 09:50] LABS: BUN/Creatinine Ratio 8.6; Bilirubin, Total 0.6 mg/dL (0.2-1.0); Total Protein 5.6 g/dL (6.4-8.2)
[2021-12-12] MEDS: INSULIN LANTUS (GLARGINE) 1 /0.01ml (100units/ml) SC SCH ×2 (10:00→23:01)
[2021-12-12] MEDS: BELLADONNA ALKAL/OPIUM (16.2/30MG) RECT SUPP PR SCH (10:00)
[2021-12-12] MEDS: cefTRIAXone 1GM/50ML D5W 50 ML IV SCH (11:22)
[2021-12-12] MEDS: PANTOPRAZOLE 40 MG TAB PO SCH (11:23)
[2021-12-12] MEDS: ZINC SULFATE 220mg CAP or TAB PO SCH (11:23)
[2021-12-12] MEDS: levETIRAcetam 500 MG TAB PO SCH ×2 (11:23→22:59)
[2021-12-12] MEDS: AMIODARONE HCL 200 MG TAB PO SCH ×2 (11:24→22:59)
[2021-12-12] MEDS: NOREPINEPHRINE 8 MG/250ML KIT 250 ML IV SCH (12:30)
[2021-12-12] MEDS ORDERED: POTASSIUM CHL 20 Meq TABLET PO ONE (17:45)
[2021-12-12] MEDS ORDERED: FUROSEMIDE 100 MG/10ML VIAL IV ONE (17:45)
[2021-12-12] MEDS: DAPTOmycin 250 MG in SODIUM CHL 0.9% 50 ML IV SCH (18:30)
[2021-12-13] VITALS (7 sets, daily range): BP systolic 110–126; BP diastolic 48–59
[2021-12-13] MEDS: InsuLIN REG 1unit/0.01ml Soln (100units/ml) SC SCH ×4 (06:00→23:00)
[2021-12-13] MEDS: GABAPENTIN 300 MG CAP PO SCH ×3 (06:03→22:53)
[2021-12-13] MEDS: ACCU-CHEK COMFORT CURVE STRIP VI SCH ×4 (06:04→23:01)
[2021-12-13] MEDS: BELLADONNA ALKAL/OPIUM (16.2/30MG) RECT SUPP PR SCH (10:00)
[2021-12-13] MEDS: AMIODARONE HCL 200 MG TAB PO SCH ×2 (11:11→22:52)
[2021-12-13] MEDS: PANTOPRAZOLE 40 MG TAB PO SCH (11:11)
[2021-12-13] MEDS: levETIRAcetam 500 MG TAB PO SCH ×2 (11:11→22:53)
[2021-12-13] MEDS: cefTRIAXone 1GM/50ML D5W 50 ML IV SCH (11:11)
[2021-12-13] MEDS: ZINC SULFATE 220mg CAP or TAB PO SCH (11:12)
[2021-12-13] MEDS: INSULIN LANTUS (GLARGINE) 1 /0.01ml (100units/ml) SC SCH ×2 (11:47→22:59)
[2021-12-13] MEDS: DAPTOmycin 250 MG in SODIUM CHL 0.9% 50 ML IV SCH (18:35)
[2021-12-14 05:58] VITALS: BP 111/47
[2021-12-14] MEDS: ACCU-CHEK COMFORT CURVE STRIP VI SCH ×4 (06:00→22:53)
[2021-12-14] MEDS: InsuLIN REG 1unit/0.01ml Soln (100units/ml) SC SCH ×4 (06:00→22:52)
[2021-12-14] MEDS: GABAPENTIN 300 MG CAP PO SCH ×3 (06:31→21:10)
[2021-12-14] MEDS: DEXTROSE (50%) 50ML SYRG IV PRN (06:32)
[2021-12-14 09:00] VITALS: BP 106/43
[2021-12-14] MEDS: levETIRAcetam 500 MG TAB PO SCH ×2 (09:29→21:10)
[2021-12-14] MEDS: cefTRIAXone 1GM/50ML D5W 50 ML IV SCH (09:29)
[2021-12-14] MEDS: ZINC SULFATE 220mg CAP or TAB PO SCH (09:29)
[2021-12-14] MEDS: PANTOPRAZOLE 40 MG TAB PO SCH (09:29)
[2021-12-14] MEDS: AMIODARONE HCL 200 MG TAB PO SCH ×2 (09:30→21:10)
[2021-12-14] MEDS: BELLADONNA ALKAL/OPIUM (16.2/30MG) RECT SUPP PR SCH (10:00)
[2021-12-14] MEDS: INSULIN LANTUS (GLARGINE) 1 /0.01ml (100units/ml) SC SCH ×2 (12:26→21:08)
[2021-12-14 13:00] VITALS: BP 126/49
[2021-12-14 16:42] VITALS: BP 117/55
[2021-12-14] MEDS: DAPTOmycin 250 MG in SODIUM CHL 0.9% 50 ML IV SCH (18:08)
[2021-12-14 22:00] VITALS: BP 117/52
[2021-12-15 05:00] VITALS: BP 117/53
[2021-12-15] MEDS: InsuLIN REG 1unit/0.01ml Soln (100units/ml) SC SCH ×4 (06:00→23:39)
[2021-12-15] MEDS: ACCU-CHEK COMFORT CURVE STRIP VI SCH ×4 (06:19→23:38)
[2021-12-15] MEDS: GABAPENTIN 300 MG CAP PO SCH ×3 (06:28→21:18)
[2021-12-15 09:00] VITALS: BP 109/51
[2021-12-15] MEDS: INSULIN LANTUS (GLARGINE) 1 /0.01ml (100units/ml) SC SCH (10:00)
[2021-12-15] MEDS: BELLADONNA ALKAL/OPIUM (16.2/30MG) RECT SUPP PR SCH (10:00)
[2021-12-15 10:27] LABS: Basophils # (auto) 0 10 ^3/uL (0-0.2); Basophils % (auto) 0.6 % (0.0-2.0); Eosinophils # (auto) 0.5 10 ^3/uL (0-0.8); Eosinophils % (auto) 9.9 % (0.0-7.0); Hematocrit 29.7 % (36.0-46.0); Hemoglobin 9.9 g/dL (12.2-16.2); Lymphocytes # (auto) 1.3 10 ^3/uL (0.4-5.4); Lymphocytes % (auto) 26.2 % (10.0-50.0); Mean Corpuscular Hemoglobin 28.7 pg (28.0-32.0); Mean Corpuscular Hgb Conc. 33.2 g/dL (32.0-36.0); Mean Corpuscular Volume 86.6 fL (80.0-100.0); Monocytes # (auto) 0.5 10 ^3/uL (0-1.3); Monocytes % (auto) 10.7 % (0.0-12.0); Neutrophils # (auto) 2.6 10 ^3/uL (1.6-8.6); Neutrophils % (auto) 52.6 % (37.0-80.0); Nucleated Red Blood Cells % 0.2 %; Red Blood Cells 3.43 10^6/uL (4.0-5.20); Red Cell Distribution Width 16.9 % (11.8-14.3)
[2021-12-15] MEDS: cefTRIAXone 1GM/50ML D5W 50 ML IV SCH (10:27)
[2021-12-15] MEDS: PANTOPRAZOLE 40 MG TAB PO SCH (10:27)
[2021-12-15] MEDS: ZINC SULFATE 220mg CAP or TAB PO SCH (10:28)
[2021-12-15] MEDS: levETIRAcetam 500 MG TAB PO SCH ×2 (10:28→21:17)
[2021-12-15] MEDS: AMIODARONE HCL 200 MG TAB PO SCH ×2 (10:28→21:17)
[2021-12-15 10:34] LABS: Albumin 2.3 g/dL (3.4-5.0); Calcium 8.1 mg/dL (8.5-10.1)
[2021-12-15 10:39] LABS: Bilirubin, Total 0.6 mg/dL (0.2-1.0); Total Protein 5.1 g/dL (6.4-8.2)
[2021-12-15 11:08] LABS: Anion Gap 0.99999 (5-15)
[2021-12-15 11:16] LABS: Potassium 4.1 mmol/L (3.5-5.1)
[2021-12-15 13:00] VITALS: BP 108/49
[2021-12-15 16:48] VITALS: BP 115/48
[2021-12-15] MEDS: DAPTOmycin 250 MG in SODIUM CHL 0.9% 50 ML IV SCH (17:47)
[2021-12-15 22:00] VITALS: BP 120/47
[2021-12-16 05:00] VITALS: BP 94/38
[2021-12-16] MEDS: GABAPENTIN 300 MG CAP PO SCH ×3 (05:41→21:45)
[2021-12-16] MEDS: InsuLIN REG 1unit/0.01ml Soln (100units/ml) SC SCH ×3 (05:42→18:01)
[2021-12-16] MEDS: ACCU-CHEK COMFORT CURVE STRIP VI SCH ×3 (05:42→17:59)
[2021-12-16 09:00] VITALS: BP 108/43
[2021-12-16] MEDS: cefTRIAXone 1GM/50ML D5W 50 ML IV SCH (09:44)
[2021-12-16] MEDS: PANTOPRAZOLE 40 MG TAB PO SCH (09:45)
[2021-12-16] MEDS: BELLADONNA ALKAL/OPIUM (16.2/30MG) RECT SUPP PR SCH (09:45)
[2021-12-16] MEDS: AMIODARONE HCL 200 MG TAB PO SCH ×2 (09:45→21:45)
[2021-12-16] MEDS: ZINC SULFATE 220mg CAP or TAB PO SCH (09:45)
[2021-12-16] MEDS: levETIRAcetam 500 MG TAB PO SCH ×2 (09:45→21:44)
[2021-12-16] MEDS: INSULIN LANTUS (GLARGINE) 1 /0.01ml (100units/ml) SC SCH (09:57)
[2021-12-16 13:00] VITALS: BP 115/50
[2021-12-16 16:38] VITALS: BP 114/52
[2021-12-16] MEDS: DAPTOmycin 250 MG in SODIUM CHL 0.9% 50 ML IV SCH (17:58)
[2021-12-16 21:00] VITALS: BP 114/52
[2021-12-16 22:00] VITALS: BP 107/62
[2021-12-17] MEDS: ACCU-CHEK COMFORT CURVE STRIP VI SCH ×4 (00:01→17:50)
[2021-12-17 05:00] VITALS: BP 117/50
[2021-12-17] MEDS: InsuLIN REG 1unit/0.01ml Soln (100units/ml) SC SCH ×4 (06:00→17:50)
[2021-12-17] MEDS: GABAPENTIN 300 MG CAP PO SCH ×3 (06:15→21:44)
[2021-12-17 09:00] VITALS: BP 110/41
[2021-12-17] MEDS: BELLADONNA ALKAL/OPIUM (16.2/30MG) RECT SUPP PR SCH (10:00)
[2021-12-17] MEDS: AMIODARONE HCL 200 MG TAB PO SCH ×2 (10:56→21:43)
[2021-12-17] MEDS: ZINC SULFATE 220mg CAP or TAB PO SCH (10:56)
[2021-12-17] MEDS: levETIRAcetam 500 MG TAB PO SCH ×2 (10:57→21:44)
[2021-12-17] MEDS: cefTRIAXone 1GM/50ML D5W 50 ML IV SCH (10:57)
[2021-12-17] MEDS: PANTOPRAZOLE 40 MG TAB PO SCH (10:57)
[2021-12-17] MEDS: INSULIN LANTUS (GLARGINE) 1 /0.01ml (100units/ml) SC SCH (12:05)
[2021-12-17 12:51] VITALS: BP 114/47
[2021-12-17 17:00] VITALS: BP 94/32
[2021-12-17] MEDS: DAPTOmycin 250 MG in SODIUM CHL 0.9% 50 ML IV SCH (18:51)
[2021-12-17] MEDS ORDERED: diphenhdrAMINE HCL 50 MG/1 ML VL IV PRN (21:15)
[2021-12-17 22:00] VITALS: BP 111/52
[2021-12-18] MEDS: ACCU-CHEK COMFORT CURVE STRIP VI SCH ×5 (00:24→23:07)
[2021-12-18 05:00] VITALS: BP 106/53
[2021-12-18] MEDS: InsuLIN REG 1unit/0.01ml Soln (100units/ml) SC SCH ×5 (05:54→23:21)
[2021-12-18] MEDS: GABAPENTIN 300 MG CAP PO SCH ×3 (06:29→21:42)
[2021-12-18 08:00] VITALS: BP 129/39
[2021-12-18] MEDS: BELLADONNA ALKAL/OPIUM (16.2/30MG) RECT SUPP PR SCH (10:00)
[2021-12-18] MEDS: levETIRAcetam 500 MG TAB PO SCH ×2 (11:06→21:42)
[2021-12-18] MEDS: PANTOPRAZOLE 40 MG TAB PO SCH (11:06)
[2021-12-18] MEDS: ZINC SULFATE 220mg CAP or TAB PO SCH (11:06)
[2021-12-18] MEDS: cefTRIAXone 1GM/50ML D5W 50 ML IV SCH (11:06)
[2021-12-18] MEDS: AMIODARONE HCL 200 MG TAB PO SCH ×2 (11:06→21:42)
[2021-12-18 12:00] VITALS: BP 106/42
[2021-12-18] MEDS ORDERED: TESTOSTERONE CYPIONATE 200 MG/ML 1ML VIAL IM ONE (14:00)
[2021-12-18 16:00] VITALS: BP 101/28
[2021-12-18 16:17] LABS: Basophils # (auto) 0 10 ^3/uL (0-0.2); Basophils % (auto) 0.7 % (0.0-2.0); Eosinophils # (auto) 0.5 10 ^3/uL (0-0.8); Eosinophils % (auto) 7.9 % (0.0-7.0); Hematocrit 31.6 % (36.0-46.0); Hemoglobin 10.2 g/dL (12.2-16.2); Lymphocytes # (auto) 1.7 10 ^3/uL (0.4-5.4); Lymphocytes % (auto) 27.1 % (10.0-50.0); Mean Corpuscular Hemoglobin 27.8 pg (28.0-32.0); Mean Corpuscular Hgb Conc. 32.3 g/dL (32.0-36.0); Mean Corpuscular Volume 85.9 fL (80.0-100.0); Monocytes # (auto) 0.6 10 ^3/uL (0-1.3); Monocytes % (auto) 9.7 % (0.0-12.0); Neutrophils # (auto) 3.5 10 ^3/uL (1.6-8.6); Neutrophils % (auto) 54.6 % (37.0-80.0); Red Blood Cells 3.68 10^6/uL (4.0-5.20); White Blood Cell 6.3 10^3/uL (4.4-10.8)
[2021-12-18 16:36] LABS: Albumin 2.3 g/dL (3.4-5.0); Calcium 8.4 mg/dL (8.5-10.1); Potassium 4.3 mmol/L (3.5-5.1)
[2021-12-18 16:40] LABS: Bilirubin, Total 0.5 mg/dL (0.2-1.0); Total Protein 6.1 g/dL (6.4-8.2)
[2021-12-18] MEDS: DAPTOmycin 250 MG in SODIUM CHL 0.9% 50 ML IV SCH (18:23)
[2021-12-18 19:12] LABS: BUN/Creatinine Ratio 12.7
[2021-12-18 22:00] VITALS: BP 95/39
[2021-12-19 05:00] VITALS: BP 95/37
[2021-12-19] MEDS: ACCU-CHEK COMFORT CURVE STRIP VI SCH ×4 (05:35→23:20)
[2021-12-19] MEDS: GABAPENTIN 300 MG CAP PO SCH ×3 (05:35→22:28)
[2021-12-19] MEDS: InsuLIN REG 1unit/0.01ml Soln (100units/ml) SC SCH ×4 (05:41→23:28)
[2021-12-19 07:23] LABS: Urine Bacteria NONE SEEN /hpf (None Seen); Urine Blood 3+ /uL (Negative); Urine Specific Gravity 1.013 (1.001-1.035); Urine WBC 202 /hpf (0 - 5)
[2021-12-19] MEDS: INSULIN LANTUS (GLARGINE) 1 /0.01ml (100units/ml) SC SCH ×2 (07:57→11:20)
[2021-12-19 08:00] VITALS: BP 97/40
[2021-12-19] MEDS: BELLADONNA ALKAL/OPIUM (16.2/30MG) RECT SUPP PR SCH (10:00)
[2021-12-19] MEDS: cefTRIAXone 1GM/50ML D5W 50 ML IV SCH (10:28)
[2021-12-19] MEDS: ZINC SULFATE 220mg CAP or TAB PO SCH (10:28)
[2021-12-19] MEDS: levETIRAcetam 500 MG TAB PO SCH ×2 (10:28→22:28)
[2021-12-19] MEDS: PANTOPRAZOLE 40 MG TAB PO SCH (10:28)
[2021-12-19] MEDS: AMIODARONE HCL 200 MG TAB PO SCH ×2 (10:29→22:28)
[2021-12-19 12:00] VITALS: BP 97/44
[2021-12-19 16:00] VITALS: BP 116/39
[2021-12-19] MEDS: DAPTOmycin 250 MG in SODIUM CHL 0.9% 50 ML IV SCH (18:36)
[2021-12-19 21:30] VITALS: BP 99/30
[2021-12-19 22:00] VITALS: BP 99/30
[2021-12-20 05:00] VITALS: BP 107/53
[2021-12-20] MEDS: InsuLIN REG 1unit/0.01ml Soln (100units/ml) SC SCH ×4 (06:00→23:35)
[2021-12-20] MEDS: GABAPENTIN 300 MG CAP PO SCH ×3 (06:07→22:09)
[2021-12-20] MEDS: ACCU-CHEK COMFORT CURVE STRIP VI SCH ×4 (06:07→23:34)
[2021-12-20 07:25] LABS: Urine Bacteria NONE SEEN /hpf (None Seen); Urine Blood 3+ /uL (Negative); Urine Hyaline Cast FEW /lpf (0 - 2); Urine WBC 95 /hpf (0 - 5)
[2021-12-20 08:00] VITALS: BP 101/41
[2021-12-20] MEDS: BELLADONNA ALKAL/OPIUM (16.2/30MG) RECT SUPP PR SCH (10:00)
[2021-12-20] MEDS: FLUCONAZOLE 100 MG TAB PO SCH (10:23)
[2021-12-20] MEDS: AMIODARONE HCL 200 MG TAB PO SCH ×2 (10:23→22:09)
[2021-12-20] MEDS: ZINC SULFATE 220mg CAP or TAB PO SCH (10:23)
[2021-12-20] MEDS: PANTOPRAZOLE 40 MG TAB PO SCH (10:24)
[2021-12-20] MEDS: levETIRAcetam 500 MG TAB PO SCH ×2 (10:24→22:09)
[2021-12-20] MEDS: INSULIN LANTUS (GLARGINE) 1 /0.01ml (100units/ml) SC SCH (10:29)
[2021-12-20 12:00] VITALS: BP 116/53
[2021-12-20 16:00] VITALS: BP 98/38
[2021-12-20] MEDS: DAPTOmycin 250 MG in SODIUM CHL 0.9% 50 ML IV SCH (18:14)
[2021-12-21 05:00] VITALS: BP 120/54
[2021-12-21] MEDS: InsuLIN REG 1unit/0.01ml Soln (100units/ml) SC SCH ×3 (06:00→17:35)
[2021-12-21] MEDS: ACCU-CHEK COMFORT CURVE STRIP VI SCH ×3 (06:11→17:33)
[2021-12-21] MEDS: GABAPENTIN 300 MG CAP PO SCH ×3 (06:47→21:21)
[2021-12-21] MEDS ORDERED: IOTHALAMATE MEGLUMINE INJ 250ML BOT UR ONE (08:12)
[2021-12-21] MEDS ORDERED: IOHEXOL 350 MG/ML 100ML IJ ONE ×2 (08:15→08:20)
[2021-12-21 09:00] VITALS: BP 101/59
[2021-12-21] MEDS: BELLADONNA ALKAL/OPIUM (16.2/30MG) RECT SUPP PR SCH (10:00)
[2021-12-21] MEDS: FLUCONAZOLE 100 MG TAB PO SCH (10:24)
[2021-12-21] MEDS: ZINC SULFATE 220mg CAP or TAB PO SCH (10:24)
[2021-12-21] MEDS: PANTOPRAZOLE 40 MG TAB PO SCH (10:24)
[2021-12-21] MEDS: AMIODARONE HCL 200 MG TAB PO SCH ×2 (10:24→21:20)
[2021-12-21] MEDS: levETIRAcetam 500 MG TAB PO SCH ×2 (10:24→21:21)
[2021-12-21] MEDS: INSULIN LANTUS (GLARGINE) 1 /0.01ml (100units/ml) SC SCH (10:28)
[2021-12-21 13:00] VITALS: BP 111/60
[2021-12-21 15:49] LABS: Albumin 2.4 g/dL (3.4-5.0); Potassium 4.7 mmol/L (3.5-5.1)
[2021-12-21 15:54] LABS: BUN/Creatinine Ratio 12.8; Calcium 8.3 mg/dL (8.5-10.1)
[2021-12-21 15:56] LABS: Bilirubin, Total 0.5 mg/dL (0.2-1.0); Total Protein 6.3 g/dL (6.4-8.2)
[2021-12-21 16:43] VITALS: BP 108/54
[2021-12-21] MEDS: DAPTOmycin 250 MG in SODIUM CHL 0.9% 50 ML IV SCH (17:33)
[2021-12-21 22:00] VITALS: BP 109/60
[2021-12-22] MEDS: InsuLIN REG 1unit/0.01ml Soln (100units/ml) SC SCH ×4 (00:15→18:00)
[2021-12-22] MEDS: ACCU-CHEK COMFORT CURVE STRIP VI SCH ×5 (00:15→18:16)
[2021-12-22 05:00] VITALS: BP 117/63
[2021-12-22] MEDS: GABAPENTIN 300 MG CAP PO SCH ×2 (06:00→14:32)
[2021-12-22 09:00] VITALS: BP 121/60
[2021-12-22] MEDS: levETIRAcetam 500 MG TAB PO SCH (10:00)
[2021-12-22] MEDS: BELLADONNA ALKAL/OPIUM (16.2/30MG) RECT SUPP PR SCH (10:00)
[2021-12-22] MEDS: FLUCONAZOLE 100 MG TAB PO SCH (11:29)
[2021-12-22] MEDS: ZINC SULFATE 220mg CAP or TAB PO SCH (11:29)
[2021-12-22] MEDS: PANTOPRAZOLE 40 MG TAB PO SCH (11:30)
[2021-12-22] MEDS: AMIODARONE HCL 200 MG TAB PO SCH (11:30)
[2021-12-22] MEDS: INSULIN LANTUS (GLARGINE) 1 /0.01ml (100units/ml) SC SCH (11:55)
[2021-12-22 13:00] VITALS: BP 121/49
[2021-12-22 16:56] VITALS: BP 124/64
[2021-12-22] MEDS: DAPTOmycin 250 MG in SODIUM CHL 0.9% 50 ML IV SCH (18:00)
[2021-12-22 18:04] VITALS: BP 113/59
[2021-12-22 19:32] VITALS: BP 124/64
== END 2021-12-22 20:30 | disposition home health service (06) | DRG 853 ==
LOC: ER 10:29 → EDBD 10:29 → TELE 14:14 → TELE-WESTW 12-05 01:08 → ICU WEST 12-05 03:38 → TELE-WESTW 12-07 08:07 → ICU CENTRL 12-08 20:49 → DOU IN ICU 12-08 21:46 → ICU CENTRL 12-09 18:04 → DOU IN ICU 12-11 03:46 → TELE-WESTW 12-12 17:37
PROVIDERS: ADMIT Internal Medicine; ATTEND Internal Medicine Cardiovascular Disease
PROC: 30233N1 Transfusion of Nonautologous Red Blood Cells into Peripheral Vein, Percutaneous Approach (ICD-10-PCS; 2021-12-04)
PROC: 0T768DZ Dilation of Right Ureter with Intraluminal Device, Via Natural or Artificial Opening Endoscopic (ICD-10-PCS; principal; 2021-12-05)
PROC: 0TCB8ZZ Extirpation of Matter from Bladder, Via Natural or Artificial Opening Endoscopic (ICD-10-PCS; 2021-12-08)
PROC: 5A09357 Assistance with Respiratory Ventilation, Less than 24 Consecutive Hours, Continuous Positive Airway Pressure (ICD-10-PCS; 2021-12-08)
PROC: 05H933Z Insertion of Infusion Device into Right Brachial Vein, Percutaneous Approach (ICD-10-PCS; 2021-12-09)
PROC: B54MZZA Ultrasonography of Right Upper Extremity Veins, Guidance (ICD-10-PCS; 2021-12-09)
PROC: 5A09357 Assistance with Respiratory Ventilation, Less than 24 Consecutive Hours, Continuous Positive Airway Pressure (ICD-10-PCS; 2021-12-09)
PROC: 5A09357 Assistance with Respiratory Ventilation, Less than 24 Consecutive Hours, Continuous Positive Airway Pressure (ICD-10-PCS; 2021-12-10)
PROC: 5A09357 Assistance with Respiratory Ventilation, Less than 24 Consecutive Hours, Continuous Positive Airway Pressure (ICD-10-PCS; 2021-12-12)
PROC: 5A09357 Assistance with Respiratory Ventilation, Less than 24 Consecutive Hours, Continuous Positive Airway Pressure (ICD-10-PCS; 2021-12-13)
PROC: 5A09357 Assistance with Respiratory Ventilation, Less than 24 Consecutive Hours, Continuous Positive Airway Pressure (ICD-10-PCS; 2021-12-15)
PROC: 5A09357 Assistance with Respiratory Ventilation, Less than 24 Consecutive Hours, Continuous Positive Airway Pressure (ICD-10-PCS; 2021-12-16)
PROC: 5A09357 Assistance with Respiratory Ventilation, Less than 24 Consecutive Hours, Continuous Positive Airway Pressure (ICD-10-PCS; 2021-12-21)
DX: A41.9 Sepsis, unspecified organism (principal); J18.9 Pneumonia, unspecified organism; J96.21 Acute and chronic respiratory failure with hypoxia; L03.116 Cellulitis of left lower limb; N17.9 Acute kidney failure, unspecified; J98.11 Atelectasis; N13.6 Pyonephrosis; R57.9 Shock, unspecified; N12 Tubulo-interstitial nephritis, not specified as acute or chronic; I13.0 Hypertensive heart and chronic kidney disease with heart failure and stage 1 through stage 4 chronic kidney disease, or unspecified chronic kidney disease; Z68.41 Body mass index [BMI] 40.0-44.9, adult; Z20.822 Contact with and (suspected) exposure to COVID-19; E11.65 Type 2 diabetes mellitus with hyperglycemia; R65.20 Severe sepsis without septic shock; G40.909 Epilepsy, unspecified, not intractable, without status epilepticus; E66.01 Morbid (severe) obesity due to excess calories; E86.1 Hypovolemia; N18.30 Chronic kidney disease, stage 3 unspecified; D50.0 Iron deficiency anemia secondary to blood loss (chronic); E11.22 Type 2 diabetes mellitus with diabetic chronic kidney disease; E11.649 Type 2 diabetes mellitus with hypoglycemia without coma; E78.5 Hyperlipidemia, unspecified; E87.5 Hyperkalemia; E88.09 Other disorders of plasma-protein metabolism, not elsewhere classified; G47.30 Sleep apnea, unspecified; I50.9 Heart failure, unspecified; E11.42 Type 2 diabetes mellitus with diabetic polyneuropathy; I48.91 Unspecified atrial fibrillation; E11.21 Type 2 diabetes mellitus with diabetic nephropathy; K21.9 Gastro-esophageal reflux disease without esophagitis; Z79.01 Long term (current) use of anticoagulants; Z79.84 Long term (current) use of oral hypoglycemic drugs; Z79.899 Other long term (current) drug therapy; Z80.9 Family history of malignant neoplasm, unspecified; Z82.0 Family history of epilepsy and other diseases of the nervous system; Z82.3 Family history of stroke; Z83.3 Family history of diabetes mellitus; Z87.442 Personal history of urinary calculi; Z90.49 Acquired absence of other specified parts of digestive tract; Z90.710 Acquired absence of both cervix and uterus
CPT/HCPCS: 96360; 99285; S2070; 36415; 36430; 36600; 71045; 74430; 80048; 80053; 81001; 82805; 82962; 83605; 84443; 84484; 85007; 85014; 85018; 85025; 85027; 85610; 85730; 86850; 86900; 86901; 86920; 87040; 87081; 87086; 93005; 93970; 93971; 94660; 97110; 97116; 97530; C9113; G0378; J0330; J0696; J1071; J1815; J2250; J2405; J2704; J7060; P9047

== ENCOUNTER 2024-12-13 22:16 | Inpatient (IN) | payer MEDICARE, OTHER ==
[~2024-12-13] VITALS: Ht 170.2 cm; Wt 86.8 kg
[~2024-12-13 22:16] MED LIST changes: +AMIO200T13 PO; -AMIO200T4 PO; +GABA-1250 PO; -GABA300C10 PO; +ROSU10TA64 PO; -ROSU1TAB13 PO; -SEVE800T PO; +SEVE800T7 PO
[2024-12-13] MEDS: ALBUTEROL SULF 2.5 MG/0.5ML(0.5%) NEB SOLN NEB ONE (22:41)
[2024-12-13] MEDS: IPRATROPIUM BROM 0.5 MG/2.5ML INH SOL NEB ONE (22:41)
--- NOTE | 2024-12-13 22:51 | ED.PDOC ---
History of Present Illness HPI Comments 74 y/o F with a Hx of AFib - on Eliquis, COPD w/3lpm home O2, DM w/peripheral neuropathy, HLD, and seizures, is BIBA from home for c/c SOB, low O2 saturations, and AMS. Chief Complaint: Shortness of Breath Time Seen by MD: 22:20 Primary Care Provider: AVTAR Reviewed Notes: Nurses Notes, Laminating Machine Offbearer Notes, Medications, Allergies Allergies: Coded Allergies: No Known Drug Allergy (Verified Allergy, Unknown, 12/04/21) Home Meds Active Scripts Cephalexin (KEFLEX 500) 500 Mg Cap, 1 CAP PO TID for 5 Days, #15 CAP Prov:BENOIT GONZALEZ MD 11/01/21 Apixaban Base (ELIQUIS) 5 Mg Tab, 5 MG PO BID for 30 Days, #60 TAB Prov:BENOIT GONZALEZ MD 11/01/21 Amiodarone HCl (Amiodarone HCl) 200 Mg Tab, 200 MG PO BID for 30 Days, #60 TAB Prov:BENOIT GONZALEZ MD 11/01/21 Empagliflozin (Jardiance) 25 Mg Tab, 25 MG PO DAILY@BREAKFAST for 30 Days, #30 TAB Prov:BENOIT GONZALEZ MD 11/01/21 Sevelamer Hydrochloride (Renagel) 800 Mg Tab, 800 MG PO TIDWM for 30 Days, #120 TAB Prov:BENOIT GONZALEZ MD 11/01/21 Fluconazole (Fluconazole) 100 Mg Tab, 200 MG PO DAILY for 10 Days, #20 TAB Prov:BENOIT GONZALEZ MD 11/01/21 Ergocalciferol (VITAMIN D 69148 UNIT) 50,000 [place], [address] UNIT PO Q7D for 10 Days, #10 CAP Prov:BENOIT GONZALEZ MD 11/01/21 Pantoprazole Sodium Sesquihydr (Protonix) 40 Mg Tab, 40 MG PO DAILY, #30 TAB Prov:CHERELLE PENA MD 07/11/21 Reported Medications Rosuvastatin Calcium (Rosuvastatin Calcium) 10 Mg Tab, 10 MG PO HS 10/31/21 Torsemide (Torsemide) 20 Mg Tab, 20 MG PO DAILY 10/31/21 Levetiracetam (Keppra) 1,000 Mg Tab, 1 TAB PO BID patient reported to take keppra 2 to 3 times a day, could not be certain 2 or 3 times a day. 10/31/21 Insulin Glargine (Lantus) 100 Unit/Ml Inj, 30 UNIT SC BID, INJ PER PATIENT, PATIENT ONLY USES 30 UNITS OF LANTUS TWICE A DAY WITH NO OTHER MEAL TIME INSULIN 03/28/18 Metformin Hydrochloride (Metformin Hcl) 1,000 Mg Tab, 1 TAB PO BID 03/28/18 Metoprolol Tartrate (Lopressor) 50 Mg Tab, 1 TAB PO BID Patient stopped taking this medication at home. Reported too many medications to keep track off. 03/28/18 Riociguat Base (Adempas) 1 Mg Tab, 1 MG PO TID 03/28/18 Ezetimibe (Zetia) 10 Mg Tab, 40 MG PO DAILY 03/28/18 Gabapentin (Gabapentin) 300 Mg Cap, 300 MG PO TID for 30 Days, MG Patient reported not taking this medication due to too many medication to keep track of. 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 History: Denies all PEANUT CLEANER Hx Family History Family History: Family hx of DM, Family hx of Cancer Social History Smoker: Non-Smoker, Quit Greater Than 1 Year Alcohol: Denies ETOH Use Drugs: Denies Drug Use Lives In: Home All Other Systems: Reviewed and Negative (as per HPI) Physical Exam General Appearance: No Apparent Distress, Normal HEENT: Normal ENT Inspection, Pharynx Normal, TMs Normal Neck: Full Range of Motion, Non-Tender, Normal, Normal Inspection Respiratory: Chest Non-Tender, Lungs Clear, No Accessory Muscle Use, No Respiratory Distress, Normal Breath Sounds Cardiovascular: No Edema, No JVD, No Murmur, No Gallop, Normal Peripheral Pulses, Regular Rate/Rhythm Breast Exam: Deferred Gastrointestinal: No Organomegaly, Non Tender, No Pulsatile Mass, Normal Bowel Sounds, Soft Genitalia: Deferred Pelvic: Deferred Rectal: Deferred Extremities: No calf tenderness, Normal capillary refill, Normal inspection, Normal range of motion, Non-tender, No pedal edema Musculoskeletal : Apperance: Normal Neurologic: Alert (orientated to self, not year or place ), [employer] 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 Was a procedure done?: No Differential Dx Considerations may include: COPD exacerbation, DC, PE, ACS, URI, among others X-Ray, Labs, Meds, VS Vital Signs Date Time Temp Pulse Resp B/P (MAP) Pulse Ox O2 Delivery O2 Flow Rate FiO2 12/14/24 02:00 88 19 120/45 (70) 95 12/14/24 01:00 89 20 127/43 (71) 93 12/14/24 00:00 91 13 127/49 (75) 93 12/13/24 23:26 98.8 93 16 117/41 (66) 98 98.8 12/13/24 23:26 93 16 98 Nasal Cannula* 2 28 12/13/24 22:50 90 12/13/24 22:42 20 97 Nasal Cannula* 6 44 12/13/24 22:29 98.8 87 17 111/75 100 98.8 Lab Test 12/14/24 00:11 12/13/24 23:50 12/13/24 22:43 Range/Units Troponin I High Sensitivity < 3 L < 3 L </=34 ng/L Influenza Type A Antigen Negative Negative Influenza Type B Antigen Negative Negative SARS-CoV-2 Antigen (Rapid) Negative NEGATIVE White Blood Count 15.1 H 4.4-10.8 10^3/uL Red Blood Count 4.24 4.0-5.20 10^6/uL Hemoglobin 10.6 L 12.2-16.2 g/dL Hematocrit 33.9 L 36.0-46.0 % Mean Corpuscular Volume 80.0 80.0-100.0 fL Mean Corpuscular Hemoglobin 25.0 L 28.0-32.0 pg Mean Corpuscular Hemoglobin Concent 31.2 L 32.0-36.0 g/dL Red Cell Distribution Width 15.5 H 11.8-14.3 % Platelet Count 257 140-450 10^3/uL Mean Platelet Volume 7.4 6.9-10.8 fL Neutrophils (%) (Auto) 75.9 37.0-80.0 % Lymphocytes (%) (Auto) 17.6 10.0-50.0 % Monocytes (%) (Auto) 3.4 0.0-12.0 % Eosinophils (%) (Auto) 2.8 0.0-7.0 % Basophils (%) (Auto) 0.3 0.0-2.0 % Neutrophils # (Auto) 11.5 H 1.6-8.6 10 ^3/uL Lymphocytes # (Auto) 2.7 0.4-5.4 10 ^3/uL Monocytes # (Auto) 0.5 0-1.3 10 ^3/uL Eosinophils # (Auto) 0.4 0-0.8 10 ^3/uL Basophils # (Auto) 0 0-0.2 10 ^3/uL Nucleated Red Blood Cells 0.0 % Sodium Level 139 136-145 mmol/L Potassium Level 4.3 3.5-5.1 mmol/L Chloride Level 87 L 98-107 mmol/L Carbon Dioxide Level > 40 *H 20-31 mmol/L Anion Gap 11.02439 5-15 Blood Urea Nitrogen 15 9-23 mg/dL Creatinine 1.21 H 0.550-1.02 mg/dL Glomerular Filtration Rate Calc 48 >90 mL/min BUN/Creatinine Ratio 12.4 10.0-20.0 Serum Glucose 126 H 74-106 mg/dL Calcium Level 9.5 8.7-10.4 mg/dL Current Medications Medications (Trade) Dose Ordered Sig/Zaida Route Start Time Stop Time Status Last Admin Albuterol (Ventolin Medneb) 5 mg ONCE ONCE NEB 12/13/24 22:30 12/13/24 22:31 DC 12/13/24 22:41 Ipratropium [place] (Atrovent Medneb) 0.5 mg ONCE ONCE NEB 12/13/24 22:30 12/13/24 22:31 DC 12/13/24 22:41 Ceftriaxone Sodium 50 ml @ 100 mls/hr ONCE ONCE IV 12/14/24 00:30 12/14/24 00:59 DC 12/14/24 00:[address] [address] Ph: [phone] DIAGNOSTIC IMAGING Diagnostic Imaging Report : [id number] Signed PATIENT: CLIF MARQUEZ ACCT: [id number] UNIT: [id number] : 1950 LOC: ER ROOM / BED: / AGE / SEX: 74 / F ADM STATUS: REG ER SERVICE 24 ORDERING PHYSICIAN: JOSE DAS MD PROCEDURE(s): CXR1 - CHEST XRAY 1 VIEW REASON: sob ORDER NUMBER(s): [id number], ACCESSION NUMBER(s): [id number] CHEST RADIOGRAPH Indication: sob Technique: 1 view Comparison: CXRP on DOS: 12/08/21 FINDINGS: Lines and Tubes: None Lungs/Pleura: Persistent diffuse bilateral interstitial opacities. Development of left hemidiaphragm and costophrenic angle obscuration. Cardiomediastinum: Heart size remains enlarged. Central pulmonary vascular indistinctness. Other: No acute osseous abnormality. IMPRESSION: 1. New left basilar density from 2021 may represent airspace disease and/or pleural effusion, suggesting worsening heart failure pattern or superimposed infection. ATED BY: BRITTNI HEARN MD DICTATED DATE/TIME: 12/13/242346 SIGNED BY: BRITTNI HEARN MD SIGNED DATE/TIME: 12/13/242346 CC: Time of 1ST Reevaluation: 22:50 Reevaluation 1ST: Unchanged Time of 2ND Reevaluation: 02:42 Reevaluation 2ND: Improved Patient Education/Counseling: Diagnosis, Treatment Family Education/Counseling: Diagnosis, Treatment Comments Patient is has CHF, COPD and was found to be hypoxic. Family put her on oxygen. EMS put on more oxygen. Bedtime patient came here she was mildly confused. She answer questions follow commands but does not know where she is and does not know the date. She has no focal findings. The workup shows that she has COPD exacerbation with CO2 retention. This likely caused the altered mental status as oxygen was increased causing the depression over respiratory drive found the hypoxia. Patient is likely a chronic CO2 retainer. Chest x-ray does show pneumonia. Progressively patient is becoming more oriented and alert. I do not suspect CVA. As mentation suggest global encephalopathy rather than focal neurologic deficits. And improvement with Ju[place] down the oxygen further supports that she is likely a chronic CO2 retainer. Patient will be admitted for pneumonia COPD exacerbation, altered mental status which is improving. Additional Information Previous visits: N/A The following tests were ordered, and results were reviewed by me: Troponin, EKG, Covid19/influenza antigen, CXR, BMP, CBC Additional Information was gathered from interviewing the following independent historians: family/EMS I reviewed and agreed with the following test results read by other providers: CXR I discussed treatment and results with medical personnel and: family SEPSIS Sepsis Screen Date sepsis recognized/suspect: Dec 13, 2024 Time Sepsis recognized/suspect: 2232 Recent Procedure: No On Antibiotic Therapy: No Respiratory Rate >20: No Heart Rate >90: No Temp<36 C (96.8 F) or >38.3 C: No SBP <90 or MAP <65 mmHG: No New Acute Mental Status Change: No Is the patient on CPAP, BIPAP,: No Physician Orders Chest Xray 1 View (12/13/24 22:25) Electrocardigram (12/13/24 22:25) Continuous Ekg Monitoring 08,12,16,20,00,04 (12/13/24 22:25) Electrocardigram (12/13/24 23:25) Electrocardigram (12/14/24 01:25) Vital Signs Date Time Temp Pulse Resp B/P (MAP) Pulse Ox O2 Delivery O2 Flow Rate FiO2 12/14/24 02:00 88 19 120/45 (70) 95 12/14/24 01:00 89 20 127/43 (71) 93 12/14/24 00:00 91 13 127/49 (75) 93 12/13/24 23:26 98.8 93 16 117/41 (66) 98 98.8 12/13/24 23:26 93 16 98 Nasal Cannula* 2 28 12/13/24 22:50 90 12/13/24 22:42 20 97 Nasal Cannula* 6 44 12/13/24 22:29 98.8 87 17 111/75 100 98.8 Laboratory Tests Test 12/13/24 22:43 White Blood Count 15.1 10^3/uL (4.4-10.8) H Medications Medications Dose Ordered Sig/Zaida Route Start Time Stop Time Status Last Admin Dose Admin Albuterol 5 mg ONCE ONCE NEB 12/13/24 22:30 12/13/24 22:31 DC 12/13/24 22:41 Ceftriaxone Sodium 50 ml @ 100 mls/hr ONCE ONCE IV 12/14/24 00:30 12/14/24 00:59 DC 12/14/24 00:30 Ipratropium [place] 0.5 mg ONCE ONCE NEB 12/13/24 22:30 12/13/24 22:31 DC 12/13/24 22:41 Departure 1 Departure Time of Disposition: 02:41 Impression: Primary Impression: COPD exacerbation Additional Impressions: Altered mental status Qualified Codes: R41.0 - Disorientation, unspecified Pneumonitis Disposition: ADMITTED INPATIENT Condition: Critical Critical Care Note Critical Care Time?: Yes (1 hr-critical care time only) Critical care comment: Due to concerns for patients condition deteriorating, the care required my highest level of attention and readiness to intervene. I assessed the patient, reviewed the medical records, ordered the appropriate tests and treatments, then reassessed for results and responsiveness. I communicated with medical personnel and consultants and formulated a plan of care. Total critical care time excludes any procedures Stability Stability form required: No Heart Score Heart Score: Heart Score Response (Comments) Value History N/A 0 EKG N/A 0 Age N/A 0 Risk Factors N/A 0 Troponin N/A 0 Total 0 I personally scribed for JOSE DAS MD ([email or web address]) on 12/13/24 at 22:51. Electronically submitted by Zach Weber ([email or web address]). I personally scribed for JOSE DAS MD ([email or web address]) on 12/14/24 at 00:32. Electr onically submitted by Zach Weber ([email or web address]). JOSE DAS MD Dec 13, 2024 22:51
[2024-12-13 23:00] LABS: Hematocrit 33.9 % (36.0-46.0); Hemoglobin 10.6 g/dL (12.2-16.2); Mean Corpuscular Hemoglobin 25.0 pg (28.0-32.0); Mean Corpuscular Volume 80.0 fL (80.0-100.0); Nucleated Red Blood Cells % 0.0 %
[2024-12-13 23:09] LABS: Potassium 4.3 mmol/L (3.5-5.1); Sodium 139 mmol/L (136-145)
[2024-12-13 23:10] LABS: Calcium 9.5 mg/dL (8.7-10.4)
[2024-12-13 23:15] LABS: BUN/Creatinine Ratio 12.4 (10.0-20.0); Blood Urea Nitrogen 15 mg/dL (9-23)
[2024-12-13 23:17] LABS: Anion Gap 11.99999 (5-15); Chloride 87 mmol/L (98-107); Glucose 126 mg/dL (74-106)
[2024-12-13 23:18] LABS: Carbon Dioxide > 40 mmol/L (20-31)
[2024-12-13 23:26] VITALS: PULSE 93; RESP 16; O2SAT 98
--- NOTE | 2024-12-13 23:50 | DVH ---
CHEST RADIOGRAPH Indication: sob Technique: 1 view Comparison: CXRP on DOS: 12/08/21 FINDINGS: Lines and Tubes: None Lungs/Pleura: Persistent diffuse bilateral interstitial opacities. Development of left hemidiaphragm and costophrenic angle obscuration. Cardiomediastinum: Heart size remains enlarged. Central pulmonary vascular indistinctness. Other: No acute osseous abnormality. IMPRESSION: 1. New left basilar density from 2021 may represent airspace disease and/or pleural effusion, suggest ing worsening heart failure pattern or superimposed infection.
[2024-12-14 00:39] LABS: COVID19 ANTIGEN SOFIA FIA NEGATIVE (NEGATIVE)
[2024-12-14] MEDS ORDERED: DOCUSATE SOD 100 MG CAP PO PRN (03:00)
[2024-12-14] MEDS ORDERED: IPRATROPIUM BROM 0.5 MG/2.5ML INH SOL NEB PRN (03:00)
[2024-12-14] MEDS ORDERED: HYDROcodone-ACET 5/325MG TAB PO PRN (03:00)
[2024-12-14] MEDS ORDERED: ALBUTEROL SULF 2.5 MG/0.5ML(0.5%) NEB SOLN NEB PRN (03:00)
[2024-12-14] MEDS: SODIUM CHLORIDE 0.9% 1,000 ML IV SCH (03:00)
[2024-12-14] MEDS ORDERED: ONDANSETRON HCL 4 MG/2 ML VIAL IV PRN (03:00)
[2024-12-14] MEDS ORDERED: ACETAMINOPHEN 325 MG TAB PO PRN (03:00)
[2024-12-14 03:48] VITALS: BP 127/49; PULSE 91; RESP 18; O2SAT 98
--- NOTE | 2024-12-14 04:09 | DVHHP2 ---
History of Present Illness Reason for Visit: COPD with acute exacerbation History of Present Illness The patient is a 74-year-old female with past medical history of CHF, COPD, DM, hyperlipidemia, and hypertension who presented to [facility] with complaint of shortness of breaths. Patient was seen and evaluated in the ED, laboratory data shows WBC 15.1, platelets 10.6, hematocrit 33.9, platelets 257, sodium 139, potassium 4.3, BUN 15, creatinine 1.21, glucose 126, calcium 9.5, anion gap 11.999, troponin < 3, CO2 > 40, blood pressure 120/45, heart rate 88, temperature 98.9 F, O2 saturation 95% on oxygen. Chest x-ray revealing new left basilar density from 2021 may represent airspace disease and/or pleural effusion, suggesting worsening heart failure pattern superimposed infection. Please see medication orders section in the computer. On my assessment, patient denied chest pain, no headache, no dizziness, no diaphoresis, currently on oxygen, no diarrhea, no nausea, no vomiting, no fever, no chills. Patient was admitted for further evaluation and medical management. Past Medical History CHF, COPD, DM, High Lipids, HTN Past Surgical History Cholecystectomy, , Hysterectomy Family History Reviewed, noncontributory to the management of this case. Past Social History The patient lives at home, quit smoking greater than 1 year, denies alcohol or i llicit drugs abuse. Review of Systems Constitutional: Yes: Weakness; No: Fever, Chills, Sweats, Malaise, Other Eyes: No: Pain, Vision change, Conjunctivae inflammation, Eyelid inflammation, Other, Redness ENT: No: Ear pain, Ear discharge, Nose pain, Nose discharge, Nose congestion, M outh pain, Mouth swelling, Throat pain, Throat swelling, Other Respiratory: Shortness of breath, Other (SOB at rest); No: Cough, Dry, SOB with excertion, Wheezing, Hemoptysis, Pleuritic Pain, Sputum, Wheezing Cardiovascular: No: Chest Pain, Palpitations, Orthopnea, Paroxysmal Noc. Dyspnea, Edema, Lt Headedness, Other Gastrointestinal: No: Nausea, Vomiting, Abdominal Pain, Diarrhea, Constipation, Melena, Hematochezia, Other Genitourinary: No Dysuria, No Frequency, No Incontinence, No Hematuria, No Retention, No Other Musculoskeletal: No: other, neck pain, shoulder pain, arm pain, back pain, hand pain, leg pain, foot pain Skin: No: Rash, Lesions, Jaundice, Bruising, Other Neurological: No: Weakness, Numbness, Incoordination, Change in speech, Confusion, Seizures, Other Allergies: Coded Allergies: No Known Drug Allergy (Verified Allergy, Unknown, 12/04/21) Medications Current Medications Medications Dose Ordered Sig/Zaida Route Start Time Stop Time Status Last Admin Dose Admin Ceftriaxone Sodium 50 ml @ 100 mls/hr DAILY@09 IV 12/15/24 09:00 Albuterol 2.5 mg Q4HPRN PRN NEB 12/14/24 03:00 Ipratropium [place] 0.5 mg Q4HPRN PRN NEB 12/14/24 03:00 Sodium Chloride 1,000 ml @ 60 mls/hr [id number] IV 12/14/24 03:00 12/14/24 03:00 60 MLS/HR Acetaminophen/ Hydrocodone Bitart 1 tab Q4HP PRN PO 12/14/24 03:00 Ondansetron HCl 4 mg Q4HP PRN IV 12/14/24 03:00 Docusate Sodium 100 mg BIDPRN PRN PO 12/14/24 03:00 Acetaminophen 650 mg Q6HP PRN PO 12/14/24 03:00 Methylprednisolone Sodium Succinate 40 mg BID IV 12/14/24 10:00 UNV Famotidine 20 mg Q12HR IV 12/14/24 10:00 UNV Exam Vital Signs Vital Signs Date Time Temp Pulse Resp B/P (MAP) Pulse Ox O2 Delivery O2 Flow Rate FiO2 12/14/24 03:48 91 18 127/49 98 2.0 28 12/13/24 23:26 98.8 98.8 12/13/24 23:26 Nasal Cannula* General Appearance: Alert, Oriented X3, Cooperative, No acute distress HEENT: Atraumatic, PERRLA, EOMI, Mucous membr. moist/pink Respiratory: Normal air movement, Other (Diminished breath sounds) Cardiovascular: Regular rate, Normal S1, Normal S2, No murmurs Abdominal: Normal bowel sounds, Soft, No tenderness, No hepatospenomegaly, No masses Extremities: No clubbing, No cyanosis, No edema, Normal pulses, No tenderness/swelling Skin: No rashes, No significant lesion Neuro: Normal speech, Normal tone, Sensation intact, Cranial nerves 3-12 NL, Reflexes 2+, Other (Generalized weakness) Psych/Mental Status: Mental status NL, Mood NL Labs/Xrays Labs Test 12/14/24 00:11 12/13/24 23:50 12/13/24 22:43 Range/Units Troponin I High Sensitivity < 3 L </=34 ng/L Influenza Type A Antigen Negative Negative Influenza Type B Antigen Negative Negative SARS-CoV-2 Antigen (Rapid) Negative NEGATIVE White Blood Count 15.1 H 4.4-10.8 10^3/uL Red Blood Count 4.24 4.0-5.20 10^6/uL Hemoglobin 10.6 L 12.2-16.2 g/dL Hematocrit 33.9 L 36.0-46.0 % Mean Corpuscular Volume 80.0 80.0-100.0 fL Mean Corpuscular Hemoglobin 25.0 L 28.0-32.0 pg Mean Corpuscular Hemoglobin Concent 31.2 L 32.0-36.0 g/dL Red Cell Distribution Width 15.5 H 11.8-14.3 % Platelet Count 257 140-450 10^3/uL Mean Platelet Volume 7.4 6.9-10.8 fL Neutrophils (%) (Auto) 75.9 37.0-80.0 % Lymphocytes (%) (Auto) 17.6 10.0-50.0 % Monocytes (%) (Auto) 3.4 0.0-12.0 % Eosinophils (%) (Auto) 2.8 0.0-7.0 % Basophils (%) (Auto) 0.3 0.0-2.0 % Neutrophils # (Auto) 11.5 H 1.6-8.6 10 ^3/uL Lymphocytes # (Auto) 2.7 0.4-5.4 10 ^3/uL Monocytes # (Auto) 0.5 0-1.3 10 ^3/uL Eosinophils # (Auto) 0.4 0-0.8 10 ^3/uL Basophils # (Auto) 0 0-0.2 10 ^3/uL Nucleated Red Blood Cells 0.0 % Sodium Level 139 136-145 mmol/L Potassium Level 4.3 3.5-5.1 mmol/L Chloride Level 87 L 98-107 mmol/L Carbon Dioxide Level > 40 *H 20-31 mmol/L Anion Gap 11.43266 5-15 Blood Urea Nitrogen 15 9-23 mg/dL Creatinine 1.21 H 0.550-1.02 mg/dL Glomerular Filtration Rate Calc 48 >90 mL/min BUN/Creatinine Ratio 12.4 10.0-20.0 Serum Glucose 126 H 74-106 mg/dL Calcium Level 9.5 8.7-10.4 mg/dL PATIENT: CLIF MARQUEZ ACCT: [id number] UNIT: [id number] : 1950 LOC: ER ROOM / BED: / AGE / SEX: 74 / F ADM STATUS: REG ER SERVICE 24 ORDERING PHYSICIAN: JOSE DAS MD PROCEDURE(s): CXR1 - CHEST XRAY 1 VIEW REASON: sob ORDER NUMBER(s): [id number], ACCESSION NUMBER(s): [id number] CHEST RADIOGRAPH Indication: sob Technique: 1 view Comparison: CXRP on DOS: 12/08/21 FINDINGS: Lines and Tubes: None Lungs/Pleura: Persistent diffuse bilateral interstitial opacities. Development of left hemidiaphragm and costophrenic angle obscuration. Cardiomediastinum: Heart size remains enlarged. Central pulmonary vascular indistinctness. Other: No acute osseous abnormality. IMPRESSION: 1. New left basilar density from 2021 may represent airspace disease and/or pleural effusion, suggesting worsening heart failure pattern or superimposed infection. SEPSIS Sepsis Screen Date sepsis recognized/suspect: Dec 13, 2024 Time Sepsis recognized/suspect: 2328 Recent Procedure: No On Antibiotic Therapy: No Respiratory Rate >20: No Heart Rate >90: Yes Temp<36 C (96.8 F) or >38.3 C: No SBP <90 or MAP <65 mmHG: No New Acute Mental Status Change: No Is the patient on CPAP, BIPAP,: No Physician Orders Chest Xray 1 View (12/13/24 22:25) Electrocardigram (12/13/24 22:25) Continuous Ekg Monitoring 08,12,16,20,00,04 (12/13/24 22:25) Electrocardigram (12/13/24 23:25) Electrocardigram (12/14/24 01:25) Complete Blood Count (12/14/24 04:00) Comprehensive Metabolic Panel (12/14/24 04:00) Albuterol Medneb (Ventolin Medneb) (12/14/24 03:00) Ipratropium Medneb (Atrovent Medneb) (12/14/24 03:00) Allergies (12/14/24 02:54) Code Status (12/14/24 02:54) Sodium Chloride 0.9% (12/14/24 03:00) Oxygen Per Hour (12/14/24 02:54) Hydrocodone-Acet 5/325mg Tab ([place] 5/32 (12/14/24 03:00) Ondansetron Hcl (Zofran) (12/14/24 03:00) Docusate Sodium Capsule (Colace Capsule) (12/14/24 03:00) Complete Blood Count (12/15/24 04:00) Comprehensive Metabolic Panel (12/15/24 04:00) Cardiac Diet-2gna,Lofat,Lochol (12/14/24 Breakfast) Condition: Serious (12/14/24 02:54) Acetaminophen Tablet (Tylenol Tablet) (12/14/24 03:00) Bedrest With Bathroom Privileg (12/14/24 02:54) Maintain Bed Rest (12/14/24 02:54) Sequential Compression Device (12/14/24 ) Ceftriaxone 1gm/50ml (Rocephin) (12/15/24 09:00) Methylprednisolone Sod Succ (Solu Medrol (12/14/24 10:00) Methylprednisolone Sod Succ (Solu Medrol (12/14/24 04:15) Famotidine Injection (Pepcid Injection) (12/14/24 10:00) Admit (12/14/24 04:07) Nitroglycerin Sublingual (Ntrostat Subli (12/14/24 04:15) Morphine Sulfate Injection (12/14/24 04:15) Stat Ekg For Chest Pain (12/14/24 04:07) Notify Of Changes From Base (12/14/24 04:07) Director Of Broadcast For 24 Hours (12/14/24 04:07) Emergency Dysrhythmia Protocol (12/14/24 04:07) Rhythm Strips Once Every Shift (12/14/24 04:07) Oxygen By Nasal Cannula (12/14/24 04:07) Vital Signs Date Time Temp Pulse Resp B/P (MAP) Pulse Ox O2 Delivery O2 Flow Rate FiO2 12/14/24 03:48 91 18 127/49 98 2.0 28 12/14/24 02:00 88 19 120/45 (70) 95 12/14/24 01:00 89 20 127/43 (71) 93 12/14/24 00:00 91 13 127/49 (75) 93 12/13/24 23:26 98.8 93 16 117/41 (66) 98 98.8 12/13/24 23:26 93 16 98 Nasal Cannula* 2 28 12/13/24 22:50 90 12/13/24 22:42 20 97 Nasal Cannula* 6 44 12/13/24 22:29 98.8 87 17 111/75 100 98.8 Laboratory Tests Test 12/13/24 22:43 White Blood Count 15.1 10^3/uL (4.4-10.8) H Medications Medications Dose Ordered Sig/Zaida Route Start Time Stop Time Status Last Admin Dose Admin Albuterol 5 mg ONCE ONCE NEB 12/13/24 22:30 12/13/24 22:31 DC 12/13/24 22:41 5 MG Ceftriaxone Sodium 50 ml @ 100 mls/hr ONCE ONCE IV 12/14/24 00:30 12/14/24 00:59 DC 12/14/24 00:30 100 MLS/HR Ipratropium [place] 0.5 mg ONCE ONCE NEB 12/13/24 22:30 12/13/24 22:31 DC 12/13/24 22:41 0.5 MG Sodium Chloride 1,000 ml @ 60 mls/hr [id number] IV 12/14/24 03:00 12/14/24 03:00 60 MLS/HR Assessment/Plan Assessment/Plan COPD with acute exacerbation Pneumonitis Leukocytosis, unspecified Altered mental status Disorientation, unspecified Generalized weakness Plan 1. Admit to telemetry unit 2. Breathing treatment 3. Pain control management 4. IV antibiotic management 5. Management of fluids and electrolytes 6. Consultation for hospitalist 7. Diagnostic test chest x-ray 8. DVT prophylaxis-on SCDs 9. Repeat labs CBC, CMP in a.m. 10. Home medication reviewed and reconciled 11. Continue with current medical management 12. Treatment plan discussed with patient and RN. Patient verbalized understanding. Plan discussed with: Patient, Other (RN) My Orders Orders - DAVIAN HERNANDEZ DNP Procedure Category Date Status Time Complete Blood Count LAB 12/14/24 Logged 04:00 Comprehensive LAB 12/14/24 Logged Metabolic Panel 04:00 Albuterol Medneb PHA 12/14/24 In Process (Ventolin Medneb) 03:00 Ipratropium Medneb PHA 12/14/24 In Process (Atrovent Medneb) 03:00 Allergies [place] 12/14/24 In Process 02:54 Code Status CODE 12/14/24 Transmitted 02:54 Sodium Chloride 0.9% PHA 12/14/24 In Process 03:00 Oxygen Per Hour RT 12/14/24 Transmitted 02:54 Hydrocodone-Acet PHA 12/14/24 In Process 5/325mg Tab ([place] 03:00 Ondansetron Hcl PHA 12/14/24 In Process (Zofran) 03:00 Docusate Sodium PHA 12/14/24 In Process Capsule (Colace 03:00 Complete Blood Count LAB 12/15/24 Verified 04:00 Comprehensive LAB 12/15/24 Verified Metabolic Panel 04:00 Cardiac DIET 12/14/24 Transmitted Diet-2gna,Lofat,Lochol Breakfast Condition: Serious [place] 12/14/24 In Process 02:54 Acetaminophen Tablet PHA 12/14/24 In Process (Tylenol Tablet) 03:00 Bedrest With Bathroom [place] 12/14/24 In Process Privileg 02:54 Maintain Bed Rest [place] 12/14/24 In Process 02:54 Sequential [place] 12/14/24 In Process Compression Device Ceftriaxone 1gm/50ml PHA 12/15/24 In Process (Rocephin) 09:00 Methylprednisolone PHA 12/14/24 Logged Sod Succ (Solu Medrol 10:00 Methylprednisolone PHA 12/14/24 Logged Sod Succ (Solu Medrol 04:15 Famotidine Injection PHA 12/14/24 Logged (Pepcid Injection) 10:00 Admit ADMIT 12/14/24 Verified 04:07 Nitroglycerin PHA 12/14/24 Verified Sublingual (Ntrostat 04:15 Morphine Sulfate PHA 12/14/24 Verified Injection 04:15 Stat Ekg For Chest [place] 12/14/24 Verified Pain 04:07 Notify Of Changes [place] 12/14/24 Verified From Base 04:07 Director Of Broadcast For [facility] 12/14/24 Verified 24 Hours 04:07 Emergency Dysrhythmia [facility] 12/14/24 Verified Protocol 04:07 Rhythm Strips Once [facility] 12/14/24 Verified Every Shift 04:07 Oxygen By Nasal RT 12/14/24 Verified Cannula 04:07 Problem List: (1) COPD with acute exacerbation (2) Pneumonitis (3) Leukocytosis, unspecified (4) Altered mental status (5) Disorientation, unspecified (6) Generalized weakness Date of Service: Dec 14, 2024 Billing Provider: DAVIAN HERNANDEZ DNP Common Visit Codes: [id number] INP/OBS CARE (HIGH) DAVIAN HERNANDEZ DNP Dec 14, 2024 04:09
[2024-12-14] MEDS: methylPREDNISolone SOD SUCC 125 MG/2 ML VL IV ONE (04:15)
[2024-12-14] MEDS ORDERED: MORPHINE SULFATE INJ 2 MG/ml SYRG IV PRN (04:15)
[2024-12-14] MEDS ORDERED: NITROGLYCERIN 0.4 MG SL TAB SL PRN (04:15)
[2024-12-14 04:33] LABS: Mean Corpuscular Volume 79.5 fL (80.0-100.0); Nucleated Red Blood Cells % 0.0 %
[2024-12-14 04:34] LABS: Hematocrit 32.7 % (36.0-46.0); Hemoglobin 10.3 g/dL (12.2-16.2); Mean Corpuscular Hemoglobin 25.0 pg (28.0-32.0)
[2024-12-14 04:50] LABS: Albumin 3.9 g/dL (3.2-4.8); Alkaline Phosphatase 112 U/L (46-116); BUN/Creatinine Ratio 13.6 (10.0-20.0); Bilirubin, Total 0.7 mg/dL (0.2-1.0); Blood Urea Nitrogen 17 mg/dL (9-23); Calcium 9.3 mg/dL (8.7-10.4); Potassium 4.1 mmol/L (3.5-5.1); Sodium 140 mmol/L (136-145); Total Protein 7.0 g/dL (5.7-8.2)
[2024-12-14 04:52] LABS: Alanine Aminotransferase < 9 U/L (7-40); Anion Gap 12.99999 (5-15); Chloride 87 mmol/L (98-107); Glucose 134 mg/dL (74-106)
[2024-12-14 04:53] LABS: Carbon Dioxide > 40 mmol/L (20-31)
[2024-12-14] MEDS ORDERED: DIGOXIN (250MCG/ML) 2 ML AMPULE IV ONE (05:15)
[2024-12-14] MEDS: methylPREDNISolone SOD SUCC 40 MG/ML VL ONE (05:19)
[2024-12-14 05:25] VITALS: O2SAT 93
[2024-12-14] MEDS: FUROSEMIDE 40 MG/4 ML VIAL IV ONE (06:13)
[2024-12-14] MEDS: AZITHROMYCIN 500MG/ 250ML 250 ML IV ONE (06:24)
[2024-12-14 06:43] VITALS: BP 114/45; PULSE 83; RESP 18; TEMP 98.2; O2SAT 92
--- NOTE | 2024-12-14 07:02 | ECG ---
[facility] Test Date: 2024-12-13 Test Time: 22:26:06 Pat Name: CLIF MARQUEZ Department: Room: 0221T Gender: F Nurse Aide: : 1950 Requested By: JOSE DAS Order Number: [id number] Reading MD: Oni Horan Measurements Intervals [place] Rate: 90 P: 54 MD: 151 QRS: 27 QRSD: 83 T: 50 QT: 371 QTc: 454 Interpretive Statements Sinus rhythm Electronically Signed On 12-17-2024 9:36:10 PDT by Oni Horan Please click the below link to view image of tracing.
[2024-12-14] MEDS: FAMOTIDINE (10MG/ML) 2ML VL IV SCH (10:34)
[2024-12-14] MEDS: methylPREDNISolone SOD SUCC 40 MG/ML VL IV SCH (10:34)
--- NOTE | 2024-12-14 14:24 | DVHPN2 ---
Reviewed: Care Plan, H&P, Labs, Medications, Previous Orders, Radiology Changes from previous H/P or p: No Changes Eyes: No Pain, No Vision change, No Conjunctivae inflammation, No Eyelid inflammation, No Other, No Redness ENT: No Ear pain, No Ear discharge, No Nose pain, No Nose discharge, No Nose congestion, No Mouth pain, No Mouth swelling, No Throat pain, No Throat swelling, No Other Cardiovascular: No Chest Pain, No Palpitations, No Orthopnea, No Paroxysmal Noc. Dyspnea, No Edema, No Lt Headedness, No Other Respiratory: No Cough, No Dry; Shortness of breath; No SOB with excertion, No Wheezing, No Hemoptysis, No Pleuritic Pain, No Sputum; Other (SOB at rest) Gastrointestinal: No Nausea, No Vomiting, No Abdominal Pain, No Diarrhea, No Constipation, No Melena, No Hematochezia, No Other Genitourinary: No Dysuria, No Frequency, No Incontinence, No Hematuria, No Retention, No Other Musculoskeletal: No other, No neck pain, No shoulder pain, No arm pain, No back pain, No hand pain, No leg pain, No foot pain Skin: No Rash, No Lesions, No Jaundice, No Bruising, No Other Objective Vitals Vital Signs Date Time Temp Pulse Resp B/P (MAP) Pulse Ox O2 Delivery O2 Flow Rate FiO2 12/14/24 12:00 82 16 95/37 (56) 93 12/14/24 08:00 98.4 98.4 12/14/24 08:00 Nasal Cannula* 2 28 Intake/Output Intake and Output 12/14/24 07:00 Intake Total 110 ml Balance 110 ml Intake IV Total 110 ml Medications Current Medications Medications Dose Ordered Sig/Zaida Route Start Time Stop Time Status Last Admin Dose Admin Ceftriaxone Sodium 50 ml @ 100 mls/hr DAILY@09 IV 12/15/24 09:00 Albuterol 2.5 mg Q4HPRN PRN NEB 12/14/24 03:00 Ipratropium [place] 0.5 mg Q4HPRN PRN NEB 12/14/24 03:00 Sodium Chloride 1,000 ml @ 60 mls/hr [id number] IV 12/14/24 03:00 12/14/24 03:00 60 MLS/HR Acetaminophen/ Hydrocodone Bitart 1 tab Q4HP PRN PO 12/14/24 03:00 Ondansetron HCl 4 mg Q4HP PRN IV 12/14/24 03:00 Docusate Sodium 100 mg BIDPRN PRN PO 12/14/24 03:00 Acetaminophen 650 mg Q6HP PRN PO 12/14/24 03:00 Methylprednisolone Sodium Succinate 40 mg BID IV 12/14/24 10:00 12/14/24 10:34 40 MG Famotidine 20 mg Q12HR IV 12/14/24 10:00 12/14/24 10:34 20 MG Nitroglycerin 0.4 mg Q5MINP PRN SL 12/14/24 04:15 Morphine Sulfate 2 mg Q30M PRN IV 12/14/24 04:15 Azithromycin 250 ml @ 125 mls/hr DAILY IV 12/15/24 10:00 Laboratory Results Laboratory Tests 12/14/24 04:15 Chemistry Test 12/13/24 22:43 12/14/24 04:15 Calcium Level 9.5 mg/dL (8.7-10.4) 9.3 mg/dL (8.7-10.4) Albumin 3.9 g/dL (3.2-4.8) Total Protein 7.0 g/dL (5.7-8.2) LFT Test 12/14/24 04:15 Alanine Aminotransferase (ALT) < 9 U/L (7-40) Alkaline Phosphatase 112 U/L (46-116) Aspartate Amino Transferase (AST) 15 U/L (13-40) Total Bilirubin 0.7 mg/dL (0.2-1.0) Labs and/or images reviewed: Labs reviewed by me, Image(s) reviewed by me Assessment/Plan Assessment/Plan Acute on chronic Hypoxic respiratory failure Acute COPD exacerbation : Albuterol Atrovent Solu-Medrol Possible community-acquired pneumonia: Rocephin azithromycin Acute CHF exacerbation Diabetes Hypertension Hyperlipidemia Time spent 55 minutes Advanced care planning time 20 minutes Patient is full code Plan discussed with: Patient Date of Service: Dec 14, 2024 Billing Provider: MISBAH ROWE MD Common Visit Codes: [id number] INP/OBS CARE(HIGH) Secondary Visit Codes: [id number] CARE PLAN 30 MINUTES MISBAH ROWE MD Dec 14, 2024 14:24
[2024-12-14 18:58] VITALS: O2SAT 92
[2024-12-14] MEDS: AZITHROMYCIN 500 MG/250 ML IV ONE (19:04)
[2024-12-14 22:35] VITALS: BP 110/69; PULSE 81; RESP 16; TEMP 98.7; O2SAT 94
[2024-12-14 22:38] VITALS: PULSE 81; RESP 16; O2SAT 94
[2024-12-15] VITALS (10 sets, daily range): BP systolic 107–136; BP diastolic 46–72; PULSE 70–85; RESP 16–20; TEMP 97.7–98.7; O2SAT 93–98
[2024-12-15 08:09] LABS: Hematocrit 30.6 % (36.0-46.0); Hemoglobin 9.7 g/dL (12.2-16.2); Mean Corpuscular Volume 78.8 fL (80.0-100.0); Nucleated Red Blood Cells % 0.0 %
[2024-12-15 08:13] LABS: Mean Corpuscular Hemoglobin 24.9 pg (28.0-32.0)
[2024-12-15 08:32] LABS: Albumin 4.0 g/dL (3.2-4.8); Alkaline Phosphatase 105 U/L (46-116); Anion Gap 8.99999 (5-15); BUN/Creatinine Ratio 18.6 (10.0-20.0); Bilirubin, Total 0.5 mg/dL (0.2-1.0); Blood Urea Nitrogen 24 mg/dL (9-23); Calcium 9.2 mg/dL (8.7-10.4); Chloride 90 mmol/L (98-107); Glucose 242 mg/dL (74-106); Potassium 3.7 mmol/L (3.5-5.1); Sodium 139 mmol/L (136-145); Total Protein 6.9 g/dL (5.7-8.2)
[2024-12-15 08:33] LABS: Alanine Aminotransferase < 9 U/L (7-40)
[2024-12-15 08:34] LABS: Carbon Dioxide > 40 mmol/L (20-31)
[2024-12-15] MEDS ORDERED: AZITHROMYCIN 500MG/ 250ML 250 ML IV SCH (10:00)
[2024-12-15] MEDS: FUROSEMIDE 20 MG/2 ML VIAL IV ONE (10:45)
[2024-12-15] MEDS ORDERED: DEXTROSE (50%) 50ML SYRG IV PRN (10:45)
--- NOTE | 2024-12-15 10:53 | DVHPN2 ---
Progress Note Date Seen: Dec 15, 2024 Medical Necessity Reason Pt with a Central, PICC or Fol: Yes The following are medically ne: Pace Catheter Reason for pace catheter: Strict I&O Subjective Patient reports: No new complaints Review of Systems: HEENT:Normal, CVS:Normal, RESPIRATORY:Normal, GI:Normal, :Normal, MSK:Normal, NEURO:Normal Objective vital signs Vital Sign Date Time Temp Pulse Resp B/P (MAP) Pulse Ox O2 Delivery O2 Flow Rate FiO2 12/15/24 09:00 98.0 76 18 111/67 (82) 95 98.0 12/15/24 06:08 Nasal Cannula 2.0 12/15/24 06:08 28 Total Intake and Output 12/14/24 12/14/24 12/15/24 15:00 23:00 07:00 Intake Total 430 ml 860 ml Output Total 950 ml Balance 430 ml -90 ml medications Current Medications Medications Dose Ordered Sig/Zaida Route Start Time Stop Time Status Last Admin Dose Admin Ceftriaxone Sodium 50 ml @ 100 mls/hr DAILY@09 IV 12/15/24 09:00 Albuterol 2.5 mg Q4HPRN PRN NEB 12/14/24 03:00 Ipratropium [place] 0.5 mg Q4HPRN PRN NEB 12/14/24 03:00 Acetaminophen/ Hydrocodone Bitart 1 tab Q4HP PRN PO 12/14/24 03:00 Ondansetron HCl 4 mg Q4HP PRN IV 12/14/24 03:00 Docusate Sodium 100 mg BIDPRN PRN PO 12/14/24 03:00 Acetaminophen 650 mg Q6HP PRN PO 12/14/24 03:00 Methylprednisolone Sodium Succinate 40 mg BID IV 12/14/24 10:00 12/14/24 23:07 40 MG Nitroglycerin 0.4 mg Q5MINP PRN SL 12/14/24 04:15 Morphine Sulfate 2 mg Q30M PRN IV 12/14/24 04:15 Azithromycin 500 mg DAILY PO 12/16/24 10:00 UNV Famotidine 20 mg Q12HR PO 12/15/24 22:00 UNV Examination: GENERAL:Normal, HEENT:Normal, NECK:Normal, LUNGS:Normal, LUNGS:Abnormal (on oxygen), CVS:Normal, ABDOMEN:Normal, MSK:Normal, SKIN:Normal, NEURO:Normal, :Normal laboratory and microbiology Laboratory Tests 12/15/24 06:41 Test 12/15/24 06:41 Range/Units Serum Glucose 242 H 74-106 mg/dL Problem List/Assessment/Plan Problem List/Assessment/Plan #1 acute on chronic resp failure #2 copd with exacerbation: cont meds #3 acute systolic/diastolic heart failure: lasix iv #4 ?pneumonia- gram positive/negative with sepsis: iv antibiotics #5 ckd stage 3 #6 obesity #7 sleep apnea: cpap #8 dm: ssi #9 seizure disorder: on keppra #10 likely a fib with secondary hypercoagulable state: amiodarone/eliquis advance care planning- full code- time spent 18 mins Plan discussed with: Patient My Orders My Orders Orders - DELPHINE GUEVARA MD Procedure Category Date Status Time Urinalysis LAB 12/15/24 Uncollected 10:41 Urine Bacterial JAZMÍN 12/15/24 Logged Culture 10:41 * Cardiology Consult CONS 12/15/24 Transmitted 10:41 Azithromycin Tablet PHA 12/16/24 Logged (Zithromax Tablet) 10:00 Furosemide Injection PHA 12/15/24 Logged (Lasix Injection) 10:45 Famotidine Tablet PHA 12/15/24 Logged (Pepcid Tablet) 22:00 Bipap/Cpap For Sleep RT 12/15/24 Logged Apnea 10:45 Glucose Blood PHA 12/15/24 Verified (Accu-Chek Comfort 11:30 Bedtime Insulin Scale PHA 12/15/24 Verified 22:00 Moderate Insulin Ss PHA 12/15/24 Verified 11:30 Dextrose 50% Syringe PHA 12/15/24 Verified 10:45 Echo 2d Mode Cardiac US 12/15/24 Verified DOP 10:45 Basic Metabolic Panel LAB 12/16/24 Verified 06:00 B-Type Natriuretic LAB 12/16/24 Verified Peptide 05:00 Complete Blood Count LAB 12/16/24 Verified 06:00 Thyroid Stimulating LAB 12/16/24 Verified Hormone 05:00 Hemoglobin A1c LAB 12/16/24 Verified 06:00 Amiodarone Tablet PHA 12/15/24 Verified (Cordarone Tablet) 22:00 Apixaban (Eliquis) PHA 12/15/24 Verified 22:00 Empagliflozin PHA 12/16/24 Verified (Jardiance) 10:00 Levetiracetam Tablet PHA 12/15/24 Verified (Keppra Tablet) 22:00 Date of Service: Dec 15, 2024 Billing Provider: DELPHINE GUEVARA MD Common Visit Codes: [id number] INP/OBS CARE(HIGH) Secondary Visit Codes: [id number] CARE PLAN 30 MINUTES DELPHINE GUEVARA MD Dec 15, 2024 10:53
[2024-12-15] MEDS: InsuLIN REG 1unit/0.01ml Soln (100units/ml) SC SCH ×2 (11:30→23:09)
[2024-12-15] MEDS: ACCU-CHEK COMFORT CURVE STRIP VI SCH (11:30)
[2024-12-15] MEDS: FUROSEMIDE 20 MG/2 ML VIAL ONE (11:57)
[2024-12-15 13:00] LABS: Urine Protein, UAD 2+ (Negative)
--- NOTE | 2024-12-15 13:56 | DVHPN2 ---
Progress Note - Dictate Date Seen: Dec 14, 2024 Medical Necessity Reason Pt with a Central, PICC or Fol: Yes The following are medically ne: Pace Catheter Reason for pace catheter: Strict I&O Subjective 1. ENDSTAGE COPD CO2 RETAINER SLEEP APNEA RECURRENT RESP FAILURE RECENTLY ADMITTED REQUIRING INTUBATION 2 SEPSIS RECURRENT UTI AND PNEUMONIA 3. RECURRENT CELLULITES OF LE NOW AGAIN WITH RESP FAILURE AND UTI WITH SEPSIS LEUKOCYTOSIS ACUTE RENAL FAILURE CKD III 4.PAH PT WAS ON ADEMPAS AND OPSUMIT HOWEVER BOTH DRUGS NO AVAILABLE AT THE HOSPITAL 4. COVID PNEUMONIA HX 5. DIABETES NEPHROPATHY NEUROPATHY VASCULOPATHY 6. SEIZURE 7. ANEMIA 8. GERD 9. OBESITY 10. HYPERKALEMIA 11. HEMATURIA KIDNEY STONE OBSTRUCTIVE RENAL CYSTS vital signs Vital Sign Date Time Temp Pulse Resp B/P (MAP) Pulse Ox O2 Delivery O2 Flow Rate FiO2 12/15/24 13:00 97.8 76 16 115/65 (82) 96 97.8 12/15/24 06:08 Nasal Cannula 2.0 12/15/24 06:08 28 Total Intake and Output 12/14/24 12/14/24 12/15/24 15:00 23:00 07:00 Intake Total 430 ml 860 ml Output Total 950 ml Balance 430 ml -90 ml medications Current Medications Medications Dose Ordered Sig/Zaida Route Start Time Stop Time Status Last Admin Dose Admin Ceftriaxone Sodium 50 ml @ 100 mls/hr DAILY@09 IV 12/15/24 09:00 12/15/24 09:00 100 MLS/HR Albuterol 2.5 mg Q4HPRN PRN NEB 12/14/24 03:00 Ipratropium [place] 0.5 mg Q4HPRN PRN NEB 12/14/24 03:00 Acetaminophen/ Hydrocodone Bitart 1 tab Q4HP PRN PO 12/14/24 03:00 Ondansetron HCl 4 mg Q4HP PRN IV 12/14/24 03:00 Docusate Sodium 100 mg BIDPRN PRN PO 12/14/24 03:00 Acetaminophen 650 mg Q6HP PRN PO 12/14/24 03:00 Methylprednisolone Sodium Succinate 40 mg BID IV 12/14/24 10:00 12/15/24 10:00 40 MG Nitroglycerin 0.4 mg Q5MINP PRN SL 12/14/24 04:15 Morphine Sulfate 2 mg Q30M PRN IV 12/14/24 04:15 Azithromycin 500 mg DAILY PO 12/16/24 10:00 Famotidine 20 mg DAILY PO 12/16/24 10:00 Diagnostic Test (Pha) 1 strip ACHS 12/15/24 11:30 Insulin Human Regular HS SC 12/15/24 22:00 Insulin Human Regular AC SC 12/15/24 11:30 Dextrose 50 ml UD PRN IV 12/15/24 10:45 Amiodarone HCl 200 mg Q12HR PO 12/15/24 22:00 Apixaban 5 mg BID PO 12/15/24 22:00 Empaglifozin 10 mg DAILY PO 12/16/24 10:00 Levetiracetam 1,000 mg BID PO 12/15/24 22:00 objective HEENT SCLERA ANICTERIC NO JVD CAROTIDS WNL MUCUS MEMB DRY PUL RALES CV RR ABD SUPRAPUBIC TENDERNESS NEURO CONFUSES SKIN DRY EXT 2+ EDEMA laboratory and microbiology Laboratory Tests 12/15/24 06:41 Test 12/15/24 06:41 Range/Units Serum Glucose 242 H 74-106 mg/dL Problem List ENDSTAGE COPD CO2 RETAINER SLEEP APNEA RECURRENT RESP FAILURE RECENTLY ADMITTED REQUIRING INTUBATION 2 SEPSIS RECURRENT UTI AND PNEUMONIA 3. RECURRENT CELLULITES OF LE NOW AGAIN WITH RESP FAILURE AND UTI WITH SEPSIS LEUKOCYTOSIS ACUTE RENAL FAILURE CKD III 4.PAH PT WAS ON ADEMPAS AND OPSUMIT HOWEVER BOTH DRUGS NO AVAILABLE AT THE HOSPITAL 4. COVID PNEUMONIA HX 5. DIABETES NEPHROPATHY NEUROPATHY VASCULOPATHY 6. SEIZURE 7. ANEMIA 8. GERD 9. OBESITY 10. HYPERKALEMIA 11. HEMATURIA KIDNEY STONE OBSTRUCTIVE RENAL CYSTS Assessment/Plan ABX CORRECT RESP ACIDOSIS CONSIDER DIAMOX ABG CPAPA Plan discussed with: Patient Critical Care Time(min): 35 AVTAR MCKNIGHT MD Dec 15, 2024 13:56
[2024-12-15] MEDS: APIXABAN 5 MG TAB PO SCH (23:02)
[2024-12-15] MEDS: AMIODARONE HCL 200 MG TAB PO SCH (23:02)
[2024-12-15] MEDS: levETIRAcetam 500 MG TAB PO SCH (23:03)
[2024-12-16] VITALS (9 sets, daily range): BP systolic 116–136; BP diastolic 61–80; PULSE 68–85; RESP 18–21; TEMP 97.3–98; O2SAT 93–98
[2024-12-16] MEDS: IPRATROPIUM BROM 0.5 MG/2.5ML INH SOL ONE (07:26)
[2024-12-16] MEDS: methylPREDNISolone SOD SUCC 40 MG/ML VL ONE (07:27)
[2024-12-16] MEDS: ALBUTEROL SULF 2.5 MG/0.5ML(0.5%) NEB SOLN ONE (07:27)
[2024-12-16] MEDS: FAMOTIDINE (10MG/ML) 2ML VL IV ONE (07:27)
[2024-12-16 08:38] LABS: Hemoglobin 9.9 g/dL (12.2-16.2); Nucleated Red Blood Cells % 0.0 %
[2024-12-16 08:42] LABS: Hematocrit 31.1 % (36.0-46.0); Mean Corpuscular Hemoglobin 25.2 pg (28.0-32.0); Mean Corpuscular Volume 79.1 fL (80.0-100.0)
[2024-12-16 08:50] LABS: Potassium 3.8 mmol/L (3.5-5.1); Sodium 139 mmol/L (136-145)
[2024-12-16 08:52] LABS: Calcium 9.2 mg/dL (8.7-10.4)
[2024-12-16 08:56] LABS: BUN/Creatinine Ratio 23.6 (10.0-20.0)
[2024-12-16 09:05] LABS: Anion Gap 7.99999 (5-15); Blood Urea Nitrogen 25 mg/dL (9-23); Carbon Dioxide > 40 mmol/L (20-31); Chloride 91 mmol/L (98-107); Glucose 251 mg/dL (74-106)
[2024-12-16] MEDS: AZITHROMYCIN 250 MG TAB PO SCH (10:40)
[2024-12-16] MEDS: EMPAGLIFLOZIN 10 MG TAB PO SCH (10:43)
[2024-12-16] MEDS: FAMOTIDINE 20 MG TAB PO SCH (10:44)
--- NOTE | 2024-12-16 11:40 | DVHPN2 ---
Progress Note Date Seen: Dec 16, 2024 Medical Necessity Reason Pt with a Central, PICC or Fol: Yes The following are medically ne: Pace Catheter Reason for pace catheter: Strict I&O Subjective Patient reports: No new complaints Review of Systems: HEENT:Normal, CVS:Normal, RESPIRATORY:Normal, GI:Normal, :Normal, MSK:Normal, NEURO:Normal Objective vital signs Vital Sign Date Time Temp Pulse Resp B/P (MAP) Pulse Ox O2 Delivery O2 Flow Rate FiO2 12/16/24 09:06 97.9 71 19 117/65 (82) 97 97.9 12/15/24 20:16 Nasal Cannula 2.0 12/15/24 20:16 28 Total Intake and Output 12/15/24 12/15/24 12/16/24 15:00 23:00 07:00 Intake Total 600 ml 318 ml Output Total 550 ml 400 ml Balance 50 ml -82 ml medications Current Medications Medications Dose Ordered Sig/Zaida Route Start Time Stop Time Status Last Admin Dose Admin Ceftriaxone Sodium 50 ml @ 100 mls/hr DAILY@09 IV 12/15/24 09:00 12/16/24 10:39 100 MLS/HR Albuterol 2.5 mg Q4HPRN PRN NEB 12/14/24 03:00 Ipratropium Lee 0.5 mg Q4HPRN PRN NEB 12/14/24 03:00 Acetaminophen/ Hydrocodone Bitart 1 tab Q4HP PRN PO 12/14/24 03:00 Ondansetron HCl 4 mg Q4HP PRN IV 12/14/24 03:00 Docusate Sodium 100 mg BIDPRN PRN PO 12/14/24 03:00 Acetaminophen 650 mg Q6HP PRN PO 12/14/24 03:00 Methylprednisolone Sodium Succinate 40 mg BID IV 12/14/24 10:00 12/16/24 10:39 40 MG Nitroglycerin 0.4 mg Q5MINP PRN SL 12/14/24 04:15 Morphine Sulfate 2 mg Q30M PRN IV 12/14/24 04:15 Azithromycin 500 mg DAILY PO 12/16/24 10:00 12/16/24 10:40 500 MG Famotidine 20 mg DAILY PO 12/16/24 10:00 12/16/24 10:44 20 MG Diagnostic Test (Pha) 1 strip ACHS 12/15/24 11:30 12/16/24 06:30 1 STRIP Insulin Human Regular HS SC 12/15/24 22:00 12/15/24 23:09 4 UNITS Insulin Human Regular AC SC 12/15/24 11:30 12/16/24 06:34 9 UNITS Dextrose 50 ml UD PRN IV 12/15/24 10:45 Amiodarone HCl 200 mg Q12HR PO 12/15/24 22:00 12/16/24 10:42 200 MG Apixaban 5 mg BID PO 12/15/24 22:00 12/16/24 10:43 5 MG Empaglifozin 10 mg DAILY PO 12/16/24 10:00 12/16/24 10:43 10 MG Levetiracetam 1,000 mg BID PO 12/15/24 22:00 12/16/24 10:42 1,000 MG Examination: GENERAL:Normal, HEENT:Normal, NECK:Normal, LUNGS:Normal, LUNGS:Abnormal (on oxygen), CVS:Normal, ABDOMEN:Normal, MSK:Normal, SKIN:Normal, NEURO:Normal, NEURO:Abnormal (confused), :Normal laboratory and microbiology Laboratory Tests 12/16/24 07:34 Test 12/16/24 07:34 Range/Units Serum Glucose 251 H 74-106 mg/dL Microbiology Date/Time Source Procedure Growth Status 12/15/24 12:16 Urine - Pace Port Urine Culture - Preliminary Resulted Problem List/Assessment/Plan Problem List/Assessment/Plan #1 acute on chronic resp failure: check abg #2 copd with exacerbation: cont meds #3 acute systolic/diastolic heart failure: torsemide #4 ?pneumonia- gram positive/negative with sepsis: iv antibiotics #5 ckd stage 3 #6 obesity #7 sleep apnea: cpap #8 dm: ssi #9 seizure disorder: on keppra #10 likely a fib with secondary hypercoagulable state: amiodarone/eliquis #11 encephalopathy: check abg #12 uti: iv rocephin advance care planning- full code- time spent 18 mins Plan discussed with: Patient My Orders My Orders Orders - DELPHINE GUEVARA MD Procedure Category Date Status Time * Wound Consult CONS 12/16/24 Transmitted 00:57 * Dietary Consult CONS 12/16/24 Transmitted 00:57 Dietary Evaluation Review Comments: Nutrition Recommendation 1) CCHO 75gm + cardiac diet 2) Consider Glucerna 240ml BID if PO intake < 50% 3) Monitor PO intake, lab values, weight trend, and I/O Expected Outcomes/Goals: To meet >75% estimated needs Lab values to improve Fu 3-5 days Date of Service: Dec 16, 2024 Billing Provider: DELPHINE GUEVARA MD Common Visit Codes: [id number] INP/OBS CARE(HIGH) Secondary Visit Codes: [id number] CARE PLAN 30 MINUTES DELPHINE GUEVARA MD Dec 16, 2024 11:40
[2024-12-16 12:37] LABS: Base Excess 14.7 mmol/L (-2.0-3.0)
[2024-12-16] MEDS: TORSEMIDE 20 MG TAB PO ONE (12:43)
[2024-12-16 14:05] LABS: Base Excess 15.9 mmol/L (-2.0-3.0)
--- NOTE | 2024-12-16 14:10 | DVHPN2 ---
Progress Note - Dictate Date Seen: Dec 16, 2024 Medical Necessity Reason Pt with a Central, PICC or Fol: Yes The following are medically ne: Pcae Catheter Reason for pace catheter: Strict I&O Subjective 1. ENDSTAGE COPD CO2 RETAINER SLEEP APNEA RECURRENT RESP FAILURE RECENTLY ADMITTED REQUIRING INTUBATION 2 SEPSIS RECURRENT UTI AND PNEUMONIA 3. RECURRENT CELLULITES OF LE NOW AGAIN WITH RESP FAILURE AND UTI WITH SEPSIS LEUKOCYTOSIS ACUTE RENAL FAILURE CKD III 4.PAH PT WAS ON ADEMPAS AND OPSUMIT HOWEVER BOTH DRUGS NO AVAILABLE AT THE HOSPITAL 4. COVID PNEUMONIA HX 5. DIABETES NEPHROPATHY NEUROPATHY VASCULOPATHY 6. SEIZURE 7. ANEMIA 8. GERD 9. OBESITY 10. HYPERKALEMIA 11. HEMATURIA KIDNEY STONE OBSTRUCTIVE RENAL CYSTS vital signs Vital Sign Date Time Temp Pulse Resp B/P (MAP) Pulse Ox O2 Delivery O2 Flow Rate FiO2 12/16/24 13:34 97.8 72 21 136/78 (97) 95 97.8 12/15/24 20:16 Nasal Cannula 2.0 12/15/24 20:16 28 Total Intake and Output 12/15/24 12/15/24 12/16/24 15:00 23:00 07:00 Intake Total 600 ml 318 ml Output Total 550 ml 400 ml Balance 50 ml -82 ml medications Current Medications Medications Dose Ordered Sig/Zaida Route Start Time Stop Time Status Last Admin Dose Admin Ceftriaxone Sodium 50 ml @ 100 mls/hr DAILY@09 IV 12/15/24 09:00 12/16/24 10:39 100 MLS/HR Albuterol 2.5 mg Q4HPRN PRN NEB 12/14/24 03:00 Ipratropium [place] 0.5 mg Q4HPRN PRN NEB 12/14/24 03:00 Acetaminophen/ Hydrocodone Bitart 1 tab Q4HP PRN PO 12/14/24 03:00 Ondansetron HCl 4 mg Q4HP PRN IV 12/14/24 03:00 Docusate Sodium 100 mg BIDPRN PRN PO 12/14/24 03:00 Acetaminophen 650 mg Q6HP PRN PO 12/14/24 03:00 Methylprednisolone Sodium Succinate 40 mg BID IV 12/14/24 10:00 12/16/24 10:39 40 MG Nitroglycerin 0.4 mg Q5MINP PRN SL 12/14/24 04:15 Morphine Sulfate 2 mg Q30M PRN IV 12/14/24 04:15 Azithromycin 500 mg DAILY PO 12/16/24 10:00 12/16/24 10:40 500 MG Famotidine 20 mg DAILY PO 12/16/24 10:00 12/16/24 10:44 20 MG Diagnostic Test (Pha) 1 strip ACHS 12/15/24 11:30 12/16/24 11:30 1 STRIP Insulin Human Regular HS SC 12/15/24 22:00 12/15/24 23:09 4 UNITS Insulin Human Regular AC SC 12/15/24 11:30 12/16/24 12:43 6 UNITS Dextrose 50 ml UD PRN IV 12/15/24 10:45 Amiodarone HCl 200 mg Q12HR PO 12/15/24 22:00 12/16/24 10:42 200 MG Apixaban 5 mg BID PO 12/15/24 22:00 12/16/24 10:43 5 MG Empaglifozin 10 mg DAILY PO 12/16/24 10:00 12/16/24 10:43 10 MG Levetiracetam 1,000 mg BID PO 12/15/24 22:00 12/16/24 10:42 1,000 MG Torsemide 20 mg DAILY PO 12/17/24 10:00 objective HEENT SCLERA ANICTERIC NO JVD CAROTIDS WNL MUCUS MEMB DRY PUL RALES CV RR ABD SUPRAPUBIC TENDERNESS NEURO CONFUSES SKIN DRY EXT 2+ EDEMA laboratory and microbiology Laboratory Tests 12/16/24 07:34 Test 12/16/24 07:34 Range/Units Serum Glucose 251 H 74-106 mg/dL Problem List ENDSTAGE COPD CO2 RETAINER SLEEP APNEA RECURRENT RESP FAILURE RECENTLY ADMITTED REQUIRING INTUBATION 2 SEPSIS RECURRENT UTI AND PNEUMONIA 3. RECURRENT CELLULITES OF LE NOW AGAIN WITH RESP FAILURE AND UTI WITH SEPSIS LEUKOCYTOSIS ACUTE RENAL FAILURE CKD III 4.PAH PT WAS ON ADEMPAS AND OPSUMIT HOWEVER BOTH DRUGS NO AVAILABLE AT THE HOSPITAL 4. COVID PNEUMONIA HX 5. DIABETES NEPHROPATHY NEUROPATHY VASCULOPATHY 6. SEIZURE 7. ANEMIA 8. GERD 9. OBESITY 10. HYPERKALEMIA 11. HEMATURIA KIDNEY STONE OBSTRUCTIVE RENAL CYSTS Assessment/Plan ABX CORRECT RESP ACIDOSIS CONSIDER DIAMOX ABG CPAP/BIPAP TODAY TO START Dietary Evaluation Review Comments: Nutrition Recommendation 1) CCHO 75gm + cardiac diet 2) Consider Glucerna 240ml BID if PO intake < 50% 3) Monitor PO intake, lab values, weight trend, and I/O Expected Outcomes/Goals: To meet >75% estimated needs Lab values to improve Fu 3-5 days Plan discussed with: Patient AVTAR MCKNIGHT MD Dec 16, 2024 14:10
[2024-12-17] VITALS (8 sets, daily range): BP systolic 108–139; BP diastolic 53–74; PULSE 62–95; RESP 16–19; TEMP 96.7–98.3; O2SAT 90–96
--- NOTE | 2024-12-17 06:16 | DVH ---
CHEST RADIOGRAPH Indication: chf Technique: Single frontal view of the chest was obtained Comparison: XY CHEST XRAY 1 VIEW on DOS: 12/13/24, XR CHEST 1 VIEW on DOS: 04/24/24, XR CHEST 1 VIEW on DOS: 03/07/24 FINDINGS: Lines and Tubes: None Lungs: Left basilar atelectasis. The right lung is clear. Pleura: No effusion. No pneumothorax. Cardiomediastinal contours: Cardiomegaly. Bones: No acute osseous abnormality. IMPRESSION: 1. Cardiomegaly. 2. Left basilar atelectasis.
[2024-12-17 07:50] LABS: Anion Gap 11 (5-15); Potassium 3.6 mmol/L (3.5-5.1); Sodium 142 mmol/L (136-145)
[2024-12-17 07:52] LABS: Calcium 9.2 mg/dL (8.7-10.4)
[2024-12-17 07:54] LABS: Nucleated Red Blood Cells % 0.0 %
[2024-12-17 07:57] LABS: BUN/Creatinine Ratio 24.0 (10.0-20.0)
[2024-12-17 07:58] LABS: Blood Urea Nitrogen 31 mg/dL (9-23); Carbon Dioxide 40 mmol/L (20-31); Chloride 91 mmol/L (98-107); Glucose 206 mg/dL (74-106)
[2024-12-17 08:01] LABS: Hematocrit 33.3 % (36.0-46.0); Hemoglobin 10.7 g/dL (12.2-16.2); Mean Corpuscular Hemoglobin 25.5 pg (28.0-32.0); Mean Corpuscular Volume 79.2 fL (80.0-100.0)
[2024-12-17] MEDS: TORSEMIDE 20 MG TAB PO SCH (10:06)
--- NOTE | 2024-12-17 10:14 | DVHDS2 ---
Discharge Summary Date of Admission Dec 14, 2024 at 04:07 Date of Discharge: Dec 17, 2024 Labs/Diagnostic Data: Laboratory Results Test 12/17/24 06:27 12/17/24 06:25 12/16/24 13:53 12/16/24 12:30 POC Glucose 212 mg/dl (70-106) White Blood Count 12.5 10^3/uL (4.4-10.8) Red Blood Count 4.20 10^6/uL (4.0-5.20) Hemoglobin 10.7 g/dL (12.2-16.2) Hematocrit 33.3 % (36.0-46.0) Mean Corpuscular Volume 79.2 fL (80.0-100.0) Mean Corpuscular Hemoglobin 25.5 pg (28.0-32.0) Mean Corpuscular Hemoglobin Concent 32.2 g/dL (32.0-36.0) Red Cell Distribution Width 15.6 % (11.8-14.3) Platelet Count 242 10^3/uL (140-450) Mean Platelet Volume 7.8 fL (6.9-10.8) Neutrophils (%) (Auto) 91.7 % (37.0-80.0) Lymphocytes (%) (Auto) 5.8 % (10.0-50.0) Monocytes (%) (Auto) 2.3 % (0.0-12.0) Eosinophils (%) (Auto) 0.0 % (0.0-7.0) Basophils (%) (Auto) 0.2 % (0.0-2.0) Neutrophils # (Auto) 11.5 10 ^3/uL (1.6-8.6) Lymphocytes # (Auto) 0.7 10 ^3/uL (0.4-5.4) Monocytes # (Auto) 0.3 10 ^3/uL (0-1.3) Eosinophils # (Auto) 0 10 ^3/uL (0-0.8) Basophils # (Auto) 0 10 ^3/uL (0-0.2) Nucleated Red Blood Cells 0.0 % Sodium Level 142 mmol/L (136-145) Potassium Level 3.6 mmol/L (3.5-5.1) Chloride Level 91 mmol/L (98-107) Carbon Dioxide Level 40 mmol/L (20-31) Anion Gap 11 (5-15) Blood Urea Nitrogen 31 mg/dL (9-23) Creatinine 1.29 mg/dL (0.550-1.02) Glomerular Filtration Rate Calc 44 mL/min (>90) BUN/Creatinine Ratio 24.0 (10.0-20.0) Serum Glucose 206 mg/dL (74-106) Calcium Level 9.2 mg/dL (8.7-10.4) Blood Gas Specimen Type Arterial Blood Gas Sample Site Left radial Blood Gas Patient Temperature 37.0 Arterial Blood Date Drawn [id number] Arterial Blood pH 7.455 (7.350-7.450) Arterial Blood Partial Pressure CO2 61.7 mmHg (32.0-45.0) Arterial Blood Partial Pressure O2 < 36.5 mmHg (83.0-108.0) Arterial Blood HCO3 42.4 mmol/L (21.0-28.0) Arterial Blood Oxygen Saturation 71.1 % (94.0-98.0) Arterial Blood Base Excess 15.9 mmol/L (-2.0-3.0) Arterial Blood Oxyhemoglobin 70.5 % (94.0-98.0) Arterial Blood Carboxyhemoglobin 0.5 % (0.5-1.5) Arterial Blood Methemoglobin 0.3 % (0.0-1.5) Kaleb Test Yes Blood Gas Total Hemoglobin 11.60 g/dL (12.0-16.0) Blood Gas Modality Room air FiO2 % 21.0 Blood Gas Critical Value Read Back Yes Blood Gas Notified Whom Kacey guevara md Blood Gas Notified Time [id number] Blood Gas Notified By [employer] Blood Gas Liter Flow 2.00 Test 12/16/24 07:34 12/15/24 12:16 12/15/24 06:41 12/14/24 00:11 Hemoglobin A1c 7.3 % A1C (<5.7) B-Type Natriuretic Peptide 53.39 pg/mL (0-100) Thyroid Stimulating Hormone (TSH) 0.09 uIU/mL (0.55-4.78) Urine Color Colorless (Yellow) Urine Clarity Turbid (Clear) Urine pH 7.0 (5.0-9.0) Urine Specific [place] 1.020 (1.001-1.035) Urine Protein 2+ (Negative) Urine Ketones Trace (Negative) Urine Blood 1+ /uL (Negative) Urine Nitrite 1+ (Negative) Urine Bilirubin Negative (Negative) Urine Urobilinogen Normal mg/dL (Negative) Urine Leukocyte Esterase 2+ /uL (Negative) Urine RBC 66 /hpf (0 - 4) Urine Microscopic WBC 19 /HPF (0-5) Urine Squamous Epithelial Cells Few /hpf (<5) Urine Transitional Epithelial Cells Few /hpf (<2) Urine Bacteria None seen /hpf (None Seen) Urine Mucus Few (None Seen) Urine Glucose Normal mg/dL (Normal) Total Bilirubin 0.5 mg/dL (0.2-1.0) Aspartate Amino Transferase (AST) 14 U/L (13-40) Alanine Aminotransferase (ALT) < 9 U/L (7-40) Alkaline Phosphatase 105 U/L (46-116) Total Protein 6.9 g/dL (5.7-8.2) Albumin 4.0 g/dL (3.2-4.8) Troponin I High Sensitivity < 3 ng/L (</=34) Test 12/13/24 23:50 Influenza Type A Antigen Negative (Negative) Influenza Type B Antigen Negative (Negative) SARS-CoV-2 Antigen (Rapid) Negative (NEGATIVE) Other Laboratory Tests 12/17/24 06:25 Brief Hx & Hospital Course: see dictated note Condition at Discharge: Fair Final Diagnosis/Problems List copd Discharge Disposition: Home Discharge Instruct/Medications Diet: Cardiac 2g Na,low cholest Activity: No Restrictions, As Tolerated Follow Up/Referral: fu with dr Negron Medications: resume home meds script to pharmacy home oxygen at 1 to 1.5 L/min Scheduled Amiodarone HCl (Amiodarone HCl), 200 MG PO BID Apixaban Base (Eliquis), 5 MG PO BID Cephalexin (Keflex 500), 1 CAP PO TID Empagliflozin (Jardiance), 25 MG PO DAILY@BREAKFAST Ergocalciferol (Vitamin D 47096 Unit), 50,000 UNIT PO Q7D Ezetimibe (Zetia), 40 MG PO DAILY, (Reported) Fluconazole (Fluconazole), 200 MG PO DAILY Gabapentin (Gabapentin), 300 MG PO TID, (Reported) Insulin Glargine (Lantus), 30 UNIT SC BID, (Reported) Metformin Hydrochloride (Metformin Hcl), 1 TAB PO BID, (Reported) Metoprolol Tartrate (Lopressor), 1 TAB PO BID, (Reported) Pantoprazole Sodium Sesquihydr (Protonix), 40 MG PO DAILY Riociguat Base (Adempas), 1 MG PO TID, (Reported) Rosuvastatin Calcium (Rosuvastatin Calcium), 10 MG PO HS, (Reported) Sevelamer Hydrochloride (Renagel), 800 MG PO TIDWM Torsemide (Torsemide), 20 MG PO DAILY, (Reported) Discontinued Medications Levetiracetam (Keppra), 1 TAB PO BID, (Reported) Discharge Statement: "Patient was advised to return to the ER or call 911 if any headaches, dizziness, shortness of breath, chest pain, abdominal pain, bleeding, fevers, or worsening of medical condition. Patient was counseled about treatment plan, medications, possible side effects, patientverbalized understanding. All questions were answered to the best of my ability. This discharge took greater then 30 minutes in planning, reviewing documentation, counseling the patient, and discussing with other team members." ASSESSMENT ASSESSMENT Assessment copd Date of Service: Dec 17, 2024 Billing Provider: DELPHINE GUEVARA MD Common Visit Codes: [id number]-[id number] DISCH DAY >30min DELPHINE GUEVARA MD Dec 17, 2024 10:14
[2024-12-17] MEDS ORDERED: CEFU500T43 PO (10:15)
--- NOTE | 2024-12-17 10:29 | DVHDS ---
DATE OF DISCHARGE: 12/17/2024 HISTORY OF PRESENT ILLNESS: The patient is a 74-year-old lady who is admitted with history of increasing shortness of breath and has a history of COPD, chronic respiratory failure, congestive heart failure, diabetes, hypertension, and hyperlipidemia. HOSPITAL COURSE: The patient had evidence of urinary tract infection. The patient had acute on chronic respiratory failure with CO2 retention. The patient's creatinine remained at about 1.2. She was seen in cardiology consult by Dr. Negron. White count was elevated at 15,000 that improved to 12,000 at the time of discharge. Her influenza and COVID tests were negative. Chest x-ray showed evidence of possible congestive heart failure. The patient is now doing well. Her echocardiogram is currently pending. The patient will now be discharged home to resume her home medications as well as to be on cefuroxime 500 mg b.i.d. for 7 days. She will follow up with Dr. Negron in the next 1 to 2 weeks. The patient is to resume her home health and also is to lower the amount of oxygen she uses at home in view of CO2 retention. FINAL DIAGNOSES: Therefore, * Acute on chronic respiratory failure. * COPD with exacerbation. * Acute on chronic systolic/diastolic heart failure. * Questionable pneumonia gram-negative, gram-positive with sepsis. * CKD stage 3. * Obesity. * Sleep apnea. * Diabetes mellitus. * Seizure disorder. * Likely atrial fibrillation with secondary hypercoagulable state. * Encephalopathy, metabolic. * UTI with chronic Servin. Time spent in discharge planning and review of plan with the patient and nursing was 39 minutes. MD NIXON Noguera/KRUPA TID: [id number] RECEIPT: [id number]
--- NOTE | 2024-12-17 13:58 | DVHPN2 ---
Progress Note - Dictate Date Seen: Dec 17, 2024 Medical Necessity Reason Pt with a Central, PICC or Fol: Yes The following are medically ne: Pace Catheter Reason for pace catheter: Strict I&O Subjective 1. ENDSTAGE COPD CO2 RETAINER SLEEP APNEA RECURRENT RESP FAILURE RECENTLY ADMITTED REQUIRING INTUBATION 2 SEPSIS RECURRENT UTI AND PNEUMONIA 3. RECURRENT CELLULITES OF LE NOW AGAIN WITH RESP FAILURE AND UTI WITH SEPSIS LEUKOCYTOSIS ACUTE RENAL FAILURE CKD III 4.PAH PT WAS ON ADEMPAS AND OPSUMIT HOWEVER BOTH DRUGS NO AVAILABLE AT THE HOSPITAL 4. COVID PNEUMONIA HX 5. DIABETES NEPHROPATHY NEUROPATHY VASCULOPATHY 6. SEIZURE 7. ANEMIA 8. GERD 9. OBESITY 10. HYPERKALEMIA 11. HEMATURIA KIDNEY STONE OBSTRUCTIVE RENAL CYSTS vital signs Vital Sign Date Time Temp Pulse Resp B/P (MAP) Pulse Ox O2 Delivery O2 Flow Rate FiO2 12/17/24 13:00 97.6 68 16 109/53 (71) 95 97.6 12/17/24 08:00 Nasal Cannula* 2 28 Total Intake and Output 12/16/24 12/16/24 12/17/24 15:00 23:00 07:00 Intake Total 50 ml 980 ml 220 ml Output Total 500 ml 750 ml Balance 50 ml 480 ml -530 ml medications Current Medications Medications Dose Ordered Sig/Zaida Route Start Time Stop Time Status Last Admin Dose Admin Ceftriaxone Sodium 50 ml @ 100 mls/hr DAILY@09 IV 12/15/24 09:00 12/17/24 10:08 100 MLS/HR Albuterol 2.5 mg Q4HPRN PRN NEB 12/14/24 03:00 Ipratropium [place] 0.5 mg Q4HPRN PRN NEB 12/14/24 03:00 Acetaminophen/ Hydrocodone Bitart 1 tab Q4HP PRN PO 12/14/24 03:00 Ondansetron HCl 4 mg Q4HP PRN IV 12/14/24 03:00 Docusate Sodium 100 mg BIDPRN PRN PO 12/14/24 03:00 Acetaminophen 650 mg Q6HP PRN PO 12/14/24 03:00 Methylprednisolone Sodium Succinate 40 mg BID IV 12/14/24 10:00 12/17/24 10:08 40 MG Nitroglycerin 0.4 mg Q5MINP PRN SL 12/14/24 04:15 Morphine Sulfate 2 mg Q30M PRN IV 12/14/24 04:15 Azithromycin 500 mg DAILY PO 12/16/24 10:00 12/17/24 10:04 500 MG Famotidine 20 mg DAILY PO 12/16/24 10:00 12/17/24 10:07 20 MG Diagnostic Test (Pha) 1 strip ACHS 12/15/24 11:30 12/17/24 11:30 1 STRIP Insulin Human Regular HS SC 12/15/24 22:00 12/16/24 21:54 4 UNITS Insulin Human Regular AC SC 12/15/24 11:30 12/17/24 12:55 6 UNITS Dextrose 50 ml UD PRN IV 12/15/24 10:45 Amiodarone HCl 200 mg Q12HR PO 12/15/24 22:00 12/17/24 10:07 200 MG Apixaban 5 mg BID PO 12/15/24 22:00 12/17/24 10:06 5 MG Empaglifozin 10 mg DAILY PO 12/16/24 10:00 12/17/24 10:07 10 MG Levetiracetam 1,000 mg BID PO 12/15/24 22:00 12/17/24 10:04 1,000 MG Torsemide 20 mg DAILY PO 12/17/24 10:00 12/17/24 10:06 20 MG objective HEENT SCLERA ANICTERIC NO JVD CAROTIDS WNL MUCUS MEMB DRY PUL RALES CV RR ABD SUPRAPUBIC TENDERNESS NEURO CONFUSES SKIN DRY EXT 2+ EDEMA laboratory and microbiology Laboratory Tests 12/17/24 06:25 Test 12/17/24 06:25 Range/Units Serum Glucose 206 H 74-106 mg/dL Problem List ENDSTAGE COPD CO2 RETAINER SLEEP APNEA RECURRENT RESP FAILURE RECENTLY ADMITTED REQUIRING INTUBATION 2 SEPSIS RECURRENT UTI AND PNEUMONIA 3. RECURRENT CELLULITES OF LE NOW AGAIN WITH RESP FAILURE AND UTI WITH SEPSIS LEUKOCYTOSIS ACUTE RENAL FAILURE CKD III 4.PAH PT WAS ON ADEMPAS AND OPSUMIT HOWEVER BOTH DRUGS NO AVAILABLE AT THE HOSPITAL 4. COVID PNEUMONIA HX 5. DIABETES NEPHROPATHY NEUROPATHY VASCULOPATHY 6. SEIZURE 7. ANEMIA 8. GERD 9. OBESITY 10. HYPERKALEMIA 11. HEMATURIA KIDNEY STONE OBSTRUCTIVE RENAL CYSTS Assessment/Plan ABX CORRECT RESP ACIDOSIS CONSIDER DIAMOX ABG CPAP/BIPAP TODAY TO START SEVERE SLEEP APNEA CO2 RETAINER Dietary Evaluation Review Comments: Nutrition Recommendation 1) CCHO 75gm + cardiac diet 2) Consider Glucerna 240ml BID if PO intake < 50% 3) Monitor PO intake, lab values, weight trend, and I/O Expected Outcomes/Goals: To meet >75% estimated needs Lab values to improve Fu 3-5 days Plan discussed with: Patient AVTAR MCKNIGHT MD Dec 17, 2024 13:58
== END 2024-12-17 16:20 | disposition home or self-care (01) | DRG 871 ==
LOC: EDBD 22:16 → ER 22:16 → OVERFLOW 12-14 04:07 → TELE-CENTR 12-14 22:35
PROVIDERS: ADMIT Internal Medicine; ATTEND Internal Medicine
PROC: 5A09357 Assistance with Respiratory Ventilation, Less than 24 Consecutive Hours, Continuous Positive Airway Pressure (ICD-10-PCS; principal; 2024-12-16)
PROC: 5A09357 Assistance with Respiratory Ventilation, Less than 24 Consecutive Hours, Continuous Positive Airway Pressure (ICD-10-PCS; 2024-12-17)
DX: A41.59 Other Gram-negative sepsis (principal); G93.41 Metabolic encephalopathy; J15.69 Pneumonia due to other Gram-negative bacteria; J96.21 Acute and chronic respiratory failure with hypoxia; I50.43 Acute on chronic combined systolic (congestive) and diastolic (congestive) heart failure; J15.9 Unspecified bacterial pneumonia; J44.1 Chronic obstructive pulmonary disease with (acute) exacerbation; E87.29 Other acidosis; I13.0 Hypertensive heart and chronic kidney disease with heart failure and stage 1 through stage 4 chronic kidney disease, or unspecified chronic kidney disease; N17.9 Acute kidney failure, unspecified; N39.0 Urinary tract infection, site not specified; J44.0 Chronic obstructive pulmonary disease with (acute) lower respiratory infection; D68.69 Other thrombophilia; J98.4 Other disorders of lung; Z20.822 Contact with and (suspected) exposure to COVID-19; E78.5 Hyperlipidemia, unspecified; E11.22 Type 2 diabetes mellitus with diabetic chronic kidney disease; D64.9 Anemia, unspecified; E66.9 Obesity, unspecified; E87.5 Hyperkalemia; G47.30 Sleep apnea, unspecified; K21.9 Gastro-esophageal reflux disease without esophagitis; N18.30 Chronic kidney disease, stage 3 unspecified; N20.0 Calculus of kidney; N28.1 Cyst of kidney, acquired; E11.42 Type 2 diabetes mellitus with diabetic polyneuropathy; G40.909 Epilepsy, unspecified, not intractable, without status epilepticus; I48.91 Unspecified atrial fibrillation; Z79.2 Long term (current) use of antibiotics; Z79.01 Long term (current) use of anticoagulants; Z79.84 Long term (current) use of oral hypoglycemic drugs; Z79.4 Long term (current) use of insulin; Z79.899 Other long term (current) drug therapy; Z90.710 Acquired absence of both cervix and uterus; Z90.49 Acquired absence of other specified parts of digestive tract; Z83.3 Family history of diabetes mellitus; Z98.891 History of uterine scar from previous surgery; Z87.440 Personal history of urinary (tract) infections
CPT/HCPCS: 36415; 36600; 71045; 80048; 80053; 81001; 82805; 82962; 83036; 83880; 84443; 84484; 85025; 87086; 87426; 87804; 93005; 93306; 94640; 94660; 96365; 97163; 99291; G0378; J1815; J3490

== ENCOUNTER 2024-12-31 22:07 | Inpatient (IN) | payer OTHER, MEDICARE ==
[~2024-12-31] VITALS: Ht 154.9 cm; Wt 88.8 kg
[2024-12-31] MEDS: SODIUM CHLORIDE 0.9% 1,000 ML IVB ONE (06:00)
[~2024-12-31 22:07] MED LIST changes: +CEFU500T43 PO; -LEVE100012 PO
--- NOTE | 2024-12-31 22:17 | ECG ---
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
--- NOTE | 2024-12-31 22:35 | ED.PDOC ---
Altered Mental Status HPI Comments 74 year old female with PMHx COPD, CHF, DM, CVA, seizures presents to the ED via EMS with a chief compliant of ALOC onset today (12/31/24). Per EMS, 911 was called by , patient began experiencing hallucinations about 2 hours ago. Patient was discharged from [facility] on 12/17/24, with prescription Keflex for UTI, finished course 3 days ago. states patient began experiencing similar symptoms as when she was admitted. Patient states she has no concerns. Denies SI, HI, abdominal pain, fever, chills, nausea, vomiting, diarrhea, chest pain, shortness of breath. No other symptoms or modifying factors present at this time. Chief Complaint: ALOC Time Seen by MD: 22:30 Primary Care Provider: AVTAR Reviewed Notes: Medications, Allergies Allergies: Coded Allergies: No Known Drug Allergy (Verified Allergy, Unknown, 12/04/21) Home Meds Active Scripts Cefuroxime Axetil (Cefuroxime Axetil) 500 Mg Tab, 500 MG PO BID for 7 Days, #14 TAB Prov:DELPHINE GUEVARA MD 12/17/24 Cephalexin (KEFLEX 500) 500 Mg Cap, 1 CAP PO TID for 5 Days, #15 CAP Prov:BENOIT GONZALEZ MD 11/01/21 Apixaban Base (ELIQUIS) 5 Mg Tab, 5 MG PO BID for 30 Days, #60 TAB Prov:BENOIT GONZALEZ MD 11/01/21 Amiodarone HCl (Amiodarone HCl) 200 Mg Tab, 200 MG PO BID for 30 Days, #60 TAB Prov:BENOIT GONZALEZ MD 11/01/21 Empagliflozin (Jardiance) 25 Mg Tab, 25 MG PO DAILY@BREAKFAST for 30 Days, #30 TAB Prov:BENOIT GONZALEZ MD 11/01/21 Sevelamer Hydrochloride (Renagel) 800 Mg Tab, 800 MG PO TIDWM for 30 Days, #120 TAB Prov:BENOIT GONZALEZ MD 11/01/21 Fluconazole (Fluconazole) 100 Mg Tab, 200 MG PO DAILY for 10 Days, #20 TAB Prov:BENOIT GONZALEZ MD 11/01/21 Ergocalciferol (VITAMIN D 67358 UNIT) 50,000 [place], [address] UNIT PO Q7D for 10 Days, #10 CAP Prov:BENOIT GONZALEZ MD 11/01/21 Pantoprazole Sodium Sesquihydr (Protonix) 40 Mg Tab, 40 MG PO DAILY, #30 TAB Prov:CHERELLE PENA MD 07/11/21 Reported Medications Rosuvastatin Calcium (Rosuvastatin Calcium) 10 Mg Tab, 10 MG PO HS 10/31/21 Torsemide (Torsemide) 20 Mg Tab, 20 MG PO DAILY 10/31/21 Insulin Glargine (Lantus) 100 Unit/Ml Inj, 30 UNIT SC BID, INJ PER PATIENT, PATIENT ONLY USES 30 UNITS OF LANTUS TWICE A DAY WITH NO OTHER MEAL TIME INSULIN 03/28/18 Metformin Hydrochloride (Metformin Hcl) 1,000 Mg Tab, 1 TAB PO BID 03/28/18 Metoprolol Tartrate (Lopressor) 50 Mg Tab, 1 TAB PO BID Patient stopped taking this medication at home. Reported too many medications to keep track off. 03/28/18 Riociguat Base (Adempas) 1 Mg Tab, 1 MG PO TID 03/28/18 Ezetimibe (Zetia) 10 Mg Tab, 40 MG PO DAILY 03/28/18 Gabapentin (Gabapentin) 300 Mg Cap, 300 MG PO TID for 30 Days, MG Patient reported not taking this medication due to too many medication to keep track of. 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 Hx Family History Family History: Family hx of DM, Family hx of Cancer Social History Smoker: Non-Smoker, Quit Greater Than 1 Year Alcohol: Denies ETOH Use Drugs: Denies Drug Use Lives In: Home Unable to Obtain due to: Altered Mental Status Physical Exam General Appearance: Normal HEENT: Normal ENT Inspection, Pharynx Normal, TMs Normal Neck: Full Range of Motion, Non-Tender, Normal, Normal Inspection Respiratory: Chest Non-Tender, Lungs Clear, No Accessory Muscle Use, No Respiratory Distress, Normal Breath Sounds Cardiovascular: No Edema, No JVD, No Murmur, No Gallop, Normal Peripheral Pulses, Regular Rate/Rhythm Breast Exam: Deferred Gastrointestinal: No Organomegaly, Non Tender, No Pulsatile Mass, Normal Bowel Sounds, Soft Genitalia: Deferred Pelvic: Deferred Rectal: Deferred Extremities: No calf tenderness, Normal capillary refill, Normal inspection, Normal range of motion, Non-tender, No pedal edema Musculoskeletal : Apperance: Normal Neurologic: Alert, Other (Answers basic questions appropriately. Memory limited) Cerebellar Function: Normal Reflexes: Normal Skin: Dry, Normal Color, Warm Lymphatic: No Adenopathy Was a procedure done? Was a procedure done?: No Differential Diagnosis (ALOC) Differential Diagnosis: Dehydration, Hypoglycemia, DKA, Encephalopathy, Meningitis, Sepsis, Hypoxemia, Seizure, CVA, Mass Lesion, SAH, Drug Overdose, Heart Failure, Renal Failure, Other X-Ray, Labs, Meds, VS Vital Signs Date Time Temp Pulse Resp B/P (MAP) Pulse Ox O2 Delivery O2 Flow Rate FiO2 12/31/24 22:12 79 12/31/24 22:10 98.4 84 18 127/86 94 98.4 Lab Test 12/31/24 22:53 Range/Units White Blood Count 12.0 H 4.4-10.8 10^3/uL Red Blood Count 3.98 L 4.0-5.20 10^6/uL Hemoglobin 10.0 L 12.2-16.2 g/dL Hematocrit 31.5 L 36.0-46.0 % Mean Corpuscular Volume 79.3 L 80.0-100.0 fL Mean Corpuscular Hemoglobin 25.0 L 28.0-32.0 pg Mean Corpuscular Hemoglobin Concent 31.6 L 32.0-36.0 g/dL Red Cell Distribution Width 16.0 H 11.8-14.3 % Platelet Count 235 140-450 10^3/uL Mean Platelet Volume 7.3 6.9-10.8 fL Neutrophils (%) (Auto) 80.8 H 37.0-80.0 % Lymphocytes (%) (Auto) 12.2 10.0-50.0 % Monocytes (%) (Auto) 3.6 0.0-12.0 % Eosinophils (%) (Auto) 2.9 0.0-7.0 % Basophils (%) (Auto) 0.5 0.0-2.0 % Neutrophils # (Auto) 9.7 H 1.6-8.6 10 ^3/uL Lymphocytes # (Auto) 1.5 0.4-5.4 10 ^3/uL Monocytes # (Auto) 0.4 0-1.3 10 ^3/uL Eosinophils # (Auto) 0.3 0-0.8 10 ^3/uL Basophils # (Auto) 0.1 0-0.2 10 ^3/uL Nucleated Red Blood Cells 0.0 % Sodium Level 141 136-145 mmol/L Potassium Level 3.9 3.5-5.1 mmol/L Chloride Level 92 L 98-107 mmol/L Carbon Dioxide Level > 40 *H 20-31 mmol/L Anion Gap 8.08386 5-15 Blood Urea Nitrogen 10 9-23 mg/dL Creatinine 1.08 H 0.550-1.02 mg/dL Glomerular Filtration Rate Calc 55 >90 mL/min BUN/Creatinine Ratio 9.3 L 10.0-20.0 Serum Glucose 212 H 74-106 mg/dL Lactic Acid Level 1.1 0.4-2.0 mmol/L Calcium Level 9.2 8.7-10.4 mg/dL Magnesium Level 2.0 1.6-2.6 mg/dL Total Bilirubin 0.7 0.2-1.0 mg/dL Aspartate Amino Transferase (AST) 10 L 13-40 U/L Alanine Aminotransferase (ALT) < 9 7-40 U/L Alkaline Phosphatase 105 46-116 U/L Total Protein 6.3 5.7-8.2 g/dL Albumin 3.6 3.2-4.8 g/dL Time of 1ST Reevaluation: 23:00 Reevaluation 1ST: Unchanged Patient Education/Counseling: Diagnosis, Treatment, Prognosis Family Education/Counseling: No Family Present SEPSIS Sepsis Screen Date sepsis recognized/suspect: Dec 31, 2024 Time Sepsis recognized/suspect: 2209 Recent Procedure: No On Antibiotic Therapy: No Respiratory Rate >20: No Heart Rate >90: No Temp<36 C (96.8 F) or >38.3 C: No SBP <90 or MAP <65 mmHG: No New Acute Mental Status Change: No Is the patient on CPAP, BIPAP,: No Physician Orders Urinalysis (12/31/24 22:33) Blood Culture (12/31/24 22:33) Drug Screen (12/31/24 22:33) Head Without Contrast (12/31/24 22:33) Chest Xray 1 View (12/31/24 22:33) BIPAP (01/01/25 02:13) Abg W/ Co-Ox (01/01/25 02:13) Magnesium Sulfate 1gm/100ml (01/01/25 02:15) Vital Signs Date Time Temp Pulse Resp B/P (MAP) Pulse Ox O2 Delivery O2 Flow Rate FiO2 12/31/24 22:12 79 12/31/24 22:10 98.4 84 18 127/86 94 98.4 Laboratory Tests Test 12/31/24 22:53 Lactic Acid Level 1.1 mmol/L (0.4-2.0) White Blood Count 12.0 10^3/uL (4.4-10.8) H Departure 1 Departure Time of Disposition: 02:18 Impression: Primary Impression: Metabolic encephalopathy Additional Impressions: Respiratory failure with hypercapnia COPD exacerbation Disposition: ADMITTED INPATIENT Admit to: Tele Condition: Guarded Discharged With: Self Comments 74-year-old female with a history of COPD with home CPAP machine now brought in by has been after she was acting confused at home. Her lab results show high CO2 greater than 40. White blood cell count mildly elevated 12. H&H with mild anemia of 10 and 31. Hypochloremia 92. Hyperglycemia 212. Borderline renal in sufficiency with BUN and creatinine of 10 and 1.08. Patient will need to be admitted for respiratory failure with hypercapnia. Patient was started on BiPAP and given a breathing treatment and Solu-Medrol and magnesium. Critical Care Note Critical Care Time?: Yes (35 min-critical care time only) Critical care comment: Total critical care time: Approximately 36 minutes Due to a high probability of clinically significant, life threatening deterioration, the patient required my highest level of preparedness to intervene emergently and I personally spent this critical care time directly and personally managing the patient. This critical care time included obtaining a history; examining the patient; pulse oximetry; ordering and review of studies; arranging urgent treatment with development of a management plan; evaluation of patient's response to treatment; frequent reassessment; and, discussions with other providers. This critical care time was performed to assess and manage the high probability of imminent, life-threatening deterioration that could result in multi-organ failure. It was exclusive of separately billable procedures and treating other patients. Stability Stability form required: No Heart Score Heart Score: Heart Score Response (Comments) Value History N/A 0 EKG N/A 0 Age N/A 0 Risk Factors N/A 0 Troponin N/A 0 Total 0 I personally scribed for SOHAIL ONEILL MD ([email or web address]) on 12/31/24 at 22:35. Electronically submitted by Twila Wolfe ([email or web address]). SOHAIL NOEILL MD Dec 31, 2024 22:35
[2024-12-31 23:14] LABS: Hematocrit 31.5 % (36.0-46.0); Hemoglobin 10.0 g/dL (12.2-16.2); Mean Corpuscular Hemoglobin 25.0 pg (28.0-32.0); Mean Corpuscular Volume 79.3 fL (80.0-100.0); Nucleated Red Blood Cells % 0.0 %
[2024-12-31 23:44] LABS: Albumin 3.6 g/dL (3.2-4.8); Alkaline Phosphatase 105 U/L (46-116); BUN/Creatinine Ratio 9.3 (10.0-20.0); Bilirubin, Total 0.7 mg/dL (0.2-1.0); Blood Urea Nitrogen 10 mg/dL (9-23); Calcium 9.2 mg/dL (8.7-10.4); Magnesium 2.0 mg/dL (1.6-2.6); Potassium 3.9 mmol/L (3.5-5.1); Sodium 141 mmol/L (136-145); Total Protein 6.3 g/dL (5.7-8.2)
[2024-12-31 23:50] LABS: Alanine Aminotransferase < 9 U/L (7-40); Anion Gap 8.99999 (5-15); Chloride 92 mmol/L (98-107); Glucose 212 mg/dL (74-106)
[2024-12-31 23:53] LABS: Carbon Dioxide > 40 mmol/L (20-31)
[2025-01-01] VITALS (12 sets, daily range): BP systolic 102–117; BP diastolic 61–77; PULSE 78–91; RESP 14–20; TEMP 97.4–98.4; O2SAT 93–100
--- NOTE | 2025-01-01 03:01 | DVHHPRES ---
History of Present Illness Resident Creating Document: BRIJESH DAVIS RESIDENT History of Present Illness This is a 74-year-old female with past medical history of COPD, CKD stage 3, sleep apnea, diabetes mellitus, seizure disorder, atrial fibrillation, who was brought to the ER by her because of altered mental status and confusion. reported that the patient was confused and was talking about things that did not exist. was concerned about altered mentation and brought the patient to the ER as she was previously admitted for COPD exacerbation. Previous hospitalization: In December 2024 in [facility] for COPD exacerbation PMHx:COPD, CKD stage 3, sleep apnea, diabetes mellitus, seizure disorder, atrial fibrillation Social history: Denies smoking alcohol, recreational drug use. Lives in home with . Full code Home medication: Eliquis (noncompliant due to cost issues), metoprolol, rosuvastatin, sevelamer, metformin, furosemide 40 Allergic history: No known allergy Patient was examined at bedside today. She complained of feeling of knot in his stomach. Review of Systems Neurological: Confusion Allergies: Coded Allergies: No Known Drug Allergy (Verified Allergy, Unknown, 12/04/21) Exam Vital Signs Vital Signs Date Time Temp Pulse Resp B/P (MAP) Pulse Ox O2 Delivery O2 Flow Rate FiO2 12/31/24 22:12 79 12/31/24 22:10 98.4 18 127/86 94 98.4 Exam General: Patient alert and oriented in person, place and time. Patient following commands. HEENT: Normocephalic, atraumatic, moist mucous membranes Respiratory/pulmonary: Mild wheeze in right lung Cardiovascular: Normal heart sounds S1 and S2 with no associated murmurs Abdomen: Mild abdominal distention without tenderness. Extremities: There is no peripheral edema present at the lower extremities. Peripheral Pulses: 3+ Radial (R). 3+ Radial (L). 3+ Dorsalis pedis (R). 3+ Dorsalis pedis(L) Skin: No rashes or pruritus, there is no sacral edema present at this time. Neurological: Intact cranial nerves with no focal neurologic deficits Labs/Xrays Labs Test 12/31/24 22:53 Range/Units White Blood Count 12.0 H 4.4-10.8 10^3/uL Red Blood Count 3.98 L 4.0-5.20 10^6/uL Hemoglobin 10.0 L 12.2-16.2 g/dL Hematocrit 31.5 L 36.0-46.0 % Mean Corpuscular Volume 79.3 L 80.0-100.0 fL Mean Corpuscular Hemoglobin 25.0 L 28.0-32.0 pg Mean Corpuscular Hemoglobin Concent 31.6 L 32.0-36.0 g/dL Red Cell Distribution Width 16.0 H 11.8-14.3 % Platelet Count 235 140-450 10^3/uL Mean Platelet Volume 7.3 6.9-10.8 fL Neutrophils (%) (Auto) 80.8 H 37.0-80.0 % Lymphocytes (%) (Auto) 12.2 10.0-50.0 % Monocytes (%) (Auto) 3.6 0.0-12.0 % Eosinophils (%) (Auto) 2.9 0.0-7.0 % Basophils (%) (Auto) 0.5 0.0-2.0 % Neutrophils # (Auto) 9.7 H 1.6-8.6 10 ^3/uL Lymphocytes # (Auto) 1.5 0.4-5.4 10 ^3/uL Monocytes # (Auto) 0.4 0-1.3 10 ^3/uL Eosinophils # (Auto) 0.3 0-0.8 10 ^3/uL Basophils # (Auto) 0.1 0-0.2 10 ^3/uL Nucleated Red Blood Cells 0.0 % Sodium Level 141 136-145 mmol/L Potassium Level 3.9 3.5-5.1 mmol/L Chloride Level 92 L 98-107 mmol/L Carbon Dioxide Level > 40 *H 20-31 mmol/L Anion Gap 8.01779 5-15 Blood Urea Nitrogen 10 9-23 mg/dL Creatinine 1.08 H 0.550-1.02 mg/dL Glomerular Filtration Rate Calc 55 >90 mL/min BUN/Creatinine Ratio 9.3 L 10.0-20.0 Serum Glucose 212 H 74-106 mg/dL Lactic Acid Level 1.1 0.4-2.0 mmol/L Calcium Level 9.2 8.7-10.4 mg/dL Magnesium Level 2.0 1.6-2.6 mg/dL Total Bilirubin 0.7 0.2-1.0 mg/dL Aspartate Amino Transferase (AST) 10 L 13-40 U/L Alanine Aminotransferase (ALT) < 9 7-40 U/L Alkaline Phosphatase 105 46-116 U/L Total Protein 6.3 5.7-8.2 g/dL Albumin 3.6 3.2-4.8 g/dL SEPSIS Sepsis Screen Date sepsis recognized/suspect: Dec 31, 2024 Time Sepsis recognized/suspect: 2209 Recent Procedure: No On Antibiotic Therapy: No Respiratory Rate >20: No Heart Rate >90: No Temp<36 C (96.8 F) or >38.3 C: No SBP <90 or MAP <65 mmHG: No New Acute Mental Status Change: No Is the patient on CPAP, BIPAP,: No Physician Orders Urinalysis (12/31/24 22:33) Blood Culture (12/31/24:33) Drug Screen (12/31/24 22:33) Head Without Contrast (12/31/24:33) Chest Xray 1 View (12/31/24:33) BIPAP (01/01/25 02:13) Abg W/ Co-Ox (01/01/25 02:13) Magnesium Sulfate 1gm/100ml (01/01/25 02:15) Abg W/ Co-Ox (01/01/25 02:39) Ammonia (01/01/25 02:39) Basic Metabolic Panel (01/01/25 02:39) Drug Screen (01/01/25 02:39) Lactic Acid W/ Reflex Order (01/01/25 02:39) Lipase (01/01/25 02:39) Lipid Panel (01/01/25 02:39) Magnesium (01/01/25 02:39) Phosphorus (01/01/25 02:39) PTPTT (01/01/25 02:39) Thyroid Stimulating Hormone (01/01/25 02:39) Urinalysis (01/01/25 02:39) Vitamin B12 (01/01/25 02:39) Vitamin D, 25-Hydroxy (01/01/25 02:39) C-Reactive Protein (01/01/25 02:39) Vital Signs Date Time Temp Pulse Resp B/P (MAP) Pulse Ox O2 Delivery O2 Flow Rate FiO2 12/31/24 22:12 79 12/31/24 22:10 98.4 84 18 127/86 94 98.4 Laboratory Tests Test 12/31/24 22:53 Lactic Acid Level 1.1 mmol/L (0.4-2.0) White Blood Count 12.0 10^3/uL (4.4-10.8) H Assessment/Plan Assessment/Plan Acute on chronic hypoxic/hypercapnic respiratory failure Acute exacerbation of COPD Community acquired pneumonia gram positive/gram negative Blood gas show pCO2 70; Oxygen support Influenza, COVID test, sputum culture order Nebulization therapy with albuterol and ipratropium Prednisolone 40 mg p.o. daily Antibiotic therapy with azithromycin, ceftriaxone BiPAP ordered Metabolic vs hypercapnic encephalopathy Completed Head CT which ruled out intracranial bleeding Treating infectious cause (PNA vs UTI) and hypercapnia with BIPAP UTI Currently under empiric IV antibiotics (azithromycin and ceftriaxone) Paroxysmal Atrial fibrillation, rate controlled Serafin Vasc 4 EKG shows atrial fibrillation, abnormal R-wave progression, early transition On Eliquis 5 mg twice daily at home Started on Lovenox therapeutic dose Insulin dependent Diabetes mellitus type 2 Sliding scale with basal insulin A1c Monitor blood glucose Diabetes education Diabetic diet Hypertension Metoprolol 50 mg daily Hyperlipidemia Atorvastatin 40 mg daily CKD class 3 Sevelamer 800 mg PO TID Discussed avoiding nephrotoxins like NSAIDS, contrast Low salt diet, maintain hydration Repeat BMP Chronic diastolic heart failure with LVEF 55% Continue furosemide 40 mg Morbid obesity BMI 43 Counseled on lifestyle and diet Noncompliant Counseled strongly on compliance. Patient was not taking Eliquis due to cost issues. DIET: NPO DVT PROPHYLAXIS: Lovenox GI PROPHYLAXIS: Protonix CODE STATUS: Goals of care discussed with patient at bedside for more than 35 minutes. Full code DISPOSITION: Med/surge Patient's status and plan discussed with the patient. Case discussed with Dr. Stovall Plan discussed with: Patient, Spouse, Other (Nurses) My Orders Orders - BRIJESH DAVIS RESIDENT Procedure Category Date Status Time Abg W/ Co-Ox RT 01/01/25 Logged 02:39 Ammonia LAB 01/01/25 Logged 02:39 Basic Metabolic Panel LAB 01/01/25 Logged 02:39 Drug Screen LAB 01/01/25 Logged 02:39 Lactic Acid W/ Reflex LAB 01/01/25 Logged Order 02:39 Lipase LAB 01/01/25 Logged 02:39 Lipid Panel LAB 01/01/25 Logged 02:39 Magnesium LAB 01/01/25 Logged 02:39 Phosphorus LAB 01/01/25 Logged 02:39 PTPTT LAB 01/01/25 Logged 02:39 Thyroid Stimulating LAB 01/01/25 Logged Hormone 02:39 Urinalysis LAB 01/01/25 Logged 02:39 Vitamin B12 LAB 01/01/25 Logged 02:39 Vitamin D, 25-Hydroxy LAB 01/01/25 Logged 02:39 C-Reactive Protein LAB 01/01/25 Logged 02:39 Date of Service: Jan 01, 2025 Billing Provider: JANAE WEEMS MD Common Visit Codes: [id number] INP/OBS CARE (HIGH) Secondary Visit Codes: [id number] CARE PLAN 30 MINUTES BRIJESH DAVIS RESIDENT Jan 01, 2025 03:01 JENNY ROSALES RESIDENT Jan 01, 2025 06:53
--- NOTE | 2025-01-01 03:03 | DVH ---
CHEST RADIOGRAPH Indication: SOB Technique: Single frontal view of the chest was obtained COMPARISON: XY CHEST PORTABLE on DOS: 12/17/24, XY CHEST XRAY 1 VIEW on DOS: 12/13/24, XR CHEST 1 VIEW on DOS: 04/24/24, XR CHEST 1 VIEW on DOS: 03/07/24, XR CHEST 1 VIEW on DOS: 01/28/24 FINDINGS: Lines and Tubes: None Lungs: Clear Pleura: No effusion. No pneumothorax. Cardiomediastinal contours: Cardiomegaly. Bones: Unremarkable IMPRESSION: 1. Cardiomegaly.
--- NOTE | 2025-01-01 03:22 | DVH ---
EXAM: CT HEAD WITHOUT CONTRAST INDICATION: ALOC TECHNIQUE: CT of the head without intravenous contrast. Radiation Dose : 1. Head: CT Dose: CTDI volume is mGy. Dose-length product is mGy*cm The dose indicators for CT are the volume Computed Tomography (CT) Dose Index (CTDIvol) and the Dose Length Product (DLP), and are measured in units of mGy and mGy-cm, respectively. These indicators are not patient dose, but values generated from the CT scanner acquisition factors. The report includes radiation exposure data for exposures received during this examination. COMPARISON: CT BRAIN on DOS: 01/24/24 FINDINGS: There is no evidence of acute intracranial hemorrhage, extra-axial collection, mass effect, midline s hift, herniation or hydrocephalus. Increased prominence of the ventricles, sulci and cisterns consistent with the sequelae of atrophic c ortical volume loss. The shook-white differentiation is intact. Moderate diffuse confluent periventricular and subcortical white matter hypoattenuation is nonspecifi c but may be related to small vessel ischemic disease. Left maxillary and bilateral ethmoid and sphenoid mucosal sinus disease. The remaining visualized pa ranasal sinuses and right mastoid air cells are clear. Chronic appearing left mastoid air cell scarri ng. The surrounding soft tissues and osseous structures are unremarkable. IMPRESSION: 1. No acute intracranial abnormality. 2. Chronic sequelae of microangiopathy and atrophic cortical volume loss. Radiation optimization: All CT scans at this facility use at least one of these dose optimization susanne hniques: automated exposure control mA and/or kV adjustment per patient size (includes targeted exam s where dose is matched to clinical indication) or iterative reconstruction.
[2025-01-01] MEDS: ALBUTEROL SULF 2.5 MG/0.5ML(0.5%) NEB SOLN NEB ONE (03:40)
[2025-01-01] MEDS: IPRATROPIUM BROM 0.5 MG/2.5ML INH SOL NEB ONE (03:40)
[2025-01-01 03:43] LABS: Base Excess 17.2 mmol/L (-2.0-3.0)
[2025-01-01 03:50] LABS: Potassium 4.2 mmol/L (3.5-5.1); Sodium 140 mmol/L (136-145)
[2025-01-01 03:51] LABS: Calcium 9.2 mg/dL (8.7-10.4)
[2025-01-01 03:55] LABS: Anion Gap 7.99999 (5-15); Chloride 92 mmol/L (98-107); INR 1.03 (0.9-1.15); Partial Thromboplastin Time 28.6 SEC (24.5-34.5); Prothrombin Time 10.9 sec (9.3-11.8)
[2025-01-01 03:56] LABS: BUN/Creatinine Ratio 12.0 (10.0-20.0); Blood Urea Nitrogen 13 mg/dL (9-23)
[2025-01-01 03:57] LABS: Carbon Dioxide > 40 mmol/L (20-31); Magnesium 1.9 mg/dL (1.6-2.6)
[2025-01-01 03:58] LABS: Cholesterol 134 mg/dL (< 200); Glucose 211 mg/dL (74-106); Triglycerides 160 mg/dL (< 150)
[2025-01-01 04:00] LABS: HDL Cholesterol 36 mg/dL (40-59)
[2025-01-01] MEDS ORDERED: MORPHINE SULFATE INJ 2 MG/ml SYRG IV PRN ×2 (04:30)
[2025-01-01] MEDS ORDERED: NITROGLYCERIN 0.4 MG SL TAB SL PRN (04:30)
[2025-01-01] MEDS ORDERED: ACETAMINOPHEN 325 MG TAB PO PRN (04:30)
[2025-01-01] MEDS ORDERED: DEXTROSE (50%) 50ML SYRG IV PRN (04:30)
[2025-01-01] MEDS ORDERED: ONDANSETRON HCL 4 MG/2 ML VIAL IV PRN (04:30)
[2025-01-01 04:36] LABS: Lipase 52 U/L (12-53)
[2025-01-01 05:03] LABS: Hematocrit 32.4 % (36.0-46.0); Hemoglobin 10.2 g/dL (12.2-16.2); Mean Corpuscular Hemoglobin 25.0 pg (28.0-32.0); Mean Corpuscular Volume 79.4 fL (80.0-100.0); Nucleated Red Blood Cells % 0.0 %
[2025-01-01] MEDS: methylPREDNISolone SOD SUCC 125 MG/2 ML VL IV ONE (06:00)
[2025-01-01] MEDS: MAGNESIUM SULFATE 1GM/100ML 100 ML IV ONE (06:07)
[2025-01-01 06:37] LABS: Urine Budding Yeast LOADED /hpf (None Seen); Urine Protein, UAD 2+ (Negative)
[2025-01-01] MEDS: ACCU-CHEK COMFORT CURVE STRIP VI SCH (06:47)
[2025-01-01] MEDS: GABAPENTIN 300 MG CAP PO SCH (06:49)
[2025-01-01] MEDS: InsuLIN REG 1unit/0.01ml Soln (100units/ml) SC SCH (06:52)
[2025-01-01 06:57] LABS: Amphetamine Screen, Urine Neg (NEGATIVE); Barbiturate Scree,Urine Neg (NEGATIVE); Benzodiazephine Screen, Urine Neg (NEGATIVE); Cannabinoid Screen, Urine Neg (NEGATIVE); Cocaine Screen, Urine Neg (NEGATIVE); Opiate Scree,Urine Neg (NEGATIVE); Phencyclidine Screen, Urine Neg (NEGATIVE)
[2025-01-01] MEDS: SODIUM CHLORIDE 0.9% 1,000 ML IV SCH ×2 (07:08→18:10)
[2025-01-01 07:16] LABS: COVID19 ANTIGEN SOFIA FIA NEGATIVE (NEGATIVE)
[2025-01-01] MEDS: LEVALBUTEROL HCL 1.25 MG/3 ML NEB NEB SCH (07:25)
[2025-01-01] MEDS: IPRATROPIUM BROM 0.5 MG/2.5ML INH SOL NEB SCH (07:25)
[2025-01-01] MEDS: SEVELAMER 800 MG TAB PO SCH (08:36)
[2025-01-01 09:55] LABS: Base Excess 12.9 mmol/L (-2.0-3.0)
[2025-01-01] MEDS ORDERED: ENOXAPARIN SOD 100 MG/1 ML SYRINGE SC SCH (10:00)
[2025-01-01] MEDS ORDERED: METOPROLOL SUCCINATE XL 50 MG TAB PO SCH (10:00)
[2025-01-01] MEDS ORDERED: FUROSEMIDE 40 MG TAB PO SCH (10:00)
[2025-01-01] MEDS ORDERED: AZITHROMYCIN 500MG/ 250ML 250 ML IV SCH (10:00)
[2025-01-01] MEDS: PANTOPRAZOLE 40 MG/10 ML VIAL INJ IV SCH (10:29)
[2025-01-01] MEDS: DOXYCYCLINE 100MG/100ML 100 ML IV SCH (10:29)
[2025-01-01] MEDS: AMIODARONE HCL 200 MG TAB PO SCH (10:29)
[2025-01-01] MEDS: methylPREDNISolone ACETATE 80 MG/ML VL IM SCH (10:39)
[2025-01-01] MEDS: ENOXAPARIN SOD 100 MG/1 ML SYRINGE SC SCH (10:40)
[2025-01-01] MEDS: METOPROLOL TARTRATE 50 MG TAB PO SCH (10:42)
[2025-01-01] MEDS: TORSEMIDE 20 MG TAB PO SCH (10:43)
--- NOTE | 2025-01-01 12:17 | DVHPNRES ---
Progress Note Date Seen: Jan 01, 2025 Resident Creating Document: MARTINEZ BURT RESIDENT Medical Necessity Reason Pt with a Central, PICC or Fol: No Subjective Review of Systems This is a 74-year-old female with past medical history of COPD, on home oxygen 3 L/min, use CPAP at night, CKD stage 3, sleep apnea, diabetes mellitus, seizure disorder, atrial fibrillation, who was brought to the ER by her because of altered mental status and confusion. reported that the patient was confused and was talking about things that did not exist. Patient reported she did not use her CPAP last 5 nights. was concerned about altered mentation and brought the patient to the ER as she was previously admitted for COPD exacerbation. Initial lab workup revealed leukocytosis with WBC 12.0, hemoglobin 10.0, MCV 79.3, potassium 4.2, carbon dioxide> 40, serum creatinine 1.08, blood sugar 212, CRP 2.57, ammonia 17, TSH 0.96, UDS negative. Urinalysis revealed leukocyte esterase 2+, WBC 200, RBC 843, turbid colored. Patient has a negative for influenza type a and B and COVID-19. UDS suggestive of left-sided consultation with the suprapubic pleural effusion. Bedside POCUS revealed left-sided consolidation with pleural effusion. CT head negative for acute intracranial abnormality.Chronic sequelae of microangiopathy and atrophic cortical volume loss. Previous hospitalization: In December 2024 in [facility] for COPD exacerbation PMHx:COPD, CKD stage 3, sleep apnea, diabetes mellitus, seizure disorder, atrial fibrillation Social history: Denies smoking alcohol, recreational drug use. Lives in home with . Full code Home medication: Eliquis (noncompliant due to cost issues), metoprolol, rosuvastatin, sevelamer, metformin, furosemide 40 Allergic history: No known allergy Patient was seen today at bedside, labs and chart reviewed. Chest x-ray suggestive of left-sided consolidation with a superimposed effusion. Bedside pocus revealed left-sided consolidation with a pleural effusion. Patient is awake and alert and oriented. Patient is on IV antibiotic ceftriaxone and doxycycline. Pending blood culture, urine culture. Objective vital signs Vital Sign Date Time Temp Pulse Resp B/P (MAP) Pulse Ox O2 Delivery O2 Flow Rate FiO2 01/01/25 11:21 98.4 85 18 105/69 95 3.0 98.4 01/01/25 08:08 Nasal Cannula* 32 Total Intake and Output 12/31/24 12/31/24 01/01/25 15:00 23:00 07:00 Intake Total 500 ml Balance 500 ml medications Current Medications Medications Dose Ordered Sig/Zaida Route Start Time Stop Time Status Last Admin Dose Admin Sodium Chloride 1,000 ml @ 60 mls/hr [id number] IV 01/01/25 04:30 01/01/25 07:08 60 MLS/HR Acetaminophen 325 mg Q4HP PRN PO 01/01/25 04:30 Ondansetron HCl 4 mg Q4HP PRN IV 01/01/25 04:30 Morphine Sulfate 2 mg Q4HPRN PRN IV 01/01/25 04:30 Nitroglycerin 0.4 mg Q5MINP PRN SL 01/01/25 04:30 Morphine Sulfate 2 mg Q30M PRN IV 01/01/25 04:30 Diagnostic Test (Pha) 1 strip ACHS 01/01/25 07:00 01/01/25 06:47 1 STRIP Insulin Human Regular ACHS SC 01/01/25 07:00 01/01/25 06:52 4 UNITS Dextrose 50 ml UD PRN IV 01/01/25 04:30 Levalbuterol HCl 1.25 mg Q6HR NEB 01/01/25 06:00 01/01/25 07:25 1.25 MG Ipratropium [place] 0.5 mg Q6HR NEB 01/01/25 06:00 01/01/25 07:25 0.5 MG Methylprednisolone Acetate 40 mg DAILY IM 01/01/25 10:00 01/01/25 10:39 40 MG Atorvastatin Calcium 10 mg HS PO 01/01/25 22:00 Amiodarone HCl 200 mg BID PO 01/01/25 10:00 01/01/25 10:29 200 MG Gabapentin 300 mg TID PO 01/01/25 06:00 01/01/25 06:49 300 MG Metoprolol Tartrate 50 mg BID PO 01/01/25 10:00 Sevelamer HCl 800 mg TIDWM PO 01/01/25 08:00 01/01/25 08:36 800 MG Torsemide 20 mg DAILY PO 01/01/25 10:00 Furosemide 40 mg DAILY PO 01/01/25 10:00 Hold Pantoprazole Sodium 40 mg DAILY IV 01/01/25 10:00 01/01/25 10:29 40 MG Ceftriaxone Sodium 50 ml @ 100 mls/hr DAILY@09 IV 01/02/25 09:00 Enoxaparin Sodium 100 mg Q12HR SC 01/01/25 10:00 01/01/25 10:40 100 MG Doxycycline Hyclate 100 ml @ 50 mls/hr Q12H IV 01/01/25 09:00 01/01/25 10:29 50 MLS/HR Patient Own Medication 1 mg TID PO 01/01/25 14:00 Examination General examination- awake, alert, oriented HEENT- PEERLA, no acute nasal discharge Cardiovascular- S1-S2 audible, rate and rhythm regular, no murmur Respiratory- vesicular breath sounds with prolonged expiration, Gastrointestinal-nontender, bowel sound+. Nondistended Musculoskeletal-no acute joint swelling or tenderness or redness Lower extremity- trace leg edema Neurological- cranial nerves intact, no acute dysarthria or dysphagia Psychiatry- denies depression or SI or HI Skin- no acute rash or purpura laboratory and microbiology Laboratory Tests 01/01/25 03:12 Test 01/01/25 03:12 Range/Units Serum Glucose 211 H 74-106 mg/dL Problem List/Assessment/Plan Problem List/Assessment/Plan Assessment and plan # Metabolic encephalopathy likely due to UTI/pneumonia/hypercapnia -CT head no acute intracranial abnormality, chronic microvascular changes -- Chest x-ray suggestive of left-sided consolidation with a superimposed effusion. - Bedside pocus revealed left-sided consolidation with a pleural effusion - Urinalysis revealed leukocyte esterase 2+, WBC 200, RBC 843, turbid colored. -pending blood culture, uterine culture, sputum culture -continue IV fluid as prescribed -continue ceftriaxone and doxycycline as prescribed -continue telemetry -BIPAP AT NIGHT #Sepsis likely due to pneumonia Gram-positive versus Gram-negative # acute pneumonia likely bacterial Gram-positive versus Gram-negative # acute hypoxic and hypercapnic respiratory failure due to acute exacerbation of COPD likely due to above # consideration with the pneumonic effusion - Chest x-ray suggestive of left-sided consolidation with a superimposed effusion. - Bedside pocus revealed left-sided consolidation with a pleural effusion -patient has leukocytosis -ABG revealed chronic carbon dioxide retention with compensation -continue IV fluid as prescribed -continue ceftriaxone and doxycycline as prescribed -pending blood culture, urine culture, sputum culture -monitor vitals -continue nebulization as prescribed # CKD stage 3 -avoid dehydration and nephrotoxic drugs # atrial fibrillation with a controlled ventricular rate -Now sinus rhythm -continue home medication amiodarone 200 mg p.o. b.i.d. -continue Lovenox as prescribed # diabetes mellitus type 2 -continue insulin sliding scale as prescribed # hyperlipidemia -continue atorvastatin 10 mg p.o. q.h.s. # seizure disorder -resume home medication -seizure precaution # sleep apnea -order BI PAP at night Goals of care, Code status ; discussed with >15 minutes PUD prophylaxis: Pantoprazole DVT prophylaxis: Lovenox Plan discussed with Dr. Nelson , nursing staff, Total time spent on patient evaluation, chart review, assessment and plan, discussion discussion >35 minutes Plan discussed with: Patient, Other (RN) My Orders My Orders Orders - MARTINEZ BURT Procedure Category Date Status Time Doxycycline PHA 01/01/25 In Process 100mg/100ml 09:00 Abg W/ Co-Ox RT 01/01/25 Logged 08:50 (Nf) [employer] PHA 01/01/25 In Process ([place]) 14:00 Date of Service: Jan 01, 2025 Billing Provider: JOSE NELSON MD Common Visit Codes: [id number] INP/OBS CARE(HIGH) MARTINEZ BURT Jan 01, 2025 12:17 JOSE NELSON MD Jan 02, 2025 19:48
--- NOTE | 2025-01-01 12:32 | DVHNC2 ---
Other Procedure Procedure Bssvb-uw-Ebsj Ultrasound (POCUS) Lung and Pleural Evaluation Indication Evaluation of pleural effusion in the setting of complicated pneumonia with parapneumonic effusion. Anesthetic None Prep * Patient identity verified and indication reviewed. * Patient positioned supine with slight elevation of the head of bed. * Probe selection and machine settings optimized for lung/pleural evaluation. * Standard infection-control precautions observed. Success * Procedure successfully completed as intended. * Adequate images obtained to support clinical impression. Informed consent obtained: Yes Risks, benefits, and alternati: Yes UTO Consent Informed consent obtained from the patient . Risks, benefits, limitations, and alternatives explained. Patient verbalized understanding and agreed to proceed. Notes Description of Procedure A focused liqpf-wy-juek ultrasound was performed, limited to lung and pleural evaluation. The study was restricted to the left hemithorax, as the right side was not assessed. * Left Lung Findings: * R1 (upper anterior zone): Lung sliding present. A-line morphology, no B- lines. * R2 (lateral zone): Lung sliding present. A-line morphology, no B-lines. * R3 (lower/posterior zone): Hepatization of the lung noted with mild pleural effusion. * Right Lung: Not assessed due to study limitations. Findings * No evidence of pneumothorax (lung sliding preserved). * A-line morphology, no B-lines in assessed zones. * Left lower lung zone demonstrated hepatization with small pleural effusion, consistent with parapneumonic process. Complications * None. No intervention performed. Impression POCUS limited to the left lung demonstrates findings consistent with complicated pneumonia with parapneumonic effusion. No thoracentesis or procedural intervention was performed. Date of Service: Jan 01, 2025 Billing Provider: JOSE NELSON MD Common Visit Codes: PROCEDURE ONLY (61485 lung POCUS) YONIS TRIMBLE RESIDENT Jan 01, 2025 12:32 JOSE NELSON MD Jan 01, 2025 13:36
[2025-01-01] MEDS: RIOCIGUAT BASE PO SCH (14:00)
[2025-01-01 14:57] LABS: Base Excess 12.9 mmol/L (-2.0-3.0)
[2025-01-01 15:29] LABS: Base Excess 11.1 mmol/L (-2.0-3.0)
[2025-01-01] MEDS: ATORVASTATIN 20 MG TAB PO SCH (21:32)
[2025-01-02] VITALS (17 sets, daily range): BP systolic 89–115; BP diastolic 52–72; PULSE 63–77; RESP 16–22; TEMP 97.2–98.3; O2SAT 92–100
[2025-01-02] MEDS: PANTOPRAZOLE 40 MG TAB PO SCH (06:10)
[2025-01-02 06:59] LABS: Hemoglobin 9.4 g/dL (12.2-16.2); Nucleated Red Blood Cells % 0.0 %
[2025-01-02 07:02] LABS: Hematocrit 29.4 % (36.0-46.0); Mean Corpuscular Hemoglobin 25.3 pg (28.0-32.0); Mean Corpuscular Volume 79.4 fL (80.0-100.0)
[2025-01-02 07:08] LABS: Albumin 3.4 g/dL (3.2-4.8); Alkaline Phosphatase 94 U/L (46-116); Anion Gap 7 (5-15); BUN/Creatinine Ratio 18.7 (10.0-20.0); Bilirubin, Total 0.4 mg/dL (0.2-1.0); Blood Urea Nitrogen 17 mg/dL (9-23); Calcium 8.7 mg/dL (8.7-10.4); Magnesium 2.1 mg/dL (1.6-2.6); Potassium 4.6 mmol/L (3.5-5.1); Sodium 141 mmol/L (136-145); Total Protein 6.0 g/dL (5.7-8.2)
[2025-01-02 07:15] LABS: Alanine Aminotransferase < 9 U/L (7-40); Carbon Dioxide 37 mmol/L (20-31); Chloride 97 mmol/L (98-107); Glucose 248 mg/dL (74-106)
[2025-01-02] MEDS: DOXYCYCLINE 100MG/100ML 100 ML IV SCH (10:22)
--- NOTE | 2025-01-02 14:12 | DVHPNRES ---
Progress Note Date Seen: Jan 02, 2025 Resident Creating Document: MARTINEZ BURT RESIDENT Medical Necessity Reason Pt with a Central, PICC or Fol: No Subjective Review of Systems This is a 74-year-old female with past medical history of COPD, on home oxygen 3 L/min, use CPAP at night, CKD stage 3, sleep apnea, diabetes mellitus, seizure disorder, atrial fibrillation, who was brought to the ER by her because of altered mental status and confusion. reported that the patient was confused and was talking about things that did not exist. Patient reported she did not use her CPAP last 5 nights. was concerned about altered mentation and brought the patient to the ER as she was previously admitted for COPD exacerbation. Initial lab workup revealed leukocytosis with WBC 12.0, hemoglobin 10.0, MCV 79.3, potassium 4.2, carbon dioxide> 40, serum creatinine 1.08, blood sugar 212, CRP 2.57, ammonia 17, TSH 0.96, UDS negative. Urinalysis revealed leukocyte esterase 2+, WBC 200, RBC 843, turbid colored. Patient has a negative for influenza type a and B and COVID-19. UDS suggestive of left-sided consultation with the suprapubic pleural effusion. Bedside POCUS revealed left-sided consolidation with pleural effusion. CT head negative for acute intracranial abnormality.Chronic sequelae of microangiopathy and atrophic cortical volume loss. Previous hospitalization: In December 2024 in [facility] for COPD exacerbation PMHx:COPD, CKD stage 3, sleep apnea, diabetes mellitus, seizure disorder, atrial fibrillation Social history: Denies smoking alcohol, recreational drug use. Lives in home with . Full code Home medication: Eliquis (noncompliant due to cost issues), metoprolol, rosuvastatin, sevelamer, metformin, furosemide 40 Allergic history: No known allergy Patient was seen today at bedside, labs and chart reviewed. Patient was seen today at bedside, patient reported feeling better today. Patient is noncompliant with CPAP last night. Patient is counseled about the importance of CPAP at night. Patient verbalized understanding. Blood culture no growth so far. Pending urine culture. Objective vital signs Vital Sign Date Time Temp Pulse Resp B/P (MAP) Pulse Ox O2 Delivery O2 Flow Rate FiO2 01/02/25 13:29 97.7 68 16 97/65 (76) 92 97.7 01/02/25 11:50 Nasal Cannula* 1 24 Total Intake and Output 01/01/25 01/01/25 01/02/25 15:00 23:00 07:00 Intake Total 730 ml 100 ml 610 ml Output Total 1100 ml 400 ml Balance 730 ml -1000 ml 210 ml medications Current Medications Medications Dose Ordered Sig/Zaida Route Start Time Stop Time Status Last Admin Dose Admin Acetaminophen 325 mg Q4HP PRN PO 01/01/25 04:30 Ondansetron HCl 4 mg Q4HP PRN IV 01/01/25 04:30 Diagnostic Test (Pha) 1 strip ACHS 01/01/25 07:00 01/02/25 11:39 1 STRIP Insulin Human Regular ACHS SC 01/01/25 07:00 01/02/25 11:59 4 UNITS Dextrose 50 ml UD PRN IV 01/01/25 04:30 Levalbuterol HCl 1.25 mg Q6HR NEB 01/01/25 06:00 01/02/25 11:50 1.25 MG Ipratropium [place] 0.5 mg Q6HR NEB 01/01/25 06:00 01/02/25 11:50 0.5 MG Atorvastatin Calcium 10 mg HS PO 01/01/25 22:00 01/01/25 21:32 10 MG Amiodarone HCl 200 mg BID PO 01/01/25 10:00 01/02/25 10:38 200 MG Gabapentin 300 mg TID PO 01/01/25 06:00 01/02/25 06:10 300 MG Metoprolol Tartrate 50 mg BID PO 01/01/25 10:00 01/02/25 10:41 50 MG Sevelamer HCl 800 mg TIDWM PO 01/01/25 08:00 01/02/25 12:06 800 MG Torsemide 20 mg DAILY PO 01/01/25 10:00 01/02/25 10:43 20 MG Ceftriaxone Sodium 50 ml @ 100 mls/hr DAILY@09 IV 01/02/25 09:00 01/02/25 09:06 100 MLS/HR Enoxaparin Sodium 100 mg Q12HR SC 01/01/25 10:00 01/02/25 10:22 100 MG Patient Own Medication 1 mg TID PO 01/01/25 14:00 Pantoprazole Sodium 40 mg DAILY@0600 PO 01/02/25 06:00 01/02/25 06:10 40 MG Doxycycline Hyclate 100 ml @ 50 mls/hr Q12H IV 01/02/25 10:00 01/02/25 10:22 50 MLS/HR Examination General examination- awake, alert, oriented HEENT- PEERLA, no acute nasal discharge Cardiovascular- S1-S2 audible, rate and rhythm regular, no murmur Respiratory- vesicular breath sounds with prolonged expiration, Gastrointestinal-nontender, bowel sound+. Nondistended Musculoskeletal-no acute joint swelling or tenderness or redness Lower extremity- trace leg edema Neurological- cranial nerves intact, no acute dysarthria or dysphagia Psychiatry- denies depression or SI or HI Skin- no acute rash or purpura laboratory and microbiology Laboratory Tests 01/02/25 06:09 Test 01/02/25 06:09 Range/Units Serum Glucose 248 H 74-106 mg/dL Microbiology Date/Time Source Procedure Growth Status 01/01/25 18:45 Nose MRSA Screen - Final Methicillin Resistant S.aureus Complete 01/01/25 06:28 Urine - Midstream Clean Catch Urine Culture - Preliminary Resulted 12/31/24 22:53 Blood Blood Culture - Preliminary NO GROWTH AFTER 24 HOURS OF INCUBATION. Resulted Problem List/Assessment/Plan Problem List/Assessment/Plan Assessment and plan-patient was noncompliant with BiPAP last night, we will continue current antibiotic ceftriaxone and doxycycline. Blood culture no growth so far, pending uterine culture report. Ordered insulin Lantus. Plan is to discharge home tomorrow patient if clinically reasonable. # Metabolic encephalopathy likely due to UTI/pneumonia/hypercapnia -CT head no acute intracranial abnormality, chronic microvascular changes -- Chest x-ray suggestive of left-sided consolidation with a superimposed effusion. - Bedside pocus revealed left-sided consolidation with a pleural effusion - Urinalysis revealed leukocyte esterase 2+, WBC 200, RBC 843, turbid colored. - blood culture no growth so far, -pending urine culture, sputum culture -continue ceftriaxone and doxycycline as prescribed -continue telemetry -BiPAP at night as prescribed #Sepsis likely due to pneumonia Gram-positive versus Gram-negative # acute pneumonia likely bacterial Gram-positive versus Gram-negative # acute hypoxic and hypercapnic respiratory failure due to acute exacerbation of COPD likely due to above # consideration with the pneumonic effusion - Chest x-ray suggestive of left-sided consolidation with a superimposed effusion. - Bedside pocus revealed left-sided consolidation with a pleural effusion -continue IV fluid as prescribed -continue ceftriaxone and doxycycline as prescribed -- blood culture no growth so far, -pending urine culture, sputum culture -monitor vitals -continue nebulization as prescribed # CKD stage 3 -avoid dehydration and nephrotoxic drugs # atrial fibrillation with a controlled ventricular rate -Now sinus rhythm -continue home medication amiodarone 200 mg p.o. b.i.d. -continue Lovenox as prescribed # diabetes mellitus type 2 -continue insulin sliding scale as prescribed -Lantus as prescribed # hyperlipidemia -continue atorvastatin 10 mg p.o. q.h.s. # seizure disorder -resume home medication -seizure precaution # sleep apnea - BI PAP at night Goals of care, Code status ; discussed with >15 minutes PUD prophylaxis: Pantoprazole DVT prophylaxis: Lovenox Plan discussed with Dr. Nelson , nursing staff, Total time spent on patient evaluation, chart review, assessment and plan, discussion discussion >35 minutes Plan discussed with: Patient, Other (RN) My Orders My Orders Orders - MARTINEZ BURT Procedure Category Date Status Time Abg W/ Co-Ox RT 01/01/25 Logged 15:00 * Wound Consult CONS 01/01/25 Transmitted Doxycycline PHA 01/02/25 In Process 100mg/100ml 10:00 Date of Service: Jan 02, 2025 Billing Provider: JOSE NELSON MD, MOHAMMED RESIDENT Jan 02, 2025 14:12
[2025-01-02] MEDS: INSULIN LANTUS (GLARGINE) 1 /0.01ml (100units/ml) SC SCH (14:15)
--- NOTE | 2025-01-02 14:50 | DVHPN2 ---
Progress Note - Dictate Date Seen: Jan 02, 2025 Medical Necessity Reason Pt with a Central, PICC or Fol: No Subjective ENDSTAGE COPD CO2 RETAINER SLEEP APNEA RECURRENT RESP FAILURE RECENTLY ADMITTED REQUIRING INTUBATION 2 SEPSIS RECURRENT UTI AND PNEUMONIA 3. RECURRENT CELLULITES OF LE NOW AGAIN WITH RESP FAILURE AND UTI WITH SEPSIS LEUKOCYTOSIS ACUTE RENAL FAILURE CKD III 4.PAH PT WAS ON ADEMPAS AND OPSUMIT HOWEVER BOTH DRUGS NO AVAILABLE AT THE HOSPITAL 4. COVID PNEUMONIA HX 5. DIABETES NEPHROPATHY NEUROPATHY VASCULOPATHY 6. SEIZURE 7. ANEMIA 8. GERD 9. OBESITY 10. HYPERKALEMIA 11. HEMATURIA KIDNEY STONE OBSTRUCTIVE RENAL CYSTS vital signs Vital Sign Date Time Temp Pulse Resp B/P (MAP) Pulse Ox O2 Delivery O2 Flow Rate FiO2 01/02/25 13:29 97.7 68 16 97/65 (76) 92 97.7 01/02/25 11:50 Nasal Cannula* 1 24 Total Intake and Output 01/01/25 01/01/25 01/02/25 15:00 23:00 07:00 Intake Total 730 ml 100 ml 610 ml Output Total 1100 ml 400 ml Balance 730 ml -1000 ml 210 ml medications Current Medications Medications Dose Ordered Sig/Zaida Route Start Time Stop Time Status Last Admin Dose Admin Acetaminophen 325 mg Q4HP PRN PO 01/01/25 04:30 Ondansetron HCl 4 mg Q4HP PRN IV 01/01/25 04:30 Diagnostic Test (Pha) 1 strip ACHS 01/01/25 07:00 01/02/25 11:39 1 STRIP Insulin Human Regular ACHS SC 01/01/25 07:00 01/02/25 11:59 4 UNITS Dextrose 50 ml UD PRN IV 01/01/25 04:30 Levalbuterol HCl 1.25 mg Q6HR NEB 01/01/25 06:00 01/02/25 11:50 1.25 MG Ipratropium [place] 0.5 mg Q6HR NEB 01/01/25 06:00 01/02/25 11:50 0.5 MG Atorvastatin Calcium 10 mg HS PO 01/01/25 22:00 01/01/25 21:32 10 MG Amiodarone HCl 200 mg BID PO 01/01/25 10:00 01/02/25 10:38 200 MG Gabapentin 300 mg TID PO 01/01/25 06:00 01/02/25 14:25 300 MG Metoprolol Tartrate 50 mg BID PO 01/01/25 10:00 01/02/25 10:41 50 MG Sevelamer HCl 800 mg TIDWM PO 01/01/25 08:00 01/02/25 12:06 800 MG Torsemide 20 mg DAILY PO 01/01/25 10:00 01/02/25 10:43 20 MG Ceftriaxone Sodium 50 ml @ 100 mls/hr DAILY@09 IV 01/02/25 09:00 01/02/25 09:06 100 MLS/HR Enoxaparin Sodium 100 mg Q12HR SC 01/01/25 10:00 01/02/25 10:22 100 MG Patient Own Medication 1 mg TID PO 01/01/25 14:00 Pantoprazole Sodium 40 mg DAILY@0600 PO 01/02/25 06:00 01/02/25 06:10 40 MG Doxycycline Hyclate 100 ml @ 50 mls/hr Q12H IV 01/02/25 10:00 01/02/25 10:22 50 MLS/HR Insulin Glargine 15 units QAM SC 01/02/25 14:15 objective HEENT SCLERA ANICTERIC NO JVD CAROTIDS WNL MUCUS MEMB DRY PUL RALES CV RR ABD SUPRAPUBIC TENDERNESS NEURO CONFUSES SKIN DRY EXT 2+ EDEMA laboratory and microbiology Laboratory Tests 01/02/25 06:09 Test 01/02/25 06:09 Range/Units Serum Glucose 248 H 74-106 mg/dL Problem List ENDSTAGE COPD CO2 RETAINER SLEEP APNEA RECURRENT RESP FAILURE RECENTLY ADMITTED REQUIRING INTUBATION 2 SEPSIS RECURRENT UTI AND PNEUMONIA 3. RECURRENT CELLULITES OF LE NOW AGAIN WITH RESP FAILURE AND UTI WITH SEPSIS LEUKOCYTOSIS ACUTE RENAL FAILURE CKD III 4.PAH PT WAS ON ADEMPAS AND OPSUMIT HOWEVER BOTH DRUGS NO AVAILABLE AT THE HOSPITAL 4. COVID PNEUMONIA HX 5. DIABETES NEPHROPATHY NEUROPATHY VASCULOPATHY 6. SEIZURE 7. ANEMIA 8. GERD 9. OBESITY 10. HYPERKALEMIA 11. HEMATURIA KIDNEY STONE OBSTRUCTIVE RENAL CYSTS Assessment/Plan ABG ABX BIPAP NUVIGIL Plan discussed with: Other Critical Care Time(min): 35 AVTAR MCKNIGHT MD Jan 02, 2025 14:50
[2025-01-02] MEDS: MUPIROCIN 2% OINT 15gm or 22gm FOR MRSA NARES EACHNOSTRI SCH (22:40)
[2025-01-03] VITALS (16 sets, daily range): BP systolic 87–106; BP diastolic 47–66; PULSE 61–95; RESP 16–22; TEMP 97.8–98.3; O2SAT 92–100
[2025-01-03 05:55] LABS: Hemoglobin 9.1 g/dL (12.2-16.2); Nucleated Red Blood Cells % 0.1 %
[2025-01-03 05:58] LABS: Hematocrit 28.7 % (36.0-46.0); Mean Corpuscular Hemoglobin 25.6 pg (28.0-32.0); Mean Corpuscular Volume 80.3 fL (80.0-100.0)
[2025-01-03 06:15] LABS: Potassium 3.6 mmol/L (3.5-5.1); Sodium 142 mmol/L (136-145)
[2025-01-03 06:20] LABS: Anion Gap 9 (5-15)
[2025-01-03 06:24] LABS: Alkaline Phosphatase 84 U/L (46-116)
[2025-01-03 06:25] LABS: BUN/Creatinine Ratio 17.8 (10.0-20.0); Blood Urea Nitrogen 18 mg/dL (9-23); Magnesium 1.9 mg/dL (1.6-2.6)
[2025-01-03 06:26] LABS: Total Protein 5.9 g/dL (5.7-8.2)
[2025-01-03 06:27] LABS: Albumin 3.3 g/dL (3.2-4.8); Bilirubin, Total 0.3 mg/dL (0.2-1.0)
[2025-01-03 06:43] LABS: Alanine Aminotransferase < 9 U/L (7-40); Calcium 8.3 mg/dL (8.7-10.4); Carbon Dioxide 37 mmol/L (20-31); Chloride 96 mmol/L (98-107); Glucose 174 mg/dL (74-106)
--- NOTE | 2025-01-03 13:48 | DVHPNRES ---
Progress Note Date Seen: Jan 03, 2025 Resident Creating Document: KRYSTA LOUIS RESIDENT Medical Necessity Reason Pt with a Central, PICC or Fol: No Subjective Review of Systems This is a 74-year-old female with past medical history of COPD, on home oxygen 3 L/min, use CPAP at night, CKD stage 3, sleep apnea, diabetes mellitus, seizure disorder, atrial fibrillation, who was brought to the ER by her because of altered mental status and confusion. reported that the patient was confused and was talking about things that did not exist. Patient reported she did not use her CPAP last 5 nights. was concerned about altered mentation and brought the patient to the ER as she was previously admitted for COPD exacerbation. Initial lab workup revealed leukocytosis with WBC 12.0, hemoglobin 10.0, MCV 79.3, potassium 4.2, carbon dioxide> 40, serum creatinine 1.08, blood sugar 212, CRP 2.57, ammonia 17, TSH 0.96, UDS negative. Urinalysis revealed leukocyte esterase 2+, WBC 200, RBC 843, turbid colored. Patient has a negative for influenza type a and B and COVID-19. UDS suggestive of left-sided consultation with the suprapubic pleural effusion. Bedside POCUS revealed left-sided consolidation with pleural effusion. CT head negative for acute intracranial abnormality.Chronic sequelae of microangiopathy and atrophic cortical volume loss. Previous hospitalization: In December 2024 in [facility] for COPD exacerbation PMHx:COPD, CKD stage 3, sleep apnea, diabetes mellitus, seizure disorder, atrial fibrillation Social history: Denies smoking alcohol, recreational drug use. Lives in home with . Full code Home medication: Eliquis (noncompliant due to cost issues), metoprolol, rosuvastatin, sevelamer, metformin, furosemide 40 Allergic history: No known allergy Interval events Patient is seen and examined at bedside Currently on 2 L which is her home oxygen Mentioned no new symptoms Objective vital signs Vital Sign Date Time Temp Pulse Resp B/P (MAP) Pulse Ox O2 Delivery O2 Flow Rate FiO2 01/03/25 12:41 97.8 81 22 105/66 (79) 92 97.8 01/03/25 08:06 Nasal Cannula* 1 24 Total Intake and Output 01/02/25 01/02/25 01/03/25 15:00 23:00 07:00 Intake Total 700 ml 400 ml Output Total 1325 ml 700 ml Balance -625 ml -300 ml medications Current Medications Medications Dose Ordered Sig/Zaida Route Start Time Stop Time Status Last Admin Dose Admin Acetaminophen 325 mg Q4HP PRN PO 01/01/25 04:30 Ondansetron HCl 4 mg Q4HP PRN IV 01/01/25 04:30 Diagnostic Test (Pha) 1 strip ACHS 01/01/25 07:00 01/03/25 11:06 1 STRIP Insulin Human Regular ACHS SC 01/01/25 07:00 01/03/25 11:19 3 UNITS Dextrose 50 ml UD PRN IV 01/01/25 04:30 Levalbuterol HCl 1.25 mg Q6HR NEB 01/01/25 06:00 01/03/25 11:56 1.25 MG Ipratropium Elmo 0.5 mg Q6HR NEB 01/01/25 06:00 01/03/25 11:56 0.5 MG Atorvastatin Calcium 10 mg HS PO 01/01/25 22:00 01/02/25 22:41 10 MG Amiodarone HCl 200 mg BID PO 01/01/25 10:00 01/03/25 10:22 200 MG Gabapentin 300 mg TID PO 01/01/25 06:00 01/03/25 13:23 300 MG Metoprolol Tartrate 50 mg BID PO 01/01/25 10:00 01/03/25 10:23 50 MG Sevelamer HCl 800 mg TIDWM PO 01/01/25 08:00 01/03/25 11:20 800 MG Torsemide 20 mg DAILY PO 01/01/25 10:00 01/03/25 10:23 20 MG Ceftriaxone Sodium 50 ml @ 100 mls/hr DAILY@09 IV 01/02/25 09:00 01/03/25 08:27 100 MLS/HR Enoxaparin Sodium 100 mg Q12HR SC 01/01/25 10:00 01/03/25 10:24 100 MG Patient Own Medication 1 mg TID PO 01/01/25 14:00 01/02/25 22:00 1 MG Pantoprazole Sodium 40 mg DAILY@0600 PO 01/02/25 06:00 01/03/25 06:24 40 MG Doxycycline Hyclate 100 ml @ 50 mls/hr Q12H IV 01/02/25 10:00 01/03/25 10:20 50 MLS/HR Insulin Glargine 15 units QAM SC 01/02/25 14:15 01/03/25 07:43 15 UNITS Mupirocin 1 applic BID EACHNOSTRI 01/02/25 15:00 01/07/25 14:59 01/03/25 10:27 1 APPLIC Patient Own Medication 150 mg QAM PO 01/03/25 07:00 Examination General examination- awake, alert, oriented HEENT- PEERLA, no acute nasal discharge Cardiovascular- S1-S2 audible, rate and rhythm regular, no murmur Respiratory- vesicular breath sounds with prolonged expiration, Gastrointestinal-nontender, bowel sound+. Nondistended Musculoskeletal-no acute joint swelling or tenderness or redness Lower extremity- trace leg edema Neurological- cranial nerves intact, no acute dysarthria or dysphagia Psychiatry- denies depression or SI or HI Skin- no acute rash or purpura laboratory and microbiology Laboratory Tests 01/03/25 05:05 Test 01/03/25 05:05 Range/Units Serum Glucose 174 H 74-106 mg/dL Microbiology Date/Time Source Procedure Growth Status 01/01/25 18:45 Nose MRSA Screen - Final Methicillin Resistant S.aureus Complete 01/01/25 06:28 Urine - Midstream Clean Catch Urine Culture - Preliminary Resulted 12/31/24 22:53 Blood Blood Culture - Preliminary NO GROWTH AFTER 48 HOURS OF INCUBATION. Resulted Labs and/or images reviewed: Labs reviewed by me, Image(s) reviewed by me Problem List/Assessment/Plan Problem List/Assessment/Plan Problem List/Assessment/Plan # Metabolic encephalopathy likely due to UTI/pneumonia/hypercapnia -CT head no acute intracranial abnormality, chronic microvascular changes -- Chest x-ray suggestive of left-sided consolidation with a superimposed effusion. - Bedside pocus revealed left-sided consolidation with a pleural effusion - Urinalysis revealed leukocyte esterase 2+, WBC 200, RBC 843, turbid colored. - blood culture no growth so far, -pending urine culture, sputum culture -continue ceftriaxone and doxycycline as prescribed -continue telemetry -BiPAP at night as prescribed #Sepsis likely due to pneumonia Gram-positive versus Gram-negative # acute pneumonia likely bacterial Gram-positive versus Gram-negative # acute hypoxic and hypercapnic respiratory failure due to acute exacerbation of COPD likely due to above # left parapneumonic effusion - Chest x-ray suggestive of left-sided consolidation with a superimposed effusion. - Bedside pocus revealed left-sided consolidation with a pleural effusion -continue IV fluid as prescribed -continue ceftriaxone and doxycycline as prescribed -- blood culture no growth so far, -pending urine culture, sputum culture -monitor vitals -continue nebulization as prescribed # CKD stage 3 -avoid dehydration and nephrotoxic drugs # atrial fibrillation with a controlled ventricular rate -Now sinus rhythm -continue home medication amiodarone 200 mg p.o. b.i.d. -continue Lovenox # diabetes mellitus type 2 -continue insulin sliding scale as prescribed -Lantus as prescribed # hyperlipidemia -continue atorvastatin 10 mg p.o. q.h.s. # seizure disorder -resume home medication -seizure precaution # sleep apnea - BI PAP at night # MRSA nares Mupirocin Social Service was consulted to arrange transportation Goals of care, Code status ; discussed with >15 minutes PUD prophylaxis: Pantoprazole DVT prophylaxis: Lovenox Plan discussed with Dr. 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
[2025-01-03] MEDS ORDERED: AUG875T PO (17:35)
[2025-01-03] MEDS ORDERED: DOXY-346 PO (17:35)
--- NOTE | 2025-01-03 17:41 | DVHDSRES ---
Discharge Summary Date of Admission Resident Creating Document: KRYSTA LOUIS Jan 01, 2025 at 04:19 Date of Discharge: Jan 03, 2025 Labs/Diagnostic Data: Laboratory Results Test 01/03/25 16:55 01/03/25 05:05 01/01/25 15:17 01/01/25 09:36 POC Glucose 171 mg/dl (70-106) White Blood Count 11.4 10^3/uL (4.4-10.8) Red Blood Count 3.57 10^6/uL (4.0-5.20) Hemoglobin 9.1 g/dL (12.2-16.2) Hematocrit 28.7 % (36.0-46.0) Mean Corpuscular Volume 80.3 fL (80.0-100.0) Mean Corpuscular Hemoglobin 25.6 pg (28.0-32.0) Mean Corpuscular Hemoglobin Concent 31.8 g/dL (32.0-36.0) Red Cell Distribution Width 16.1 % (11.8-14.3) Platelet Count 212 10^3/uL (140-450) Mean Platelet Volume 7.6 fL (6.9-10.8) Neutrophils (%) (Auto) 78.5 % (37.0-80.0) Lymphocytes (%) (Auto) 13.9 % (10.0-50.0) Monocytes (%) (Auto) 5.3 % (0.0-12.0) Eosinophils (%) (Auto) 1.8 % (0.0-7.0) Basophils (%) (Auto) 0.5 % (0.0-2.0) Neutrophils # (Auto) 9.0 10 ^3/uL (1.6-8.6) Lymphocytes # (Auto) 1.6 10 ^3/uL (0.4-5.4) Monocytes # (Auto) 0.6 10 ^3/uL (0-1.3) Eosinophils # (Auto) 0.2 10 ^3/uL (0-0.8) Basophils # (Auto) 0.1 10 ^3/uL (0-0.2) Nucleated Red Blood Cells 0.1 % Sodium Level 142 mmol/L (136-145) Potassium Level 3.6 mmol/L (3.5-5.1) Chloride Level 96 mmol/L (98-107) Carbon Dioxide Level 37 mmol/L (20-31) Anion Gap 9 (5-15) Blood Urea Nitrogen 18 mg/dL (9-23) Creatinine 1.01 mg/dL (0.550-1.02) Glomerular Filtration Rate Calc 59 mL/min (>90) BUN/Creatinine Ratio 17.8 (10.0-20.0) Serum Glucose 174 mg/dL (74-106) Calcium Level 8.3 mg/dL (8.7-10.4) Magnesium Level 1.9 mg/dL (1.6-2.6) Total Bilirubin 0.3 mg/dL (0.2-1.0) Aspartate Amino Transferase (AST) 9 U/L (13-40) Alanine Aminotransferase (ALT) < 9 U/L (7-40) Alkaline Phosphatase 84 U/L (46-116) Total Protein 5.9 g/dL (5.7-8.2) Albumin 3.3 g/dL (3.2-4.8) Blood Gas Specimen Type Arterial Blood Gas Sample Site Right radial Blood Gas Patient Temperature 37.0 Arterial Blood Date Drawn [id number] Arterial Blood pH 7.367 (7.350-7.450) Arterial Blood Partial Pressure CO2 70.9 mmHg (32.0-45.0) Arterial Blood Partial Pressure O2 90.8 mmHg (83.0-108.0) Arterial Blood HCO3 39.8 mmol/L (21.0-28.0) Arterial Blood Base Excess 11.1 mmol/L (-2.0-3.0) Kaleb Test Yes Blood Gas Liter Flow 3.00 Blood Gas Modality Nasal cannula FiO2 % 32.0 Blood Gas Critical Value Read Back yes Blood Gas Notified Whom lucía stroud Blood Gas Notified Time [id number] Blood Gas Notified By alex schroeder Arterial Blood Oxygen Saturation 97.9 % (94.0-98.0) Arterial Blood Oxyhemoglobin 97.0 % (94.0-98.0) Arterial Blood Carboxyhemoglobin 0.6 % (0.5-1.5) Arterial Blood Methemoglobin 0.3 % (0.0-1.5) Blood Gas Total Hemoglobin 11.10 g/dL (12.0-16.0) Test 01/01/25 06:53 01/01/25 06:32 01/01/25 06:28 01/01/25 03:28 Influenza Type A Antigen Negative (Negative) Influenza Type B Antigen Negative (Negative) SARS-CoV-2 Antigen (Rapid) Negative (NEGATIVE) Urine Color Light-brown (Yellow) Urine Clarity Ex.turbid (Clear) Urine pH 7.5 (5.0-9.0) Urine Specific [place] 1.015 (1.001-1.035) Urine Protein 2+ (Negative) Urine Ketones Negative (Negative) Urine Blood Negative /uL (Negative) Urine Nitrite Negative (Negative) Urine Bilirubin Negative (Negative) Urine Urobilinogen Normal mg/dL (Negative) Urine Leukocyte Esterase 2+ /uL (Negative) Urine RBC 843 /hpf (0 - 4) Urine Microscopic WBC 200 /HPF (0-5) Urine Squamous Epithelial Cells Few /hpf (<5) Urine Bacteria None seen /hpf (None Seen) Urine Mucus Few (None Seen) Urine Yeast (Budding) Loaded /hpf (None Seen) Urine Glucose Normal mg/dL (Normal) Urine Opiates Screen Neg (NEGATIVE) Urine Fentanyl Screen Neg (NEGATIVE) Urine Barbiturates Screen Neg (NEGATIVE) Urine Phencyclidine Screen Neg (NEGATIVE) Urine Amphetamines Screen Neg (NEGATIVE) Urine Benzodiazepines Screen Neg (NEGATIVE) Urine Cocaine Screen Neg (NEGATIVE) Urine Cannabinoids Screen Neg (NEGATIVE) Blood Gas Spontaneous Rate 20 Test 01/01/25 03:12 12/31/24 22:53 Prothrombin Time 10.9 sec (9.3-11.8) Prothrombin Time INR 1.03 (0.9-1.15) Activated Partial Thromboplast Time 28.6 SEC (24.5-34.5) Lactic Acid Level 0.9 mmol/L (0.4-2.0) Phosphorus Level 3.2 mg/dL (2.4-5.1) Ammonia 17 umol/L (11-32) C-Reactive Protein High Sensitivity 2.57 mg/dL (<1.0) Triglycerides Level 160 mg/dL (< 150) Cholesterol Level 134 mg/dL (< 200) LDL Cholesterol 68 mg/dL (< 100) HDL Cholesterol 36 mg/dL (40-59) Lipase 52 U/L (12-53) Vitamin B12 Level 302 pg/mL (211-911) Vitamin D 25-Hydroxy 30.5 ng/mL (30.0-100) Thyroid Stimulating Hormone (TSH) 2.96 uIU/mL (0.55-4.78) Other Laboratory Tests 01/03/25 05:05 Final Diagnosis/Problems List Metabolic encephalopathy likely due to UTI/pneumonia Acute hypoxic hypercarbic resp failure due to acute copd exacerbation Community acquired pneumonia gram positive/negative left parapneumonic pleural effusion CKD 3 Afib, wtih controlled rate DM2 HLD Discharge Disposition: Home with Health Services Discharge Instruct/Medications Diet: Cardiac 2g Na,low cholest Activity: No Restrictions, As Tolerated Follow Up/Referral: f/u with PCP/dr Negron within 1 week f/u with cardiology within 1 week Scheduled Amiodarone HCl (Amiodarone HCl), 200 MG PO BID Amoxicillin & Pot Clavulanate (Augmentin Tablet), 875 MG PO BID Apixaban Base (Eliquis), 5 MG PO BID Cefuroxime Axetil (Cefuroxime Axetil), 500 MG PO BID Cephalexin (Keflex 500), 1 CAP PO TID Doxycycline (Monohydrate) (Doxycycline), 100 MG PO BID Empagliflozin (Jardiance), 25 MG PO DAILY@BREAKFAST Ergocalciferol (Vitamin D 71322 Unit), 50,000 UNIT PO Q7D Ezetimibe (Zetia), 40 MG PO DAILY, (Reported) Fluconazole (Fluconazole), 200 MG PO DAILY Gabapentin (Gabapentin), 300 MG PO TID, (Reported) Insulin Glargine (Lantus), 30 UNIT SC BID, (Reported) Metformin Hydrochloride (Metformin Hcl), 1 TAB PO BID, (Reported) Metoprolol Tartrate (Lopressor), 1 TAB PO BID, (Reported) Mupirocin Calcium (Topical) (Mupirocin), 2 % EX BID Pantoprazole Sodium Sesquihydr (Protonix), 40 MG PO DAILY Riociguat Base (Adempas), 1 MG PO TID, (Reported) Rosuvastatin Calcium (Rosuvastatin Calcium), 10 MG PO HS, (Reported) Sevelamer Hydrochloride (Renagel), 800 MG PO TIDWM Torsemide (Torsemide), 20 MG PO DAILY, (Reported) Discharge Statement: "Patient was advised to return to the ER or call 911 if any headaches, dizziness, shortness of breath, chest pain, abdominal pain, bleeding, fevers, or worsening of medical condition. Patient was counseled about treatment plan, medications, possible side effects, patientverbalized understanding. All questions were answered to the best of my ability. This discharge took greater then 30 minutes in planning, reviewing documentation, counseling the patient, and discussing with other team members." ASSESSMENT ASSESSMENT Assessment Metabolic encephalopathy likely due to UTI/pneumonia Acute hypoxic hypercarbic resp failure due to acute copd exacerbation Community acquired pneumonia gram positive/negative left parapneumonic pleural effusion CKD 3 Afib, wtih controlled rate DM2 HLD KRYSTA LOUIS RESIDENT Jan 03, 2025 17:41
[2025-01-03] MEDS ORDERED: MUPI2CRE17 EX (17:42)
[2025-01-04] VITALS (11 sets, daily range): BP systolic 97–114; BP diastolic 54–71; PULSE 60–75; RESP 15–20; TEMP 36.8; O2SAT 92–100
[2025-01-04 06:05] LABS: Sodium 142 mmol/L (136-145)
[2025-01-04 06:08] LABS: Hematocrit 29.4 % (36.0-46.0); Nucleated Red Blood Cells % 0.0 %
[2025-01-04 06:10] LABS: Hemoglobin 9.6 g/dL (12.2-16.2); Mean Corpuscular Hemoglobin 25.8 pg (28.0-32.0); Mean Corpuscular Volume 79.3 fL (80.0-100.0)
[2025-01-04 06:11] LABS: BUN/Creatinine Ratio 18.1 (10.0-20.0); Blood Urea Nitrogen 19 mg/dL (9-23)
[2025-01-04 06:12] LABS: Magnesium 1.8 mg/dL (1.6-2.6)
[2025-01-04 06:34] LABS: Chloride 92 mmol/L (98-107); Potassium 3.4 mmol/L (3.5-5.1)
[2025-01-04 06:38] LABS: Anion Gap 9.99999 (5-15); Calcium 8.3 mg/dL (8.7-10.4); Carbon Dioxide > 40 mmol/L (20-31); Glucose 162 mg/dL (74-106)
[2025-01-04] MEDS: POTASSIUM CHL 20 Meq TABLET PO ONE (07:54)
[2025-01-04] MEDS: MAGNESIUM SULFATE 1GM/100ML 100 ML IV ONE (07:58)
--- NOTE | 2025-01-04 09:03 | DVHDSRES ---
Discharge Summary Date of Admission Resident Creating Document: KRYSTA LOUIS Jan 01, 2025 at 04:19 Date of Discharge: Jan 03, 2025 Admitting Diagnosis Metabolic encephalopathy Acute hypoxic and hypercapnic respiratory failure Labs/Diagnostic Data: Laboratory Results Test 01/04/25 06:15 01/04/25 05:00 01/03/25 05:05 01/01/25 15:17 POC Glucose 169 mg/dl (70-106) White Blood Count 10.7 10^3/uL (4.4-10.8) Red Blood Count 3.71 10^6/uL (4.0-5.20) Hemoglobin 9.6 g/dL (12.2-16.2) Hematocrit 29.4 % (36.0-46.0) Mean Corpuscular Volume 79.3 fL (80.0-100.0) Mean Corpuscular Hemoglobin 25.8 pg (28.0-32.0) Mean Corpuscular Hemoglobin Concent 32.5 g/dL (32.0-36.0) Red Cell Distribution Width 15.8 % (11.8-14.3) Platelet Count 191 10^3/uL (140-450) Mean Platelet Volume 7.3 fL (6.9-10.8) Neutrophils (%) (Auto) 78.3 % (37.0-80.0) Lymphocytes (%) (Auto) 13.9 % (10.0-50.0) Monocytes (%) (Auto) 5.1 % (0.0-12.0) Eosinophils (%) (Auto) 2.5 % (0.0-7.0) Basophils (%) (Auto) 0.2 % (0.0-2.0) Neutrophils # (Auto) 8.3 10 ^3/uL (1.6-8.6) Lymphocytes # (Auto) 1.5 10 ^3/uL (0.4-5.4) Monocytes # (Auto) 0.5 10 ^3/uL (0-1.3) Eosinophils # (Auto) 0.3 10 ^3/uL (0-0.8) Basophils # (Auto) 0 10 ^3/uL (0-0.2) Nucleated Red Blood Cells 0.0 % Sodium Level 142 mmol/L (136-145) Potassium Level 3.4 mmol/L (3.5-5.1) Chloride Level 92 mmol/L (98-107) Carbon Dioxide Level > 40 mmol/L (20-31) Anion Gap 9.55713 (5-15) Blood Urea Nitrogen 19 mg/dL (9-23) Creatinine 1.05 mg/dL (0.550-1.02) Glomerular Filtration Rate Calc 56 mL/min (>90) BUN/Creatinine Ratio 18.1 (10.0-20.0) Serum Glucose 162 mg/dL (74-106) Calcium Level 8.3 mg/dL (8.7-10.4) Magnesium Level 1.8 mg/dL (1.6-2.6) Total Bilirubin 0.3 mg/dL (0.2-1.0) Aspartate Amino Transferase (AST) 9 U/L (13-40) Alanine Aminotransferase (ALT) < 9 U/L (7-40) Alkaline Phosphatase 84 U/L (46-116) Total Protein 5.9 g/dL (5.7-8.2) Albumin 3.3 g/dL (3.2-4.8) Blood Gas Specimen Type Arterial Blood Gas Sample Site Right radial Blood Gas Patient Temperature 37.0 Arterial Blood Date Drawn [id number] Arterial Blood pH 7.367 (7.350-7.450) Arterial Blood Partial Pressure CO2 70.9 mmHg (32.0-45.0) Arterial Blood Partial Pressure O2 90.8 mmHg (83.0-108.0) Arterial Blood HCO3 39.8 mmol/L (21.0-28.0) Arterial Blood Base Excess 11.1 mmol/L (-2.0-3.0) Kaleb Test Yes Blood Gas Liter Flow 3.00 Blood Gas Modality Nasal cannula FiO2 % 32.0 Blood Gas Critical Value Read Back yes Blood Gas Notified Whom lucía stroud Blood Gas Notified Time [id number] Blood Gas Notified By alex cogeneration technician Test 01/01/25 09:36 01/01/25 06:53 01/01/25 06:32 01/01/25 06:28 Arterial Blood Oxygen Saturation 97.9 % (94.0-98.0) Arterial Blood Oxyhemoglobin 97.0 % (94.0-98.0) Arterial Blood Carboxyhemoglobin 0.6 % (0.5-1.5) Arterial Blood Methemoglobin 0.3 % (0.0-1.5) Blood Gas Total Hemoglobin 11.10 g/dL (12.0-16.0) Influenza Type A Antigen Negative (Negative) Influenza Type B Antigen Negative (Negative) SARS-CoV-2 Antigen (Rapid) Negative (NEGATIVE) Urine Color Light-brown (Yellow) Urine Clarity Ex.turbid (Clear) Urine pH 7.5 (5.0-9.0) Urine Specific [place] 1.015 (1.001-1.035) Urine Protein 2+ (Negative) Urine Ketones Negative (Negative) Urine Blood Negative /uL (Negative) Urine Nitrite Negative (Negative) Urine Bilirubin Negative (Negative) Urine Urobilinogen Normal mg/dL (Negative) Urine Leukocyte Esterase 2+ /uL (Negative) Urine RBC 843 /hpf (0 - 4) Urine Microscopic WBC 200 /HPF (0-5) Urine Squamous Epithelial Cells Few /hpf (<5) Urine Bacteria None seen /hpf (None Seen) Urine Mucus Few (None Seen) Urine Yeast (Budding) Loaded /hpf (None Seen) Urine Glucose Normal mg/dL (Normal) Urine Opiates Screen Neg (NEGATIVE) Urine Fentanyl Screen Neg (NEGATIVE) Urine Barbiturates Screen Neg (NEGATIVE) Urine Phencyclidine Screen Neg (NEGATIVE) Urine Amphetamines Screen Neg (NEGATIVE) Urine Benzodiazepines Screen Neg (NEGATIVE) Urine Cocaine Screen Neg (NEGATIVE) Urine Cannabinoids Screen Neg (NEGATIVE) Test 01/01/25 03:28 01/01/25 03:12 12/31/24 22:53 Blood Gas Spontaneous Rate 20 Prothrombin Time 10.9 sec (9.3-11.8) Prothrombin Time INR 1.03 (0.9-1.15) Activated Partial Thromboplast Time 28.6 SEC (24.5-34.5) Lactic Acid Level 0.9 mmol/L (0.4-2.0) Phosphorus Level 3.2 mg/dL (2.4-5.1) Ammonia 17 umol/L (11-32) C-Reactive Protein High Sensitivity 2.57 mg/dL (<1.0) Triglycerides Level 160 mg/dL (< 150) Cholesterol Level 134 mg/dL (< 200) LDL Cholesterol 68 mg/dL (< 100) HDL Cholesterol 36 mg/dL (40-59) Lipase 52 U/L (12-53) Vitamin B12 Level 302 pg/mL (211-911) Vitamin D 25-Hydroxy 30.5 ng/mL (30.0-100) Thyroid Stimulating Hormone (TSH) 2.96 uIU/mL (0.55-4.78) Other Laboratory Tests 01/04/25 05:00 Brief Hx & Hospital Course: This is a 74-year-old female with past medical history of COPD, on home oxygen 3 L/min, use CPAP at night, CKD stage 3, sleep apnea, diabetes mellitus, seizure disorder, atrial fibrillation, who was brought to the ER by her because of altered mental status and confusion. reported that the patient was confused and was talking about things that did not exist. Patient reported she did not use her CPAP last 5 nights. was concerned about altered mentation and brought the patient to the ER as she was previously admitted for COPD exacerbation. Initial lab workup revealed leukocytosis with WBC 12.0, hemoglobin 10.0, MCV 79.3, potassium 4.2, carbon dioxide> 40, serum creatinine 1.08, blood sugar 212, CRP 2.57, ammonia 17, TSH 0.96, UDS negative. Urinalysis revealed leukocyte esterase 2+, WBC 200, RBC 843, turbid colored. Patient has a negative for influenza type a and B and COVID-19. UDS suggestive of left-sided consultation with the suprapubic pleural effusion. Bedside POCUS revealed left-sided consolidation with pleural effusion. CT head negative for acute intracranial abnormality.Chronic sequelae of microangiopathy and atrophic cortical volume loss. Patient was treated with IV antibiotic ceftriaxone and doxycycline. Bed sided pocus revealed left-sided consultation with a parapneumonic effusion. Patient's symptoms improved clinically. MRSA screening was positive. Urine culture contaminated sample, blood culture no growth. Patient was noncompliant with CPAP/BiPAP at night during hospital course. Patient was counseled about the importance of using CPAP at night as recommended by PCP/sleep medicine. Patient is being discharged home with the Augmentin 875 mg p.o. b.i.d. and also doxycycline 100 mg p.o. b.i.d.. Patient was advised to resume other home medications. Physical therapy evaluation was suggestive for SNF for physical therapy but patient refused. Patient is awake alert and oriented. Patient wanted home health, patient's home health has been resumed. Patient's meds were sent to the pharmacy electronically. Patient was advised to follow up with the primary care physician Dr. Hendricks in 1 week and also to follow up with the her student services advisor in 1-2 weeks. Patient was also advised to keep her SpO2 at home 88-92% and home oxygen 1-2 L/min. Patient was hemodynamically stable on discharge. Operations or Procedures [place] [address] Ph: [phone] DIAGNOSTIC IMAGING Diagnostic Imaging Report : [id number] Signed PATIENT: CLIF MARQUEZ ACCT: [id number] UNIT: [id number] : 1950 LOC: ER ROOM / BED: / AGE / SEX: 74 / F ADM STATUS: REG ER SERVICE 32 ORDERING PHYSICIAN: SOHAIL ONEILL MD PROCEDURE(s): CXR1 - CHEST XRAY 1 VIEW REASON: SOB ORDER NUMBER(s): [id number], ACCESSION NUMBER(s): [id number] CHEST RADIOGRAPH Indication: SOB Technique: Single frontal view of the chest was obtained COMPARISON: XY CHEST PORTABLE on DOS: 12/17/24, XY CHEST XRAY 1 VIEW on DOS: 12/13/24, XR CHEST 1 VIEW on DOS: 04/24/24, XR CHEST 1 VIEW on DOS: 03/07/24, XR CHEST 1 VIEW on DOS: 01/28/24 FINDINGS: Lines and Tubes: None Lungs: Clear Pleura: No effusion. No pneumothorax. Cardiomediastinal contours: Cardiomegaly. Bones: Unremarkable IMPRESSION: 1. Cardiomegaly. ATED BY: DAVID WELLS MD DICTATED DATE/TIME: 01/01/25299 SIGNED BY: DAVID WELLS MD SIGNED DATE/TIME: 01/01/25299 CC: [address] [address] Ph: [phone] DIAGNOSTIC IMAGING Diagnostic Imaging Report : [id number] Signed PATIENT: CLIF MARQUEZ ACCT: [id number] UNIT: [id number] : 1950 LOC: ER ROOM / BED: / AGE / SEX: 74 / F ADM STATUS: REG ER SERVICE 32 ORDERING PHYSICIAN: SOHAIL ONEILL MD PROCEDURE(s): HWOCT - HEAD WITHOUT CONTRAST REASON: ALOC ORDER NUMBER(s): [id number], ACCESSION NUMBER(s): [id number] EXAM: CT HEAD WITHOUT CONTRAST INDICATION: ALOC TECHNIQUE: CT of the head without intravenous contrast. Radiation Dose : 1. Head: CT Dose: CTDI volume is mGy. Dose-length product is mGy*cm The dose indicators for CT are the volume Computed Tomography (CT) Dose Index (CTDIvol) and the Dose Length Product (DLP), and are measured in units of mGy and mGy-cm, respectively. These indicators are not patient dose, but values generated from the CT scanner acquisition factors. The report includes radiation exposure data for exposures received during this examination. COMPARISON: CT BRAIN on DOS: 01/24/24 FINDINGS: There is no evidence of acute intracranial hemorrhage, extra-axial collection, mass effect, midline shift, herniation or hydrocephalus. Increased prominence of the ventricles, sulci and cisterns consistent with the sequelae of atrophic cortical volume loss. The shook-white differentiation is intact. Moderate diffuse confluent periventricular and subcortical white matter hypoattenuation is nonspecific but may be related to small vessel ischemic disease. Left maxillary and bilateral ethmoid and sphenoid mucosal sinus disease. The remaining visualized paranasal sinuses and right mastoid air cells are clear. Chronic appearing left mastoid air cell scarring. The surrounding soft tissues and osseous structures are unremarkable. IMPRESSION: 1. No acute intracranial abnormality. 2. Chronic sequelae of microangiopathy and atrophic cortical volume loss. Radiation optimization: All CT scans at this facility use at least one of these dose optimization techniques: automated exposure control mA and/or kV adjustment per patient size (includes targeted exams where dose is matched to clinical indication) or iterative reconstruction. ATED BY: DAVID WELLS MD DICTATED DATE/TIME: 01/01/25319 SIGNED BY: DAVID WELLS MD SIGNED DATE/TIME: 01/01/25319 CC: Condition at Discharge: Stable Final Diagnosis/Problems List Metabolic encephalopathy likely due to UTI/pneumonia Acute hypoxic hypercarbic resp failure due to acute copd exacerbation Community acquired pneumonia gram positive/negative left parapneumonic pleural effusion MRSA Nares CKD 3 Afib, wtih controlled rate DM2 HLD Discharge Disposition: Home with Health Services Discharge Instruct/Medications Diet: Consistent carbohydrate, Cardiac 2g Na,low cholest, Renal Activity: No Restrictions, As Tolerated Follow Up/Referral: f/u with PCP/dr Negron within 1 week f/u with cardiology within 1 week Medications: script sent to pharmacy Augmentin 875 mg p.o. b.i.d. as prescribed Doxycycline 100 mg p.o. b.i.d. as prescribed Please resume other home medication Scheduled Amiodarone HCl (Amiodarone HCl), 200 MG PO BID Amoxicillin & Pot Clavulanate (Augmentin Tablet), 875 MG PO BID Apixaban Base (Eliquis), 5 MG PO BID Cefuroxime Axetil (Cefuroxime Axetil), 500 MG PO BID Cephalexin (Keflex 500), 1 CAP PO TID Doxycycline (Monohydrate) (Doxycycline), 100 MG PO BID Empagliflozin (Jardiance), 25 MG PO DAILY@BREAKFAST Ergocalciferol (Vitamin D 96767 Unit), 50,000 UNIT PO Q7D Ezetimibe (Zetia), 40 MG PO DAILY, (Reported) Fluconazole (Fluconazole), 200 MG PO DAILY Gabapentin (Gabapentin), 300 MG PO TID, (Reported) Insulin Glargine (Lantus), 30 UNIT SC BID, (Reported) Metformin Hydrochloride (Metformin Hcl), 1 TAB PO BID, (Reported) Metoprolol Tartrate (Lopressor), 1 TAB PO BID, (Reported) Mupirocin Calcium (Topical) (Mupirocin), 2 % EX BID Pantoprazole Sodium Sesquihydr (Protonix), 40 MG PO DAILY Riociguat Base (Adempas), 1 MG PO TID, (Reported) Rosuvastatin Calcium (Rosuvastatin Calcium), 10 MG PO HS, (Reported) Sevelamer Hydrochloride (Renagel), 800 MG PO TIDWM Torsemide (Torsemide), 20 MG PO DAILY, (Reported) Discharge Statement: "Patient was advised to return to the ER or call 911 if any headaches, dizziness, shortness of breath, chest pain, abdominal pain, bleeding, fevers, or worsening of medical condition. Patient was counseled about treatment plan, medications, possible side effects, patientverbalized understanding. All questions were answered to the best of my ability. This discharge took greater then 30 minutes in planning, reviewing documentation, counseling the patient, and discussing with other team members." ASSESSMENT ASSESSMENT Assessment Metabolic encephalopathy likely due to UTI/pneumonia Acute hypoxic hypercarbic resp failure due to acute copd exacerbation Community acquired pneumonia gram positive/negative left parapneumonic pleural effusion MRSA Nares CKD 3 Afib, wtih controlled rate DM2 HLD Date of Service: Jan 04, 2025 Billing Provider: LIZY MICHEL MD, MOHAMMED RESIDENT Jan 04, 2025 09:03
--- NOTE | 2025-01-05 13:41 | DVHPN2 ---
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 RECURRENT CELLULITES OF LE NOW AGAIN WITH RESP FAILURE AND UTI WITH SEPSIS LEUKOCYTOSIS ACUTE RENAL FAILURE CKD III 4.PAH PT WAS ON ADEMPAS AND OPSUMIT HOWEVER BOTH DRUGS NO AVAILABLE AT THE HOSPITAL 4. COVID PNEUMONIA HX 5. DIABETES NEPHROPATHY NEUROPATHY VASCULOPATHY 6. SEIZURE 7. ANEMIA 8. GERD 9. OBESITY 10. HYPERKALEMIA 11. HEMATURIA KIDNEY STONE OBSTRUCTIVE RENAL CYSTS vital signs Vital Sign Date Time Temp Pulse Resp B/P (MAP) Pulse Ox O2 Delivery O2 Flow Rate FiO2 01/04/25 13:00 70 20 99 01/04/25 12:58 97.7 114/70 (85) 97.7 01/04/25 12:52 Nasal Cannula* 1 24 Total Intake and Output 01/04/25 01/04/25 01/05/25 15:00 23:00 07:00 Intake Total 730 ml Output Total 925 ml 525 ml Balance -195 ml -525 ml objective HEENT SCLERA ANICTERIC NO JVD CAROTIDS WNL MUCUS MEMB DRY PUL RALES CV RR ABD SUPRAPUBIC TENDERNESS NEURO CONFUSES SKIN DRY EXT 2+ EDEMA laboratory and microbiology Laboratory Tests 01/04/25 05:00 Test 01/04/25 05:00 Range/Units Serum Glucose 162 H 74-106 mg/dL Problem List ENDSTAGE COPD CO2 RETAINER SLEEP APNEA RECURRENT RESP FAILURE RECENTLY ADMITTED REQUIRING INTUBATION 2 SEPSIS RECURRENT UTI AND PNEUMONIA 3. RECURRENT CELLULITES OF LE NOW AGAIN WITH RESP FAILURE AND UTI WITH SEPSIS LEUKOCYTOSIS ACUTE RENAL FAILURE CKD III 4.PAH PT WAS ON ADEMPAS AND OPSUMIT HOWEVER BOTH DRUGS NO AVAILABLE AT THE HOSPITAL 4. COVID PNEUMONIA HX 5. DIABETES NEPHROPATHY NEUROPATHY VASCULOPATHY 6. SEIZURE 7. ANEMIA 8. GERD 9. OBESITY 10. HYPERKALEMIA 11. HEMATURIA KIDNEY STONE OBSTRUCTIVE RENAL CYSTS Assessment/Plan ABG ABX BIPAP NUVIGIL DC HOME ON NUVIGIL AND BIPAP Plan discussed with: Patient AVTAR MCKNIGHT MD Jan 05, 2025 13:41
== END 2025-01-04 15:19 | disposition home or self-care (01) | DRG 871 ==
LOC: ER 22:07 → EDBD 22:07 → OVERFLOW 01-01 04:19 → TELE-WESTW 01-01 15:40
PROVIDERS: ADMIT Student in an Organized Health Care Education/Training Program; ATTEND Emergency Medicine
PROC: 5A09357 Assistance with Respiratory Ventilation, Less than 24 Consecutive Hours, Continuous Positive Airway Pressure (ICD-10-PCS; principal; 2025-01-02)
PROC: 5A09357 Assistance with Respiratory Ventilation, Less than 24 Consecutive Hours, Continuous Positive Airway Pressure (ICD-10-PCS; 2025-01-03)
DX: A41.9 Sepsis, unspecified organism (principal); G93.41 Metabolic encephalopathy; J15.69 Pneumonia due to other Gram-negative bacteria; J96.21 Acute and chronic respiratory failure with hypoxia; J96.22 Acute and chronic respiratory failure with hypercapnia; J15.9 Unspecified bacterial pneumonia; J44.1 Chronic obstructive pulmonary disease with (acute) exacerbation; I50.32 Chronic diastolic (congestive) heart failure; I13.0 Hypertensive heart and chronic kidney disease with heart failure and stage 1 through stage 4 chronic kidney disease, or unspecified chronic kidney disease; J44.0 Chronic obstructive pulmonary disease with (acute) lower respiratory infection; Z20.822 Contact with and (suspected) exposure to COVID-19; E66.01 Morbid (severe) obesity due to excess calories; N18.30 Chronic kidney disease, stage 3 unspecified; E11.22 Type 2 diabetes mellitus with diabetic chronic kidney disease; G40.909 Epilepsy, unspecified, not intractable, without status epilepticus; Z68.37 Body mass index [BMI] 37.0-37.9, adult; G47.30 Sleep apnea, unspecified; E78.5 Hyperlipidemia, unspecified; K21.9 Gastro-esophageal reflux disease without esophagitis; I48.0 Paroxysmal atrial fibrillation; Z83.3 Family history of diabetes mellitus; Z90.710 Acquired absence of both cervix and uterus; Z87.440 Personal history of urinary (tract) infections; Z91.199 Patient's noncompliance with other medical treatment and regimen due to unspecified reason
CPT/HCPCS: 36415; 36600; 80048; 80053; 80061; 80307; 81001; 82140; 82306; 82607; 82805; 82962; 83605; 83690; 83735; 84100; 84443; 85025; 85610; 85730; 86141; 87040; 87081; 87086; 87426; 87804; 93005; 94640; 94660; 96360; 97110; 97163; 97530; 99291; G0378; J1815; J2470

== ENCOUNTER 2025-03-04 01:51 | Inpatient (IN) | payer MEDICARE, OTHER ==
[~2025-03-04] VITALS: Ht 165.1 cm; Wt 88.9 kg
[2025-03-04] VITALS (10 sets, daily range): BP systolic 87–112; BP diastolic 43–66; PULSE 76–84; RESP 17–22; TEMP 98.6; O2SAT 93–99
[~2025-03-04 01:51] MED LIST changes: +AUG875T PO; +DOXY-346 PO; +MUPI2CRE17 EX
--- NOTE | 2025-03-04 02:04 | ECG ---
[facility] Test Date: 2025-03-04 Test Time: 01:54:24 Pat Name: CLIF MARQUEZ Department: ED Room: [address] [place] [address] Gender: F Manager Activities: LYNNETTE : 1950 Requested By: EMERGENCY EMERGENCY Order Number: [id number] Reading MD: Oni Horan Measurements Intervals [place] Rate: 84 P: 50 MT: 51 QRS: 38 QRSD: 83 T: 66 QT: 392 QTc: 464 Interpretive Statements Sinus rhythm Short MT interval Low voltage, precordial leads Electronically Signed On 03-05-2025 17:04:08 PST by Oni Horan Please click the below link to view image of tracing.
--- NOTE | 2025-03-04 02:21 | ED.PDOC ---
Altered Mental Status HPI Comments Patient is a 74-year-old female with past medical history of CVA, bed-bound at baseline, CHF, COPD on 2 L, hypertension, diabetes, seizure disorder, presenting with altered mental status, last known well 3:00 p.m. today. Per EMS, patient's states that she has been slightly confused all day, which typically happens when her CO2 is elevated. Around 3:00 p.m. her symptoms worsened, so tonight called EMS for assistance. On arrival, patient is AAO x1, only oriented to name. EMS and patient was saturating 88% on her home 3 L, so increase to 4 L. Patient has no complaints at this time. Further history limited secondary to patient's mental status. Chief Complaint: ALOC Time Seen by MD: 02:02 Primary Care Provider: AVTAR Allergies: Coded Allergies: No Known Drug Allergy (Verified Allergy, Unknown, 12/04/21) Home Meds Active Scripts Mupirocin Calcium (Topical) (MUPIROCIN) 2 % Cre, 2 % EX BID for 6 Days, #1 CRE Prov:KRYSTA [place] RESIDENT 01/03/25 Doxycycline (Monohydrate) (Doxycycline) 100 Mg Tab, 100 MG PO BID for 6 Days, #12 TAB Prov:KRYSTA [place] RESIDENT 01/03/25 Amoxicillin & Pot Clavulanate (AUGMENTIN TABLET) 875 Mg Tb, 875 MG PO BID for 6 Days, #12 TAB Prov:KRYSTA [place] RESIDENT 01/03/25 Cefuroxime Axetil (Cefuroxime Axetil) 500 Mg Tab, 500 MG PO BID for 7 Days, #14 TAB Prov:DELPHINE GUEVARA MD 12/17/24 Cephalexin (KEFLEX 500) 500 Mg Cap, 1 CAP PO TID for 5 Days, #15 CAP Prov:BENOIT GONZALEZ MD 11/01/21 Apixaban Base (ELIQUIS) 5 Mg Tab, 5 MG PO BID for 30 Days, #60 TAB Prov:BENOIT GONZALEZ MD 11/01/21 Amiodarone HCl (Amiodarone HCl) 200 Mg Tab, 200 MG PO BID for 30 Days, #60 TAB Prov:BENOIT GONZALEZ MD 11/01/21 Empagliflozin (Jardiance) 25 Mg Tab, 25 MG PO DAILY@BREAKFAST for 30 Days, #30 TAB Prov:BENOIT GONZALEZ MD 11/01/21 Sevelamer Hydrochloride (Renagel) 800 Mg Tab, 800 MG PO TIDWM for 30 Days, #120 TAB Prov:BENOIT GONZALEZ MD 11/01/21 Fluconazole (Fluconazole) 100 Mg Tab, 200 MG PO DAILY for 10 Days, #20 TAB Prov:BENOIT GONZALEZ MD 11/01/21 Ergocalciferol (VITAMIN D 01611 UNIT) 50,000 [place], [address] UNIT PO Q7D for 10 Days, #10 CAP Prov:BENOIT GONZALEZ MD 11/01/21 Pantoprazole Sodium Sesquihydr (Protonix) 40 Mg Tab, 40 MG PO DAILY, #30 TAB Prov:CHERELLE PENA MD 07/11/21 Reported Medications Rosuvastatin Calcium (Rosuvastatin Calcium) 10 Mg Tab, 10 MG PO HS 10/31/21 Torsemide (Torsemide) 20 Mg Tab, 20 MG PO DAILY 10/31/21 Insulin Glargine (Lantus) 100 Unit/Ml Inj, 30 UNIT SC BID, INJ PER PATIENT, PATIENT ONLY USES 30 UNITS OF LANTUS TWICE A DAY WITH NO OTHER MEAL TIME INSULIN 03/28/18 Metformin Hydrochloride (Metformin Hcl) 1,000 Mg Tab, 1 TAB PO BID 03/28/18 Metoprolol Tartrate (Lopressor) 50 Mg Tab, 1 TAB PO BID Patient stopped taking this medication at home. Reported too many medications to keep track off. 03/28/18 [place] (Adempas) 1 Mg Tab, 1 MG PO TID 03/28/18 Ezetimibe (Zetia) 10 Mg Tab, 40 MG PO DAILY 03/28/18 Gabapentin (Gabapentin) 300 Mg Cap, 300 MG PO TID for 30 Days, MG Patient reported not taking this medication due to too many medication to keep track of. 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 Family History Family History: Family hx of DM, Family hx of Cancer Social History Smoker: Non-Smoker, Quit Greater Than 1 Year Alcohol: Denies ETOH Use Drugs: Denies Drug Use Lives In: Home Constitutional: denies: chills, diaphoresis, fatigue, fever, malaise, sweats, weakness, others EENTM: denies: blurred vision, double vision, ear bleeding, ear discharge, ear drainage, ear pain, ear ringing, eye pain, eye redness, hearing loss, mouth pain, mouth swelling, nasal discharge, nose bleeding, nose congestion, nose pain, photophobia, tearing, throat pain, throat swelling, voice changes, others Respiratory: denies: cough, hemoptysis, orthopnea, SOB at rest, shortness of breath, SOB with excertion, stridor, wheezing, others Cardiovascular: denies: chest pain, dizzy spells, diaphoresis, Dyspnea on exertion, edema, irregular heart beat, left arm pain, lightheadedness, palpitations, PND, syncope, others Gastrointestinal: denies: abdomen distended, abdominal pain, blood streaked bowels, constipated, diarrhea, dysphagia, difficulty swallowing, hematemesis, melena, nausea, poor appetite, poor fluid intake, rectal bleeding, rectal pain, vomiting, others Genitourinary: denies: abnormal vagina bleeding, burning, dyspareunia, dysuria, flank pain, frequency, hematuria, incontinence, pain, , vagina discharge, urgency, others Neurological: denies: dizziness, fainting, headache, left sided numbness, left sided weakness, numbness, paresthesia, pre-existing deficit, right sided numbness, right sided weakness, seizure, speech problems, tingling, tremors, weakness, others Musculoskeletal: denies: back pain, gout, joint pain, joint swelling, muscle pain, muscle stiffness, neck pain, others Integumetry: denies: bruises, change in color, change in hair/nails, dryness, laceration, lesions, lumps, rash, wounds, others Allergic/Immunocompromised: denies: Difficulty Healing, Frequent Infections, Hives, Itching, others Hematologic/Lymphatic: denies: anemia, blood clots, easy bleeding, easy bruising, swollen glands, others Endocrine: denies: excessive hunger, excessive sweating, excessive thirst, excessive urination, flushing, intolerance to cold, intolerance to heat, unexplained weight gain, unexplained weight loss, others Psychiatric: denies: anxiety, bipolar disorder, depression, hopeless, panic disorder, schizophrenia, sleepless, suicidal, others Physical Exam General Appearance: Mild Distress, No Apparent Distress, Normal HEENT: Normal ENT Inspection, Pharynx Normal, TMs Normal Neck: Full Range of Motion, Non-Tender, Normal, Normal Inspection Respiratory: Chest Non-Tender, Lungs Clear, No Accessory Muscle Use, No Respiratory Distress, Normal Breath Sounds, Other (Mild respiratory distress, tachypneic) Cardiovascular: No Edema, No JVD, No Murmur, No Gallop, Normal Peripheral Pulses, Regular Rate/Rhythm Breast Exam: Deferred Gastrointestinal: No Organomegaly, Non Tender, No Pulsatile Mass, Normal Bowel Sounds, Soft Genitalia: Other (Servin in place with dark colored urine), Deferred Pelvic: Deferred Rectal: Deferred Extremities: No calf tenderness, Normal capillary refill, Normal inspection, Normal range of motion, Non-tender, No pedal edema Musculoskeletal : Apperance: Normal Neurologic: Alert, quality assurance consultant II-XII nml as Tested, No Motor Deficits, Normal Affect, Normal Mood, No Sensory Deficits Cerebellar Function: Normal Reflexes: Normal Skin: Dry, Normal Color, Warm Lymphatic: No Adenopathy Was a procedure done? Was a procedure done?: No Differential Diagnosis (ALOC) Differential Diagnosis: Dehydration, Hypoglycemia, Encephalopathy, Sepsis, Hypoxemia, Seizure, Closed Head Injury, CVA, SAH, Heart Failure, Renal Failure X-Ray, Labs, Meds, VS Vital Signs Date Time Temp Pulse Resp B/P (MAP) Pulse Ox O2 Delivery O2 Flow Rate FiO2 03/04/25 04:02 78 Facial BiPAP Mask 30 03/04/25 03:09 98.6 82 22 114/40 (64) 91 98.6 03/04/25 02:12 98.3 84 22 109/50 (69) 93 98.3 03/04/25 02:04 Nasal Cannula* 2 28 03/04/25 02:01 98.3 82 26 113/59 94 98.3 03/04/25 01:54 84 Lab Test 03/04/25 03:17 03/04/25 03:00 03/04/25 02:34 03/04/25 02:20 Range/Units Ammonia 16 11-32 umol/L Troponin I High Sensitivity 3 L 3 L </=34 ng/L Urine Color Colorless Yellow Urine Clarity Turbid H Clear Urine pH 7.5 5.0-9.0 Urine Specific [place] 1.014 1.001-1.035 Urine Protein 2+ H Negative Urine Ketones Negative Negative Urine Blood 1+ H Negative /uL Urine Nitrite Negative Negative Urine Bilirubin Negative Negative Urine Urobilinogen Normal Negative mg/dL Urine Leukocyte Esterase 3+ Negative /uL Urine RBC 7 0 - 4 /hpf Urine WBC Clumps Present None Seen /hpf Urine Microscopic WBC 87 H 0-5 /HPF Urine Squamous Epithelial Cells Few <5 /hpf Urine Bacteria Mod H None Seen /hpf Urine Glucose Normal Normal mg/dL POC Glucose 161 H 70-106 mg/dl White Blood Count 15.0 H 4.4-10.8 10^3/uL Red Blood Count 3.84 L 4.0-5.20 10^6/uL Hemoglobin 9.9 L 12.2-16.2 g/dL Hematocrit 30.9 L 36.0-46.0 % Mean Corpuscular Volume 80.3 80.0-100.0 fL Mean Corpuscular Hemoglobin 25.7 L 28.0-32.0 pg Mean Corpuscular Hemoglobin Concent 32.0 32.0-36.0 g/dL Red Cell Distribution Width 16.7 H 11.8-14.3 % Platelet Count 291 140-450 10^3/uL Mean Platelet Volume 7.0 6.9-10.8 fL Neutrophils (%) (Auto) 80.4 H 37.0-80.0 % Lymphocytes (%) (Auto) 11.9 10.0-50.0 % Monocytes (%) (Auto) 3.5 0.0-12.0 % Eosinophils (%) (Auto) 3.8 0.0-7.0 % Basophils (%) (Auto) 0.4 0.0-2.0 % Neutrophils # (Auto) 12.0 H 1.6-8.6 10 ^3/uL Lymphocytes # (Auto) 1.8 0.4-5.4 10 ^3/uL Monocytes # (Auto) 0.5 0-1.3 10 ^3/uL Eosinophils # (Auto) 0.6 0-0.8 10 ^3/uL Basophils # (Auto) 0.1 0-0.2 10 ^3/uL Nucleated Red Blood Cells 0.1 % Prothrombin Time 11.0 9.3-11.8 sec Prothrombin Time INR 1.04 0.9-1.15 Activated Partial Thromboplast Time 29.5 24.5-34.5 SEC Sodium Level 140 136-145 mmol/L Potassium Level 4.1 3.5-5.1 mmol/L Chloride Level 89 L 98-107 mmol/L Carbon Dioxide Level > 40 *H 20-31 mmol/L Anion Gap 10.91010 5-15 Blood Urea Nitrogen 24 H 9-23 mg/dL Creatinine 1.27 H 0.550-1.02 mg/dL Glomerular Filtration Rate Calc 45 >90 mL/min BUN/Creatinine Ratio 18.9 10.0-20.0 Serum Glucose 169 H 74-106 mg/dL Lactic Acid Level 1.9 0.4-2.0 mmol/L Calcium Level 8.8 8.7-10.4 mg/dL Total Bilirubin 0.6 0.2-1.0 mg/dL Aspartate Amino Transferase (AST) 19 13-40 U/L Alanine Aminotransferase (ALT) 14 7-40 U/L Alkaline Phosphatase 120 H 46-116 U/L B-Type Natriuretic Peptide Pending Total Protein 6.5 5.7-8.2 g/dL Albumin 3.7 3.2-4.8 g/dL Current Medications Medications (Trade) Dose Ordered Sig/Zaida Route Start Time Stop Time Status Last Admin Ceftriaxone Sodium 50 ml @ 100 mls/hr Q24H IV 03/04/25 02:15 03/04/25 02:29 X-Ray, Labs, Meds, VS Comment Patient presenting with altered mental status for 1 day, worsening at 3:00 p.m. today. On arrival, patient progressively hypoxic and tachypneic and altered, concerning for sepsis. Patient with no complaints at this time, however only oriented to name. Lab work (CBC, BMP) to evaluate for evidence of severe anemia, electrolyte abnormality including hypokalemia, hyperkalemia, hypernatremia, hyponatremia, hyperglycemia, hypoglycemia, etc. EKG and troponin to evaluate for evidence of arrhythmia, ACS, AMI Chest x-ray to evaluate for pneumonia, pneumothorax volume overload CT head to evaluate for intracranial hemorrhage, large mass, acute infarct, fracture Urinalysis to evaluate for hematuria or infection We will treat with 1 L IV fluids as patient does have a history of CHF and appears to be volume overloaded with increasing O2 requirements, so will not treat with the full 30 cc/kg bolus at this time IV ceftriaxone Re-evaluate Social determinant surveillance affecting care: Social determinants of health that will affect the patient's care: Poor health literacy (additional time provided an explanation) Poor access to outpatient care/followup (provided outpatient resources) Time of 1ST Reevaluation: 02:50 Reevaluation 1ST: Unchanged Patient Education/Counseling: Diagnosis, Treatment Family Education/Counseling: No Family Present SEPSIS Sepsis Screen Date sepsis recognized/suspect: Mar 04, 2025 Time Sepsis recognized/suspect: 204 Recent Procedure: No On Antibiotic Therapy: Yes Respiratory Rate >20: Yes Heart Rate >90: No Temp<36 C (96.8 F) or >38.3 C: No SBP <90 or MAP <65 mmHG: No New Acute Mental Status Change: Yes Is the patient on CPAP, BIPAP,: No Physician Orders Urine Bacterial Culture (03/04/25 02:08) Chest Portable (03/04/25 02:08) Accucheck (03/04/25 02:08) Vp Account Director (03/04/25 02:08) Sepsis (03/04/25 02:08) Pulse Ox Cont Per Day (03/04/25 02:08) Notify If: (03/04/25 02:08) Blood Culture (03/04/25 02:08) Goal: (03/04/25 02:08) Ceftriaxone 1gm/50ml (Rocephin) (03/04/25 02:15) Npo (Nothing By Mouth) Diet (03/04/25 Breakfast) Sepsis Initial Assessment ONCE (03/04/25 02:08) Sepsis Reassessment After Flui (03/04/25 02:09) Initiate Sepsis Protocol (03/04/25 02:08) Troponin-I Hs (03/04/25 05:08) Head Without Contrast (03/04/25 02:08) Abg W/ Co-Ox (03/04/25 03:18) B-Type Natriuretic Peptide (03/04/25 04:05) Vital Signs Date Time Temp Pulse Resp B/P (MAP) Pulse Ox O2 Delivery O2 Flow Rate FiO2 03/04/25 04:02 78 Facial BiPAP Mask 30 03/04/25 03:09 98.6 82 22 114/40 (64) 91 98.6 03/04/25 02:12 98.3 84 22 109/50 (69) 93 98.3 03/04/25 02:04 Nasal Cannula* 2 28 03/04/25 02:01 98.3 82 26 113/59 94 98.3 03/04/25 01:54 84 Laboratory Tests Test 03/04/25 02:20 Lactic Acid Level 1.9 mmol/L (0.4-2.0) White Blood Count 15.0 10^3/uL (4.4-10.8) H Medications Medications Dose Ordered Sig/Zaida Route Start Time Stop Time Status Last Admin Dose Admin Ceftriaxone Sodium 50 ml @ 100 mls/hr Q24H IV 03/04/25 02:15 03/04/25 02:29 Reassessment Post Fluid SEPSIS FOCUS EXAM(REASSESSMENT Patient's blood pressure remained stable. Lactic negative. Time of Reassessment: 03:30 Departure 1 Departure Time of Disposition: 04:29 (On reassessment, patient found to be hypercarbic, which is likely contributing to her altered mental status. Place on BiPAP to assist with this. Also found to have UTI, and already received IV ceftriaxone. Lactic negative and blood pressure remained stable in the ED. We will admit for altered mental status, hypercarbic respiratory failure, sepsis secondary to UTI.) Impression: Primary Impression: Acute sepsis Additional Impressions: Acute UTI Metabolic encephalopathy Acute respiratory failure with hypoxia and hypercarbia Altered mental status Qualified Codes: R41.0 - Disorientation, unspecified Disposition: 09 ADMITTED INPATIENT Admit to: Tele Condition: Guarded Critical Care Note Critical Care Time?: Yes (45 min-critical care time only) Critical care comment: sepsis Stability Stability form required: No JAVIER YEAGER MD Mar 04, 2025 02:21
[2025-03-04 02:58] LABS: Hematocrit 30.9 % (36.0-46.0)
[2025-03-04 03:02] LABS: Hemoglobin 9.9 g/dL (12.2-16.2); Mean Corpuscular Hemoglobin 25.7 pg (28.0-32.0); Mean Corpuscular Volume 80.3 fL (80.0-100.0); Nucleated Red Blood Cells % 0.1 %
[2025-03-04 03:06] LABS: INR 1.04 (0.9-1.15); Partial Thromboplastin Time 29.5 SEC (24.5-34.5); Prothrombin Time 11.0 sec (9.3-11.8)
[2025-03-04 03:07] LABS: Alanine Aminotransferase 14 U/L (7-40); Albumin 3.7 g/dL (3.2-4.8); BUN/Creatinine Ratio 18.9 (10.0-20.0); Calcium 8.8 mg/dL (8.7-10.4); Potassium 4.1 mmol/L (3.5-5.1); Sodium 140 mmol/L (136-145); Total Protein 6.5 g/dL (5.7-8.2)
[2025-03-04 03:08] LABS: Bilirubin, Total 0.6 mg/dL (0.2-1.0)
[2025-03-04 03:14] LABS: Anion Gap 10.99999 (5-15); Blood Urea Nitrogen 24 mg/dL (9-23); Chloride 89 mmol/L (98-107); Glucose 169 mg/dL (74-106)
[2025-03-04 03:15] LABS: Alkaline Phosphatase 120 U/L (46-116)
[2025-03-04 03:16] LABS: Carbon Dioxide > 40 mmol/L (20-31)
[2025-03-04 03:36] LABS: Urine Protein, UAD 2+ (Negative); Urine WBC Clumps PRESENT /hpf (None Seen)
--- NOTE | 2025-03-04 03:43 | DVH ---
EXAM: CT HEAD WITHOUT CONTRAST INDICATION: AMS TECHNIQUE: CT of the head without intravenous contrast. Radiation Dose : 1. Head: CT Dose: CTDI volume is 60.47 mGy. Dose-length product is 969.18 mGy*cm The dose indicators for CT are the volume Computed Tomography (CT) Dose Index (CTDIvol) and the Dose Length Product (DLP), and are measured in units of mGy and mGy-cm, respectively. These indicators are not patient dose, but values generated from the CT scanner acquisition factors. The report includes radiation exposure data for exposures received during this examination. COMPARISON: CT HEAD WITHOUT CONTRAST on DOS: 01/01/25, CT BRAIN on DOS: 01/24/24 FINDINGS: There is no evidence of acute intracranial hemorrhage, extra-axial collection, mass effect, midline shift, herniation or hydrocephalus. The ventricles, sulci and cisterns are age appropriate. The shook-white differentiation is intact. Patchy periventricular and subcortical white matter hypoattenuation is nonspecific but may be related to small vessel ischemic disease. Pansinusitis. The remaining visualized paranasal sinuses and mastoid air cells are clear. The surrounding soft tissues and osseous structures are unremarkable. IMPRESSION: 1. No acute intracranial abnormality. Radiation optimization: All CT scans at this facility use at least one of these dose optimization techniques: automated exposure control mA and/or kV adjustment per patient size (includes targeted exams where dose is matched to clinical indication) or iterative reconstruction.
--- NOTE | 2025-03-04 03:43 | DVH ---
CHEST RADIOGRAPH Indication: SOB Technique: Single frontal view of the chest was obtained COMPARISON: XY CHEST XRAY 1 VIEW on DOS: 01/01/25, XY CHEST PORTABLE on DOS: 12/17/24, XY CHEST XRAY 1 VIEW on DOS: 12/13/24, XR CHEST 1 VIEW on DOS: 04/24/24, XR CHEST 1 VIEW on DOS: 03/07/24 FINDINGS: Lines and Tubes: None Lungs: Mild diffuse increased prominence of the pulmonary vasculature without evidence of focal consolidation. Pleura: No effusion. No pneumothorax. Cardiomediastinal contours: Cardiomegaly. Bones: Unremarkable IMPRESSION: 1. Cardiomegaly with mild pulmonary vascular congestion.
[2025-03-04] MEDS ORDERED: NITROGLYCERIN 0.4 MG SL TAB SL PRN (04:45)
[2025-03-04] MEDS ORDERED: ONDANSETRON HCL 4 MG/2 ML VIAL IV PRN (04:45)
[2025-03-04] MEDS ORDERED: DEXTROSE (50%) 50ML SYRG IV PRN (04:45)
[2025-03-04] MEDS ORDERED: MORPHINE SULFATE INJ 2 MG/ml SYRG IV PRN (04:45)
[2025-03-04] MEDS ORDERED: ACETAMINOPHEN 325 MG TAB PO PRN (04:45)
--- NOTE | 2025-03-04 04:49 | DVHHP2 ---
History of Present Illness Reason for Visit: Altered mental status History of Present Illness 74-year-old female presents for evaluation of altered mental status. Patient with a history of CVA and bed ridden presents with a one day history of worsening altered mental status. Patient is lethargic oriented x1 currently. Patient was placed on BiPAP on arrival. Past Medical History CVA, COPD, CHF, diabetes mellitus, hypertension Past Surgical History , hysterectomy, cholecystectomy Family History Cancer Smoke: No ALCOHOL: none Drugs: None Lives: with Family Review of Systems Review of Systems Review of systems are currently negative otherwise addressed in HPI. Allergies: Coded Allergies: No Known Drug Allergy (Verified Allergy, Unknown, 12/04/21) Medications Current Medications Medications Dose Ordered Sig/Zaida Route Start Time Stop Time Status Last Admin Dose Admin Ceftriaxone Sodium 50 ml @ 100 mls/hr Q24H IV 03/04/25 02:15 03/04/25 02:29 100 MLS/HR Exam Vital Signs Vital Signs Date Time Temp Pulse Resp B/P (MAP) Pulse Ox O2 Delivery O2 Flow Rate FiO2 03/04/25 04:33 77 22 96/47 (63) 93 03/04/25 04:02 Facial BiPAP Mask 30 03/04/25 03:09 98.6 98.6 03/04/25 02:04 2 Exam Gen: 74 year old female in mild distress, morbidly obese Skin: Warm, dry, normal color and texture, no rash. HEENT: Normocephalic atraumatic, mucous membranes moist and pink. Neck: Cervical and supraclavicular nodes normal without enlargement, trachea is midline, thyroid gland is normal without masses. Pulmonary: Clear to auscultation and percussion bilaterally. Cardiac: Regular rate and rhythm. No murmur Abdomen: Soft, nontender, nondistended, bowel sounds present all 4 quadrants, no guarding, no rigidity, no organomegaly. Extremities: No cyanosis, clubbing, no edema Neuro: Cranial nerves II through XII grossly intact, normal affect and speech, no focal motor deficits. Labs/Xrays ORDERING PHYSICIAN: DELPHINE GUEVARA MD PROCEDURE(s): ECIDC - ECHO 2D MODE CARDIAC DOP REASON: chf ORDER NUMBER(s): [id number], ACCESSION NUMBER(s): [id number] APPROVED REPORT EXAM: Two-dimensional and M-mode echocardiogram with Doppler and color Doppler. Blood Pressure: 111/67 mmHg INDICATION Heart Failure RISK FACTORS Height: 5'7", Weight: 194 DIMENSIONS LVDd 4.4 (3.8-5.7cm) LA (2D) 3.5 (1.9-4.0cm) Aortic Root (2.0- 3.7cm) LVDs 3.0 (2.5-4.0cm) LA (MM) (1.9-4.0cm) Aortic Cusp Exc (1.5- 2.0cm) EF (%) 60.0 (55-70%) Rt. Atrium (1.9-4.0cm) Asc. Aorta cm IVSd 1.3 (0.7-1.1cm) RV (D) (1.8-2.4cm) Mitral Valve Mitral Mitral Stenosis E wave 0.90m/s MV Mean GR. mmHg A wave 0.82m/s MV Peak GR. mmHg E/A ratio 1.1 2D MVA cm2 DECEL Time 174ms PRESS 1/2 Time ms Aortic Valve Aortic Valve Aortic Stenosis V1 0.96m/s AO Mean GR. 6mmHg V2 1.71m/s AO Peak GR. 12mmHg LVOT Diameter 2.3 (1.8-2.4cm) Doppler RACHEL 2.33cm2 Pulmonic Valve V2 1.08m/s Tricuspid Valve TR Velocity 2.72m/s RVSP 38mmHg Other Information Quality : Technically Limited Rhythm : Technically limited study due to body habitus. Conclusion EF >55% LVH MILD AI SIGNED BY: AVTAR MCKNIGHT MD SIGNED DATE/TIME: 12/26/24 1321 ORDERING PHYSICIAN: JAVIER YEAGER MD PROCEDURE(s): CXRP - CHEST PORTABLE REASON: SOB ORDER NUMBER(s): [id number], ACCESSION NUMBER(s): [id number] CHEST RADIOGRAPH Indication: SOB Technique: Single frontal view of the chest was obtained COMPARISON: XY CHEST XRAY 1 VIEW on DOS: 01/01/25, XY CHEST PORTABLE on DOS: 12/01 10/24, XY CHEST XRAY 1 VIEW on DOS: 12/13/24, XR CHEST 1 VIEW on DOS: 04/24/24, XR CHEST 1 VIEW on DOS: 03/07/24 FINDINGS: Lines and Tubes: None Lungs: Mild diffuse increased prominence of the pulmonary vasculature without evidence of focal consolidation. Pleura: No effusion. No pneumothorax. Cardiomediastinal contours: Cardiomegaly. Bones: Unremarkable IMPRESSION: 1. Cardiomegaly with mild pulmonary vascular congestion. RING PHYSICIAN: JAVIER YEAGER MD PROCEDURE(s): HWOCT - HEAD WITHOUT CONTRAST REASON: AMS ORDER NUMBER(s): [id number], ACCESSION NUMBER(s): [id number] EXAM: CT HEAD WITHOUT CONTRAST INDICATION: AMS TECHNIQUE: CT of the head without intravenous contrast. Radiation Dose : 1. Head: CT Dose: CTDI volume is 60.47 mGy. Dose-length product is 969.18 mGy*cm The dose indicators for CT are the volume Computed Tomography (CT) Dose Index (CTDIvol) and the Dose Length Product (DLP), and are measured in units of mGy and mGy-cm, respectively. These indicators are not patient dose, but values generated from the CT scanner acquisition factors. The report includes radiation exposure data for exposures received during this examination. COMPARISON: CT HEAD WITHOUT CONTRAST on DOS: 01/01/25, CT BRAIN on DOS: 01/24/24 FINDINGS: There is no evidence of acute intracranial hemorrhage, extra-axial collection, mass effect, midline shift, herniation or hydrocephalus. The ventricles, sulci and cisterns are age appropriate. The shook-white differentiation is intact. Patchy periventricular and subcortical white matter hypoattenuation is nonspecific but may be related to small vessel ischemic disease. Pansinusitis. The remaining visualized paranasal sinuses and mastoid air cells are clear. The surrounding soft tissues and osseous structures are unremarkable. IMPRESSION: 1. No acute intracranial abnormality. Radiation optimization: All CT scans at this facility use at least one of these dose optimization techniques: automated exposure control mA and/or kV adjustment per patient size (includes targeted exams where dose is matched to clinical indication) or iterative reconstruction. Labs Test 03/04/25 03:17 03/04/25 03:00 03/04/25 02:34 12/3/25 02:20 Range/Units Ammonia 16 11-32 umol/L Troponin I High Sensitivity 3 L </=34 ng/L Urine Color Colorless Yellow Urine Clarity Turbid H Clear Urine pH 7.5 5.0-9.0 Urine Specific [place] 1.014 1.001-1.035 Urine Protein 2+ H Negative Urine Ketones Negative Negative Urine Blood 1+ H Negative /uL Urine Nitrite Negative Negative Urine Bilirubin Negative Negative Urine Urobilinogen Normal Negative mg/dL Urine Leukocyte Esterase 3+ Negative /uL Urine RBC 7 0 - 4 /hpf Urine WBC Clumps Present None Seen /hpf Urine Microscopic WBC 87 H 0-5 /HPF Urine Squamous Epithelial Cells Few <5 /hpf Urine Bacteria Mod H None Seen /hpf Urine Glucose Normal Normal mg/dL POC Glucose 161 H 70-106 mg/dl White Blood Count 15.0 H 4.4-10.8 10^3/uL Red Blood Count 3.84 L 4.0-5.20 10^6/uL Hemoglobin 9.9 L 12.2-16.2 g/dL Hematocrit 30.9 L 36.0-46.0 % Mean Corpuscular Volume 80.3 80.0-100.0 fL Mean Corpuscular Hemoglobin 25.7 L 28.0-32.0 pg Mean Corpuscular Hemoglobin Concent 32.0 32.0-36.0 g/dL Red Cell Distribution Width 16.7 H 11.8-14.3 % Platelet Count 291 140-450 10^3/uL Mean Platelet Volume 7.0 6.9-10.8 fL Neutrophils (%) (Auto) 80.4 H 37.0-80.0 % Lymphocytes (%) (Auto) 11.9 10.0-50.0 % Monocytes (%) (Auto) 3.5 0.0-12.0 % Eosinophils (%) (Auto) 3.8 0.0-7.0 % Basophils (%) (Auto) 0.4 0.0-2.0 % Neutrophils # (Auto) 12.0 H 1.6-8.6 10 ^3/uL Lymphocytes # (Auto) 1.8 0.4-5.4 10 ^3/uL Monocytes # (Auto) 0.5 0-1.3 10 ^3/uL Eosinophils # (Auto) 0.6 0-0.8 10 ^3/uL Basophils # (Auto) 0.1 0-0.2 10 ^3/uL Nucleated Red Blood Cells 0.1 % Prothrombin Time 11.0 9.3-11.8 sec Prothrombin Time INR 1.04 0.9-1.15 Activated Partial Thromboplast Time 29.5 24.5-34.5 SEC Sodium Level 140 136-145 mmol/L Potassium Level 4.1 3.5-5.1 mmol/L Chloride Level 89 L 98-107 mmol/L Carbon Dioxide Level > 40 *H 20-31 mmol/L Anion Gap 10.28686 5-15 Blood Urea Nitrogen 24 H 9-23 mg/dL Creatinine 1.27 H 0.550-1.02 mg/dL Glomerular Filtration Rate Calc 45 >90 mL/min BUN/Creatinine Ratio 18.9 10.0-20.0 Serum Glucose 169 H 74-106 mg/dL Lactic Acid Level 1.9 0.4-2.0 mmol/L Calcium Level 8.8 8.7-10.4 mg/dL Total Bilirubin 0.6 0.2-1.0 mg/dL Aspartate Amino Transferase (AST) 19 13-40 U/L Alanine Aminotransferase (ALT) 14 7-40 U/L Alkaline Phosphatase 120 H 46-116 U/L Total Protein 6.5 5.7-8.2 g/dL Albumin 3.7 3.2-4.8 g/dL SEPSIS Sepsis Screen Date sepsis recognized/suspect: Mar 04, 2025 Time Sepsis recognized/suspect: 203 Recent Procedure: No On Antibiotic Therapy: No Respiratory Rate >20: Yes Heart Rate >90: No Temp<36 C (96.8 F) or >38.3 C: No SBP <90 or MAP <65 mmHG: No New Acute Mental Status Change: Yes Is the patient on CPAP, BIPAP,: No Physician Orders Urine Bacterial Culture (03/04/25 02:08) Chest Portable (03/04/25 02:08) Accucheck (03/04/25 02:08) Mining Captain (03/04/25 02:08) Sepsis (03/04/25 02:08) Pulse Ox Cont Per Day (03/04/25 02:08) Notify If: (03/04/25 02:08) Blood Culture (03/04/25 02:08) Goal: (03/04/25 02:08) Ceftriaxone 1gm/50ml (Rocephin) (03/04/25 02:15) Npo (Nothing By Mouth) Diet (03/04/25 Breakfast) Sepsis Initial Assessment ONCE (03/04/25 02:08) Sepsis Reassessment After Flui (03/04/25 02:09) Initiate Sepsis Protocol (03/04/25 02:08) Troponin-I Hs (03/04/25 05:08) Head Without Contrast (03/04/25 02:08) Abg W/ Co-Ox (03/04/25 03:18) B-Type Natriuretic Peptide (03/04/25 04:05) Furosemide Injection (Lasix Injection) (03/04/25 04:45) Furosemide Injection (Lasix Injection) (03/04/25 10:00) Amiodarone Tablet (Cordarone Tablet) (03/04/25 10:00) Albuterol Medneb (Ventolin Medneb) (03/04/25 04:45) Ipratropium Medneb (Atrovent Medneb) (03/04/25 04:45) Atorvastatin (Lipitor) (03/04/25 22:00) Apixaban (Eliquis) (03/04/25 10:00) Vital Signs Date Time Temp Pulse Resp B/P (MAP) Pulse Ox O2 Delivery O2 Flow Rate FiO2 03/04/25 04:33 77 22 96/47 (63) 93 03/04/25 04:02 78 Facial BiPAP Mask 30 03/04/25 03:09 98.6 82 22 114/40 (64) 91 98.6 03/04/25 02:12 98.3 84 22 109/50 (69) 93 98.3 03/04/25 02:04 Nasal Cannula* 2 28 03/04/25 02:01 98.3 82 26 113/59 94 98.3 03/04/25 01:54 84 Laboratory Tests Test 03/04/25 02:20 Lactic Acid Level 1.9 mmol/L (0.4-2.0) White Blood Count 15.0 10^3/uL (4.4-10.8) H Medications Medications Dose Ordered Sig/Zaida Route Start Time Stop Time Status Last Admin Dose Admin Ceftriaxone Sodium 50 ml @ 100 mls/hr Q24H IV 03/04/25 02:15 12/3/25 02:29 100 MLS/HR Reassessment Post Fluid Time of Reassessment: 03:30 Assessment/Plan Assessment/Plan Assessment Metabolic encephalopathy UTI COPD exacerbation CHF Diabetes mellitus Hypotension Chronic kidney disease Plan Admit the patient to [facility] to the hospitalist Yaya Carrera Resume home medications Continue treatment per orders. Total critical care time excluding procedures performed this 50 minutes. Plan discussed with: Other My Orders Orders - DELPHINE DIAMOND Procedure Category Date Status Time B-Type Natriuretic LAB 03/04/25 In Process Peptide 04:05 Furosemide Injection PHA 03/04/25 Verified (Lasix Injection) 04:45 Furosemide Injection PHA 03/04/25 Verified (Lasix Injection) 10:00 Amiodarone Tablet PHA 03/04/25 Verified (Cordarone Tablet) 10:00 Albuterol Medneb PHA 03/04/25 Verified (Ventolin Medneb) 04:45 Ipratropium Medneb PHA 03/04/25 Verified (Atrovent Medneb) 04:45 Atorvastatin (Lipitor) PHA 03/04/25 Verified 22:00 Apixaban (Eliquis) PHA 03/04/25 Verified 10:00 Date of Service: Mar 04, 2025 Billing Provider: DELPHINE DIAMOND Common Visit Codes: [id number] CARE 30-74 MIN DELPHINE DIAMOND Mar 04, 2025 04:49
[2025-03-04 05:11] LABS: Base Excess 17.5 mmol/L (-2.0-3.0)
[2025-03-04] MEDS: FUROSEMIDE 20 MG/2 ML VIAL IV ONE (05:12)
[2025-03-04] MEDS: ACCU-CHEK COMFORT CURVE STRIP VI SCH (06:21)
[2025-03-04] MEDS: InsuLIN REG 1unit/0.01ml Soln (100units/ml) SC SCH (06:25)
[2025-03-04 07:27] LABS: Base Excess 22.0 mmol/L (-2.0-3.0)
[2025-03-04] MEDS: AMIODARONE HCL 200 MG TAB PO SCH ×2 (10:00→10:27)
[2025-03-04] MEDS: APIXABAN 5 MG TAB PO SCH (10:19)
[2025-03-04] MEDS: FUROSEMIDE 20 MG/2 ML VIAL IV SCH (10:19)
[2025-03-04 14:36] LABS: Base Excess 18.9 mmol/L (-2.0-3.0)
--- NOTE | 2025-03-04 16:10 | DVHPN2 ---
Changes from previous H/P or p: No Changes Objective Vitals Vital Signs Date Time Temp Pulse Resp B/P (MAP) Pulse Ox O2 Delivery O2 Flow Rate FiO2 03/04/25 15:52 97.3 79 16 116/47 (70) 96 97.3 03/04/25 07:30 Nasal Cannula* 3 32 Intake/Output Intake and Output 03/04/25 07:00 Intake Total 50 ml Output Total 350 ml Balance -300 ml Intake Oral 0 ml IV Total 50 ml Tube Feeding 0 ml Blood Product 0 ml Other 0 ml Output Urine Total 350 ml Stool Total 0 ml Urine/Stool Mix 0 ml Gastric Drainage Total 0 ml Emesis 0 ml Chest Tube Drainage Total 0 ml Drainage Total 0 ml Blood Draw 0 ml Other 0 ml Medications Current Medications Medications Dose Ordered Sig/Zaida Route Start Time Stop Time Status Last Admin Dose Admin Ceftriaxone Sodium 50 ml @ 100 mls/hr Q24H IV 03/04/25 02:15 03/04/25 02:29 100 MLS/HR Furosemide 20 mg DAILY IV 03/04/25 10:00 03/04/25 10:19 20 MG Amiodarone HCl 200 mg Q12HR PO 03/04/25 10:00 03/04/25 10:27 200 MG Albuterol 2.5 mg Q6HPRN PRN NEB 03/04/25 04:45 Ipratropium [place] 0.5 mg Q6HPRN PRN NEB 03/04/25 04:45 Atorvastatin Calcium 10 mg HS PO 03/04/25 22:00 Apixaban 5 mg BID PO 03/04/25 10:00 03/04/25 10:19 5 MG Amiodarone HCl 200 mg DAILY PO 03/04/25 10:00 Ceftriaxone Sodium 50 ml @ 100 mls/hr Q24H IV 03/05/25 03:00 Diagnostic Test (Pha) 1 strip ACHS 03/04/25 07:00 03/04/25 11:50 1 STRIP Insulin Human Regular ACHS SC 03/04/25 07:00 03/04/25 11:52 2 UNITS Dextrose 50 ml UD PRN IV 03/04/25 04:45 Acetaminophen/ Hydrocodone Bitart 1 tab Q4HP PRN PO 03/04/25 04:45 Ondansetron HCl 4 mg Q4HP PRN IV 03/04/25 04:45 Acetaminophen 650 mg Q6HP PRN PO 03/04/25 04:45 Nitroglycerin 0.4 mg Q5MINP PRN SL 03/04/25 04:45 Morphine Sulfate 2 mg Q30M PRN IV 03/04/25 04:45 Laboratory Results Laboratory Tests 03/04/25 02:20 Chemistry Test 03/04/25 02:20 Albumin 3.7 g/dL (3.2-4.8) Calcium Level 8.8 mg/dL (8.7-10.4) Total Protein 6.5 g/dL (5.7-8.2) Coagulation Test 03/04/25 02:20 Prothrombin Time 11.0 sec (9.3-11.8) Prothrombin Time INR 1.04 (0.9-1.15) Activated Partial Thromboplast Time 29.5 SEC (24.5-34.5) Cardiac Markers Test 03/04/25 02:20 B-Type Natriuretic Peptide 19.30 pg/mL (0-100) LFT Test 03/04/25 02:20 Alanine Aminotransferase (ALT) 14 U/L (7-40) Alkaline Phosphatase 120 U/L (46-116) H Aspartate Amino Transferase (AST) 19 U/L (13-40) Total Bilirubin 0.6 mg/dL (0.2-1.0) Urinalysis Test 03/04/25 03:00 Urine Color Colorless (Yellow) Urine Clarity Turbid (Clear) H Urine pH 7.5 (5.0-9.0) Urine Specific [place] 1.014 (1.001-1.035) Urine Protein 2+ (Negative) H Urine Ketones Negative (Negative) Urine Blood 1+ /uL (Negative) H Urine Nitrite Negative (Negative) Urine Bilirubin Negative (Negative) Urine Urobilinogen Normal mg/dL (Negative) Urine Leukocyte Esterase 3+ /uL (Negative) Urine RBC 7 /hpf (0 - 4) Urine WBC Clumps Present /hpf (None Seen) Urine Microscopic WBC 87 /HPF (0-5) H Urine Squamous Epithelial Cells Few /hpf (<5) Urine Bacteria Mod /hpf (None Seen) H Urine Glucose Normal mg/dL (Normal) Blood Gas Results Test 03/04/25 03:39 03/04/25 07:23 03/04/25 14:20 Arterial Blood pH 7.361 (7.350-7.450) 7.501 (7.350-7.450) 7.305 (7.350-7.450) FiO2 % 29.0 30.0 32.0 Labs and/or images reviewed: Labs reviewed by me, Image(s) reviewed by me Assessment/Plan Assessment/Plan Sepsis secondary to acute urinary tract infection: Blood cultures urine cultures Rocephin Acute hypercarbic respiratory failure: BiPAP, consult for Dr. Talbot Acute community-acquired pneumonia Gram-positive versus Gram-negative: Rocephin azithromycin albuterol Atrovent Solu-Medrol Acute COPD exacerbation Acute metabolic encephalopathy Acute systolic versus diastolic congestive heart failure CHF Diabetes mellitus Hypertension Chronic kidney disease Time spent 70 minutes Advanced care planning time 20 minutes Patient is full code Plan discussed with: Patient My Orders Orders - MISBAH ROWE MD Procedure Category Date Status Time Abg W/ Co-Ox RT 03/04/25 Logged 14:12 Blood Culture [id number] 03/04/25 Logged 16:03 *Consult CONS 03/04/25 Transmitted 16:03 BIPAP RT 03/04/25 Logged 16:05 Azithromycin PHA 03/05/25 Transmitted 500mg/250ml 10:00 Azithromycin PHA 03/04/25 Transmitted 500mg/250ml 16:15 Date of Service: Mar 04, 2025 Billing Provider: MISBAH ROWE MD Common Visit Codes: [id number] CARE 30-74 MIN MISBAH ROWE MD Mar 04, 2025 16:10
[2025-03-04] MEDS: AZITHROMYCIN 500MG/250ML 250 ML IV ONE (17:14)
[2025-03-04] MEDS: SODIUM CHLORIDE 0.9% 500 ML IV ONE (20:10)
[2025-03-04] MEDS: ATORVASTATIN 20 MG TAB PO SCH (21:12)
--- NOTE | 2025-03-04 21:15 | DVHINCON2 ---
Date of service: Mar 04, [address] Harman [facility] Reason for Consultation Acute hypoxic/acute on chronic hypercarbic respiratory failure, COPD exacerbation. History of Present Illness A 74-year-old woman with past medical history of COPD, CHF, diabetes mellitus, hypertension and CVA who presents to ED today for evaluation of altered mental status. Patient is bedridden with hx of CVA, presents with a one-day history of worsening altered mental status. Patient was lethargic, oriented x1 on presentation. Patient was placed on BiPAP on arrival. She was admitted for further care. Pulmonary consultation is requested for evaluation and management of acute hypoxic/acute on chronic hypercarbic respiratory failure and COPD exacerbation. Review of Systems: 14-point review of systems negative unless otherwise noted above. Past Medical History COPD, CHF, diabetes mellitus, hypertension and CVA Past Surgical History , hysterectomy, cholecystectomy Medications: Reviewed. Allergies: No known drug allergies. Family History Cancer Diabetes mellitus CVA Alzheimer's disease Social History: Nonsmoker. No alcohol or illicit drug use. Family History: Alzheimer's disease G8 MOTHER AUNT AUNT Cerebrovascular accident (CVA) G8 MOTHER Diabetes mellitus G8 MOTHER G8 FATHER Allergies: Coded Allergies: No Known Drug Allergy (Verified Allergy, Unknown, 12/04/21) Home Meds Active Scripts Mupirocin Calcium (Topical) (MUPIROCIN) 2 % Cre, 2 % EX BID for 6 Days, #1 CRE Prov:KRYSTA LOUIS 01/03/25 Doxycycline (Monohydrate) (Doxycycline) 100 Mg Tab, 100 MG PO BID for 6 Days, #12 TAB Prov:KRYSTA LOUIS 01/03/25 Amoxicillin & Pot Clavulanate (AUGMENTIN TABLET) 875 Mg Tb, 875 MG PO BID for 6 Days, #12 TAB Prov:KRYSTA LOUIS 01/03/25 Cefuroxime Axetil (Cefuroxime Axetil) 500 Mg Tab, 500 MG PO BID for 7 Days, #14 TAB Prov:DELPHINE GUEVARA MD 12/17/24 Cephalexin (KEFLEX 500) 500 Mg Cap, 1 CAP PO TID for 5 Days, #15 CAP Prov:BENOIT GONZALEZ MD 11/01/21 Apixaban Base (ELIQUIS) 5 Mg Tab, 5 MG PO BID for 30 Days, #60 TAB Prov:BENOIT GONZALEZ MD 11/01/21 Amiodarone HCl (Amiodarone HCl) 200 Mg Tab, 200 MG PO BID for 30 Days, #60 TAB Prov:BENOIT GONZALEZ MD 11/01/21 Empagliflozin (Jardiance) 25 Mg Tab, 25 MG PO DAILY@BREAKFAST for 30 Days, #30 TAB Prov:BENOIT GONZALEZ MD 11/01/21 Sevelamer Hydrochloride (Renagel) 800 Mg Tab, 800 MG PO TIDWM for 30 Days, #120 TAB Prov:BENOIT GONZALEZ MD 11/01/21 Fluconazole (Fluconazole) 100 Mg Tab, 200 MG PO DAILY for 10 Days, #20 TAB Prov:BENOIT GONZALEZ MD 11/01/21 Ergocalciferol (VITAMIN D 35272 UNIT) 50,000 [place], [address] UNIT PO Q7D for 10 Days, #10 CAP Prov:BENOIT GONZALEZ MD 11/01/21 Pantoprazole Sodium Sesquihydr (Protonix) 40 Mg Tab, 40 MG PO DAILY, #30 TAB Prov:CHERELLE PENA MD 07/11/21 Reported Medications Rosuvastatin Calcium (Rosuvastatin Calcium) 10 Mg Tab, 10 MG PO HS 10/31/21 Torsemide (Torsemide) 20 Mg Tab, 20 MG PO DAILY 10/31/21 Insulin Glargine (Lantus) 100 Unit/Ml Inj, 30 UNIT SC BID, INJ PER PATIENT, PATIENT ONLY USES 30 UNITS OF LANTUS TWICE A DAY WITH NO OTHER MEAL TIME INSULIN 03/28/18 Metformin Hydrochloride (Metformin Hcl) 1,000 Mg Tab, 1 TAB PO BID 03/28/18 Metoprolol Tartrate (Lopressor) 50 Mg Tab, 1 TAB PO BID Patient stopped taking this medication at home. Reported too many medications to keep track off. 03/28/18 [place] (Adempas) 1 Mg Tab, 1 MG PO TID 03/28/18 Ezetimibe (Zetia) 10 Mg Tab, 40 MG PO DAILY 03/28/18 Gabapentin (Gabapentin) 300 Mg Cap, 300 MG PO TID for 30 Days, MG Patient reported not taking this medication due to too many medication to keep track of. 2/22/18 Current Medications Current Medications Medications (Trade) Dose Ordered Sig/Zaida Route PRN Reason Start Time Stop Time Status Last Admin Ceftriaxone Sodium 50 ml @ 100 mls/hr Q24H IV 03/04/25 02:15 03/04/25 02:29 Furosemide (Lasix Injection) 20 mg DAILY IV 03/04/25 10:00 03/04/25 10:19 Amiodarone HCl (Cordarone Tablet) 200 mg Q12HR PO 03/04/25 10:00 03/04/25 10:27 Albuterol (Ventolin Medneb) 2.5 mg Q6HPRN PRN NEB SHORTNESS OF BREATH 03/04/25 04:45 Ipratropium [place] (Atrovent Medneb) 0.5 mg Q6HPRN PRN NEB SHORTNESS OF BREATH 03/04/25 04:45 Atorvastatin Calcium (Lipitor) 10 mg HS PO 03/04/25 22:00 Apixaban (Eliquis) 5 mg BID PO 03/04/25 10:00 03/04/25 10:19 Amiodarone HCl (Cordarone Tablet) 200 mg DAILY PO 03/04/25 10:00 Ceftriaxone Sodium 50 ml @ 100 mls/hr Q24H IV 03/05/25 03:00 Diagnostic Test (Pha) (Accu-Chek Comfort Curve T) 1 strip ACHS 03/04/25 07:00 03/04/25 17:00 Insulin Human Regular (InsuLIN R) ACHS SC 03/04/25 07:00 03/04/25 11:52 Dextrose 50 ml UD PRN IV Blood Sugar LESS THAN 60 03/04/25 04:45 Acetaminophen/ Hydrocodone Bitart ([place] 5/325MG Tab) 1 tab Q4HP PRN PO MODERATE PAIN (4-6 PAIN SCALE) 03/04/25 04:45 Ondansetron HCl (Zofran) 4 mg Q4HP PRN IV NAUSEA / VOMITING 03/04/25 04:45 Acetaminophen (Tylenol Tablet) 650 mg Q6HP PRN PO PAIN SCALE 1-3 OR TEMP>100.4 03/04/25 04:45 Nitroglycerin (Ntrostat Sublingual) 0.4 mg Q5MINP PRN SL FOR CHEST PAIN 03/04/25 04:45 Morphine Sulfate 2 mg Q30M PRN IV FOR CHEST PAIN 03/04/25 04:45 Azithromycin 250 ml @ 125 mls/hr DAILY IV 03/05/25 10:00 Vital Signs Vital Signs Date Time Temp Pulse Resp B/P (MAP) Pulse Ox O2 Delivery O2 Flow Rate FiO2 03/04/25 18:00 79 18 95/68 (77) 96 03/04/25 15:52 97.3 97.3 03/04/25 07:30 Nasal Cannula* 3 32 Physical Exam Gen.: Patient lying in bed in no apparent distress. On supplemental oxygen. Head: Normocephalic, atraumatic. Eyes: EOMI/PERRLA. Ears: Normal hearing. Normal anatomy. Neck/trachea: Trachea midline, supple. Nose: Normal external anatomy. Mouth: Moist mucous membranes. Chest: Decreased air entry bilaterally. No wheezing or rhonchi. Cardiovascular: Positive S1, positive S2. Regular rate and rhythm. Abdomen: Positive bowel sounds in all 4 quadrants. Soft, non-tender, non- distended. : Deferred. Rectal: Deferred. Skin: Warm, dry. Intact. Extremities: 2+ radial pulses bilaterally. No lower extremity edema. Neuro: Awake, alert, oriented x3. No gross motor or sensory deficits. Cranial nerves II through XII intact. Gait not assessed. Labs/Diagnostic Data Labs Test 03/04/25 17:21 03/04/25 14:20 03/04/25 07:23 03/04/25 05:13 Range/Units POC Glucose 126 H 70-106 mg/dl Blood Gas Specimen Type Arterial Blood Gas Sample Site Left radial Blood Gas Patient Temperature 37.0 Arterial Blood Date Drawn [id number] Arterial Blood pH 7.305 L 7.350-7.450 Arterial Blood Partial Pressure CO2 101.5 *H 32.0-45.0 mmHg Arterial Blood Partial Pressure O2 126.7 H 83.0-108.0 mmHg Arterial Blood HCO3 49.4 H 21.0-28.0 mmol/L Arterial Blood Oxygen Saturation 98.0 94.0-98.0 % Arterial Blood Base Excess 18.9 H -2.0-3.0 mmol/L Arterial Blood Oxyhemoglobin 96.4 94.0-98.0 % Arterial Blood Carboxyhemoglobin 0.7 0.5-1.5 % Arterial Blood Methemoglobin 0.9 0.0-1.5 % Arterial Blood Deoxyhemoglobin 2.0 0.0-5.0 % Kaleb Test Yes Blood Gas Total Hemoglobin 11.00 L 12.0-16.0 g/dL Blood Gas Liter Flow 3.00 Blood Gas Modality Nasal cannula FiO2 % 32.0 Blood Gas Critical Value Read Back yes Blood Gas Notified Whom Blood Gas Notified Time [id number] Blood Gas Notified By movement assembler tim Blood Gas Set Respiration Rate 16.0 Blood Gas EPAP 6 Blood Gas IPAP 16 Lactic Acid Level 1.4 0.4-2.0 mmol/L Troponin I High Sensitivity 3 L </=34 ng/L Test 03/04/25 03:17 03/04/25 03:00 03/04/25 02:20 Range/Units Ammonia 16 11-32 umol/L Urine Color Colorless Yellow Urine Clarity Turbid H Clear Urine pH 7.5 5.0-9.0 Urine Specific [place] 1.014 1.001-1.035 Urine Protein 2+ H Negative Urine Ketones Negative Negative Urine Blood 1+ H Negative /uL Urine Nitrite Negative Negative Urine Bilirubin Negative Negative Urine Urobilinogen Normal Negative mg/dL Urine Leukocyte Esterase 3+ Negative /uL Urine RBC 7 0 - 4 /hpf Urine WBC Clumps Present None Seen /hpf Urine Microscopic WBC 87 H 0-5 /HPF Urine Squamous Epithelial Cells Few <5 /hpf Urine Bacteria Mod H None Seen /hpf Urine Glucose Normal Normal mg/dL White Blood Count 15.0 H 4.4-10.8 10^3/uL Red Blood Count 3.84 L 4.0-5.20 10^6/uL Hemoglobin 9.9 L 12.2-16.2 g/dL Hematocrit 30.9 L 36.0-46.0 % Mean Corpuscular Volume 80.3 80.0-100.0 fL Mean Corpuscular Hemoglobin 25.7 L 28.0-32.0 pg Mean Corpuscular Hemoglobin Concent 32.0 32.0-36.0 g/dL Red Cell Distribution Width 16.7 H 11.8-14.3 % Platelet Count 291 140-450 10^3/uL Mean Platelet Volume 7.0 6.9-10.8 fL Neutrophils (%) (Auto) 80.4 H 37.0-80.0 % Lymphocytes (%) (Auto) 11.9 10.0-50.0 % Monocytes (%) (Auto) 3.5 0.0-12.0 % Eosinophils (%) (Auto) 3.8 0.0-7.0 % Basophils (%) (Auto) 0.4 0.0-2.0 % Neutrophils # (Auto) 12.0 H 1.6-8.6 10 ^3/uL Lymphocytes # (Auto) 1.8 0.4-5.4 10 ^3/uL Monocytes # (Auto) 0.5 0-1.3 10 ^3/uL Eosinophils # (Auto) 0.6 0-0.8 10 ^3/uL Basophils # (Auto) 0.1 0-0.2 10 ^3/uL Nucleated Red Blood Cells 0.1 % Prothrombin Time 11.0 9.3-11.8 sec Prothrombin Time INR 1.04 0.9-1.15 Activated Partial Thromboplast Time 29.5 24.5-34.5 SEC Sodium Level 140 136-145 mmol/L Potassium Level 4.1 3.5-5.1 mmol/L Chloride Level 89 L 98-107 mmol/L Carbon Dioxide Level > 40 *H 20-31 mmol/L Anion Gap 10.95115 5-15 Blood Urea Nitrogen 24 H 9-23 mg/dL Creatinine 1.27 H 0.550-1.02 mg/dL Glomerular Filtration Rate Calc 45 >90 mL/min BUN/Creatinine Ratio 18.9 10.0-20.0 Serum Glucose 169 H 74-106 mg/dL Calcium Level 8.8 8.7-10.4 mg/dL Total Bilirubin 0.6 0.2-1.0 mg/dL Aspartate Amino Transferase (AST) 19 13-40 U/L Alanine Aminotransferase (ALT) 14 7-40 U/L Alkaline Phosphatase 120 H 46-116 U/L B-Type Natriuretic Peptide 19.30 0-100 pg/mL Total Protein 6.5 5.7-8.2 g/dL Albumin 3.7 3.2-4.8 g/dL Assessment Impression: Acute hypoxic respiratory failure Acute on chronic hypercarbic respiratory failure Dependence on supplemental oxygen Acute COPD exacerbation Metabolic encephalopathy Urinary tract infection Congestive heart failure Chronic kidney disease Anemia Pulmonary hypertension, mild; RVSP of 38 mmHg Obesity Plan: BiPAP transitioned to supplemental oxygen Titrate to keep O2 sats between 88-94%. ABG reviewed, notable for acidemia 2/2 CO2 retention. Currently on 3 LPM NC Taper O2 as tolerated. Chest x-ray reviewed, shows mild pulmonary vascular congestion. Echo done 12/2024 reviewed, notable for RVSP of 38 mmHg, LVEF >55%. On Eliquis BID. Continue bronchodilators. Continue antibiotics Follow up cultures Follow up Cardiology recommendations Follow up Nephrology recommendations Diurese with Lasix to maintain euvolemia Monitor renal function. Monitor electrolytes. Supplement as necessary. Monitor ins and outs. Monitor hemoglobin Transfuse if less than 7.0 g/dL. Recommend diet and lifestyle modifications for weight reduction Obesity complicates all care DVT prophylaxis. Prognosis: Poor given patient's multiple co-morbidities. Rest of plan per hospitalist and other consultants. Thank you, Dr. Harman, for allowing me to participate in this patient's care. Further recommendations will depend on the patient's clinical course. Please do not hesitate to contact me if you have any questions or concerns. This medical document was created using an electronic medical record system with [employer] dictation system. Although these documentations are being carefully reviewed, there may still be some phonetic and typographical changes. The errors are purely typographical, due to imperfection on the software program, and do not reflect any compromise in the patient's medical care. Plan discussed with: Patient, Other (RN/Dr. Harman) Visit Coding Pulmonary Billing Provider: MOR CHERRY MD Date of Service if different f: Mar 04, 2025 Common Visit Codes: [id number] INP/OBS CARE (HIGH) MOR CHERRY MD Mar 04, 2025 21:15
[2025-03-04] MEDS: HYDROcodone-ACET 5/325MG TAB PO PRN (23:30)
[2025-03-05] VITALS (12 sets, daily range): BP systolic 100–123; BP diastolic 47–64; PULSE 71–79; RESP 13–19; TEMP 97.6–98.4; O2SAT 89–99
[2025-03-05 03:23] LABS: Hemoglobin 9.6 g/dL (12.2-16.2); Mean Corpuscular Hemoglobin 25.3 pg (28.0-32.0); Nucleated Red Blood Cells % 0.1 %
[2025-03-05 03:26] LABS: Potassium 4.1 mmol/L (3.5-5.1); Sodium 141 mmol/L (136-145)
[2025-03-05 03:27] LABS: Calcium 9.1 mg/dL (8.7-10.4); Hematocrit 30.8 % (36.0-46.0); Mean Corpuscular Volume 81.3 fL (80.0-100.0)
[2025-03-05 03:32] LABS: BUN/Creatinine Ratio 16.2 (10.0-20.0); Blood Urea Nitrogen 21 mg/dL (9-23)
[2025-03-05 03:45] LABS: Anion Gap 10.99999 (5-15); Chloride 90 mmol/L (98-107); Glucose 158 mg/dL (74-106)
[2025-03-05 03:47] LABS: Carbon Dioxide > 40 mmol/L (20-31)
[2025-03-05] MEDS: AZITHROMYCIN 500MG/250ML 250 ML IV SCH (10:47)
--- NOTE | 2025-03-05 11:33 | DVHPN2 ---
Progress Note - Dictate Date Seen: Mar 04, 2025 Medical Necessity Reason Pt with a Central, PICC or Fol: Yes The following are medically ne: Servin Catheter Subjective ENDSTAGE COPD CO2 RETAINER SLEEP APNEA RECURRENT RESP FAILURE AMS SECONDARY TO CO2 RETENTION HYPOVENTILATION SYNDROME 2 SEPSIS RECURRENT UTI AND PNEUMONIA 3. RECURRENT CELLULITES OF LE NOW AGAIN WITH RESP FAILURE AND UTI WITH SEPSIS LEUKOCYTOSIS ACUTE RENAL FAILURE CKD III 4.PAH PT WAS ON ADEMPAS AND OPSUMIT HOWEVER BOTH DRUGS NO AVAILABLE AT THE HOSPITAL 4. COVID PNEUMONIA HX 5. DIABETES NEPHROPATHY NEUROPATHY VASCULOPATHY 6. SEIZURE 7. ANEMIA 8. GERD 9. OBESITY 10. HYPERKALEMIA 11. HEMATURIA KIDNEY STONE OBSTRUCTIVE RENAL CYSTS vital signs Vital Sign Date Time Temp Pulse Resp B/P (MAP) Pulse Ox O2 Delivery O2 Flow Rate FiO2 03/05/25 10:45 106/52 03/05/25 08:23 97.6 79 19 96 97.6 03/05/25 08:23 Nasal Cannula* 2 28 Total Intake and Output 03/04/25 03/04/25 03/05/25 14:59 22:59 06:59 Intake Total 750 ml 250 ml Output Total 1250 ml 700 ml Balance -1250 ml 750 ml -450 ml medications Current Medications Medications Dose Ordered Sig/Zaida Route Start Time Stop Time Status Last Admin Dose Admin Ceftriaxone Sodium 50 ml @ 100 mls/hr Q24H IV 03/04/25 02:15 03/05/25 01:59 100 MLS/HR Furosemide 20 mg DAILY IV 03/04/25 10:00 03/05/25 10:45 20 MG Amiodarone HCl 200 mg Q12HR PO 03/04/25 10:00 03/04/25 21:12 200 MG Albuterol 2.5 mg Q6HPRN PRN NEB 03/04/25 04:45 Ipratropium [place] 0.5 mg Q6HPRN PRN NEB 03/04/25 04:45 Atorvastatin Calcium 10 mg HS PO 03/04/25 22:00 03/04/25 21:12 10 MG Apixaban 5 mg BID PO 03/04/25 10:00 03/05/25 10:47 5 MG Amiodarone HCl 200 mg DAILY PO 03/04/25 10:00 03/05/25 10:46 200 MG Ceftriaxone Sodium 50 ml @ 100 mls/hr Q24H IV 03/05/25 03:00 Diagnostic Test (Pha) 1 strip ACHS 03/04/25 07:00 03/05/25 06:32 1 STRIP Insulin Human Regular ACHS SC 03/04/25 07:00 03/05/25 06:32 3 UNITS Dextrose 50 ml UD PRN IV 03/04/25 04:45 Acetaminophen/ Hydrocodone Bitart 1 tab Q4HP PRN PO 03/04/25 04:45 03/05/25 09:06 1 TAB Ondansetron HCl 4 mg Q4HP PRN IV 03/04/25 04:45 Acetaminophen 650 mg Q6HP PRN PO 03/04/25 04:45 Nitroglycerin 0.4 mg Q5MINP PRN SL 03/04/25 04:45 Morphine Sulfate 2 mg Q30M PRN IV 03/04/25 04:45 Azithromycin 250 ml @ 125 mls/hr DAILY IV 03/05/25 10:00 03/05/25 10:47 125 MLS/HR objective HEENT SCLERA ANICTERIC NO JVD CAROTIDS WNL MUCUS MEMB DRY PUL RALES CV RR ABD SUPRAPUBIC TENDERNESS NEURO CONFUSES SKIN DRY EXT 2+ EDEMA laboratory and microbiology Laboratory Tests 03/05/25 02:17 Test 03/05/25 02:17 Range/Units Serum Glucose 158 H 74-106 mg/dL Problem List ENDSTAGE COPD CO2 RETAINER SLEEP APNEA RECURRENT RESP FAILURE HYPOVENTILATION SYNDROME AMS SECONDARY TO CO2 RETENTION 2 SEPSIS RECURRENT UTI AND PNEUMONIA 3. RECURRENT CELLULITES OF LE NOW AGAIN WITH RESP FAILURE AND UTI WITH SEPSIS LEUKOCYTOSIS ACUTE RENAL FAILURE CKD III 4.PAH PT WAS ON ADEMPAS AND OPSUMIT HOWEVER BOTH DRUGS NO AVAILABLE AT THE HOSPITAL 4. COVID PNEUMONIA HX 5. DIABETES NEPHROPATHY NEUROPATHY VASCULOPATHY 6. SEIZURE 7. ANEMIA 8. GERD 9. OBESITY 10. HYPERKALEMIA 11. HEMATURIA KIDNEY STONE OBSTRUCTIVE RENAL CYSTS Assessment/Plan DECREASE O2 ABX INHALER THERAPY 24 BIPAP Plan discussed with: Patient Critical Care Time(min): 35 AVTAR MCKNIGHT MD Mar 05, 2025 11:33
--- NOTE | 2025-03-05 12:23 | DVHPN2 ---
Reviewed: Care Plan, H&P, Labs, Medications, Previous Orders, Radiology Changes from previous H/P or p: No Changes Objective Vitals Vital Signs Date Time Temp Pulse Resp B/P (MAP) Pulse Ox O2 Delivery O2 Flow Rate FiO2 03/05/25 10:45 106/52 03/05/25 08:23 97.6 79 19 96 97.6 03/05/25 08:23 Nasal Cannula* 2 28 Intake/Output Intake and Output 03/05/25 07:00 Intake Total 1000 ml Output Total 1950 ml Balance -950 ml Intake Oral 200 ml IV Total 800 ml Output Urine Total 1950 ml Medications Current Medications Medications Dose Ordered Sig/Zaida Route Start Time Stop Time Status Last Admin Dose Admin Furosemide 20 mg DAILY IV 03/04/25 10:00 03/05/25 10:45 20 MG Amiodarone HCl 200 mg Q12HR PO 03/04/25 10:00 03/04/25 21:12 200 MG Albuterol 2.5 mg Q6HPRN PRN NEB 03/04/25 04:45 Ipratropium [place] 0.5 mg Q6HPRN PRN NEB 03/04/25 04:45 Atorvastatin Calcium 10 mg HS PO 03/04/25 22:00 03/04/25 21:12 10 MG Apixaban 5 mg BID PO 03/04/25 10:00 03/05/25 10:47 5 MG Amiodarone HCl 200 mg DAILY PO 03/04/25 10:00 03/05/25 10:46 200 MG Ceftriaxone Sodium 50 ml @ 100 mls/hr Q24H IV 03/05/25 03:00 Diagnostic Test (Pha) 1 strip ACHS 03/04/25 07:00 03/05/25 06:32 1 STRIP Insulin Human Regular ACHS SC 03/04/25 07:00 03/05/25 06:32 3 UNITS Dextrose 50 ml UD PRN IV 03/04/25 04:45 Acetaminophen/ Hydrocodone Bitart 1 tab Q4HP PRN PO 03/04/25 04:45 03/05/25 09:06 1 TAB Ondansetron HCl 4 mg Q4HP PRN IV 03/04/25 04:45 Acetaminophen 650 mg Q6HP PRN PO 03/04/25 04:45 Nitroglycerin 0.4 mg Q5MINP PRN SL 03/04/25 04:45 Morphine Sulfate 2 mg Q30M PRN IV 03/04/25 04:45 Azithromycin 250 ml @ 125 mls/hr DAILY IV 03/05/25 10:00 03/05/25 10:47 125 MLS/HR Laboratory Results Laboratory Tests 03/05/25 02:17 Chemistry Test 03/05/25 02:17 Calcium Level 9.1 mg/dL (8.7-10.4) Urinalysis Test 03/04/25 03:00 Urine Color Colorless (Yellow) Urine Clarity Turbid (Clear) H Urine pH 7.5 (5.0-9.0) Urine Specific [place] 1.014 (1.001-1.035) Urine Protein 2+ (Negative) H Urine Ketones Negative (Negative) Urine Blood 1+ /uL (Negative) H Urine Nitrite Negative (Negative) Urine Bilirubin Negative (Negative) Urine Urobilinogen Normal mg/dL (Negative) Urine Leukocyte Esterase 3+ /uL (Negative) Urine RBC 7 /hpf (0 - 4) Urine WBC Clumps Present /hpf (None Seen) Urine Microscopic WBC 87 /HPF (0-5) H Urine Squamous Epithelial Cells Few /hpf (<5) Urine Bacteria Mod /hpf (None Seen) H Urine Glucose Normal mg/dL (Normal) Blood Gas Results Test 03/04/25 14:20 Arterial Blood pH 7.305 (7.350-7.450) FiO2 % 32.0 Microbiology Microbiology Date/Time Source Procedure Growth Status 03/04/25 02:30 Blood Blood Culture - Preliminary NO GROWTH AFTER 24 HOURS OF INCUBATION. Resulted Labs and/or images reviewed: Labs reviewed by me, Image(s) reviewed by me Assessment/Plan Assessment/Plan Sepsis secondary to acute urinary tract infection: Blood cultures negative, urine cultures pending, continue Rocephin Acute hypercarbic respiratory failure: BiPAP, consult for Dr. Talbot appreciated. Patient currently on 2 L of oxygen by nasal cannula Acute community-acquired pneumonia Gram-positive versus Gram-negative: Rocephin azithromycin albuterol Atrovent Solu-Medrol Acute COPD exacerbation Acute metabolic encephalopathy Obesity hypoventilation syndrome Altered Mental status secondary to CO2 retention Acute systolic versus diastolic congestive heart failure CHF, consult by water softener servicer and installer Dr. Negron appreciated Diabetes mellitus insulin sliding scale Diabetic nephropathy neuropathy vasculopathy Hypertension History of seizures Chronic anemia Chronic kidney disease Time spent 70 minutes Advanced care planning time 20 minutes Patient is full code Plan discussed with: Patient My Orders Orders - MISBAH ROWE MD Procedure Category Date Status Time Abg W/ Co-Ox RT 03/04/25 Logged 14:12 *Consult CONS 03/04/25 Transmitted 16:03 Azithromycin PHA 03/05/25 In Process 500mg/250ml 10:00 * Dietary Consult CONS 03/04/25 Transmitted 18:03 Cleanse Wound With [place] 03/04/25 In Process Wound Clean 17:15 Cleanse Wound With [place] 03/04/25 In Process Mild Soap A 17:15 Date of Service: Mar 05, 2025 Billing Provider: MISBAH ROWE MD Common Visit Codes: [id number] CARE 30-74 MIN MISBHA ROEW MD Mar 05, 2025 12:23
--- NOTE | 2025-03-05 23:59 | DVHPN2 ---
Subjective [facility] DOS: 03/05/2025 Patient seen and examined at bedside. Remains on supplemental oxygen Overnight events reviewed. Reviewed: Care Plan, H&P, Labs, Medications, Previous Orders, Radiology Changes from previous H/P or p: No Changes Objective Vitals Vital Signs Date Time Temp Pulse Resp B/P (MAP) Pulse Ox O2 Delivery O2 Flow Rate FiO2 03/05/25 20:13 74 16 96 Nasal Cannula* 2 28 03/05/25 20:13 98.1 119/54 (75) 98.1 Intake/Output Intake and Output 03/05/25 07:00 Intake Total 1000 ml Output Total 1950 ml Balance -950 ml Intake Oral 200 ml IV Total 800 ml Output Urine Total 1950 ml Exam Gen.: Patient lying in bed in no apparent distress. On supplemental oxygen. Head: Normocephalic, atraumatic. Eyes: EOMI/PERRLA. Ears: Normal hearing. Normal anatomy. Neck/trachea: Trachea midline, supple. Nose: Normal external anatomy. Mouth: Moist mucous membranes. Chest: Decreased air entry bilaterally. No wheezing or rhonchi. Cardiovascular: Positive S1, positive S2. Regular rate and rhythm. Abdomen: Positive bowel sounds in all 4 quadrants. Soft, non-tender, non- distended. : Deferred. Rectal: Deferred. Skin: Warm, dry. Intact. Extremities: 2+ radial pulses bilaterally. No lower extremity edema. Neuro: Awake, alert, oriented x3. No gross motor or sensory deficits. Cranial nerves II through XII intact. Gait not assessed. Medications Current Medications Medications Dose Ordered Sig/Zaida Route Start Time Stop Time Status Last Admin Dose Admin Furosemide 20 mg DAILY IV 03/04/25 10:00 03/05/25 10:45 20 MG Amiodarone HCl 200 mg Q12HR PO 03/04/25 10:00 03/05/25 22:40 200 MG Albuterol 2.5 mg Q6HPRN PRN NEB 03/04/25 04:45 Ipratropium [place] 0.5 mg Q6HPRN PRN NEB 03/04/25 04:45 Atorvastatin Calcium 10 mg HS PO 03/04/25 22:00 03/05/25 22:38 10 MG Apixaban 5 mg BID PO 03/04/25 10:00 03/05/25 22:38 5 MG Ceftriaxone Sodium 50 ml @ 100 mls/hr Q24H IV 03/05/25 03:00 Diagnostic Test (Pha) 1 strip ACHS 03/04/25 07:00 03/05/25 22:32 1 STRIP Insulin Human Regular ACHS SC 03/04/25 07:00 03/05/25 22:37 2 UNITS Dextrose 50 ml UD PRN IV 03/04/25 04:45 Acetaminophen/ Hydrocodone Bitart 1 tab Q4HP PRN PO 03/04/25 04:45 03/05/25 09:06 1 TAB Ondansetron HCl 4 mg Q4HP PRN IV 03/04/25 04:45 Acetaminophen 650 mg Q6HP PRN PO 03/04/25 04:45 Nitroglycerin 0.4 mg Q5MINP PRN SL 03/04/25 04:45 Morphine Sulfate 2 mg Q30M PRN IV 03/04/25 04:45 Azithromycin 250 ml @ 125 mls/hr DAILY IV 03/05/25 10:00 03/05/25 10:47 125 MLS/HR Laboratory Results Laboratory Tests 03/05/25 02:17 Chemistry Test 03/05/25 02:17 Calcium Level 9.1 mg/dL (8.7-10.4) Urinalysis Test 03/04/25 03:00 Urine Color Colorless (Yellow) Urine Clarity Turbid (Clear) H Urine pH 7.5 (5.0-9.0) Urine Specific [place] 1.014 (1.001-1.035) Urine Protein 2+ (Negative) H Urine Ketones Negative (Negative) Urine Blood 1+ /uL (Negative) H Urine Nitrite Negative (Negative) Urine Bilirubin Negative (Negative) Urine Urobilinogen Normal mg/dL (Negative) Urine Leukocyte Esterase 3+ /uL (Negative) Urine RBC 7 /hpf (0 - 4) Urine WBC Clumps Present /hpf (None Seen) Urine Microscopic WBC 87 /HPF (0-5) H Urine Squamous Epithelial Cells Few /hpf (<5) Urine Bacteria Mod /hpf (None Seen) H Urine Glucose Normal mg/dL (Normal) Microbiology Microbiology Date/Time Source Procedure Growth Status 03/04/25 02:30 Blood Blood Culture - Preliminary NO GROWTH AFTER 24 HOURS OF INCUBATION. Resulted Assessment/Plan Assessment/Plan Impression: Acute hypoxic respiratory failure Acute on chronic hypercarbic respiratory failure Dependence on supplemental oxygen Acute COPD exacerbation Metabolic encephalopathy Urinary tract infection Congestive heart failure Chronic kidney disease Anemia Pulmonary hypertension, mild; RVSP of 38 mmHg Obesity Events: Remains on supplemental oxygen, 2 LPM NC Taper O2 as tolerated BiPAP at nighttime 10 PM - 6 AM. Continue antibiotics Incentive spirometry Amiodarone PO Continue Eliquis Head of bed elevation Aspiration precautions Continue Lasix to maintain euvolemia Monitor renal function. Monitor electrolytes. Supplement as necessary. Labs and imaging reviewed. Rest of plan as noted below. Plan: Supplemental oxygen Titrate to keep O2 sats between 88-94%. BiPAP PRN, uses at nighttime ABG notable for acidemia 2/2 CO2 retention. Chest x-ray shows mild pulmonary vascular congestion. Echo done 12/2024 reviewed, notable for RVSP of 38 mmHg, LVEF >55%. On Eliquis BID. Continue bronchodilators. Continue antibiotics Follow up cultures Follow up Cardiology recommendations Follow up Nephrology recommendations Diurese with Lasix to maintain euvolemia Monitor renal function. Monitor electrolytes. Supplement as necessary. Monitor ins and outs. Monitor hemoglobin Transfuse if less than 7.0 g/dL. Recommend diet and lifestyle modifications for weight reduction Obesity complicates all care DVT prophylaxis. Prognosis: Poor given patient's multiple co-morbidities. Rest of plan per hospitalist and other consultants. Thank you, Dr. Harman, for allowing me to participate in this patient's care. Further recommendations will depend on the patient's clinical course. Please do not hesitate to contact me if you have any questions or concerns. This medical document was created using an electronic medical record system with [employer] dictation system. Although these documentations are being carefully reviewed, there may still be some phonetic and typographical changes. The errors are purely typographical, due to imperfection on the software program, and do not reflect any compromise in the patient's medical care. Plan discussed with: Patient, Other (JOHNNY Wright) Visit Coding Pulmonary Billing Provider: MOR CHERRY MD Date of Service if different f: Mar 05, 2025 Common Visit Codes: [id number] INP/OBS CARE(HIGH) MOR CHERRY MD Mar 05, 2025 23:59
[2025-03-06] VITALS (10 sets, daily range): BP systolic 107–137; BP diastolic 36–63; PULSE 74–92; RESP 16–20; TEMP 98.2–98.7; O2SAT 92–98
[2025-03-06] MEDS: GABAPENTIN 300 MG CAP PO SCH (02:36)
[2025-03-06] MEDS: IPRATROPIUM BROM 0.5 MG/2.5ML INH SOL NEB PRN (03:34)
[2025-03-06] MEDS: ALBUTEROL SULF 2.5 MG/0.5ML(0.5%) NEB SOLN NEB PRN (03:34)
[2025-03-06 08:48] LABS: Hematocrit 29.3 % (36.0-46.0); Hemoglobin 9.1 g/dL (12.2-16.2); Mean Corpuscular Hemoglobin 25.2 pg (28.0-32.0); Mean Corpuscular Volume 81.0 fL (80.0-100.0); Nucleated Red Blood Cells % 0.0 %
[2025-03-06 09:02] LABS: Albumin 3.7 g/dL (3.2-4.8); Alkaline Phosphatase 112 U/L (46-116); BUN/Creatinine Ratio 15.9 (10.0-20.0); Bilirubin, Total 0.6 mg/dL (0.2-1.0); Blood Urea Nitrogen 20 mg/dL (9-23); Calcium 9.2 mg/dL (8.7-10.4); Magnesium 2.5 mg/dL (1.6-2.6); Potassium 3.9 mmol/L (3.5-5.1); Sodium 141 mmol/L (136-145); Total Protein 6.8 g/dL (5.7-8.2)
[2025-03-06 09:03] LABS: Alanine Aminotransferase < 9 U/L (7-40); Anion Gap 10.99999 (5-15); Chloride 90 mmol/L (98-107); Glucose 109 mg/dL (74-106)
[2025-03-06 09:04] LABS: Carbon Dioxide > 40 mmol/L (20-31)
[2025-03-06 09:38] LABS: Base Excess 16.6 mmol/L (-2.0-3.0)
--- NOTE | 2025-03-06 12:03 | DVHPN2 ---
Reviewed: Care Plan, H&P, Labs, Medications, Previous Orders, Radiology Changes from previous H/P or p: No Changes Objective Vitals Vital Signs Date Time Temp Pulse Resp B/P (MAP) Pulse Ox O2 Delivery O2 Flow Rate FiO2 03/06/25 10:00 96 Nasal Cannula* 2 28 03/06/25 09:36 109/43 03/06/25 08:16 77 03/06/25 08:00 98.3 16 98.3 Intake/Output Intake and Output 03/06/25 07:00 Intake Total 750 ml Output Total 1300 ml Balance -550 ml Intake Oral 400 ml IV Total 350 ml Output Urine Total 1300 ml Stool Total 0 ml Medications Current Medications Medications Dose Ordered Sig/Zaida Route Start Time Stop Time Status Last Admin Dose Admin Furosemide 20 mg DAILY IV 03/04/25 10:00 03/06/25 09:36 20 MG Amiodarone HCl 200 mg Q12HR PO 03/04/25 10:00 03/06/25 09:37 200 MG Albuterol 2.5 mg Q6HPRN PRN NEB 03/04/25 04:45 03/06/25 03:34 2.5 MG Ipratropium [place] 0.5 mg Q6HPRN PRN NEB 03/04/25 04:45 03/06/25 03:34 0.5 MG Atorvastatin Calcium 10 mg HS PO 03/04/25 22:00 03/05/25 22:38 10 MG Apixaban 5 mg BID PO 03/04/25 10:00 03/06/25 09:38 5 MG Ceftriaxone Sodium 50 ml @ 100 mls/hr Q24H IV 03/05/25 03:00 03/06/25 02:53 100 MLS/HR Diagnostic Test (Pha) 1 strip ACHS 03/04/25 07:00 03/06/25 10:56 1 STRIP Insulin Human Regular ACHS SC 03/04/25 07:00 03/05/25 22:37 2 UNITS Dextrose 50 ml UD PRN IV 03/04/25 04:45 Acetaminophen/ Hydrocodone Bitart 1 tab Q4HP PRN PO 03/04/25 04:45 03/05/25 09:06 1 TAB Ondansetron HCl 4 mg Q4HP PRN IV 03/04/25 04:45 Acetaminophen 650 mg Q6HP PRN PO 03/04/25 04:45 Nitroglycerin 0.4 mg Q5MINP PRN SL 03/04/25 04:45 Morphine Sulfate 2 mg Q30M PRN IV 03/04/25 04:45 Azithromycin 250 ml @ 125 mls/hr DAILY IV 03/05/25 10:00 03/06/25 09:37 125 MLS/HR Gabapentin 300 mg TID PO 03/06/25 02:00 03/06/25 02:36 300 MG Laboratory Results Laboratory Tests 03/06/25 08:23 Chemistry Test 03/06/25 08:23 Albumin 3.7 g/dL (3.2-4.8) Calcium Level 9.2 mg/dL (8.7-10.4) Magnesium Level 2.5 mg/dL (1.6-2.6) Total Protein 6.8 g/dL (5.7-8.2) LFT Test 03/06/25 08:23 Alanine Aminotransferase (ALT) < 9 U/L (7-40) Alkaline Phosphatase 112 U/L (46-116) Aspartate Amino Transferase (AST) 14 U/L (13-40) Total Bilirubin 0.6 mg/dL (0.2-1.0) Urinalysis Test 03/04/25 03:00 Urine Color Colorless (Yellow) Urine Clarity Turbid (Clear) H Urine pH 7.5 (5.0-9.0) Urine Specific [place] 1.014 (1.001-1.035) Urine Protein 2+ (Negative) H Urine Ketones Negative (Negative) Urine Blood 1+ /uL (Negative) H Urine Nitrite Negative (Negative) Urine Bilirubin Negative (Negative) Urine Urobilinogen Normal mg/dL (Negative) Urine Leukocyte Esterase 3+ /uL (Negative) Urine RBC 7 /hpf (0 - 4) Urine WBC Clumps Present /hpf (None Seen) Urine Microscopic WBC 87 /HPF (0-5) H Urine Squamous Epithelial Cells Few /hpf (<5) Urine Bacteria Mod /hpf (None Seen) H Urine Glucose Normal mg/dL (Normal) Blood Gas Results Test 03/06/25 09:15 Arterial Blood pH 7.427 (7.350-7.450) FiO2 % 28.0 Microbiology Microbiology Date/Time Source Procedure Growth Status 03/04/25 02:30 Blood Blood Culture - Preliminary NO GROWTH AFTER 48 HOURS OF INCUBATION. Resulted Labs and/or images reviewed: Labs reviewed by me, Image(s) reviewed by me Assessment/Plan Assessment/Plan Sepsis secondary to acute urinary tract infection: Blood cultures negative, urine cultures pending, continue Rocephin Acute hypercarbic respiratory failure: BiPAP, consult for Dr. Talbot appreciated. Patient currently on 2 L of oxygen by nasal cannula Acute community-acquired pneumonia Gram-positive versus Gram-negative: Rocephin azithromycin albuterol Atrovent Solu-Medrol Acute COPD exacerbation Acute metabolic encephalopathy Obesity hypoventilation syndrome Altered Mental status secondary to CO2 retention Acute systolic versus diastolic congestive heart failure CHF, consult by engine builder Dr. Negron appreciated Diabetes mellitus insulin sliding scale Diabetic nephropathy neuropathy vasculopathy Hypertension History of seizures Chronic anemia Chronic kidney disease Time spent 50 minutes Advanced care planning time 20 minutes Patient is full code Plan discussed with: Patient My Orders Orders - MISBAH ROWE MD Procedure Category Date Status Time Abg W/ Co-Ox RT 03/06/25 Logged 07:00 Transfer Orders XFER 03/06/25 Transmitted 09:56 Date of Service: Mar 06, 2025 Billing Provider: MISBAH ROWE MD Common Visit Codes: [id number] INP/OBS CARE(HIGH) MISBAH ROWE MD Mar 06, 2025 12:02
--- NOTE | 2025-03-06 15:31 | DVHPN2 ---
Progress Note - Dictate Date Seen: Mar 06, 2025 Medical Necessity Reason Pt with a Central, PICC or Fol: Yes The following are medically ne: Servin Catheter Subjective ENDSTAGE COPD CO2 RETAINER SLEEP APNEA RECURRENT RESP FAILURE AMS SECONDARY TO CO2 RETENTION HYPOVENTILATION SYNDROME 2 SEPSIS RECURRENT UTI AND PNEUMONIA 3. RECURRENT CELLULITES OF LE NOW AGAIN WITH RESP FAILURE AND UTI WITH SEPSIS LEUKOCYTOSIS ACUTE RENAL FAILURE CKD III 4.PAH PT WAS ON ADEMPAS AND OPSUMIT HOWEVER BOTH DRUGS NO AVAILABLE AT THE HOSPITAL 4. COVID PNEUMONIA HX 5. DIABETES NEPHROPATHY NEUROPATHY VASCULOPATHY 6. SEIZURE 7. ANEMIA 8. GERD 9. OBESITY 10. HYPERKALEMIA 11. HEMATURIA KIDNEY STONE OBSTRUCTIVE RENAL CYSTS vital signs Vital Sign Date Time Temp Pulse Resp B/P (MAP) Pulse Ox O2 Delivery O2 Flow Rate FiO2 03/06/25 12:41 98.2 80 20 107/36 (59) 92 98.2 03/06/25 12:15 Nasal Cannula* 2 28 Total Intake and Output 03/05/25 03/05/25 03/06/25 15:00 23:00 07:00 Intake Total 250 ml 500 ml Output Total 850 ml 450 ml Balance 250 ml -850 ml 50 ml medications Current Medications Medications Dose Ordered Sig/Zaida Route Start Time Stop Time Status Last Admin Dose Admin Furosemide 20 mg DAILY IV 03/04/25 10:00 03/06/25 09:36 20 MG Amiodarone HCl 200 mg Q12HR PO 03/04/25 10:00 03/06/25 09:37 200 MG Albuterol 2.5 mg Q6HPRN PRN NEB 03/04/25 04:45 03/06/25 03:34 2.5 MG Ipratropium [place] 0.5 mg Q6HPRN PRN NEB 03/04/25 04:45 03/06/25 03:34 0.5 MG Atorvastatin Calcium 10 mg HS PO 03/04/25 22:00 03/05/25 22:38 10 MG Apixaban 5 mg BID PO 03/04/25 10:00 03/06/25 09:38 5 MG Ceftriaxone Sodium 50 ml @ 100 mls/hr Q24H IV 03/05/25 03:00 03/06/25 02:53 100 MLS/HR Diagnostic Test (Pha) 1 strip ACHS 03/04/25 07:00 03/06/25 10:56 1 STRIP Insulin Human Regular ACHS SC 03/04/25 07:00 03/05/25 22:37 2 UNITS Dextrose 50 ml UD PRN IV 03/04/25 04:45 Acetaminophen/ Hydrocodone Bitart 1 tab Q4HP PRN PO 03/04/25 04:45 03/05/25 09:06 1 TAB Ondansetron HCl 4 mg Q4HP PRN IV 03/04/25 04:45 Acetaminophen 650 mg Q6HP PRN PO 03/04/25 04:45 Nitroglycerin 0.4 mg Q5MINP PRN SL 03/04/25 04:45 Morphine Sulfate 2 mg Q30M PRN IV 03/04/25 04:45 Azithromycin 250 ml @ 125 mls/hr DAILY IV 03/05/25 10:00 03/06/25 09:37 125 MLS/HR Gabapentin 300 mg TID PO 03/06/25 02:00 03/06/25 02:36 300 MG objective HEENT SCLERA ANICTERIC NO JVD CAROTIDS WNL MUCUS MEMB DRY PUL RALES CV RR ABD SUPRAPUBIC TENDERNESS NEURO CONFUSES SKIN DRY EXT 2+ EDEMA laboratory and microbiology Laboratory Tests 03/06/25 08:23 Test 03/06/25 08:23 Range/Units Serum Glucose 109 H 74-106 mg/dL Problem List ENDSTAGE COPD CO2 RETAINER SLEEP APNEA RECURRENT RESP FAILURE HYPOVENTILATION SYNDROME AMS SECONDARY TO CO2 RETENTION 2 SEPSIS RECURRENT UTI AND PNEUMONIA 3. RECURRENT CELLULITES OF LE NOW AGAIN WITH RESP FAILURE AND UTI WITH SEPSIS LEUKOCYTOSIS ACUTE RENAL FAILURE CKD III 4.PAH PT WAS ON ADEMPAS AND OPSUMIT HOWEVER BOTH DRUGS NO AVAILABLE AT THE HOSPITAL 4. COVID PNEUMONIA HX 5. DIABETES NEPHROPATHY NEUROPATHY VASCULOPATHY 6. SEIZURE 7. ANEMIA 8. GERD 9. OBESITY 10. HYPERKALEMIA 11. HEMATURIA KIDNEY STONE OBSTRUCTIVE RENAL CYSTS Assessment/Plan DECREASE O2 ABX INHALER THERAPY 23/10 BIPAP Dietary Evaluation Review Comments: Nutrition Recommendation: 1) [place] 1 pk BID, MVI w/ minerals 1 tab daily, VitC 500mg BID, Zinc sulfate 220mg BID x 10 days 2) CCHO 60gm + cardiac diet 3) Monitor PO intake, lab values, weight trend, and I/O Expected Outcomes/Goals: Wound to improve FU 3-5 days Plan discussed with: Patient AVTAR MCKNIGHT MD Mar 06, 2025 15:30
--- NOTE | 2025-03-06 21:18 | DVHPN2 ---
[facility] DOS: 03/06/2025 Patient seen and examined at bedside. Remains on supplemental oxygen Overnight events reviewed. Reviewed: Care Plan, H&P, Labs, Medications, Previous Orders, Radiology Changes from previous H/P or p: No Changes Objective Vitals Vital Signs Date Time Temp Pulse Resp B/P (MAP) Pulse Ox O2 Delivery O2 Flow Rate FiO2 03/06/25 17:00 98.3 81 18 114/62 (79) 94 98.3 03/06/25 12:15 Nasal Cannula* 2 28 Intake/Output Intake and Output 03/06/25 07:00 Intake Total 750 ml Output Total 1300 ml Balance -550 ml Intake Oral 400 ml IV Total 350 ml Output Urine Total 1300 ml Stool Total 0 ml Exam Gen.: Patient lying in bed in no apparent distress. On supplemental oxygen. Head: Normocephalic, atraumatic. Eyes: EOMI/PERRLA. Ears: Normal hearing. Normal anatomy. Neck/trachea: Trachea midline, supple. Nose: Normal external anatomy. Mouth: Moist mucous membranes. Chest: Decreased air entry bilaterally. No wheezing or rhonchi. Cardiovascular: Positive S1, positive S2. Regular rate and rhythm. Abdomen: Positive bowel sounds in all 4 quadrants. Soft, non-tender, non- distended. : Deferred. Rectal: Deferred. Skin: Warm, dry. Intact. Extremities: 2+ radial pulses bilaterally. No lower extremity edema. Neuro: Awake, alert, oriented x3. No gross motor or sensory deficits. Cranial nerves II through XII intact. Gait not assessed. Medications Current Medications Medications Dose Ordered Sig/Zaida Route Start Time Stop Time Status Last Admin Dose Admin Furosemide 20 mg DAILY IV 03/04/25 10:00 03/06/25 09:36 20 MG Amiodarone HCl 200 mg Q12HR PO 03/04/25 10:00 03/06/25 09:37 200 MG Albuterol 2.5 mg Q6HPRN PRN NEB 03/04/25 04:45 03/06/25 03:34 2.5 MG Ipratropium [place] 0.5 mg Q6HPRN PRN NEB 03/04/25 04:45 03/06/25 03:34 0.5 MG Atorvastatin Calcium 10 mg HS PO 03/04/25 22:00 03/05/25 22:38 10 MG Apixaban 5 mg BID PO 03/04/25 10:00 03/06/25 09:38 5 MG Ceftriaxone Sodium 50 ml @ 100 mls/hr Q24H IV 03/05/25 03:00 03/06/25 02:53 100 MLS/HR Diagnostic Test (Pha) 1 strip ACHS 03/04/25 07:00 03/06/25 16:50 1 STRIP Insulin Human Regular ACHS SC 03/04/25 07:00 03/05/25 22:37 2 UNITS Dextrose 50 ml UD PRN IV 03/04/25 04:45 Acetaminophen/ Hydrocodone Bitart 1 tab Q4HP PRN PO 03/04/25 04:45 03/05/25 09:06 1 TAB Ondansetron HCl 4 mg Q4HP PRN IV 03/04/25 04:45 Acetaminophen 650 mg Q6HP PRN PO 03/04/25 04:45 Nitroglycerin 0.4 mg Q5MINP PRN SL 03/04/25 04:45 Morphine Sulfate 2 mg Q30M PRN IV 03/04/25 04:45 Azithromycin 250 ml @ 125 mls/hr DAILY IV 03/05/25 10:00 03/06/25 09:37 125 MLS/HR Gabapentin 300 mg TID PO 03/06/25 02:00 03/06/25 16:43 300 MG Laboratory Results Laboratory Tests 03/06/25 08:23 Chemistry Test 03/06/25 08:23 Albumin 3.7 g/dL (3.2-4.8) Calcium Level 9.2 mg/dL (8.7-10.4) Magnesium Level 2.5 mg/dL (1.6-2.6) Total Protein 6.8 g/dL (5.7-8.2) LFT Test 03/06/25 08:23 Alanine Aminotransferase (ALT) < 9 U/L (7-40) Alkaline Phosphatase 112 U/L (46-116) Aspartate Amino Transferase (AST) 14 U/L (13-40) Total Bilirubin 0.6 mg/dL (0.2-1.0) Urinalysis Test 03/04/25 03:00 Urine Color Colorless (Yellow) Urine Clarity Turbid (Clear) H Urine pH 7.5 (5.0-9.0) Urine Specific [place] 1.014 (1.001-1.035) Urine Protein 2+ (Negative) H Urine Ketones Negative (Negative) Urine Blood 1+ /uL (Negative) H Urine Nitrite Negative (Negative) Urine Bilirubin Negative (Negative) Urine Urobilinogen Normal mg/dL (Negative) Urine Leukocyte Esterase 3+ /uL (Negative) Urine RBC 7 /hpf (0 - 4) Urine WBC Clumps Present /hpf (None Seen) Urine Microscopic WBC 87 /HPF (0-5) H Urine Squamous Epithelial Cells Few /hpf (<5) Urine Bacteria Mod /hpf (None Seen) H Urine Glucose Normal mg/dL (Normal) Blood Gas Results Test 03/06/25 09:15 Arterial Blood pH 7.427 (7.350-7.450) FiO2 % 28.0 Microbiology Microbiology Date/Time Source Procedure Growth Status 03/05/25 07:25 Urine - Servin [place] Urine Culture - Preliminary Pseudomonas aeruginosa Klebsiella pneumoniae Resulted 03/04/25 02:30 Blood Blood Culture - Preliminary NO GROWTH AFTER 48 HOURS OF INCUBATION. Resulted Assessment/Plan Assessment/Plan Impression: Acute hypoxic respiratory failure Acute on chronic hypercarbic respiratory failure Dependence on supplemental oxygen Acute COPD exacerbation Metabolic encephalopathy Urinary tract infection Congestive heart failure Chronic kidney disease Anemia Pulmonary hypertension, mild; RVSP of 38 mmHg Obesity Events: Remains on supplemental oxygen, 2 LPM NC Taper O2 as tolerated BiPAP at nighttime 10 PM - 6 AM. Continue bronchodilators. Continue steroids Continue antibiotics Incentive spirometry Continue Eliquis, Amiodarone PO. Tolerating diet. Continue Lasix to maintain euvolemia Monitor renal function. Monitor electrolytes. Supplement as necessary. Monitor ins and outs Labs and imaging reviewed. Rest of plan as noted below. Plan: Supplemental oxygen Titrate to keep O2 sats between 88-94%. BiPAP PRN, uses at nighttime for likely VILMA Chest x-ray shows mild pulmonary vascular congestion. Echo done 12/2024 reviewed, notable for RVSP of 38 mmHg, LVEF >55%. On Eliquis BID. Continue bronchodilators. Continue steroids Continue antibiotics Follow up cultures Follow up Cardiology recommendations Follow up Nephrology recommendations Diurese with Lasix to maintain euvolemia Monitor renal function. Monitor electrolytes. Supplement as necessary. Monitor ins and outs. Monitor hemoglobin Transfuse if less than 7.0 g/dL. Recommend diet and lifestyle modifications for weight reduction Obesity complicates all care DVT prophylaxis. Prognosis: Poor given patient's multiple co-morbidities. Rest of plan per hospitalist and other consultants. Thank you, Dr. Harman, for allowing me to participate in this patient's care. Further recommendations will depend on the patient's clinical course. Please do not hesitate to contact me if you have any questions or concerns. This medical document was created using an electronic medical record system with [employer] dictation system. Although these documentations are being carefully reviewed, there may still be some phonetic and typographical changes. The errors are purely typographical, due to imperfection on the software program, and do not reflect any compromise in the patient's medical care. Plan discussed with: Patient, Other (RN Thomas) Visit Coding Pulmonary Billing Provider: MOR CHERRY MD Date of Service if different f: Mar 06, 2025 Common Visit Codes: [id number] INP/OBS CARE(HIGH) MOR CHERRY MD Mar 06, 2025 21:18
[2025-03-07] VITALS (13 sets, daily range): BP systolic 103–132; BP diastolic 55–63; PULSE 68–79; RESP 17–19; TEMP 97.8–98.9; O2SAT 92–99
--- NOTE | 2025-03-07 12:19 | DVHPN2 ---
Reviewed: Care Plan, H&P, Labs, Medications, Previous Orders, Radiology Changes from previous H/P or p: No Changes Objective Vitals Vital Signs Date Time Temp Pulse Resp B/P (MAP) Pulse Ox O2 Delivery O2 Flow Rate FiO2 03/07/25 10:32 103/55 03/07/25 10:00 97 Nasal Cannula* 2 28 03/07/25 08:32 98.9 74 17 98.9 Intake/Output Intake and Output 03/07/25 07:00 Intake Total 965 ml Output Total 1450 ml Balance -485 ml Intake Oral 840 ml IV Total 125 ml Output Urine Total 1450 ml # Bowel Movements 1 Medications Current Medications Medications Dose Ordered Sig/Zaida Route Start Time Stop Time Status Last Admin Dose Admin Furosemide 20 mg DAILY IV 03/04/25 10:00 03/07/25 10:32 20 MG Amiodarone HCl 200 mg Q12HR PO 03/04/25 10:00 03/07/25 10:26 200 MG Albuterol 2.5 mg Q6HPRN PRN NEB 03/04/25 04:45 03/06/25 03:34 2.5 MG Ipratropium [place] 0.5 mg Q6HPRN PRN NEB 03/04/25 04:45 03/06/25 03:34 0.5 MG Atorvastatin Calcium 10 mg HS PO 03/04/25 22:00 03/06/25 22:40 10 MG Apixaban 5 mg BID PO 03/04/25 10:00 03/07/25 10:25 5 MG Diagnostic Test (Pha) 1 strip ACHS 03/04/25 07:00 03/07/25 10:40 1 STRIP Insulin Human Regular ACHS SC 03/04/25 07:00 03/07/25 11:33 2 UNITS Dextrose 50 ml UD PRN IV 03/04/25 04:45 Acetaminophen/ Hydrocodone Bitart 1 tab Q4HP PRN PO 03/04/25 04:45 03/07/25 11:41 1 TAB Ondansetron HCl 4 mg Q4HP PRN IV 03/04/25 04:45 Acetaminophen 650 mg Q6HP PRN PO 03/04/25 04:45 Nitroglycerin 0.4 mg Q5MINP PRN SL 03/04/25 04:45 Morphine Sulfate 2 mg Q30M PRN IV 03/04/25 04:45 Azithromycin 250 ml @ 125 mls/hr DAILY IV 03/05/25 10:00 03/07/25 10:26 125 MLS/HR Gabapentin 300 mg TID PO 03/06/25 02:00 03/07/25 06:29 300 MG Ceftriaxone Sodium 50 ml @ 100 mls/hr Q24H IV 03/07/25 06:00 03/07/25 06:34 100 MLS/HR Laboratory Results Laboratory Tests 03/06/25 08:23 Urinalysis Test 03/04/25 03:00 Urine Color Colorless (Yellow) Urine Clarity Turbid (Clear) H Urine pH 7.5 (5.0-9.0) Urine Specific [place] 1.014 (1.001-1.035) Urine Protein 2+ (Negative) H Urine Ketones Negative (Negative) Urine Blood 1+ /uL (Negative) H Urine Nitrite Negative (Negative) Urine Bilirubin Negative (Negative) Urine Urobilinogen Normal mg/dL (Negative) Urine Leukocyte Esterase 3+ /uL (Negative) Urine RBC 7 /hpf (0 - 4) Urine WBC Clumps Present /hpf (None Seen) Urine Microscopic WBC 87 /HPF (0-5) H Urine Squamous Epithelial Cells Few /hpf (<5) Urine Bacteria Mod /hpf (None Seen) H Urine Glucose Normal mg/dL (Normal) Microbiology Microbiology Date/Time Source Procedure Growth Status 03/05/25 07:25 Urine - Servin [place] Urine Culture - Preliminary Pseudomonas aeruginosa Klebsiella pneumoniae Resulted 03/04/25 02:30 Blood Blood Culture - Preliminary NO GROWTH AFTER 72 HOURS OF INCUBATION. Resulted Labs and/or images reviewed: Labs reviewed by me, Image(s) reviewed by me Assessment/Plan Assessment/Plan Sepsis secondary to acute urinary tract infection: Blood cultures negative, urine cultures growing Pseudomonas and Klebsiella DC Rocephin, start Levaquin 500 mg IV daily Acute hypercarbic respiratory failure: BiPAP, consult for Dr. Talbot appreciated. Patient currently on 2 L of oxygen by nasal cannula Acute community-acquired pneumonia Gram-positive versus Gram-negative: Rocephin azithromycin albuterol Atrovent Solu-Medrol Acute COPD exacerbation Acute metabolic encephalopathy Obesity hypoventilation syndrome Altered Mental status secondary to CO2 retention Acute systolic versus diastolic congestive heart failure CHF, consult by dietary internship Dr. Negron appreciated Diabetes mellitus insulin sliding scale Diabetic nephropathy neuropathy vasculopathy Hypertension History of seizures Chronic anemia Chronic kidney disease Time spent 50 minutes Advanced care planning time 20 minutes Patient is full code Plan discussed with: Patient Date of Service: Mar 07, 2025 Billing Provider: MISBAH ROWE MD Common Visit Codes: [id number] INP/OBS CARE(HIGH) MISBAH ROWE MD Mar 07, 2025 12:19
--- NOTE | 2025-03-07 22:24 | DVHPN2 ---
[facility] DOS: 03/07/2025 Patient seen and examined at bedside. Remains on supplemental oxygen Overnight events reviewed. Reviewed: Care Plan, H&P, Labs, Medications, Previous Orders, Radiology Changes from previous H/P or p: No Changes Objective Vitals Vital Signs Date Time Temp Pulse Resp B/P (MAP) Pulse Ox O2 Delivery O2 Flow Rate FiO2 03/07/25 20:28 70 18 105/59 98 3.0 03/07/25 16:45 98.1 98.1 03/07/25 10:00 Nasal Cannula* 28 Intake/Output Intake and Output 03/07/25 07:00 Intake Total 965 ml Output Total 1450 ml Balance -485 ml Intake Oral 840 ml IV Total 125 ml Output Urine Total 1450 ml # Bowel Movements 1 Exam Gen.: Patient lying in bed in no apparent distress. On supplemental oxygen. Head: Normocephalic, atraumatic. Eyes: EOMI/PERRLA. Ears: Normal hearing. Normal anatomy. Neck/trachea: Trachea midline, supple. Nose: Normal external anatomy. Mouth: Moist mucous membranes. Chest: Decreased air entry bilaterally. No wheezing or rhonchi. Cardiovascular: Positive S1, positive S2. Regular rate and rhythm. Abdomen: Positive bowel sounds in all 4 quadrants. Soft, non-tender, non- distended. : Deferred. Rectal: Deferred. Skin: Warm, dry. Intact. Extremities: 2+ radial pulses bilaterally. No lower extremity edema. Neuro: Awake, alert, oriented x3. No gross motor or sensory deficits. Cranial nerves II through XII intact. Gait not assessed. Medications Current Medications Medications Dose Ordered Sig/Zaida Route Start Time Stop Time Status Last Admin Dose Admin Furosemide 20 mg DAILY IV 03/04/25 10:00 03/07/25 10:32 20 MG Amiodarone HCl 200 mg Q12HR PO 03/04/25 10:00 03/07/25 20:32 200 MG Albuterol 2.5 mg Q6HPRN PRN NEB 03/04/25 04:45 03/06/25 03:34 2.5 MG Ipratropium [place] 0.5 mg Q6HPRN PRN NEB 03/04/25 04:45 03/06/25 03:34 0.5 MG Atorvastatin Calcium 10 mg HS PO 03/04/25 22:00 03/07/25 20:34 10 MG Apixaban 5 mg BID PO 03/04/25 10:00 03/07/25 20:31 5 MG Diagnostic Test (Pha) 1 strip ACHS 03/04/25 07:00 03/07/25 20:35 1 STRIP Insulin Human Regular ACHS SC 03/04/25 07:00 03/07/25 11:33 2 UNITS Dextrose 50 ml UD PRN IV 03/04/25 04:45 Acetaminophen/ Hydrocodone Bitart 1 tab Q4HP PRN PO 03/04/25 04:45 03/07/25 11:41 1 TAB Ondansetron HCl 4 mg Q4HP PRN IV 03/04/25 04:45 Acetaminophen 650 mg Q6HP PRN PO 03/04/25 04:45 Nitroglycerin 0.4 mg Q5MINP PRN SL 03/04/25 04:45 Morphine Sulfate 2 mg Q30M PRN IV 03/04/25 04:45 Azithromycin 250 ml @ 125 mls/hr DAILY IV 03/05/25 10:00 03/07/25 10:26 125 MLS/HR Gabapentin 300 mg TID PO 03/06/25 02:00 03/07/25 20:28 300 MG Levofloxacin 50 ml @ 50 mls/hr DAILY IV 03/08/25 10:00 Laboratory Results Laboratory Tests 03/06/25 08:23 Urinalysis Test 03/04/25 03:00 Urine Color Colorless (Yellow) Urine Clarity Turbid (Clear) H Urine pH 7.5 (5.0-9.0) Urine Specific [place] 1.014 (1.001-1.035) Urine Protein 2+ (Negative) H Urine Ketones Negative (Negative) Urine Blood 1+ /uL (Negative) H Urine Nitrite Negative (Negative) Urine Bilirubin Negative (Negative) Urine Urobilinogen Normal mg/dL (Negative) Urine Leukocyte Esterase 3+ /uL (Negative) Urine RBC 7 /hpf (0 - 4) Urine WBC Clumps Present /hpf (None Seen) Urine Microscopic WBC 87 /HPF (0-5) H Urine Squamous Epithelial Cells Few /hpf (<5) Urine Bacteria Mod /hpf (None Seen) H Urine Glucose Normal mg/dL (Normal) Microbiology Microbiology Date/Time Source Procedure Growth Status 03/05/25 07:25 Urine - Servin [place] Urine Culture - Final Enterococcus faecalis - VRE Pseudomonas aeruginosa Klebsiella pneumoniae Complete 03/04/25 02:30 Blood Blood Culture - Preliminary NO GROWTH AFTER 72 HOURS OF INCUBATION. Resulted Assessment/Plan Assessment/Plan Impression: Acute hypoxic respiratory failure Acute on chronic hypercarbic respiratory failure Dependence on supplemental oxygen Acute COPD exacerbation Metabolic encephalopathy Urinary tract infection Congestive heart failure Chronic kidney disease Anemia Pulmonary hypertension, mild; RVSP of 38 mmHg Obesity Events: Remains on supplemental oxygen, 2 LPM NC Taper O2 as tolerated BiPAP at nighttime 10 PM - 6 AM. Patient has CPAP at home. Adherence recommended. Continue bronchodilators. Continue steroids Continue antibiotics Incentive spirometry Continue Eliquis, Amiodarone PO. Tolerating diet. Continue Lasix to maintain euvolemia Monitor renal function. Monitor electrolytes. Supplement as necessary. Monitor ins and outs Patient is stable for discharge from the pulmonary standpoint. Disposition per hospitalist. Follow up in 2-3 weeks in Pulmonary Clinic. Labs and imaging reviewed. Rest of plan as noted below. Plan: Supplemental oxygen Titrate to keep O2 sats between 88-94%. BiPAP PRN, uses at nighttime for likely VILMA Chest x-ray shows mild pulmonary vascular congestion. Echo done 12/2024 reviewed, notable for RVSP of 38 mmHg, LVEF >55%. On Eliquis BID. Continue bronchodilators. Continue steroids Continue antibiotics Follow up cultures Follow up Cardiology recommendations Follow up Nephrology recommendations Diurese with Lasix to maintain euvolemia Monitor renal function. Monitor electrolytes. Supplement as necessary. Monitor ins and outs. Monitor hemoglobin Transfuse if less than 7.0 g/dL. Recommend diet and lifestyle modifications for weight reduction Obesity complicates all care DVT prophylaxis. Prognosis: Poor given patient's multiple co-morbidities. Rest of plan per hospitalist and other consultants. Thank you, Dr. Harman, for allowing me to participate in this patient's care. Further recommendations will depend on the patient's clinical course. Please do not hesitate to contact me if you have any questions or concerns. This medical document was created using an electronic medical record system with [employer] system. Although these documentations are being carefully reviewed, there may still be some phonetic and typographical changes. The errors are purely typographical, due to imperfection on the software program, and do not reflect any compromise in the patient's medical care. Plan discussed with: Patient, Other (RN Thomas) Visit Coding Pulmonary Billing Provider: MOR CHERRY MD Date of Service if different f: Mar 07, 2025 Common Visit Codes: [id number] INP/OBS CARE(HIGH) MOR CHERRY MD Mar 07, 2025 22:24
[2025-03-08] VITALS (10 sets, daily range): BP systolic 97–126; BP diastolic 49–67; PULSE 68–99; RESP 17–20; TEMP 97.4–98; O2SAT 96–100
--- NOTE | 2025-03-08 08:16 | DVHPN2 ---
Reviewed: Care Plan, H&P, Labs, Medications, Previous Orders, Radiology Changes from previous H/P or p: No Changes Objective Vitals Vital Signs Date Time Temp Pulse Resp B/P (MAP) Pulse Ox O2 Delivery O2 Flow Rate FiO2 03/08/25 05:00 97.5 68 17 102/66 (78) 96 97.5 03/08/25 02:46 Facial BiPAP Mask 35 03/07/25 20:28 3.0 Intake/Output Intake and Output 03/08/25 07:00 Intake Total 1280 ml Output Total 1400 ml Balance -120 ml Intake Oral 930 ml IV Total 350 ml Output Urine Total 1400 ml Medications Current Medications Medications Dose Ordered Sig/Zaida Route Start Time Stop Time Status Last Admin Dose Admin Furosemide 20 mg DAILY IV 03/04/25 10:00 03/07/25 10:32 20 MG Amiodarone HCl 200 mg Q12HR PO 03/04/25 10:00 03/07/25 20:32 200 MG Albuterol 2.5 mg Q6HPRN PRN NEB 03/04/25 04:45 03/06/25 03:34 2.5 MG Ipratropium [place] 0.5 mg Q6HPRN PRN NEB 03/04/25 04:45 03/06/25 03:34 0.5 MG Atorvastatin Calcium 10 mg HS PO 03/04/25 22:00 03/07/25 20:34 10 MG Apixaban 5 mg BID PO 03/04/25 10:00 03/07/25 20:31 5 MG Diagnostic Test (Pha) 1 strip ACHS 03/04/25 07:00 03/08/25 06:50 1 STRIP Insulin Human Regular ACHS SC 03/04/25 07:00 03/07/25 11:33 2 UNITS Dextrose 50 ml UD PRN IV 03/04/25 04:45 Acetaminophen/ Hydrocodone Bitart 1 tab Q4HP PRN PO 03/04/25 04:45 03/07/25 11:41 1 TAB Ondansetron HCl 4 mg Q4HP PRN IV 03/04/25 04:45 Acetaminophen 650 mg Q6HP PRN PO 03/04/25 04:45 Nitroglycerin 0.4 mg Q5MINP PRN SL 03/04/25 04:45 Morphine Sulfate 2 mg Q30M PRN IV 03/04/25 04:45 Azithromycin 250 ml @ 125 mls/hr DAILY IV 03/05/25 10:00 03/07/25 10:26 125 MLS/HR Gabapentin 300 mg TID PO 03/06/25 02:00 03/08/25 06:47 300 MG Levofloxacin 50 ml @ 50 mls/hr DAILY IV 03/08/25 10:00 Laboratory Results Laboratory Tests 03/06/25 08:23 Urinalysis Test 03/04/25 03:00 Urine Color Colorless (Yellow) Urine Clarity Turbid (Clear) H Urine pH 7.5 (5.0-9.0) Urine Specific [place] 1.014 (1.001-1.035) Urine Protein 2+ (Negative) H Urine Ketones Negative (Negative) Urine Blood 1+ /uL (Negative) H Urine Nitrite Negative (Negative) Urine Bilirubin Negative (Negative) Urine Urobilinogen Normal mg/dL (Negative) Urine Leukocyte Esterase 3+ /uL (Negative) Urine RBC 7 /hpf (0 - 4) Urine WBC Clumps Present /hpf (None Seen) Urine Microscopic WBC 87 /HPF (0-5) H Urine Squamous Epithelial Cells Few /hpf (<5) Urine Bacteria Mod /hpf (None Seen) H Urine Glucose Normal mg/dL (Normal) Microbiology Microbiology Date/Time Source Procedure Growth Status 03/05/25 07:25 Urine - Servin [place] Urine Culture - Final Enterococcus faecalis - VRE Pseudomonas aeruginosa Klebsiella pneumoniae Complete 03/04/25 02:30 Blood Blood Culture - Preliminary NO GROWTH AFTER 72 HOURS OF INCUBATION. Resulted Labs and/or images reviewed: Labs reviewed by me, Image(s) reviewed by me Assessment/Plan Assessment/Plan Sepsis secondary to acute urinary tract infection: Blood cultures negative, urine cultures growing Pseudomonas and Klebsiella DC Rocephin, start Levaquin 500 mg IV daily; also growing VRE Enterococcus faecalis, start Zyvox 600 mg IV q.12h Acute hypercarbic respiratory failure: BiPAP, consult for Dr. Talbot appreciated. Patient currently on 2 L of oxygen by nasal cannula Acute community-acquired pneumonia Gram-positive versus Gram-negative: Rocephin azithromycin albuterol Atrovent Solu-Medrol Acute COPD exacerbation Acute metabolic encephalopathy Obesity hypoventilation syndrome Altered Mental status secondary to CO2 retention Acute systolic versus diastolic congestive heart failure CHF, consult by billing coordinator Dr. Jamil appreciated Diabetes mellitus insulin sliding scale Diabetic nephropathy neuropathy vasculopathy Hypertension History of seizures Chronic anemia Chronic kidney disease Acute left conjunctivitis: Gentamicin eyedrops Time spent 50 minutes Advanced care planning time 20 minutes Patient is full code Patient requesting to be discharged home today on home health; to resume [facility] Prescription for Levaquin Zyvox sent to the pharmacy Plan discussed with: Patient My Orders Orders - MISBAH ROWE MD Procedure Category Date Status Time Insert Midline ORDERS 03/07/25 Transmitted 12:20 Communication Order ORDERS 03/07/25 Transmitted 12:20 Levofloxacin 250mg PHA 03/08/25 In Process (Levaquin 250mg) 10:00 * Direct Marketing Executive CONS 03/08/25 Transmitted Consult Refer To Home Health [place] 03/08/25 In Process 08:10 Date of Service: Mar 08, 2025 Billing Provider: MISBAH ROWE MD Common Visit Codes: [id number] INP/OBS CARE(HIGH) MISBAH ROWE MD Mar 08, 2025 08:16
[2025-03-08] MEDS ORDERED: LINE1TAB6 PO (08:18)
[2025-03-08] MEDS ORDERED: GENT0.3S10 EACHEYE (08:18)
[2025-03-08] MEDS ORDERED: LEVO750T40 PO (08:18)
--- NOTE | 2025-03-08 08:24 | DVHDS2 ---
Discharge Summary Date of Admission Mar 04, 2025 at 04:38 Date of Discharge: Mar 08, 2025 Admitting Diagnosis Shortness of breath Wounds: None Labs/Diagnostic Data: Laboratory Results Test 03/08/25 06:49 03/06/25 09:15 03/06/25 08:23 03/04/25 07:23 POC Glucose 129 mg/dl (70-106) Blood Gas Specimen Type Arterial Blood Gas Sample Site Right radial Blood Gas Patient Temperature 37.0 Arterial Blood Date Drawn [id number] Arterial Blood pH 7.427 (7.350-7.450) Arterial Blood Partial Pressure CO2 67.6 mmHg (32.0-45.0) Arterial Blood Partial Pressure O2 65.4 mmHg (83.0-108.0) Arterial Blood HCO3 43.6 mmol/L (21.0-28.0) Arterial Blood Oxygen Saturation 93.3 % (94.0-98.0) Arterial Blood Base Excess 16.6 mmol/L (-2.0-3.0) Arterial Blood Oxyhemoglobin 91.5 % (94.0-98.0) Arterial Blood Carboxyhemoglobin 1.5 % (0.5-1.5) Arterial Blood Methemoglobin 0.4 % (0.0-1.5) Arterial Blood Deoxyhemoglobin 6.6 % (0.0-5.0) Kaleb Test Modified Blood Gas Total Hemoglobin 10.30 g/dL (12.0-16.0) Blood Gas Liter Flow 2.00 Blood Gas Modality Nasal cannula Blood Gas Spontaneous Rate 20 FiO2 % 28.0 Blood Gas Critical Value Read Back Yes Blood Gas Notified Whom Dr. kiana lin Blood Gas Notified Time [id number] Blood Gas Notified By Rt jone pagan White Blood Count 13.2 10^3/uL (4.4-10.8) Red Blood Count 3.61 10^6/uL (4.0-5.20) Hemoglobin 9.1 g/dL (12.2-16.2) Hematocrit 29.3 % (36.0-46.0) Mean Corpuscular Volume 81.0 fL (80.0-100.0) Mean Corpuscular Hemoglobin 25.2 pg (28.0-32.0) Mean Corpuscular Hemoglobin Concent 31.1 g/dL (32.0-36.0) Red Cell Distribution Width 16.6 % (11.8-14.3) Platelet Count 274 10^3/uL (140-450) Mean Platelet Volume 7.1 fL (6.9-10.8) Neutrophils (%) (Auto) 80.6 % (37.0-80.0) Lymphocytes (%) (Auto) 11.4 % (10.0-50.0) Monocytes (%) (Auto) 3.7 % (0.0-12.0) Eosinophils (%) (Auto) 3.7 % (0.0-7.0) Basophils (%) (Auto) 0.6 % (0.0-2.0) Neutrophils # (Auto) 10.7 10 ^3/uL (1.6-8.6) Lymphocytes # (Auto) 1.5 10 ^3/uL (0.4-5.4) Monocytes # (Auto) 0.5 10 ^3/uL (0-1.3) Eosinophils # (Auto) 0.5 10 ^3/uL (0-0.8) Basophils # (Auto) 0.1 10 ^3/uL (0-0.2) Nucleated Red Blood Cells 0.0 % Sodium Level 141 mmol/L (136-145) Potassium Level 3.9 mmol/L (3.5-5.1) Chloride Level 90 mmol/L (98-107) Carbon Dioxide Level > 40 mmol/L (20-31) Anion Gap 10.05130 (5-15) Blood Urea Nitrogen 20 mg/dL (9-23) Creatinine 1.26 mg/dL (0.550-1.02) Glomerular Filtration Rate Calc 45 mL/min (>90) BUN/Creatinine Ratio 15.9 (10.0-20.0) Serum Glucose 109 mg/dL (74-106) Calcium Level 9.2 mg/dL (8.7-10.4) Magnesium Level 2.5 mg/dL (1.6-2.6) Total Bilirubin 0.6 mg/dL (0.2-1.0) Aspartate Amino Transferase (AST) 14 U/L (13-40) Alanine Aminotransferase (ALT) < 9 U/L (7-40) Alkaline Phosphatase 112 U/L (46-116) Total Protein 6.8 g/dL (5.7-8.2) Albumin 3.7 g/dL (3.2-4.8) Blood Gas Set Respiration Rate 16.0 Blood Gas EPAP 6 Blood Gas IPAP 16 Test 03/04/25 05:13 03/04/25 03:17 03/04/25 03:00 03/04/25 02:20 Lactic Acid Level 1.4 mmol/L (0.4-2.0) Troponin I High Sensitivity 3 ng/L (</=34) Ammonia 16 umol/L (11-32) Urine Color Colorless (Yellow) Urine Clarity Turbid (Clear) Urine pH 7.5 (5.0-9.0) Urine Specific [place] 1.014 (1.001-1.035) Urine Protein 2+ (Negative) Urine Ketones Negative (Negative) Urine Blood 1+ /uL (Negative) Urine Nitrite Negative (Negative) Urine Bilirubin Negative (Negative) Urine Urobilinogen Normal mg/dL (Negative) Urine Leukocyte Esterase 3+ /uL (Negative) Urine RBC 7 /hpf (0 - 4) Urine WBC Clumps Present /hpf (None Seen) Urine Microscopic WBC 87 /HPF (0-5) Urine Squamous Epithelial Cells Few /hpf (<5) Urine Bacteria Mod /hpf (None Seen) Urine Glucose Normal mg/dL (Normal) Prothrombin Time 11.0 sec (9.3-11.8) Prothrombin Time INR 1.04 (0.9-1.15) Activated Partial Thromboplast Time 29.5 SEC (24.5-34.5) B-Type Natriuretic Peptide 19.30 pg/mL (0-100) Other Laboratory Tests 03/06/25 08:23 Brief Hx & Hospital Course: 74-year-old female with multiple medical problems including hypertension chronic anemia chronic kidney disease history of seizures diabetes congestive heart failure obstructive sleep apnea on CPAP at home COPD came in for altered mental status confusion generalized weakness and shortness of breaths found to have community-acquired pneumonia treated with Rocephin azithromycin albuterol Atrovent and Solu-Medrol seen by pulmonology Dr. Talbot seen by Cardiology Dr. Negron for CHF. Patient had sepsis secondary to urinary tract infection blood cultures negative urine cultures growing three different organism Pseudomonas Klebsiella and VRE Enterococcus started on Levaquin IV and Zyvox IV. The patient feels better on 3 L of oxygen which is her usual requirement Patient is requesting to be discharged home today JOHNNY Cruz at bedside Discharged on home health to resume previous home health [facility] Prescription transmitted to the pharmacy Consults/Reason for consult Cardiology Dr. Negron Pulmonology Dr. Talbot Operations or Procedures None Condition at Discharge: Fair Final Diagnosis/Problems List Sepsis secondary to acute urinary tract infection: Blood cultures negative, urine cultures growing Pseudomonas and Klebsiella DC Rocephin, start Levaquin 500 mg IV daily; also growing VRE Enterococcus faecalis, start Zyvox 600 mg IV q.12h Acute hypercarbic respiratory failure: BiPAP, consult for Dr. Talbot appreciated. Patient currently on 2 L of oxygen by nasal cannula Acute community-acquired pneumonia Gram-positive versus Gram-negative: Rocephin azithromycin albuterol Atrovent Solu-Medrol Acute COPD exacerbation Acute metabolic encephalopathy Obesity hypoventilation syndrome Altered Mental status secondary to CO2 retention Acute systolic versus diastolic congestive heart failure CHF, consult by semiautomatic taper operator Dr. Negron appreciated Diabetes mellitus insulin sliding scale Diabetic nephropathy neuropathy vasculopathy Hypertension History of seizures Chronic anemia Chronic kidney disease Acute left conjunctivitis: Gentamicin eyedrops Discharge Disposition: Home with Health Services Discharge Instruct/Medications Diet: Cardiac 2g Na,low cholest Activity: Light activity Follow Up/Referral: Follow up with your primary Dr in one week Follow up with the pulmonology Dr. Talbot in one week Follow up with the Cardiology Dr. Hendricks in one week Resume all previous home medications Resume CPAP at night Medications: Levaquin Zyvox Gentamicin eyedrops Transmitted to pharmacy Scheduled Amiodarone HCl (Amiodarone HCl), 200 MG PO BID Amoxicillin & Pot Clavulanate (Augmentin Tablet), 875 MG PO BID Apixaban Base (Eliquis), 5 MG PO BID Cefuroxime Axetil (Cefuroxime Axetil), 500 MG PO BID Cephalexin (Keflex 500), 1 CAP PO TID Doxycycline (Monohydrate) (Doxycycline), 100 MG PO BID Empagliflozin (Jardiance), 25 MG PO DAILY@BREAKFAST Ergocalciferol (Vitamin D 93271 Unit), 50,000 UNIT PO Q7D Ezetimibe (Zetia), 40 MG PO DAILY, (Reported) Fluconazole (Fluconazole), 200 MG PO DAILY Gabapentin (Gabapentin), 300 MG PO TID, (Reported) Gentamicin Sulfate (Gentamicin Sulfate), 2 DROP EACHEYE QID Insulin Glargine (Lantus), 30 UNIT SC BID, (Reported) Levofloxacin Hemihydrate (Levofloxacin), 1 TAB PO DAILY Linezolid (Zyvox), 600 MG PO BID Metformin Hydrochloride (Metformin Hcl), 1 TAB PO BID, (Reported) Metoprolol Tartrate (Lopressor), 1 TAB PO BID, (Reported) Mupirocin Calcium (Topical) (Mupirocin), 2 % EX BID Pantoprazole Sodium Sesquihydr (Protonix), 40 MG PO DAILY Riociguat Base (Adempas), 1 MG PO TID, (Reported) Rosuvastatin Calcium (Rosuvastatin Calcium), 10 MG PO HS, (Reported) Sevelamer Hydrochloride (Renagel), 800 MG PO TIDWM Torsemide (Torsemide), 20 MG PO DAILY, (Reported) 39 (Time taken for discharge summary 39 minutes) Discharge Statement: "Patient was advised to return to the ER or call 911 if any headaches, dizziness, shortness of breath, chest pain, abdominal pain, bleeding, fevers, or worsening of medical condition. Patient was counseled about treatment plan, medications, possible side effects, patientverbalized understanding. All questions were answered to the best of my ability. This discharge took greater then 30 minutes in planning, reviewing documentation, counseling the patient, and discussing with other team members." ASSESSMENT ASSESSMENT Hospital Course Improved Assessment Sepsis secondary to acute urinary tract infection: Blood cultures negative, urine cultures growing Pseudomonas and Klebsiella DC Rocephin, start Levaquin 500 mg IV daily; also growing VRE Enterococcus faecalis, start Zyvox 600 mg IV q.12h Acute hypercarbic respiratory failure: BiPAP, consult for Dr. Talbot appreciated. Patient currently on 2 L of oxygen by nasal cannula Acute community-acquired pneumonia Gram-positive versus Gram-negative: Rocephin azithromycin albuterol Atrovent Solu-Medrol Acute COPD exacerbation Acute metabolic encephalopathy Obesity hypoventilation syndrome Altered Mental status secondary to CO2 retention Acute systolic versus diastolic congestive heart failure CHF, consult by semiautomatic taper operator Dr. Negron appreciated Diabetes mellitus insulin sliding scale Diabetic nephropathy neuropathy vasculopathy Hypertension History of seizures Chronic anemia Chronic kidney disease Acute left conjunctivitis: Gentamicin eyedrops Date of Service: Mar 08, 2025 Billing Provider: MISBAH LIN MD Common Visit Codes: [id number] INP/OBS CARE(HIGH) MISBAH LIN MD Mar 08, 2025 08:24
[2025-03-08] MEDS ORDERED: PRED20TA2 PO (08:25)
--- NOTE | 2025-03-08 08:35 | MEDREC ---
[facility] ASP Intervention Section I [facility] ASP Intervention: Duplication of therapy (DUPLICATION OF THERAPY BOTH AZYTHROMYCIN AND LEVOFLOXACIN COVER FOR ATYPICAL ORGANISMS PLEASE CONSIDER D/C AZITHROMYCIN ) MARGO ALEX PHARMACIST Mar 08, 2025 08:35
[2025-03-08] MEDS: LINEZOLID 600MG/300ML 300 ML IV SCH (10:00)
--- NOTE | 2025-03-08 10:30 | DVHPN2 ---
Progress Note - Dictate Date Seen: Mar 08, 2025 Medical Necessity Reason Pt with a Central, PICC or Fol: Yes The following are medically ne: Servin Catheter Subjective ENDSTAGE COPD CO2 RETAINER SLEEP APNEA RECURRENT RESP FAILURE AMS SECONDARY TO CO2 RETENTION HYPOVENTILATION SYNDROME 2 SEPSIS RECURRENT UTI AND PNEUMONIA 3. RECURRENT CELLULITES OF LE NOW AGAIN WITH RESP FAILURE AND UTI WITH SEPSIS LEUKOCYTOSIS ACUTE RENAL FAILURE CKD III 4.PAH PT WAS ON ADEMPAS AND OPSUMIT HOWEVER BOTH DRUGS NO AVAILABLE AT THE HOSPITAL 4. COVID PNEUMONIA HX 5. DIABETES NEPHROPATHY NEUROPATHY VASCULOPATHY 6. SEIZURE 7. ANEMIA 8. GERD 9. OBESITY 10. HYPERKALEMIA 11. HEMATURIA KIDNEY STONE OBSTRUCTIVE RENAL CYSTS vital signs Vital Sign Date Time Temp Pulse Resp B/P (MAP) Pulse Ox O2 Delivery O2 Flow Rate FiO2 03/08/25 09:55 126/67 03/08/25 09:00 97.4 73 20 96 97.4 03/08/25 07:46 Nasal Cannula 2.0 03/08/25 07:46 28 Total Intake and Output 03/07/25 03/07/25 03/08/25 15:00 23:00 07:00 Intake Total 250 ml 880 ml 150 ml Output Total 700 ml 700 ml Balance 250 ml 180 ml -550 ml medications Current Medications Medications Dose Ordered Sig/Zaida Route Start Time Stop Time Status Last Admin Dose Admin Furosemide 20 mg DAILY IV 03/04/25 10:00 03/08/25 09:55 20 MG Amiodarone HCl 200 mg Q12HR PO 03/04/25 10:00 03/08/25 09:55 200 MG Albuterol 2.5 mg Q6HPRN PRN NEB 03/04/25 04:45 03/06/25 03:34 2.5 MG Ipratropium Orange 0.5 mg Q6HPRN PRN NEB 03/04/25 04:45 03/06/25 03:34 0.5 MG Atorvastatin Calcium 10 mg HS PO 03/04/25 22:00 03/07/25 20:34 10 MG Apixaban 5 mg BID PO 03/04/25 10:00 03/08/25 09:55 5 MG Diagnostic Test (Pha) 1 strip ACHS 03/04/25 07:00 03/08/25 06:50 1 STRIP Insulin Human Regular ACHS SC 03/04/25 07:00 03/07/25 11:33 2 UNITS Dextrose 50 ml UD PRN IV 03/04/25 04:45 Acetaminophen/ Hydrocodone Bitart 1 tab Q4HP PRN PO 03/04/25 04:45 03/07/25 11:41 1 TAB Ondansetron HCl 4 mg Q4HP PRN IV 03/04/25 04:45 Acetaminophen 650 mg Q6HP PRN PO 03/04/25 04:45 Nitroglycerin 0.4 mg Q5MINP PRN SL 03/04/25 04:45 Morphine Sulfate 2 mg Q30M PRN IV 03/04/25 04:45 Azithromycin 250 ml @ 125 mls/hr DAILY IV 03/05/25 10:00 03/08/25 09:55 125 MLS/HR Gabapentin 300 mg TID PO 03/06/25 02:00 03/08/25 06:47 300 MG Levofloxacin 50 ml @ 50 mls/hr DAILY IV 03/08/25 10:00 03/08/25 09:56 50 MLS/HR Linezolid 300 ml @ 150 mls/hr Q12HR IV 03/08/25 10:00 objective HEENT SCLERA ANICTERIC NO JVD CAROTIDS WNL MUCUS MEMB DRY PUL RALES CV RR ABD SUPRAPUBIC TENDERNESS NEURO CONFUSES SKIN DRY EXT 2+ EDEMA laboratory and microbiology Laboratory Tests 03/06/25 08:23 Test 03/06/25 08:23 Range/Units Serum Glucose 109 H 74-106 mg/dL Problem List ENDSTAGE COPD CO2 RETAINER SLEEP APNEA RECURRENT RESP FAILURE HYPOVENTILATION SYNDROME AMS SECONDARY TO CO2 RETENTION 2 SEPSIS RECURRENT UTI AND PNEUMONIA 3. RECURRENT CELLULITES OF LE NOW AGAIN WITH RESP FAILURE AND UTI WITH SEPSIS LEUKOCYTOSIS ACUTE RENAL FAILURE CKD III 4.PAH PT WAS ON ADEMPAS AND OPSUMIT HOWEVER BOTH DRUGS NO AVAILABLE AT THE HOSPITAL 4. COVID PNEUMONIA HX 5. DIABETES NEPHROPATHY NEUROPATHY VASCULOPATHY 6. SEIZURE 7. ANEMIA 8. GERD 9. OBESITY 10. HYPERKALEMIA 11. HEMATURIA KIDNEY STONE OBSTRUCTIVE RENAL CYSTS Assessment/Plan DECREASE O2 ABX INHALER THERAPY 24/7 BIPAP PT IS A CO2 RETAINER NEED 24/7 BIPAP FOR NOW Dietary Evaluation Review Comments: Nutrition Recommendation: 1) Jamaal 1 pk BID, MVI w/ minerals 1 tab daily, VitC 500mg BID, Zinc sulfate 220mg BID x 10 days 2) CCHO 60gm + cardiac diet 3) Monitor PO intake, lab values, weight trend, and I/O Expected Outcomes/Goals: Wound to improve FU 3-5 days Plan discussed with: Patient Critical Care Time(min): 35 AVTAR MCKNIGHT MD Mar 08, 2025 10:30
--- NOTE | 2025-03-08 22:12 | DVHPN2 ---
[facility] DOS: 03/08/2025 Patient seen and examined at bedside. Remains on supplemental oxygen Overnight events reviewed. Reviewed: Care Plan, H&P, Labs, Medications, Previous Orders, Radiology Changes from previous H/P or p: No Changes Objective Vitals Vital Signs Date Time Temp Pulse Resp B/P (MAP) Pulse Ox O2 Delivery O2 Flow Rate FiO2 03/08/25 21:00 98.0 79 18 113/49 (70) 96 98.0 03/08/25 20:02 Nasal Cannula* 2 28 Intake/Output Intake and Output 03/08/25 07:00 Intake Total 1280 ml Output Total 1400 ml Balance -120 ml Intake Oral 930 ml IV Total 350 ml Output Urine Total 1400 ml Exam Gen.: Patient lying in bed in no apparent distress. On supplemental oxygen. Head: Normocephalic, atraumatic. Eyes: EOMI/PERRLA. Ears: Normal hearing. Normal anatomy. Neck/trachea: Trachea midline, supple. Nose: Normal external anatomy. Mouth: Moist mucous membranes. Chest: Decreased air entry bilaterally. No wheezing or rhonchi. Cardiovascular: Positive S1, positive S2. Regular rate and rhythm. Abdomen: Positive bowel sounds in all 4 quadrants. Soft, non-tender, non- distended. : Deferred. Rectal: Deferred. Skin: Warm, dry. Intact. Extremities: 2+ radial pulses bilaterally. No lower extremity edema. Neuro: Awake, alert, oriented x3. No gross motor or sensory deficits. Cranial nerves II through XII intact. Gait not assessed. Medications Current Medications Medications Dose Ordered Sig/Zaida Route Start Time Stop Time Status Last Admin Dose Admin Furosemide 20 mg DAILY IV 03/04/25 10:00 03/08/25 09:55 20 MG Amiodarone HCl 200 mg Q12HR PO 03/04/25 10:00 03/08/25 21:16 200 MG Albuterol 2.5 mg Q6HPRN PRN NEB 03/04/25 04:45 03/06/25 03:34 2.5 MG Ipratropium [place] 0.5 mg Q6HPRN PRN NEB 03/04/25 04:45 03/06/25 03:34 0.5 MG Atorvastatin Calcium 10 mg HS PO 03/04/25 22:00 03/08/25 21:16 10 MG Apixaban 5 mg BID PO 03/04/25 10:00 03/08/25 21:16 5 MG Diagnostic Test (Pha) 1 strip ACHS 03/04/25 07:00 03/08/25 21:25 1 STRIP Insulin Human Regular ACHS SC 03/04/25 07:00 03/08/25 21:30 3 UNITS Dextrose 50 ml UD PRN IV 03/04/25 04:45 Acetaminophen/ Hydrocodone Bitart 1 tab Q4HP PRN PO 03/04/25 04:45 03/07/25 11:41 1 TAB Ondansetron HCl 4 mg Q4HP PRN IV 03/04/25 04:45 Acetaminophen 650 mg Q6HP PRN PO 03/04/25 04:45 Nitroglycerin 0.4 mg Q5MINP PRN SL 03/04/25 04:45 Morphine Sulfate 2 mg Q30M PRN IV 03/04/25 04:45 Azithromycin 250 ml @ 125 mls/hr DAILY IV 03/05/25 10:00 03/08/25 09:55 125 MLS/HR Gabapentin 300 mg TID PO 03/06/25 02:00 03/08/25 21:16 300 MG Levofloxacin 50 ml @ 50 mls/hr DAILY IV 03/08/25 10:00 03/08/25 09:56 50 MLS/HR Linezolid 300 ml @ 150 mls/hr Q12HR IV 03/08/25 10:00 03/08/25 21:17 150 MLS/HR Laboratory Results Laboratory Tests 03/06/25 08:23 Urinalysis Test 03/04/25 03:00 Urine Color Colorless (Yellow) Urine Clarity Turbid (Clear) H Urine pH 7.5 (5.0-9.0) Urine Specific [place] 1.014 (1.001-1.035) Urine Protein 2+ (Negative) H Urine Ketones Negative (Negative) Urine Blood 1+ /uL (Negative) H Urine Nitrite Negative (Negative) Urine Bilirubin Negative (Negative) Urine Urobilinogen Normal mg/dL (Negative) Urine Leukocyte Esterase 3+ /uL (Negative) Urine RBC 7 /hpf (0 - 4) Urine WBC Clumps Present /hpf (None Seen) Urine Microscopic WBC 87 /HPF (0-5) H Urine Squamous Epithelial Cells Few /hpf (<5) Urine Bacteria Mod /hpf (None Seen) H Urine Glucose Normal mg/dL (Normal) Microbiology Microbiology Date/Time Source Procedure Growth Status 03/05/25 07:25 Urine - [place] Urine Culture - Final Enterococcus faecalis - VRE Pseudomonas aeruginosa Klebsiella pneumoniae Complete 03/04/25 02:30 Blood Blood Culture - Preliminary NO GROWTH AFTER 72 HOURS OF INCUBATION. Resulted Assessment/Plan Assessment/Plan Impression: Acute hypoxic respiratory failure Acute on chronic hypercarbic respiratory failure Dependence on supplemental oxygen Acute COPD exacerbation Metabolic encephalopathy Urinary tract infection Congestive heart failure Chronic kidney disease Anemia Pulmonary hypertension, mild; RVSP of 38 mmHg Obesity Events: Remains on supplemental oxygen, 2 LPM NC Taper O2 as tolerated BiPAP at nighttime 10 PM - 6 AM. Patient has CPAP at home. Adherence recommended. Continue bronchodilators. Continue steroids Continue antibiotics, Levaquin Incentive spirometry Continue Eliquis, Amiodarone PO. Tolerating diet. Continue Lasix to maintain euvolemia Monitor renal function. Monitor electrolytes. Supplement as necessary. Monitor ins and outs Patient is stable for discharge from the pulmonary standpoint. Disposition per hospitalist. Follow up in 2-3 weeks in Pulmonary Clinic. Labs and imaging reviewed. Rest of plan as noted below. Plan: Supplemental oxygen Titrate to keep O2 sats between 88-94%. BiPAP PRN, uses at nighttime for likely VILMA Chest x-ray shows mild pulmonary vascular congestion. Echo done 12/2024 reviewed, notable for RVSP of 38 mmHg, LVEF >55%. On Eliquis BID. Continue bronchodilators. Continue steroids Continue antibiotics Follow up cultures Follow up Cardiology recommendations Follow up Nephrology recommendations Diurese with Lasix to maintain euvolemia Monitor renal function. Monitor electrolytes. Supplement as necessary. Monitor ins and outs. Monitor hemoglobin Transfuse if less than 7.0 g/dL. Recommend diet and lifestyle modifications for weight reduction Obesity complicates all care DVT prophylaxis. Prognosis: Poor given patient's multiple co-morbidities. Rest of plan per hospitalist and other consultants. Thank you, Dr. Harman, for allowing me to participate in this patient's care. Further recommendations will depend on the patient's clinical course. Please do not hesitate to contact me if you have any questions or concerns. This medical document was created using an electronic medical record system with [employer] dictation system. Although these documentations are being carefully reviewed, there may still be some phonetic and typographical changes. The errors are purely typographical, due to imperfection on the software program, and do not reflect any compromise in the patient's medical care. Plan discussed with: Patient, Other (JOHNNY Cruz) Visit Coding Pulmonary Billing Provider: MOR CHERRY MD Date of Service if different f: Mar 08, 2025 Common Visit Codes: [id number] INP/OBS CARE(HIGH) MOR CHERRY MD Mar 08, 2025 22:12
[2025-03-09] VITALS (11 sets, daily range): BP systolic 96–129; BP diastolic 50–65; PULSE 67–81; RESP 18–19; TEMP 97.6–97.8; O2SAT 94–99
--- NOTE | 2025-03-09 08:28 | DVHPN2 ---
Reviewed: Care Plan, H&P, Labs, Medications, Previous Orders, Radiology Changes from previous H/P or p: No Changes Objective Vitals Vital Signs Date Time Temp Pulse Resp B/P (MAP) Pulse Ox O2 Delivery O2 Flow Rate FiO2 03/09/25 06:44 95 Nasal Cannula* 2 28 03/09/25 05:00 97.6 68 19 120/65 (83) 97.6 Intake/Output Intake and Output 03/09/25 07:00 Intake Total 2100 ml Output Total 750 ml Balance 1350 ml Intake Oral 1200 ml IV Total 900 ml Output Urine Total 750 ml Medications Current Medications Medications Dose Ordered Sig/Zaida Route Start Time Stop Time Status Last Admin Dose Admin Furosemide 20 mg DAILY IV 03/04/25 10:00 03/08/25 09:55 20 MG Amiodarone HCl 200 mg Q12HR PO 03/04/25 10:00 03/08/25 21:16 200 MG Albuterol 2.5 mg Q6HPRN PRN NEB 03/04/25 04:45 03/09/25 06:27 2.5 MG Ipratropium [place] 0.5 mg Q6HPRN PRN NEB 03/04/25 04:45 03/09/25 06:27 0.5 MG Atorvastatin Calcium 10 mg HS PO 03/04/25 22:00 03/08/25 21:16 10 MG Apixaban 5 mg BID PO 03/04/25 10:00 03/08/25 21:16 5 MG Diagnostic Test (Pha) 1 strip ACHS 03/04/25 07:00 03/09/25 06:33 1 STRIP Insulin Human Regular ACHS SC 03/04/25 07:00 03/08/25 21:30 3 UNITS Dextrose 50 ml UD PRN IV 03/04/25 04:45 Acetaminophen/ Hydrocodone Bitart 1 tab Q4HP PRN PO 03/04/25 04:45 03/07/25 11:41 1 TAB Ondansetron HCl 4 mg Q4HP PRN IV 03/04/25 04:45 Acetaminophen 650 mg Q6HP PRN PO 03/04/25 04:45 Nitroglycerin 0.4 mg Q5MINP PRN SL 03/04/25 04:45 Morphine Sulfate 2 mg Q30M PRN IV 03/04/25 04:45 Azithromycin 250 ml @ 125 mls/hr DAILY IV 03/05/25 10:00 03/08/25 09:55 125 MLS/HR Gabapentin 300 mg TID PO 03/06/25 02:00 03/09/25 06:30 300 MG Levofloxacin 50 ml @ 50 mls/hr DAILY IV 03/08/25 10:00 03/08/25 09:56 50 MLS/HR Linezolid 300 ml @ 150 mls/hr Q12HR IV 03/08/25 10:00 03/08/25 21:17 150 MLS/HR Laboratory Results Laboratory Tests 03/06/25 08:23 Urinalysis Test 03/04/25 03:00 Urine Color Colorless (Yellow) Urine Clarity Turbid (Clear) H Urine pH 7.5 (5.0-9.0) Urine Specific [place] 1.014 (1.001-1.035) Urine Protein 2+ (Negative) H Urine Ketones Negative (Negative) Urine Blood 1+ /uL (Negative) H Urine Nitrite Negative (Negative) Urine Bilirubin Negative (Negative) Urine Urobilinogen Normal mg/dL (Negative) Urine Leukocyte Esterase 3+ /uL (Negative) Urine RBC 7 /hpf (0 - 4) Urine WBC Clumps Present /hpf (None Seen) Urine Microscopic WBC 87 /HPF (0-5) H Urine Squamous Epithelial Cells Few /hpf (<5) Urine Bacteria Mod /hpf (None Seen) H Urine Glucose Normal mg/dL (Normal) Microbiology Microbiology Date/Time Source Procedure Growth Status 03/05/25 07:25 Urine - Servin Port Urine Culture - Final Enterococcus faecalis - VRE Pseudomonas aeruginosa Klebsiella pneumoniae Complete 03/04/25 02:30 Blood Blood Culture - Final NO GROWTH AFTER 5 DAYS OF INCUBATION. Complete Labs and/or images reviewed: Labs reviewed by me, Image(s) reviewed by me Assessment/Plan Assessment/Plan Sepsis secondary to acute urinary tract infection: Blood cultures negative, urine cultures growing Pseudomonas and Klebsiella DC Rocephin, start Levaquin 500 mg IV daily; also growing VRE Enterococcus faecalis, start Zyvox 600 mg IV q.12h Acute hypercarbic respiratory failure: BiPAP, consult for Dr. Talbot appreciated. Patient currently on 2 L of oxygen by nasal cannula Acute community-acquired pneumonia Gram-positive versus Gram-negative: Rocephin azithromycin albuterol Atrovent Solu-Medrol Acute COPD exacerbation Acute metabolic encephalopathy Obesity hypoventilation syndrome Altered Mental status secondary to CO2 retention Acute systolic versus diastolic congestive heart failure CHF, consult by manager progressive care Dr. Negron appreciated Diabetes mellitus insulin sliding scale Diabetic nephropathy neuropathy vasculopathy Hypertension History of seizures Chronic anemia Chronic kidney disease Acute left conjunctivitis: Gentamicin eyedrops Time spent 50 minutes Advanced care planning time 20 minutes Patient is full code Patient requesting to be discharged home today on home health; to resume [facility] home health Prescription for Levaquin Zyvox sent to the pharmacy Patient discharged home on home health on 03/08/2025, social service assistant waiting for acceptance by [facility] Plan discussed with: Patient Date of Service: Mar 09, 2025 Billing Provider: MISBAH ROWE MD Common Visit Codes: [id number] INP/OBS CARE(HIGH) MISBAH ROWE MD Mar 09, 2025 08:28
--- NOTE | 2025-03-09 17:02 | DVHPN2 ---
Progress Note - Dictate Date Seen: Mar 09, 2025 Medical Necessity Reason Pt with a Central, PICC or Fol: Yes The following are medically ne: Servin Catheter Subjective ENDSTAGE COPD CO2 RETAINER SLEEP APNEA RECURRENT RESP FAILURE AMS SECONDARY TO CO2 RETENTION HYPOVENTILATION SYNDROME 2 SEPSIS RECURRENT UTI AND PNEUMONIA 3. RECURRENT CELLULITES OF LE NOW AGAIN WITH RESP FAILURE AND UTI WITH SEPSIS LEUKOCYTOSIS ACUTE RENAL FAILURE CKD III 4.PAH PT WAS ON ADEMPAS AND OPSUMIT HOWEVER BOTH DRUGS NO AVAILABLE AT THE HOSPITAL 4. COVID PNEUMONIA HX 5. DIABETES NEPHROPATHY NEUROPATHY VASCULOPATHY 6. SEIZURE 7. ANEMIA 8. GERD 9. OBESITY 10. HYPERKALEMIA 11. HEMATURIA KIDNEY STONE OBSTRUCTIVE RENAL CYSTS vital signs Vital Sign Date Time Temp Pulse Resp B/P (MAP) Pulse Ox O2 Delivery O2 Flow Rate FiO2 03/09/25 13:04 97.8 68 18 129/59 (82) 98 97.8 03/09/25 10:00 Nasal Cannula* 2 28 Total Intake and Output 03/08/25 03/08/25 03/09/25 15:00 23:00 07:00 Intake Total 1000 ml 1100 ml Output Total 450 ml 300 ml Balance 550 ml 800 ml medications Current Medications Medications Dose Ordered Sig/Zaida Route Start Time Stop Time Status Last Admin Dose Admin Furosemide 20 mg DAILY IV 03/04/25 10:00 03/09/25 10:36 20 MG Amiodarone HCl 200 mg Q12HR PO 03/04/25 10:00 03/09/25 10:37 200 MG Albuterol 2.5 mg Q6HPRN PRN NEB 03/04/25 04:45 03/09/25 06:27 2.5 MG Ipratropium [place] 0.5 mg Q6HPRN PRN NEB 03/04/25 04:45 03/09/25 06:27 0.5 MG Atorvastatin Calcium 10 mg HS PO 03/04/25 22:00 03/08/25 21:16 10 MG Apixaban 5 mg BID PO 03/04/25 10:00 03/09/25 10:37 5 MG Diagnostic Test (Pha) 1 strip ACHS 03/04/25 07:00 03/09/25 11:41 1 STRIP Insulin Human Regular ACHS SC 03/04/25 07:00 03/08/25 21:30 3 UNITS Dextrose 50 ml UD PRN IV 03/04/25 04:45 Acetaminophen/ Hydrocodone Bitart 1 tab Q4HP PRN PO 03/04/25 04:45 03/07/25 11:41 1 TAB Ondansetron HCl 4 mg Q4HP PRN IV 03/04/25 04:45 Acetaminophen 650 mg Q6HP PRN PO 03/04/25 04:45 Nitroglycerin 0.4 mg Q5MINP PRN SL 03/04/25 04:45 Morphine Sulfate 2 mg Q30M PRN IV 03/04/25 04:45 Azithromycin 250 ml @ 125 mls/hr DAILY IV 03/05/25 10:00 03/09/25 10:36 125 MLS/HR Gabapentin 300 mg TID PO 03/06/25 02:00 03/09/25 14:20 300 MG Levofloxacin 50 ml @ 50 mls/hr DAILY IV 03/08/25 10:00 03/09/25 14:05 50 MLS/HR Linezolid 300 ml @ 150 mls/hr Q12HR IV 03/08/25 10:00 03/09/25 10:52 150 MLS/HR objective HEENT SCLERA ANICTERIC NO JVD CAROTIDS WNL MUCUS MEMB DRY PUL RALES CV RR ABD SUPRAPUBIC TENDERNESS NEURO CONFUSES SKIN DRY EXT 2+ EDEMA laboratory and microbiology Laboratory Tests 03/06/25 08:23 Test 03/06/25 08:23 Range/Units Serum Glucose 109 H 74-106 mg/dL Problem List ENDSTAGE COPD CO2 RETAINER SLEEP APNEA RECURRENT RESP FAILURE HYPOVENTILATION SYNDROME AMS SECONDARY TO CO2 RETENTION 2 SEPSIS RECURRENT UTI AND PNEUMONIA 3. RECURRENT CELLULITES OF LE NOW AGAIN WITH RESP FAILURE AND UTI WITH SEPSIS LEUKOCYTOSIS ACUTE RENAL FAILURE CKD III 4.PAH PT WAS ON ADEMPAS AND OPSUMIT HOWEVER BOTH DRUGS NO AVAILABLE AT THE HOSPITAL 4. COVID PNEUMONIA HX 5. DIABETES NEPHROPATHY NEUROPATHY VASCULOPATHY 6. SEIZURE 7. ANEMIA 8. GERD 9. OBESITY 10. HYPERKALEMIA 11. HEMATURIA KIDNEY STONE OBSTRUCTIVE RENAL CYSTS Assessment/Plan DECREASE O2 ABX INHALER THERAPY 24/7 BIPAP PT IS A CO2 RETAINER NEED 24/7 BIPAP FOR NOW Dietary Evaluation Review Comments: Nutrition Recommendation: 1) Jamaal 1 pk BID, MVI w/ minerals 1 tab daily, VitC 500mg BID, Zinc sulfate 220mg BID x 10 days 2) CCHO 60gm + cardiac diet 3) Monitor PO intake, lab values, weight trend, and I/O Expected Outcomes/Goals: Wound to improve FU 3-5 days Plan discussed with: Patient AVTAR MCKNIGHT MD Mar 09, 2025 17:02
--- NOTE | 2025-03-09 23:33 | DVHPN2 ---
[facility] DOS: 03/09/2025 Patient seen and examined at bedside. Remains on supplemental oxygen Overnight events reviewed. Reviewed: Care Plan, H&P, Labs, Medications, Previous Orders, Radiology Changes from previous H/P or p: No Changes Objective Vitals Vital Signs Date Time Temp Pulse Resp B/P (MAP) Pulse Ox O2 Delivery O2 Flow Rate FiO2 03/09/25 13:04 97.8 68 18 129/59 (82) 98 97.8 03/09/25 10:00 Nasal Cannula* 2 28 Intake/Output Intake and Output 03/09/25 07:00 Intake Total 2100 ml Output Total 750 ml Balance 1350 ml Intake Oral 1200 ml IV Total 900 ml Output Urine Total 750 ml Exam Gen.: Patient lying in bed in no apparent distress. On supplemental oxygen. Head: Normocephalic, atraumatic. Eyes: EOMI/PERRLA. Ears: Normal hearing. Normal anatomy. Neck/trachea: Trachea midline, supple. Nose: Normal external anatomy. Mouth: Moist mucous membranes. Chest: Decreased air entry bilaterally. No wheezing or rhonchi. Cardiovascular: Positive S1, positive S2. Regular rate and rhythm. Abdomen: Positive bowel sounds in all 4 quadrants. Soft, non-tender, non- distended. : Deferred. Rectal: Deferred. Skin: Warm, dry. Intact. Extremities: 2+ radial pulses bilaterally. No lower extremity edema. Neuro: Awake, alert, oriented x3. No gross motor or sensory deficits. Cranial nerves II through XII intact. Gait not assessed. Laboratory Results Laboratory Tests 03/06/25 08:23 Urinalysis Test 03/04/25 03:00 Urine Color Colorless (Yellow) Urine Clarity Turbid (Clear) H Urine pH 7.5 (5.0-9.0) Urine Specific [place] 1.014 (1.001-1.035) Urine Protein 2+ (Negative) H Urine Ketones Negative (Negative) Urine Blood 1+ /uL (Negative) H Urine Nitrite Negative (Negative) Urine Bilirubin Negative (Negative) Urine Urobilinogen Normal mg/dL (Negative) Urine Leukocyte Esterase 3+ /uL (Negative) Urine RBC 7 /hpf (0 - 4) Urine WBC Clumps Present /hpf (None Seen) Urine Microscopic WBC 87 /HPF (0-5) H Urine Squamous Epithelial Cells Few /hpf (<5) Urine Bacteria Mod /hpf (None Seen) H Urine Glucose Normal mg/dL (Normal) Microbiology Microbiology Date/Time Source Procedure Growth Status 03/05/25 07:25 Urine - Servin Port Urine Culture - Final Enterococcus faecalis - VRE Pseudomonas aeruginosa Klebsiella pneumoniae Complete 03/04/25 02:30 Blood Blood Culture - Final NO GROWTH AFTER 5 DAYS OF INCUBATION. Complete Assessment/Plan Assessment/Plan Impression: Acute hypoxic respiratory failure Acute on chronic hypercarbic respiratory failure Dependence on supplemental oxygen Acute COPD exacerbation Metabolic encephalopathy Urinary tract infection Congestive heart failure Chronic kidney disease Anemia Pulmonary hypertension, mild; RVSP of 38 mmHg Obesity Events: Remains on supplemental oxygen, 2 LPM NC Taper O2 as tolerated BiPAP at nighttime 10 PM - 6 AM. Patient has CPAP at home. Adherence recommended. Continue bronchodilators. Continue steroids Continue antibiotics, Levaquin Incentive spirometry Continue Eliquis, Amiodarone PO. Tolerating diet. Continue Lasix to maintain euvolemia Monitor renal function. Monitor electrolytes. Supplement as necessary. Monitor ins and outs Patient is stable for discharge from the pulmonary standpoint. Disposition per hospitalist. Follow up in 2-3 weeks in Pulmonary Clinic. Labs and imaging reviewed. Rest of plan as noted below. Plan: Supplemental oxygen Titrate to keep O2 sats between 88-94%. BiPAP PRN, uses at nighttime for likely VILMA Chest x-ray shows mild pulmonary vascular congestion. Echo done 12/2024 reviewed, notable for RVSP of 38 mmHg, LVEF >55%. On Eliquis BID. Continue bronchodilators. Continue steroids Continue antibiotics Follow up cultures Follow up Cardiology recommendations Follow up Nephrology recommendations Diurese with Lasix to maintain euvolemia Monitor renal function. Monitor electrolytes. Supplement as necessary. Monitor ins and outs. Monitor hemoglobin Transfuse if less than 7.0 g/dL. Recommend diet and lifestyle modifications for weight reduction Obesity complicates all care DVT prophylaxis. Prognosis: Poor given patient's multiple co-morbidities. Rest of plan per hospitalist and other consultants. Thank you, Dr. Harman, for allowing me to participate in this patient's care. Further recommendations will depend on the patient's clinical course. Please do not hesitate to contact me if you have any questions or concerns. This medical document was created using an electronic medical record system with [employer] dictation system. Although these documentations are being carefully reviewed, there may still be some phonetic and typographical changes. The errors are purely typographical, due to imperfection on the software program, and do not reflect any compromise in the patient's medical care. Plan discussed with: Patient, Other (RN) Visit Coding Pulmonary Billing Provider: MOR CHERRY MD Date of Service if different f: Mar 09, 2025 Common Visit Codes: [id number] INP/OBS CARE(HIGH) MOR CHERRY MD Mar 09, 2025 23:33
== END 2025-03-09 16:45 | disposition home health service (06) | DRG 871 ==
LOC: ER 01:51 → EDBD 01:51 → OVERFLOW 04:38 → TELE-WESTW 03-06 12:39 → TELE-CENTR 03-07 20:56
PROVIDERS: ADMIT Family Medicine; ATTEND Family Medicine
PROC: 5A09357 Assistance with Respiratory Ventilation, Less than 24 Consecutive Hours, Continuous Positive Airway Pressure (ICD-10-PCS; principal; 2025-03-04)
PROC: 5A09357 Assistance with Respiratory Ventilation, Less than 24 Consecutive Hours, Continuous Positive Airway Pressure (ICD-10-PCS; 2025-03-06)
PROC: 5A09357 Assistance with Respiratory Ventilation, Less than 24 Consecutive Hours, Continuous Positive Airway Pressure (ICD-10-PCS; 2025-03-07)
PROC: 05HA33Z Insertion of Infusion Device into Left Brachial Vein, Percutaneous Approach (ICD-10-PCS; 2025-03-07)
PROC: B54NZZA Ultrasonography of Left Upper Extremity Veins, Guidance (ICD-10-PCS; 2025-03-07)
PROC: 5A09357 Assistance with Respiratory Ventilation, Less than 24 Consecutive Hours, Continuous Positive Airway Pressure (ICD-10-PCS; 2025-03-09)
DX: A41.52 Sepsis due to Pseudomonas (principal); G93.41 Metabolic encephalopathy; J96.21 Acute and chronic respiratory failure with hypoxia; J96.22 Acute and chronic respiratory failure with hypercapnia; J15.69 Pneumonia due to other Gram-negative bacteria; J15.9 Unspecified bacterial pneumonia; I50.41 Acute combined systolic (congestive) and diastolic (congestive) heart failure; J44.0 Chronic obstructive pulmonary disease with (acute) lower respiratory infection; N39.0 Urinary tract infection, site not specified; N17.9 Acute kidney failure, unspecified; H10.32 Unspecified acute conjunctivitis, left eye; Z79.01 Long term (current) use of anticoagulants; I13.0 Hypertensive heart and chronic kidney disease with heart failure and stage 1 through stage 4 chronic kidney disease, or unspecified chronic kidney disease; E66.2 Morbid (severe) obesity with alveolar hypoventilation; I27.20 Pulmonary hypertension, unspecified; D64.9 Anemia, unspecified; E11.22 Type 2 diabetes mellitus with diabetic chronic kidney disease; G40.909 Epilepsy, unspecified, not intractable, without status epilepticus; N18.30 Chronic kidney disease, stage 3 unspecified; J44.1 Chronic obstructive pulmonary disease with (acute) exacerbation; E87.29 Other acidosis; E11.40 Type 2 diabetes mellitus with diabetic neuropathy, unspecified; E87.5 Hyperkalemia; K21.9 Gastro-esophageal reflux disease without esophagitis; Z86.73 Personal history of transient ischemic attack (TIA), and cerebral infarction without residual deficits; Z74.01 Bed confinement status; Z79.2 Long term (current) use of antibiotics; Z79.4 Long term (current) use of insulin; Z90.710 Acquired absence of both cervix and uterus; Z98.891 History of uterine scar from previous surgery; Z90.49 Acquired absence of other specified parts of digestive tract; Z83.3 Family history of diabetes mellitus; Z82.3 Family history of stroke; Z82.0 Family history of epilepsy and other diseases of the nervous system; Z99.81 Dependence on supplemental oxygen; Z68.32 Body mass index [BMI] 32.0-32.9, adult
CPT/HCPCS: 36415; 36600; 70450; 71045; 80048; 80053; 81001; 82140; 82805; 82962; 83605; 83735; 83880; 84484; 85025; 85610; 85730; 87040; 87086; 87088; 87186; 93005; 94640; 94660; 96365; 96372; 96375; 99291; G0378; J1815; J1956